=== PATIENT | female | born 1950 | race Caucasian/White ===

== ENCOUNTER 2016-09-17 11:39 | Observation (INO) ==
[2016-09-17] MEDS ORDERED: Ipratropium/Albuterol Neb 3 ML IH ONE (12:07)
[2016-09-17] MEDS ORDERED: methylPREDNISolone 125 MG/2 ML VIAL IV ONE (12:07)
--- NOTE | 2016-09-17 12:10 | Emergency Department Note ---
Disposition Clinical Impression: Congestive heart failure, Acute exacerbation of chronic obstructive airways disease, Hypoxia Disposition: Admitted As Inpatient Condition: Fair Referrals: Shayy Morse CNP [Primary Care Provider] - Forms: ED Satisfaction Letter Time of Disposition: 12:51 SOB HPI - General Chief Complaint: ED Shortness of Breath/Dyspnea Stated Complaint: JARET Time Seen by Provider: 09/17/16 12:04 Source: patient Mode of arrival: ambulatory Limitations: no limitations Nursing Notes Reviewed: Yes Vital Signs Reviewed: Yes - History of Present Illness This is a 65-year-old female who presents with increased shortness of breath over the last couple weeks getting worse. Patient has had a low pulse oximetry when she first arrived. Patient's family member states she has been a little more confused and she thinks it is because her oxygen levels are dropping. Patient has a history of COPD and CHF. Patient normally wears 2 L of oxygen at home but has been increasing it to 4 L. Patient has had a mild cough. Patient denies any measured fevers. Patient states her chest feels tight. Pt Subjective Complaint: shortness of breath Onset (ago): week(s) (2) - Related Data Home Medications Medication Instructions Recorded Confirmed Albuterol Sulfate [Proair 90 mcg IH QID 09/05/15 09/17/16 Respiclick] Budesonide/Formoterol 160/4.5 1 puff IH DAILY 09/05/15 09/17/16 [Symbicort 160/4.5] Butalb/Acetaminophen/Caffeine 1 each PO BID PRN 09/05/15 09/17/16 [Fioricet 50-300-40 mg Capsule] Cetirizine HCl [Zyrtec] 20 mg PO QPM 09/05/15 09/17/16 GuaiFENesin ER [Mucinex] 600 mg PO BID 09/05/15 09/17/16 Omeprazole [PriLOSEC] 20 mg PO DAILY 09/05/15 09/17/16 Primidone [Mysoline] 50 mg PO HS 09/05/15 09/17/16 Roflumilast [Daliresp] 500 mcg PO DAILY 09/05/15 09/17/16 Tiotropium [Spiriva] 18 mcg IH 0700 09/05/15 09/17/16 TraZODone 100 mg PO HS 09/05/15 09/17/16 Albuterol Neb [Proventil Neb] 2.5 mg IH QID PRN 11/21/15 09/17/16 Cyclobenzaprine [Flexeril] 10 mg PO BID 03/05/16 09/17/16 LORazepam [Ativan] 0.5 mg PO Q12H 03/05/16 09/17/16 Nac 600 mg PO Q12H 03/05/16 09/17/16 Oxygen 2 - 3 l PO DAILY 03/05/16 09/17/16 Paroxetine [Paxil] 20 mg PO DAILY 06/19/16 09/17/16 Previous Rx's Medication Instructions Recorded Alprazolam [Xanax 0.5 MG Tablet] 0.5 mg PO TID PRN #45 tablet 01/01/16 PredniSONE [Prednisone] 10 mg PO DAILY #0 01/01/16 Megestrol Acetate [Megace] 800 mg PO DAILY #600 mls 06/19/16 PredniSONE 20 mg PO DAILY #15 tablet 09/17/16 Allergies Allergy/AdvReac Type Severity Reaction Status Date / Time morphine AdvReac Itching Verified 09/17/16 13:00 All systems ED: reviewed and negative except as stated. Constitutional: Denies: fever, chills, weakness, weight change Eyes: Denies: eye pain, eye discharge, vision change ENT ED: Denies: ear pain, throat pain, dental pain, hearing loss, epistaxis, congestion, dysphagia Cardiovascular: Reports: chest pain. Denies: palpitations, dyspnea on exertion , edema, syncope Respiratory: Reports: cough, dyspnea, wheezes. Denies: hemoptysis, stridor Gastrointestinal: Denies: abdominal pain, nausea, vomiting, diarrhea, constipation, hematemesis, melena, hematochezia Genitourinary: Denies: dysuria, frequency, hematuria, discharge Musculoskeletal: Denies: back pain, neck pain, arthralgia, myalgia Integumentary: Denies: rash, abrasion, lesions Neurological: Reports: confusion. Denies: headache, weakness, numbness, paresthesias, abnormal gait, vertigo Psychiatric: Denies: anxiety, depression, suicidal thoughts, homicidal thoughts , auditory hallucinations, visual hallucinations Endocrine: Denies: fatigue Hematological/Lymphatic: Denies: easy bleeding, easy bruising Allergic/Immunologic: Denies: facial swelling, urticaria Past Medical History - Past Medical History Attestation: Yes The following information was validated with the patient. Source: patient Medical history: Reports: arthritis, cancer, CHF, COPD, DVT, GERD, other Surgical history: Reports: appendectomy, hysterectomy Psychiatric history: Reports: anxiety, depression - Social History Smoking Status: Current every day smoker Smokeless Tobacco Status: No Alcohol use: Reports: none Drug use: Reports: none Physical Exam - General Limitations: no limitations General appearance: alert, in no apparent distress - Head Head exam: atraumatic, normocephalic, normal inspection - Eye Eye exam: Present: normal appearance, PERRL, EOMI - ENT ENT exam: normal exam, normal oropharynx, mucous membranes moist - Expanded ENT Exam External ear exam: Present: normal external inspection Mouth exam: Present: normal external inspection Teeth exam: Present: normal inspection Throat exam: Present: normal inspection - Neck Neck exam: Present: normal inspection, full ROM, trachea midline - Chest Chest inspection: Present: normal inspection, symmetric chest wall rise - Respiratory Respiratory exam: Present: wheezes, other (rhonchi) - Cardiovascular Cardiovascular exam: Present: normal rhythm, tachycardia, normal heart sounds - Abdominal Exam Abdominal exam: Present: soft, Non-Tender. Absent: tenderness, distention, guarding, rebound, rigidity - Extremities Exam Extremities exam: Present: normal inspection, full ROM. Absent: tenderness, pedal edema - Expanded Upper Extremity Exam Shoulder exam: Present: normal inspection, full ROM Arm exam: Present: normal inspection, full ROM Elbow exam: Present: normal inspection, full ROM Forearm/Wrist exam: Present: normal inspection, full ROM Hand exam: Present: normal inspection, full ROM Vascular exam: Normal: capillary refill, radial pulse - Expanded Lower Extremity Exam Hip/Pelvis exam: Present: normal inspection, full ROM Upper leg exam: Present: normal inspection, full ROM Knee exam: Present: normal inspection, full ROM Lower leg exam: Present: normal inspection, full ROM Ankle exam: Present: normal inspection, full ROM Foot/toe exam: Present: normal inspection, full ROM Neurovascular/Tendon exam: Absent: motor deficit, sensory deficit, tendon deficit - Back Exam Back exam: Present: normal inspection, full ROM. Absent: tenderness - Neurological Exam Neurological exam: Present: alert, oriented X3 - Expanded Neurological Exam Patient oriented to: Present: person, place, time Coma Scale Eye Opening: Spontaneous Coma Scale Motor Response: Obeys Commands Coma Scale Verbal Response: Oriented Coma Scale Total: 15 - Psychiatric Psychiatric exam: Present: normal affect, normal mood - Skin Skin exam: Present: warm, dry, intact, normal color Course - Consultations Consultation #1: I spoke with Dr. Coco munson to admit. Time: 13:01 Vital Signs Temperature 98.4 F 09/17/16 11:44 Pulse Rate 103 09/17/16 11:44 Respiratory Rate 20 09/17/16 11:44 Blood Pressure 155/83 09/17/16 11:44 O2 Sat by Pulse Oximetry 96 09/17/16 11:44 Temperature 98.4 F 09/17/16 11:44 Pulse Rate 100 09/17/16 12:33 Respiratory Rate 18 09/17/16 12:33 Blood Pressure 126/75 09/17/16 12:33 O2 Sat by Pulse Oximetry 100 09/17/16 12:33 Oxygen Delivery Oxygen Delivery Bipap Shortness of Breath/Dyspnea - Medical Records Medical records reviewed: Yes I reviewed the patient's medical records. - Lab Data Lab results reviewed: Yes I reviewed the patient's lab results. Result diagrams: 09/17/16 12:04 09/17/16 12:04 Lab Results 09/17/16 09/17/16 09/17/16 Range/Units 12:04 12:04 12:04 WBC 13.2 H (4.3-11.1) K/mcL RBC 4.33 (3.82-4.97) M/mcL Hgb 13.4 (11.5-15.4) g/dL Hct 41.6 (35.3-44.9) % MCV 96.1 (83.0-100.0) fL MCH 30.9 (28.0-33.3) pg MCHC 32.2 (31.6-35.5) g/dL RDW 12.1 (11.5-14.5) % Plt Count 225 (140-400) K/mcL MPV 10.8 (9.4-12.4) fL Immature Gran % 0.4 (0-4) % Seg Neutrophils % 77.4 % Lymphocytes % 13.0 % Monocytes % 8.2 % Eosinophils % 0.5 % Basophils % 0.5 % Neutrophils # 10.2 H (1.6-8.9) K/mcL Lymphocytes # 1.7 (0.6-4.6) K/mcL Monocytes # 1.1 (0.0-1.3) K/mcL Eosinophils # 0.1 (0.0-0.6) K/mcL Basophils # 0.1 (0.0-0.2) K/mcL PT 12.4 H (9.4-12.1) Seconds INR 1.1 APTT 32.0 (26.0-36.0) Seconds D-Dimer 524 H (0-500) ng/mLFEU Sodium 143 (136-145) mEq/L Potassium 3.8 (3.5-4.5) mEq/L Chloride 95 L (98-109) mEq/L Carbon Dioxide 38 H (19-29) mEq/L BUN 16 (7-20) mg/dL Creatinine 0.68 (0.57-1.11) mg/dL Est GFR ( Amer) > 60 (> 60) Est GFR (Non-Af Amer) > 60 (> 60) BUN/Creatinine Ratio 24 (6-26) Glucose 120 H (70-99) mg/dL Calculated Osmolality 298 (280-300) Calcium 9.6 (8.6-10.8) mg/dL Troponin I (0-0.03) ng/mL B-Natriuretic Peptide (0-100) pg/mL 09/17/16 09/17/16 Range/Units 12:04 12:04 WBC (4.3-11.1) K/mcL RBC (3.82-4.97) M/mcL Hgb (11.5-15.4) g/dL Hct (35.3-44.9) % MCV (83.0-100.0) fL MCH (28.0-33.3) pg MCHC (31.6-35.5) g/dL RDW (11.5-14.5) % Plt Count (140-400) K/mcL MPV (9.4-12.4) fL Immature Gran % (0-4) % Seg Neutrophils % % Lymphocytes % % Monocytes % % Eosinophils % % Basophils % % Neutrophils # (1.6-8.9) K/mcL Lymphocytes # (0.6-4.6) K/mcL Monocytes # (0.0-1.3) K/mcL Eosinophils # (0.0-0.6) K/mcL Basophils # (0.0-0.2) K/mcL PT (9.4-12.1) Seconds INR APTT (26.0-36.0) Seconds D-Dimer (0-500) ng/mLFEU Sodium (136-145) mEq/L Potassium (3.5-4.5) mEq/L Chloride (98-109) mEq/L Carbon Dioxide (19-29) mEq/L BUN (7-20) mg/dL Creatinine (0.57-1.11) mg/dL Est GFR ( Amer) (> 60) Est GFR (Non-Af Amer) (> 60) BUN/Creatinine Ratio (6-26) Glucose (70-99) mg/dL Calculated Osmolality (280-300) Calcium (8.6-10.8) mg/dL Troponin I 0.00 (0-0.03) ng/mL B-Natriuretic Peptide 14 (0-100) pg/mL - Radiology Data Radiology results reviewed: Yes I reviewed the patient's radiology results. - EKG Data EKG attestation: Yes I reviewed and interpreted this EKG. EKG shows normal: Reports: sinus rhythm Rate: Reports: normal Rhythm: Reports: NSR [place]/QRS: Reports: normal Interpretation: Reports: nonspecific ST-T wave changes, other (rough tracing)
[2016-09-17 12:12] LABS: Basophils # 0.1 K/mcL (0.0-0.2); Basophils % 0.5 %; Eosinophils # 0.1 K/mcL (0.0-0.6); Eosinophils % 0.5 %; Hematocrit 41.6 % (35.3-44.9); Hemoglobin 13.4 g/dL (11.5-15.4); Immature Granulocytes % 0.4 % (0-4); Lymphocytes # 1.7 K/mcL (0.6-4.6); Mean Corpuscular HGB Conc 32.2 g/dL (31.6-35.5); Mean Corpuscular Hemoglobin 30.9 pg (28.0-33.3); Mean Corpuscular Volume 96.1 fL (83.0-100.0); Mean Platelet Volume 10.8 fL (9.4-12.4); Monocytes # 1.1 K/mcL (0.0-1.3); Monocytes % 8.2 %; Neutrophils # 10.2 K/mcL (1.6-8.9); Platelet Count 225 K/mcL (140-400); Red Blood Count 4.33 M/mcL (3.82-4.97); Red Cell Distribution Width 12.1 % (11.5-14.5); Segmented Neutrophils % 77.4 %
[2016-09-17 12:19] LABS: INR 1.1; Prothrombin Time 12.4 Seconds (9.4-12.1)
[2016-09-17 12:25] LABS: BUN/Creatinine Ratio 24 (6-26); Blood Urea Nitrogen 16 mg/dL (7-20); Calcium 9.6 mg/dL (8.6-10.8); Carbon Dioxide 38 mEq/L (19-29); Chloride 95 mEq/L (98-109); Glucose 120 mg/dL (70-99); Osmolality,Calculated 298 (280-300); Potassium 3.8 mEq/L (3.5-4.5); Sodium 143 mEq/L (136-145); eGFR For African Americans > 60 (> 60); eGFR For Non-African Americans > 60 (> 60)
[2016-09-17] MEDS ORDERED: Levofloxacin 750 MG/150 ML 750 MG/150 ML BAG IVPB ONE (12:51)
[2016-09-17 13:23] LABS: VBG HCO3 46.8 mEq/L (21-27); VBG PH 7.27 pH Units (7.32-7.42)
[2016-09-17] MEDS ORDERED: Naloxone 0.4 MG/ML INJ IVP PRN (14:23)
[2016-09-17] MEDS ORDERED: Acetaminophen/Butalbital/CaffeineTABLET PO PRN (14:25)
[2016-09-17] MEDS ORDERED: NON-FORMULARY MEDICATION 1 EACH EACH (Trazodone Hcl [Trazodone Hcl] 200 MG) PO PRN (14:25)
[2016-09-17] MEDS ORDERED: ALPRAZolam 1 MG TABLET PO PRN (14:25)
[2016-09-17] MEDS ORDERED: Ipratropium/Albuterol Neb 3 ML IH PRN (14:27)
[2016-09-17] MEDS ORDERED: traZODone 50 MG TABLET PO PRN (14:30)
[2016-09-17] MEDS ORDERED: Nicotine 7 MG PATCH.TD24 TD PRN (14:59)
--- NOTE | 2016-09-17 15:20 | Internal Med History&Physical ---
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 Her sister/POA states the patient has a living will and she will bring the paper work to the hospital. (2) Lung mass Current visit: Yes Status: Acute -s/p radiation therapy in November 2015 -Patient had a follow up with Rad/Oncologist Dr. Johnston today and reports of no progression of disease (3) Congestive heart failure Current visit: Yes Status: Acute -Not in acute exacerbation -will continue to monitor -Not on any home medications consistent with CHF, no echo report available either -will obtain 2D echo Qualifiers: Congestive heart failure type: unspecified congestive heart failure type Congestive heart failure chronicity: unspecified congestive heart failure chronicity Qualified Code(s): I50.9 - Heart failure, unspecified (4) Cigarette smoker Current visit: Yes Status: Acute -Extensive smoking cessation counseling provided -states she is trying to quit but not ready at this time -nicotine replacement therapy provided (5) DVT prophylaxis Current visit: Yes Status: Acute -Heparin SQ Internal Medicine - H&P: HPI Chief complaint: shortness of breath Admitted From: Home Plans for Post Hospital Care: Transfer Assisted Facility History of present illness: Ms. Holland is a 65 year old female with PMH of COPD on home oxygen, asthma, CHF, and RUL lung mass s/p radiation who presents to the ER for worsening shortness of breath. Patient's sister/POA is present at bedside. Patient was seen by her Rad/Oncologist earlier today for a follow up in her RUL lung mass which has been stable however she was made aware of the significance of her lung disease. As per sister, patient has been requiring increased O2 supplementation daily for the last three weeks and she continues to smoke. Patient lives alone and her family helps her with her groceries. Patient is able to drive and take care of her daily ADLs. Currently she is saturating well on bipap and reports of feeling better. Denies any sore throat, cough, chest pain, abd pain, n/v, fever , or chills at this time. Past Med Surg Social Fam HX - Past Medical History Medical history: arthritis, cancer, CHF, COPD, DVT, GERD, other Psychiatric history: anxiety, depression - Past Surgical History Surgical History: appendectomy, hysterectomy - Social History Smoking Status: Current every day smoker Smokeless Tobacco Status: No Alcohol use: none Drug use: none - Family History Father Living Status: Still Living Hx Family Cardiac Disorders: Yes (irregular heart beat in need of pacemaker) Hx Family Respiratory Disorders: Yes (congestion, takes nebulizers) Sister Hx Family Cancer: Yes (breast cancer) Internal Medicine - H&P: Meds Albuterol Sulfate [Proair Respiclick] 2 puff IH QID PRN 09/05/15 [History] Budesonide/Formoterol 160/4.5 [Symbicort 160/4.5] 1 puff IH DAILY 09/05/15 [ History] Butalb/Acetaminophen/Caffeine [Fioricet 50-300-40 mg Capsule] 1 each PO BID PRN 09/05/15 [History] Cetirizine HCl [Zyrtec] 20 mg PO QPM 09/05/15 [History] GuaiFENesin ER [Mucinex] 600 mg PO BID 09/05/15 [History] Omeprazole [PriLOSEC] 20 mg PO DAILY 09/05/15 [History] Primidone [Mysoline] 50 mg PO HS 09/05/15 [History] Roflumilast [Daliresp] 500 mcg PO DAILY 09/05/15 [History] Tiotropium [Spiriva] 18 mcg IH 0700 09/05/15 [History] Albuterol Neb [Proventil Neb] 2.5 mg IH TID PRN 11/21/15 [History] Cyclobenzaprine [Flexeril] 10 mg PO BID PRN 03/05/16 [History] Nac 600 mg PO Q12H 03/05/16 [History] Oxygen 3 - 4 l PO DAILY 03/05/16 [History] Megestrol Acetate [Megace] 800 mg PO DAILY #600 mls 06/19/16 [Rx] Paroxetine [Paxil] 20 mg PO DAILY 06/19/16 [History] Alprazolam [Xanax 1 MG Tablet] 1 mg PO Q8H PRN 09/17/16 [History] Trazodone HCl 200 mg PO HS 09/17/16 [History] Allergies morphine Adverse Reaction (Verified 09/17/16 13:00) Itching All Systems PM: A 10-system review of systems was performed and is negative for pertinent findings except as documented above in the HPI. - Constitutional Constitutional: as per HPI - Constitutional Vitals: Temp Pulse Resp BP Pulse Ox 98.4 F 105 22 100/92 100 09/17/16 11:44 09/17/16 14:39 09/17/16 14:39 09/17/16 14:39 09/17/16 14:39 Internal Med - H&P Results - Labs CBC & Chem 7: 09/17/16 12:04 09/17/16 12:04
[2016-09-17] MEDS: Ipratropium/Albuterol Neb 3 ML IH SCH ×3 (15:57→23:00)
[2016-09-17] MEDS ORDERED: MethylPREDNISolone 40 MG/ML VIAL IVP SCH (16:00)
[2016-09-17] MEDS: *HR* Heparin 5,000 UNIT/ML VIAL SQ SCH (16:54)
[2016-09-17 16:57] LABS: ABG Base Excess 14.5 mEq/L (-2.0 to 3.0); ABG HCO3 44.3 mEQ/L (21-27); ABG Oxygen Saturation 98 % (95-98); ABG PH 7.33 pH Units (7.32-7.45); ABG PO2 120 mmHg (85-104); ABG TCO2 46.9 mEq/L (20-26)
[2016-09-17] MEDS: Loratadine 10 MG TABLET PO SCH (16:57)
[2016-09-17 17:00] LABS: ABG PCO2 84 mmHg (35-45)
[2016-09-17 17:01] LABS: Blood Gas FiO2 40 %
[2016-09-17] MEDS: Primidone 50 MG TABLET PO SCH (20:06)
[2016-09-18] MEDS: Ipratropium/Albuterol Neb 3 ML IH SCH ×6 (04:06→23:13)
[2016-09-18 05:14] LABS: Basophils % 0.1 %; Hematocrit 37.3 % (35.3-44.9); Hemoglobin 12.4 g/dL (11.5-15.4); Immature Granulocytes % 0.3 % (0-4); Lymphocytes # 0.7 K/mcL (0.6-4.6); Lymphocytes % 9.1 %; Mean Corpuscular HGB Conc 33.2 g/dL (31.6-35.5); Mean Corpuscular Hemoglobin 31.2 pg (28.0-33.3); Mean Corpuscular Volume 93.7 fL (83.0-100.0); Monocytes # 0.6 K/mcL (0.0-1.3); Monocytes % 8.3 %; Neutrophils # 6.3 K/mcL (1.6-8.9); Platelet Count 189 K/mcL (140-400); Red Blood Count 3.98 M/mcL (3.82-4.97); Segmented Neutrophils % 82.2 %
[2016-09-18 05:34] LABS: BUN/Creatinine Ratio 34 (6-26); Blood Urea Nitrogen 22 mg/dL (7-20); Calcium 9.2 mg/dL (8.6-10.8); Carbon Dioxide 36 mEq/L (19-29); Chloride 96 mEq/L (98-109); Glucose 101 mg/dL (70-99); Magnesium 1.6 mg/dL (1.6-2.6); Osmolality,Calculated 295 (280-300); Phosphorous 4.1 mg/dL (2.3-4.7); Potassium 4.2 mEq/L (3.5-4.5); Sodium 141 mEq/L (136-145); eGFR For African Americans > 60 (> 60); eGFR For Non-African Americans > 60 (> 60)
[2016-09-18] MEDS: MethylPREDNISolone 40 MG/ML VIAL IVP SCH ×3 (06:09→15:06)
[2016-09-18] MEDS: *HR* Heparin 5,000 UNIT/ML VIAL SQ SCH ×2 (06:09→17:25)
[2016-09-18] MEDS: Budesonide/Formoterol 160/4.5 MDI IH SCH (07:48)
[2016-09-18] MEDS: Megestrol Acetate 400 MG/10 ML UDC PO SCH (08:00)
[2016-09-18] MEDS: Levofloxacin 500 MG/100 ML 500 MG/100 ML BAG IVPB SCH (08:00)
[2016-09-18] MEDS: (Roflumilast [Daliresp] 500 MCG) PO SCH (08:01)
--- NOTE | 2016-09-18 09:11 | Internal Med Progress Note ---
Date of Encounter: 09/18/16 Time of Encounter: 09:09 - Assessment and plan (1) Acute exacerbation of chronic obstructive airways disease Current Visit: Yes Status: Acute (2) Acute respiratory failure with hypoxia Current Visit: No Status: Acute (3) Lung cancer Current Visit: No Status: Acute Assessment and plan: Moderate improvement noted, continue steroids and nebs cont oxygen start to wean steroids tommorrow. continue antibiotics Qualifiers: Laterality: right Lung location: unspecified part of lung Qualified Code( s): C34.91 - Malignant neoplasm of unspecified part of right bronchus or lung - Subjective Interval history: f/u for copd exac, pt reports some overall improvement - Constitutional Vitals: Temp Pulse Resp BP Pulse Ox 98.1 F 87 18 127/86 100 09/18/16 06:00 09/18/16 06:00 09/18/16 07:48 09/18/16 06:00 09/18/16 07:48 General appearance: Present: A&O X 3, no acute distress - Head Head exam: Present: atraumatic, normocephalic - Eye Eye exam: Present: PERRL, conjuntiva pink, sclera anicteric Pupils: Present: PERRL - Neck Neck exam general surgery: Present: supple, trachea midline. Absent: lymphadenopathy - Respiratory Respiratory exam: Present: decreased breath sounds. Absent: accessory muscle use, rales, rhonchi, wheezes - Cardiovascular Cardiovascular exam: Present: RRR, +S1, +S2. Absent: diastolic murmur, gallop, rubs, systolic murmur - GI/Abdominal GI/Abdominal exam: Present: normal bowel sounds, soft, no peritoneal signs. Absent: distended, tenderness - Extremities Exam Extremities exam: Present: warm, radial pulses palpable and symetrical. Absent : calf tenderness, cyanotic, pedal edema - Neurological Exam Neurological exam: Present: CN II-XII intact, oriented X3, no focal deficits. Absent: pronater drift, facial droop, speech deficit - Skin Skin exam: Present: dry, intact Internal Medicine: Result - Labs CBC & Chem 7: 09/18/16 04:44 09/18/16 04:44 Labs: Short CBC 09/18/16 Range/Units 04:44 WBC 7.6 (4.3-11.1) K/mcL Hgb 12.4 (11.5-15.4) g/dL Hct 37.3 (35.3-44.9) % Plt Count 189 (140-400) K/mcL Neutrophils # 6.3 (1.6-8.9) K/mcL BMP 09/18/16 04:44 Sodium 141 Potassium 4.2 Chloride 96 L Carbon Dioxide 36 H BUN 22 H Creatinine 0.65 Glucose 101 H Calcium 9.2 - ABG Interpretation ABG results: ABG ABG pH 7.33 pH Units (7.32-7.45) 09/17/16 16:50 ABG pCO2 84 mmHg (35-45) H* 09/17/16 16:50 ABG pO2 120 mmHg (85-104) H 09/17/16 16:50 ABG O2 Saturation 98 % (95-98) 09/17/16 16:50 PT/INR, D-dimer PT 12.4 Seconds (9.4-12.1) H 09/17/16 12:04 D-Dimer 524 ng/mLFEU (0-500) H 09/17/16 12:04 Consult Discharge Plan - Plan Referrals: Shayy Morse CNP [Primary Care Provider] - 09/25/16 9:45 am
--- NOTE | 2016-09-18 13:07 | ECHO - Doppler Report ---
Echocardiogram Name: Anya Holland Date of Study: 09/18/2016 Date: 1950 Ht: 66.0 in Medical Record#: [id number] Age: 65 Wt: 85.0 lb Gender: Female BSA: 1.39 Order #: [id number] Location: [facility] Room #: 2NE26 Reading Physician: Ally Lizarraga DO [employer] Examiner: Horace Weiss RN Ordering Physician: Lisa Ansari MD Primary Physician: Shayy Morse CNP Indications: Congestive heart failure Impressions: LVEF 60%. Normal left ventricular size and systolic function. There is evidence of mild diastolic dysfunction of the left ventricle. Normal right ventricular size and function. No significant valvular dysfunction. No pulmonary hypertension. Left Ventricular Wall Motion: Rest Echo Findings All wall segments showed normal motion. Findings: Study Quality * Technically adequate exam. ECG Findings * Normal sinus rhythm. Left Atrium * Normal left atrial size. Mitral Valve * No mitral stenosis. * No mitral regurgitation. * Mildly calcified mitral valve leaflets. Aortic Valve * No aortic regurgitation. * Trileaflet aortic valve. * Normal aortic valve structure. * No aortic stenosis. Tricuspid Valve * Normal tricuspid valve structure. * Trace tricuspid regurgitation. * Estimated RA pressure is 3 mmHg. * Estimated RVSP is 22 mmHg. * No pulmonary hypertension. Right Ventricle * Normal right ventricular structure and function. Left Ventricle * LVEF 60%. * Normal LV chamber size, wall thickness and function. * Mild left ventricular diastolic dysfunction. Right Atrium * Normal right atrial size. Pulmonic Valve * Pulmonic valve is not well visualized. * No pulmonic stenosis. * No pulmonic regurgitation. Pulmonary Artery * Normal visualized portions of the main pulmonary artery. IVC * Normal IVC dimensions and inspiratory collapse. Aorta * Normally sized aortic root. Pericardium * There is a trivial pericardial effusion present. Interatrial Septum * No evidence of PFO by color Doppler. History Years 40 Packs 1 Family History of CAD a Previous Echo was performed. Measurements: BP: 127/ 86 2D Normal Values IVSd: 1.20 cm 0.6 - 1.0 cm LVIDd: 3.70 cm 3.7 - 5.6 cm LVPWd: 1.20 cm 0.6 - 1.1 cm LVIDs: 2.30 cm 1.5 - 3.6 cm LA: 2.30 cm 2.0 - 4.0cm %FS: 37.80 cm >25 % LVOT Diam: 2.00 cm LA volume: 49 Mitral Valve Peak E:.78 m/sec Peak A:.99 m/sec E/A Ratio:0.8 Peak E' Lat Rodney:13.5 cm/s Peak E' Med Rodney:9.07 cm/s E/E' Lat Ratio:5.8 E/E' Med Ratio:8.6 Tricuspid Valve TV Regurg Peak Grad: 19.00mmHg TV Regurg Peak Rodney: 2.16m/sec Updated by Ally Lizarraga on 09/18/2016 12:57:54 PM electronically signed on 09/18/2016 1:00:42 PM with status of Final Wall Motion [place]: 1=Normal, 2=Hypokinesis, 3=Akinesis, 4=Dyskinesis, 5=Aneurysmal, 6=Hyperkinetic, X=Not Visualized (Blank)=Missing
--- NOTE | 2016-09-18 14:37 | Electrocardiograph Report ---
[facility] Test Date: 2016-09-17 Pat Name: Anya Holland Department: 102 Room: 2NE26 Gender: F [employer] Process Operator: Kevin : 1950 Requested By: Kenny Reyes Order Number: [id number] Reading MD: Jaimee Sifuentes Measurements Intervals [place] Rate: 98 P: 82 RI: 108 QRS: 89 QRSD: 89 T: 32 QT: 336 QTc: 391 Interpretive Statements SINUS RHYTHM WITH SHORT RI INTERVAL POSSIBLE LEFT ATRIAL ENLARGEMENT [-0.1mV P WAVE IN V1/V2] POSSIBLE RIGHT VENTRICULAR CONDUCTION DELAY [RSR (QR) IN V1/V2] Electronically Signed On 09-18-16 14:26:12 EST by Jaimee Sifuentes
[2016-09-18] MEDS: Loratadine 10 MG TABLET PO SCH (17:25)
[2016-09-18] MEDS: Primidone 50 MG TABLET PO SCH (21:37)
[2016-09-19] MEDS: MethylPREDNISolone 40 MG/ML VIAL IVP SCH ×2 (00:44→10:14)
[2016-09-19] MEDS: Ipratropium/Albuterol Neb 3 ML IH SCH ×3 (03:57→11:32)
[2016-09-19] MEDS: *HR* Heparin 5,000 UNIT/ML VIAL SQ SCH (06:27)
[2016-09-19] MEDS: Budesonide/Formoterol 160/4.5 MDI IH SCH (07:42)
--- NOTE | 2016-09-19 08:36 | Discharge Summary ---
Date of Encounter: 09/19/16 Time of Encounter: 08:28 - Discharge Diagnosis (1) Acute exacerbation of chronic obstructive airways disease Priority: Primary Status: Acute (2) Acute respiratory failure with hypoxia Priority: Secondary Status: Acute (3) Lung cancer Priority: Secondary Status: Acute Qualifiers: Laterality: right Lung location: unspecified part of lung Qualified Code( s): C34.91 - Malignant neoplasm of unspecified part of right bronchus or lung - Discharge Medications Prescriptions: Ipratropium/Albuterol Neb [Duoneb] 3 ml IH [id number] #90 inhsol GuaiFENesin ER [Mucinex] 600 mg PO BID #14 tbbp.12hr Nicotine Patch [Nicoderm] 14 mg TD DAILY PRN #30 patch.td24 PRN Reason: tobacco withdrawal Home Medications: Albuterol Sulfate [Proair Respiclick] 2 puff IH QID PRN 09/05/15 [History] Budesonide/Formoterol 160/4.5 [Symbicort 160/4.5] 1 puff IH DAILY 09/05/15 [ History] Butalb/Acetaminophen/Caffeine [Fioricet 50-300-40 mg Capsule] 1 each PO BID PRN 09/05/15 [History] Cetirizine HCl [Zyrtec] 20 mg PO QPM 09/05/15 [History] Omeprazole [PriLOSEC] 20 mg PO DAILY 09/05/15 [History] Primidone [Mysoline] 50 mg PO HS 09/05/15 [History] Roflumilast [Daliresp] 500 mcg PO DAILY 09/05/15 [History] Tiotropium [Spiriva] 18 mcg IH 0700 09/05/15 [History] Albuterol Neb [Proventil Neb] 2.5 mg IH TID PRN 11/21/15 [History] Cyclobenzaprine [Flexeril] 10 mg PO BID PRN 03/05/16 [History] Nac 600 mg PO Q12H 03/05/16 [History] Oxygen 3 - 4 l PO DAILY 03/05/16 [History] Megestrol Acetate [Megace] 800 mg PO DAILY #600 mls 06/19/16 [Rx] Paroxetine [Paxil] 20 mg PO DAILY 06/19/16 [History] Alprazolam [Xanax 1 MG Tablet] 1 mg PO Q8H PRN 09/17/16 [History] Trazodone HCl 200 mg PO HS 09/17/16 [History] GuaiFENesin ER [Mucinex] 600 mg PO BID #14 tbbp.12hr 09/19/16 [Rx] Ipratropium/Albuterol Neb [Duoneb] 3 ml IH [id number] #90 inhsol 09/19/16 [Rx] Levofloxacin [Levaquin] 500 mg PO DAILY #7 tablet 09/19/16 [Rx] Nicotine Patch [Nicoderm] 14 mg TD DAILY PRN #30 patch.td24 09/19/16 [Rx] PredniSONE 10 mg PO DAILY #30 tablet 09/19/16 [Rx] Allergies/Adverse Reactions: Allergies morphine Adverse Reaction (Verified 09/17/16 13:00) Itching Procedures/tests Complete & Pending: Procedures Performed prior 72 hours Category Date Time Status EV echocardiogram Routine Y 09/18/16 15:29 Completed Date of admission: 09/17/16 13:30 Primary care physician: Shayy Morse CNP - Patient Status Disposition: Home, Self-Care Condition: Good Overall status at discharge: patient is progressing back to baseline - Discharge Instructions Follow Up With: Shayy Morse CNP [Primary Care Provider] - 09/25/16 9:45 am Hospital course: Ms. Holland is a 65 year old female who presented with copd exac and treated with steroids, nebs and abx with improvement. patient will continue home oxygen for which she takes 3-4lpm at night. She has improved clinically and will be discharged in stable condition with continuation of duoneb at home and steroid taper. - Time Spent with Patient Total time spent providing and/or coordinating discharge services: Less than 30 minutes - Constitutional Vitals: Temp Pulse Resp BP Pulse Ox 97.8 F 87 20 107/68 97 09/19/16 04:03 09/19/16 04:03 09/19/16 07:42 09/19/16 04:03 09/19/16 07:42 General appearance: Present: A&O X 3, no acute distress - Head Head exam: Present: atraumatic, normocephalic - Eye Eye exam: Present: PERRL, conjuntiva pink, sclera anicteric Pupils: Present: PERRL - Neck Neck exam general surgery: Present: supple, trachea midline. Absent: lymphadenopathy - Respiratory Respiratory exam: Present: decreased breath sounds, CTAB. Absent: accessory muscle use, rales, rhonchi, wheezes - Cardiovascular Cardiovascular exam: Present: RRR, +S1, +S2. Absent: diastolic murmur, gallop, rubs, systolic murmur - GI/Abdominal GI/Abdominal exam: Present: normal bowel sounds, soft, no peritoneal signs. Absent: distended, tenderness - Extremities Exam Extremities exam: Present: warm, radial pulses palpable and symetrical. Absent : calf tenderness, cyanotic, pedal edema - Neurological Exam Neurological exam: Present: CN II-XII intact, oriented X3, no focal deficits. Absent: pronater drift, facial droop, speech deficit - Skin Skin exam: Present: dry, intact
[2016-09-19] MEDS: Megestrol Acetate 400 MG/10 ML UDC PO SCH (10:13)
[2016-09-19] MEDS: Levofloxacin 500 MG/100 ML 500 MG/100 ML BAG IVPB SCH (10:14)
[2016-09-19] MEDS: (Roflumilast [Daliresp] 500 MCG) PO SCH (10:15)
[2016-09-19 10:59] VITALS: BP 110/69
== END 2016-09-19 14:40 | disposition home or self-care (01) ==
LOC: EMEROO 11:39 → 2NENU 11:39 → SUATTDRO 13:30 → 2NENU 14:29
PROVIDERS: ADMIT Internal Medicine; ATTEND Family Medicine

== ENCOUNTER 2016-10-30 14:38 | Inpatient (IN) ==
[2016-10-30] MEDS ORDERED: methylPREDNISolone 125 MG/2 ML VIAL IVP ONE (14:46)
[2016-10-30] MEDS ORDERED: Ipratropium/Albuterol Neb 3 ML IH ONE (14:46)
--- NOTE | 2016-10-30 15:13 | Emergency Department Note ---
START Narrative - START START: I examined this patient and my medical decision-making was reviewed with the SKEIN WASHER/PA/Advanced Practice Nurse/Resident Physician. I agree with the documented findings, disposition and treatment plan as described except to the extent set forth below. ED attending note: Patient seen with emergency medicine resident Dr Stafford. We independently evaluated the patient. We independently had [id number] contact with the patient. Please see a copy of his note for details of the history and physical, evaluation, management and disposition of this emergency Department patient. Briefly: A 66-year-old female cachectic in appearance end-stage COPD via EMS for increasing shortness of breath. Patient has poor air movement bilaterally slightly confused. Concerned about hypercarbia. Patient to get a triple to an abscess and then BiPAP. Admission anticipated. Provided 45 minutes of critical care service for this patient.
--- NOTE | 2016-10-30 15:33 | Emergency Department Note ---
Disposition Clinical Impression: Acute exacerbation of chronic obstructive pulmonary disease (COPD), Leukocytosis, Failure to thrive Disposition: Admitted As Inpatient Condition: Fair Referrals: Shayy Morse CNP [Primary Care Provider] - Forms: ED Satisfaction Letter SOB HPI - General Chief Complaint: ED Shortness of Breath/Dyspnea Stated Complaint: SOB Time Seen by Provider: 10/30/16 14:46 Source: patient, EMS Limitations: no limitations Nursing Notes Reviewed: Yes Vital Signs Reviewed: Yes - History of Present Illness 66-year-old female with a history of oxygen-dependent COPD, diastolic CHF, right -sided lung mass with radiation in 2016 presents to the emergency department with dyspnea. She states it began today and has been progressive. She has been requiring more oxygen at home. She normally wears 4 L. She denies any chest pain or pressure. Denies any history of coronary disease. Denies any lower extremity swelling or calf pain. No history of DVT or PE. No fevers or chills. Dry cough. She reports multiple admissions for COPD exacerbation. - Related Data Home Medications Medication Instructions Recorded Confirmed Albuterol Sulfate [Proair 2 puff IH QID PRN 09/05/15 10/30/16 Respiclick] Budesonide/Formoterol 160/4.5 1 puff IH DAILY 09/05/15 10/30/16 [Symbicort 160/4.5] Butalb/Acetaminophen/Caffeine 1 each PO BID PRN 09/05/15 10/30/16 [Fioricet 50-300-40 mg Capsule] Cetirizine HCl [Zyrtec] 20 mg PO QPM 09/05/15 10/30/16 Omeprazole [PriLOSEC] 20 mg PO DAILY 09/05/15 10/30/16 Primidone [Mysoline] 50 mg PO HS 09/05/15 10/30/16 Roflumilast [Daliresp] 500 mcg PO DAILY 09/05/15 10/30/16 Tiotropium [Spiriva] 18 mcg IH 0700 09/05/15 10/30/16 Albuterol Neb [Proventil Neb] 2.5 mg IH TID PRN 11/21/15 10/30/16 Cyclobenzaprine [Flexeril] 10 mg PO BID PRN 03/05/16 10/30/16 Oxygen 3 - 4 l PO DAILY 03/05/16 10/30/16 Paroxetine [Paxil] 20 mg PO DAILY 06/19/16 10/30/16 Alprazolam [Xanax 1 MG Tablet] 1 mg PO Q8H PRN 09/17/16 10/30/16 Trazodone HCl 200 mg PO HS 09/17/16 10/30/16 Acetylcysteine 600 mg PO Q12H 10/30/16 10/30/16 [J-Ytkohv-q-Cysteine] GuaiFENesin ER [Mucinex] 600 mg PO BID PRN 10/30/16 10/30/16 Previous Rx's Medication Instructions Recorded Megestrol Acetate [Megace] 800 mg PO DAILY #600 mls 10/02/16 Allergies Allergy/AdvReac Type Severity Reaction Status Date / Time morphine AdvReac Itching Verified 09/17/16 13:00 All systems ED: reviewed and negative except as stated. Constitutional: Denies: fever, chills Cardiovascular: Reports: dyspnea on exertion. Denies: chest pain Respiratory: Reports: cough, dyspnea Gastrointestinal: Denies: abdominal pain, nausea, vomiting Musculoskeletal: Denies: back pain, neck pain Neurological: Denies: headache Past Medical History - Past Medical History Medical history: Reports: arthritis, cancer, CHF, COPD, DVT, GERD, other Surgical history: Reports: appendectomy, hysterectomy Psychiatric history: Reports: anxiety, depression - Social History Smoking Status: Current some day smoker Smokeless Tobacco Status: No Alcohol use: Reports: none Drug use: Reports: none Physical Exam General: Cachectic appearing female, speaking in short sentences. Appears somewhat confused Cardiovascular: Regular rate and rhythm. S1, S2. No murmurs, rubs or gallops. Respiratory: Diminished breath sounds bilaterally with poor air movement. Scant expiratory wheezing. Breathing around 28 times per minute. Moderate respiratory distress. Abdomen: Soft, nontender. No guarding, rebound or rigidity. Eyes: Pupils equally round and reactive to light, extraocular muscles intact, conjunctiva clear HENT: No oral mucosal lesions. Moist mucous membranes Neuro: No motor or sensory deficits Musculoskeletal: No joint tenderness or swelling. There is no redness, swelling , edema, tenderness, asymmetry, pain along the venous system or any other sign of DVT. Skin: Dry skin throughout. Normal color. No diaphoresis. Psych: Appropriate - General Limitations: no limitations General appearance: alert Course Course Narrative: Presents to emergency department with dyspnea. Patient responded well to nasal cannula at 5 L as well as a triple DuoNeb treatment. She has a known history of COPD and continuously was oxygen at home. She was admitted about a month and a half ago for COPD exacerbation. Her EKG shows no acute ischemic changes. No elevation in her troponin or BNP. Chest x-ray shows emphysema but nothing acute. White blood cell count came back quite elevated at 37. She has not had an elevated white count like this in the past and she has no elevation in her other cell lines. Her daughter states she has been occasionally confused which has been going on for months. She also refuses to eat and is losing weight. Patient does appear cachectic. She has been on TPN in the past because of decreased caloric intake. 1658: I discussed with the on-call hospitalist, Dr. Michel who accepts for admission, no further orders at this time. Vital Signs Temperature 98.2 F 10/30/16 14:40 Pulse Rate 99 10/30/16 14:40 Respiratory Rate 24 10/30/16 14:40 Blood Pressure 115/68 10/30/16 14:40 O2 Sat by Pulse Oximetry 98 10/30/16 14:40 Temperature 98.2 F 10/30/16 14:40 Pulse Rate 97 10/30/16 15:40 Respiratory Rate 24 10/30/16 15:40 Blood Pressure 124/65 10/30/16 15:40 O2 Sat by Pulse Oximetry 100 10/30/16 15:40 Oxygen Delivery Oxygen Delivery Nasal Cannula Shortness of Breath/Dyspnea - Lab Data Result diagrams: 10/30/16 16:01 10/30/16 16:01 Lab Results 10/30/16 10/30/16 10/30/16 Range/Units 16:01 16:01 16:01 WBC 37.0 H* (4.3-11.1) K/mcL RBC 3.92 (3.82-4.97) M/mcL Hgb 12.2 (11.5-15.4) g/dL Hct 37.4 (35.3-44.9) % MCV 95.4 (83.0-100.0) fL MCH 31.1 (28.0-33.3) pg MCHC 32.6 (31.6-35.5) g/dL RDW 12.7 (11.5-14.5) % Plt Count 343 (140-400) K/mcL MPV 9.7 (9.4-12.4) fL Immature Gran % 1.5 (0-4) % Seg Neutrophils % 92.3 % Lymphocytes % 2.3 % Monocytes % 3.6 % Eosinophils % 0.1 % Basophils % 0.2 % Neutrophils # 34.2 H (1.6-8.9) K/mcL Lymphocytes # 0.9 (0.6-4.6) K/mcL Monocytes # 1.3 (0.0-1.3) K/mcL Eosinophils # 0.0 (0.0-0.6) K/mcL Basophils # 0.1 (0.0-0.2) K/mcL Platelet Estimate Normal (Normal) Sodium 139 (136-145) mEq/L Potassium 4.0 (3.5-4.5) mEq/L Chloride 93 L (98-109) mEq/L Carbon Dioxide 37 H (19-29) mEq/L BUN 18 (7-20) mg/dL Creatinine 0.58 (0.57-1.11) mg/dL Est GFR ( Amer) > 60 (> 60) Est GFR (Non-Af Amer) > 60 (> 60) BUN/Creatinine Ratio 31 H (6-26) Glucose 111 H (70-99) mg/dL Calculated Osmolality 291 (280-300) Calcium 9.3 (8.6-10.8) mg/dL Troponin I 0.00 (0-0.03) ng/mL B-Natriuretic Peptide (0-100) pg/mL 10/30/16 Range/Units 16:01 WBC (4.3-11.1) K/mcL RBC (3.82-4.97) M/mcL Hgb (11.5-15.4) g/dL Hct (35.3-44.9) % MCV (83.0-100.0) fL MCH (28.0-33.3) pg MCHC (31.6-35.5) g/dL RDW (11.5-14.5) % Plt Count (140-400) K/mcL MPV (9.4-12.4) fL Immature Gran % (0-4) % Seg Neutrophils % % Lymphocytes % % Monocytes % % Eosinophils % % Basophils % % Neutrophils # (1.6-8.9) K/mcL Lymphocytes # (0.6-4.6) K/mcL Monocytes # (0.0-1.3) K/mcL Eosinophils # (0.0-0.6) K/mcL Basophils # (0.0-0.2) K/mcL Platelet Estimate (Normal) Sodium (136-145) mEq/L Potassium (3.5-4.5) mEq/L Chloride (98-109) mEq/L Carbon Dioxide (19-29) mEq/L BUN (7-20) mg/dL Creatinine (0.57-1.11) mg/dL Est GFR ( Amer) (> 60) Est GFR (Non-Af Amer) (> 60) BUN/Creatinine Ratio (6-26) Glucose (70-99) mg/dL Calculated Osmolality (280-300) Calcium (8.6-10.8) mg/dL Troponin I (0-0.03) ng/mL B-Natriuretic Peptide 45 (0-100) pg/mL - EKG Data EKG results narrative: EKG shows a sinus rhythm with a rate of [address] elevation or depression. No ischemic T-wave changes. Normal R-wave progression. Normal axis. There is a premature ventricular contraction. Previous EKG on 09/17/2016 shows similar wave morphology without any acute ischemic changes
[2016-10-30 16:09] LABS: Basophils % 0.2 %; Eosinophils % 0.1 %
[2016-10-30 16:10] LABS: Basophils # 0.1 K/mcL (0.0-0.2); Hematocrit 37.4 % (35.3-44.9); Hemoglobin 12.2 g/dL (11.5-15.4); Immature Granulocytes % 1.5 % (0-4); Lymphocytes # 0.9 K/mcL (0.6-4.6); Lymphocytes % 2.3 %; Mean Corpuscular HGB Conc 32.6 g/dL (31.6-35.5); Mean Corpuscular Hemoglobin 31.1 pg (28.0-33.3); Mean Corpuscular Volume 95.4 fL (83.0-100.0); Mean Platelet Volume 9.7 fL (9.4-12.4); Monocytes # 1.3 K/mcL (0.0-1.3); Monocytes % 3.6 %; Platelet Count 343 K/mcL (140-400); Red Blood Count 3.92 M/mcL (3.82-4.97); Red Cell Distribution Width 12.7 % (11.5-14.5); Segmented Neutrophils % 92.3 %
[2016-10-30 16:14] LABS: Neutrophils # 34.2 K/mcL (1.6-8.9)
[2016-10-30 16:20] LABS: BUN/Creatinine Ratio 31 (6-26); Blood Urea Nitrogen 18 mg/dL (7-20); Calcium 9.3 mg/dL (8.6-10.8); Carbon Dioxide 37 mEq/L (19-29); Chloride 93 mEq/L (98-109); Glucose 111 mg/dL (70-99); Osmolality,Calculated 291 (280-300); Sodium 139 mEq/L (136-145); eGFR For African Americans > 60 (> 60); eGFR For Non-African Americans > 60 (> 60)
[2016-10-30] MEDS ORDERED: Levofloxacin 750 MG/150 ML 750 MG/150 ML BAG IVPB ONE (16:30)
[2016-10-30 16:44] LABS: Platelet Estimate Normal (Normal)
[2016-10-30 17:13] LABS: Bilirubin,Urine Negative (Negative); Blood,Urine Large (Negative); Clarity,Urine Clear (Clear); Color,Urine Dark Yellow (Yellow); Glucose,Urine (UA) Normal (Normal); Ketones,Urine Trace mg/dL (Negative); Leukocyte Esterase,Urine Small (Negative); Nitrite,Urine Negative (Negative); PH,Urine 5.5 pH Units (5.0-8.0); Protein,Urine 100 mg/dL (Neg-Trace); Specific Gravity,Urine 1.028 (1.010-1.025); Urobilinogen,Urine Normal (Normal)
[2016-10-30 17:16] LABS: Bacteria,Urine None Seen per hpf (None-Few); Hyaline Casts,Urine Few per lpf (None-Few); Squamous Epithelial Cell,Urine Many per lpf (None-Few); WBC,Urine 15-30 per hpf (0-3)
[2016-10-30 17:30] LABS: Calcium Oxalate Crystals,Urine Present; RBC,Urine 30-50 per hpf (0-3); Yeast,Urine Few per hpf (None Seen)
[2016-10-30] MEDS ORDERED: Naloxone 0.4 MG/ML INJ IVP PRN (20:36)
[2016-10-30] MEDS ORDERED: Acetaminophen 325 MG TABLET PO PRN (20:36)
[2016-10-30] MEDS ORDERED: Ipratropium/Albuterol Neb 3 ML IH STA (20:40)
[2016-10-30] MEDS: Ipratropium/Albuterol Neb 3 ML IH SCH ×2 (21:09→22:04)
[2016-10-30] MEDS ORDERED: *HR* Enoxaparin 40 MG/0.4 ML SYRINGE SQ STA (21:12)
[2016-10-30 21:13] LABS: ABG Base Excess 15.4 mEq/L (-2.0 to 3.0); ABG HCO3 44.2 mEQ/L (21-27); ABG Oxygen Saturation 95 % (95-98); ABG PH 7.35 pH Units (7.32-7.45); ABG PO2 80 mmHg (85-104); ABG TCO2 46.7 mEq/L (20-26)
[2016-10-30 21:14] LABS: Blood Gas FiO2 44 %
[2016-10-30 21:15] LABS: ABG PCO2 80 mmHg (35-45)
--- NOTE | 2016-10-30 21:45 | Internal Med History&Physical ---
<Raegan Alcocer - Last Filed: 10/30/16 21:51> Date of Encounter: 10/30/16 Time of Encounter: 20:00 Assessment and Plan (1) Acute respiratory distress Current visit: Yes Status: Acute 1 patient is tachypneic Utilizing accessory muscles- patient given duo nebs increased oxygen resp status improved. We will continue with duo nebs and oxygen titrated to maintain SPO2 greater than 92% 2 we will monitor ABG-BiPAP as needed 3 steroids IV to taper 4 Will obtain CTA rule out possible PE-she has past history DVT/ as well as history of malignancy- sudden onset of shortness of breath as well as some intermittent chest pain 5 we will give Lovenox 1mg/kg once/until CTA resulted (2) Acute exacerbation of chronic obstructive pulmonary disease (COPD) Current visit: Yes Status: Acute 1 continue with DuoNeb's as well as oxygen to maintain SPO2 greater than 92% 2 IV steroids to taper 3 continue with Singulair-we will hold dailresp and resume once back to baseline (3) Leukocytosis Current visit: Yes Status: Acute 1 patient's white counts 37 which upon review of records is the highest recorded. Patient denies any recent steroid use. We will obtain blood cultures patient was given Levaquin and will add vancomycin. We will continue to monitor white count- UA is negative for UTI-chest x-ray with no signs of infiltrate-we will swab for influenza Qualifiers: Leukocytosis type: unspecified Qualified Code(s): D72.829 - Elevated white blood cell count, unspecified (4) Cigarette smoker Current visit: No Status: Acute 1 encouraged patient to stop smoking states she is down to 3 cigarettes a day (5) Congestive heart failure Current visit: No Status: Acute 1 echo obtained September 2016 EF of 60% with some mild diastolic heart failure 2 we will monitor intake and output/daily weights/ 3 low sodium diet Qualifiers: Congestive heart failure type: diastolic Congestive heart failure chronicity: chronic Qualified Code(s): I50.32 - Chronic diastolic (congestive ) heart failure (6) DVT prophylaxis Current visit: No Status: Acute 1. Administer Lovenox 1mg/kg -awaiting CTA results-continue Lovenox at DVT prophylaxis if CTA negative (7) Lung mass Current visit: No Status: Acute 1 patient being followed by oncology will continue as outpatient in consultation needed (8) Protein-calorie malnutrition, severe Current visit: No Status: Chronic 1. Dietary consult- patient is on Megace will continue Internal Medicine - H&P: HPI Chief complaint: SOB Admitted From: Emergency Dept History of present illness: Ms. Holland is a 66 year old female with past medical history of COPD oxygen dependent, DVT diastolic heart failure, DVT right-sided lung mass with radiation in 2016. History obtained from medical records as well as patient. Patient has been experiencing increasing shortness of breath without relief from albuterol treatments she has been requiring increased oxygen normally wears 4 L nasal cannula at home. She denies any fevers chills nausea vomiting diarrhea or sick contacts. Patient states she became anxious and was transported to ER for evaluation. According to ER records upon arrival the patient appeared to be in respiratory distress she was tachypneic using accessory muscles. She was given triple duo neb and oxygen increased to 5 L nasal cannula which did improve her breathing somewhat. Patient was given IV Solu-Medrol. Lab work revealed elevated white count of 37 patient denies any recent steroid use. Chest x-ray indicative of chronic pulmonary disease. She was given IV Levaquin and has been admitted for further workup and evaluation. Presently the patient appears to be in mild respiratory distress she can only speak in short sentences, utilizing accessory muscles. Auscultation patient has diminished breath sounds bilaterally with poor air movement, with occasional expiratory wheeze. Patient denies any chest pain at this time however does admit to intermittent chest pains 5 days ago. During our conversation patient's makes inappropriate statements; stating that she sees small children/dark figures running up and down the hallway as well as repeatedly asking if her sister is in the hallway. Presently oxygen 5 L nasal cannula SPO2 is 96%. I reviewed case with Dr. Jay, he evaluated the patient-labs ABGs CTA chest have been ordered. Past Med Surg Social Fam HX - Past Medical History Medical history: arthritis, cancer, CHF, COPD, DVT, GERD, other Psychiatric history: anxiety, depression - Past Surgical History Surgical History: appendectomy, hysterectomy - Social History Smoking Status: Current some day smoker Smokeless Tobacco Status: No Alcohol use: none Drug use: none - Family History Father Living Status: Still Living Hx Family Cardiac Disorders: Yes (irregular heart beat in need of pacemaker) Hx Family Respiratory Disorders: Yes (congestion, takes nebulizers) Sister Hx Family Cancer: Yes (breast cancer) Internal Medicine - H&P: Meds Albuterol Sulfate [Proair Respiclick] 2 puff IH QID PRN 09/05/15 [History] Budesonide/Formoterol 160/4.5 [Symbicort 160/4.5] 1 puff IH DAILY 09/05/15 [ History] Butalb/Acetaminophen/Caffeine [Fioricet 50-300-40 mg Capsule] 1 each PO BID PRN 09/05/15 [History] Cetirizine HCl [Zyrtec] 20 mg PO QPM 09/05/15 [History] Omeprazole [PriLOSEC] 20 mg PO DAILY 09/05/15 [History] Primidone [Mysoline] 50 mg PO HS 09/05/15 [History] Roflumilast [Daliresp] 500 mcg PO DAILY 09/05/15 [History] Tiotropium [Spiriva] 18 mcg IH 0700 09/05/15 [History] Albuterol Neb [Proventil Neb] 2.5 mg IH TID PRN 11/21/15 [History] Cyclobenzaprine [Flexeril] 10 mg PO BID PRN 03/05/16 [History] Oxygen 3 - 4 l PO DAILY 03/05/16 [History] Paroxetine [Paxil] 20 mg PO DAILY 06/19/16 [History] Alprazolam [Xanax 1 MG Tablet] 1 mg PO Q8H PRN 09/17/16 [History] Trazodone HCl 200 mg PO HS 09/17/16 [History] Megestrol Acetate [Megace] 800 mg PO DAILY #600 mls 10/02/16 [Rx] Acetylcysteine [K-Hsqoaj-b-Cysteine] 600 mg PO Q12H 10/30/16 [History] GuaiFENesin ER [Mucinex] 600 mg PO BID PRN 10/30/16 [History] Allergies morphine Adverse Reaction (Verified 09/17/16 13:00) Itching All Systems PM: A 10-system review of systems was performed and is negative for pertinent findings except as documented above in the HPI. - Constitutional Constitutional: weight loss - Cardiovascular Cardiovascular ROS IM: chest pain, dyspnea, dyspnea on exertion - Respiratory Respiratory: dyspnea on exertion, wheezing - Gastrointestinal Gastrointestinal: no abdominal pain, no diarrhea, no hematemesis, no hematochezia, no melena, no nausea, no vomiting - Genitourinary Genitourinary: no change in urinary stream, no dysuria, no flank pain, no hematuria - Neurological Neurological ROS: no confusion, no convulsions, no focal weakness, no numbness, no tingling, no tremor(s) - Constitutional Vitals: Temp Pulse Resp BP Pulse Ox 98.3 F 97 20 144/74 97 10/30/16 19:09 10/30/16 19:09 10/30/16 21:08 10/30/16 19:09 10/30/16 21:08 General appearance: Present: cachectic, mild distress, A&O X 3 - Head Head exam: Present: atraumatic, normocephalic - Eye Eye exam: Present: PERRL, conjuntiva pink, sclera anicteric Pupils: Present: PERRL - Neck Neck exam general surgery: Present: supple, trachea midline. Absent: lymphadenopathy - Respiratory Respiratory exam: Present: accessory muscle use, decreased breath sounds, respiratory distress, wheezes, tachypnea. Absent: rales, rhonchi - Cardiovascular Cardiovascular exam: Present: RRR, +S1, +S2. Absent: diastolic murmur, gallop, rubs, systolic murmur - GI/Abdominal GI/Abdominal exam: Present: normal bowel sounds, soft, no peritoneal signs. Absent: distended, tenderness - Extremities Exam Extremities exam: Present: warm, radial pulses palpable and symetrical. Absent : calf tenderness, cyanotic, pedal edema - Neurological Exam Neurological exam: Present: CN II-XII intact, oriented X3, no focal deficits. Absent: pronater drift, facial droop, speech deficit - Skin Skin exam: Present: dry, intact Internal Med - H&P Results - Labs CBC & Chem 7: 10/30/16 16:01 10/30/16 16:01 - ABG Interpretation ABG results: 10/30/16 21:07 ABG pH 7.35 ABG pCO2 80 H* ABG pO2 80 L ABG HCO3 44.2 H ABG Total CO2 46.7 H ABG O2 Saturation 95 ABG Base Excess 15.4 H - Diagnostic Studies Chest x-ray Additional comments: Per radiology reading findings compatible with COPD 1 cm nodular pace of the in the right mid lung that may represent a nipple shadow versus pulmonary nodular <[email or web address] - Last Filed: 10/30/16 22:37> Date of Encounter: 10/30/16 Internal Medicine - H&P: HPI History of present illness: Ms. Holland is a 66 year old female All Systems PM: A 10-system review of systems was performed and is negative for pertinent findings except as documented above in the HPI. - Constitutional Vitals: Temp Pulse Resp BP Pulse Ox 98.3 F 97 20 144/74 97 10/30/16 19:09 10/30/16 19:09 10/30/16 21:08 10/30/16 19:09 10/30/16 21:08 Exam: Pt in moderate respiratory distress with accessory muscle use, retractions, and mild pursed lip breathing - Neck Neck exam general surgery: Present: full ROM, supple. Absent: tenderness, nuchal rigidity - Respiratory Respiratory exam: Present: accessory muscle use, decreased breath sounds, prolonged expiratory phase, respiratory distress, wheezes, tachypnea. Absent: chest wall tenderness - Cardiovascular Cardiovascular exam: Present: RRR, +S1, +S2. Absent: systolic murmur - GI/Abdominal GI/Abdominal exam: Present: soft. Absent: tenderness - Extremities Exam Extremities exam: Absent: calf tenderness, joint swelling - Back Exam Back exam: Present: normal inspection. Absent: CVA tenderness (L), CVA tenderness (R) - Neurological Exam Neurological exam: Present: no focal deficits - Psychiatric Psychiatric exam: Present: anxious. Absent: depressed - Skin Skin exam: Present: dry, warm. Absent: rash Internal Med - H&P Results - Labs CBC & Chem 7: 10/30/16 16:01 10/30/16 16:01 - ABG Interpretation ABG results: 10/30/16 21:07 ABG pH 7.35 ABG pCO2 80 H* ABG pO2 80 L ABG HCO3 44.2 H ABG Total CO2 46.7 H ABG O2 Saturation 95 ABG Base Excess 15.4 H - Diagnostic Studies Chest x-ray Status: image reviewed by me (no appreciable infiltrates; hyperinflation noted) - Attending Attestation I discussed the patient [place] [place], PMH, ROS, lab data, and exam findings with Raegan Alcocer CNP. I then assessed patient independently as well. Raegan impressed upon me that patient was in mild to moderate respiratory distress. I agree with Raegan's assessment. After my discussion with and assessment of patient, I requested CTA chest given her history of DVT and lung cancer. We ordered ABG and PRN BiPap. Pt will be placed on antibiotics, steroids, and aerosols as per Raegan Alcocer's documentation. I agree with the Lovenox given. We will continue therapeutic dose in the event of +PE. Otherwise, she will need low dose Lovenox or Heparin for DVT prophylaxis. Other than my comments above and noted exam findings, I agree with Raegan's assessment and plan.
[2016-10-30] MEDS ORDERED: Vancomycin 1,000 MG in D5% in Water 250 ML IVPB SCH (22:00)
[2016-10-30] MEDS ORDERED: Vancomycin (wt based) 1,000 MG VIAL IVPB SCH (22:00)
[2016-10-31] MEDS: methylPREDNISolone 125 MG/2 ML VIAL IM SCH ×2 (00:07→19:42)
--- NOTE | 2016-10-31 00:32 | Event Note ---
Date of Encounter: 10/31/16 Time of Encounter: 00:31 CTA negative for PE. I ordered Heparin SQ for DVT prophylaxis starting for evening of 10-31-16. Note, patient already received one dose of Lovenox at 1mg/ kg this evening.
[2016-10-31] MEDS: Ipratropium/Albuterol Neb 3 ML IH SCH ×4 (03:51→23:11)
[2016-10-31 04:01] LABS: ABG Base Excess 17.1 mEq/L (-2.0 to 3.0); ABG HCO3 45.8 mEQ/L (21-27); ABG Oxygen Saturation 96 % (95-98); ABG PH 7.36 pH Units (7.32-7.45); ABG PO2 83 mmHg (85-104); ABG TCO2 48.3 mEq/L (20-26); Blood Gas FiO2 44 %
[2016-10-31 04:04] LABS: ABG PCO2 81 mmHg (35-45)
[2016-10-31 04:23] LABS: Hemoglobin 11.3 g/dL (11.5-15.4); Platelet Count 322 K/mcL (140-400); Red Cell Distribution Width 12.4 % (11.5-14.5)
[2016-10-31 04:24] LABS: Hematocrit 34.5 % (35.3-44.9); Mean Corpuscular HGB Conc 32.8 g/dL (31.6-35.5); Mean Corpuscular Hemoglobin 30.5 pg (28.0-33.3); Mean Corpuscular Volume 93.2 fL (83.0-100.0); Mean Platelet Volume 10.7 fL (9.4-12.4)
[2016-10-31 04:35] LABS: BUN/Creatinine Ratio 27 (6-26); Blood Urea Nitrogen 16 mg/dL (7-20); Carbon Dioxide 37 mEq/L (19-29); Chloride 88 mEq/L (98-109); Glucose 234 mg/dL (70-99); Osmolality,Calculated 289 (280-300); Potassium 3.8 mEq/L (3.5-4.5); Sodium 135 mEq/L (136-145); eGFR For African Americans > 60 (> 60); eGFR For Non-African Americans > 60 (> 60)
[2016-10-31 04:48] LABS: Neutrophils # 27.4 K/mcL (1.6-8.9); Platelet Estimate Normal (Normal)
[2016-10-31 04:49] LABS: Dohle Bodies Present (Not Present)
[2016-10-31] MEDS: methylPREDNISolone 125 MG/2 ML VIAL IVP SCH ×4 (06:52→23:51)
[2016-10-31] MEDS: Levofloxacin 750 MG/150 ML 750 MG/150 ML BAG IVPB SCH (08:05)
--- NOTE | 2016-10-31 10:42 | Internal Med Progress Note ---
Date of Encounter: 10/31/16 Time of Encounter: 08:45 - Assessment and plan (1) Lung mass Current Visit: No Status: Chronic Assessment and plan: In review for chart, she saw a radiation oncologist most recently on 09/17/[address] Johnston was aware that the nodules had slowly increased in size and recommended continued radiographic follow-up. Goals of care were discussed at that visit and the topic of palliative care/hospice care was introduced and her Megace was continued. We will bring oncology on board to discuss goals and plans of care. PET/CT did not ordered at this time, will defer to oncology as to whether or not it would be beneficial. Spoke to DARCI Abebe and oncology will see the patient. (2) Lung nodule seen on imaging study Current Visit: No Status: Acute (3) Lung cancer Current Visit: No Status: Chronic Qualifiers: Laterality: right Lung location: unspecified part of lung Qualified Code( s): C34.91 - Malignant neoplasm of unspecified part of right bronchus or lung (4) Acute exacerbation of chronic obstructive pulmonary disease (COPD) Current Visit: Yes Status: Acute Assessment and plan: She is end-stage COPD. Will continue pulmonary toilet and positive pressure as needed. Continue levofloxacin and vancomycin with blood cultures pending. Leukocytosis trending down. PCO2 elevated but stable this morning and she became slightly confused so it is being rechecked and she will likely be placed on BiPAP in the near future. Enlarging nodules noted on her CTA with concern for metastasis of her known lung cancer. Oncology on board. Appreciate their recommendations. (5) Pulmonary cachexia due to chronic obstructive pulmonary disease Current Visit: Yes Status: Chronic Assessment and plan: Nutrition on board as well as oncology. Suspect palliative/hospice may need to get on board in the near future. (6) Acute and chronic respiratory failure Current Visit: Yes Status: Chronic Assessment and plan: Patient stating she is on 4 L per nasal cannula continuously at home. She is also on positive pressure but does not know whether or not she is on CPAP or BiPAP. CO2 retention and mild increased confusion noted early this morning and ABGs were rechecked and the patient was placed on BiPAP. She is currently alert and oriented 3. Qualifiers: Respiratory failure complication: hypoxia and hypercapnia Qualified Code(s) : J96.21 - Acute and chronic respiratory failure with hypoxia; J96.22 - Acute and chronic respiratory failure with hypercapnia (7) Abnormal urinalysis Current Visit: Yes Status: Acute Assessment and plan: Patient denies dysuria, culture pending (8) Leukocytosis Current Visit: Yes Status: Acute Assessment and plan: Marked leukocytosis noted upon presentation, trending down. Continue levofloxacin and vancomycin. Blood cultures pending. Patient is alert and oriented 3. Heart rate stable, mild hypotension noted, will continue to trend. Qualifiers: Leukocytosis type: unspecified Qualified Code(s): D72.829 - Elevated white blood cell count, unspecified (9) Cigarette smoker Current Visit: No Status: Chronic Assessment and plan: Patient stating she still smokes between 3 and 5 cigarettes per day. (10) Congestive heart failure Current Visit: No Status: Chronic Assessment and plan: No acute exacerbation. Patient had an echocardiogram last month revealed an ejection fraction of 60% and mild diastolic dysfunction. She is not on diuretics at home, will monitor. (11) DVT prophylaxis Current Visit: No Status: Acute Assessment and plan: Subcutaneous heparin (12) Protein-calorie malnutrition, severe Current Visit: No Status: Chronic Assessment and plan: BMI 16, we will bring nutrition on board. Patient is amenable to ensure drinks. She states that she "eats all the time." (13) Hypotension Current Visit: No Status: Acute Assessment and plan: mild; continue IVF. will monitor. Qualifiers: Hypotension type: unspecified hypotension type Qualified Code(s): I95.9 - Hypotension, unspecified - Time Spent With Patient Greater than 35 minutes - Subjective Interval history: Patient seen and examined. On examination, patient is sitting upright in bed attempting deep breakfast. Patient is alert and oriented 3 and denies pain at this time. She endorses shortness of breath above her norm. She is endorsing a normal appetite. - Constitutional Vitals: Temp Pulse Resp BP Pulse Ox 98.9 F 78 16 99/56 96 10/31/16 06:59 10/31/16 06:59 10/31/16 06:59 10/31/16 06:59 10/31/16 06:59 General appearance: Present: cachectic, mild distress (moderate), A&O X 3, pleasant, underweight, answers questions appropriately - Head Head exam: Present: atraumatic, normocephalic - Eye Eye exam: Present: PERRL, conjuntiva pink, sclera anicteric Pupils: Present: PERRL - Neck Neck exam general surgery: Present: supple, trachea midline. Absent: lymphadenopathy - Respiratory Respiratory exam: Present: accessory muscle use, decreased breath sounds, prolonged expiratory phase, respiratory distress. Absent: rales, rhonchi, wheezes - Cardiovascular Cardiovascular exam: Present: RRR, +S1, +S2. Absent: diastolic murmur, gallop, rubs, systolic murmur - GI/Abdominal GI/Abdominal exam: Present: normal bowel sounds, soft, no peritoneal signs. Absent: distended, tenderness - Extremities Exam Extremities exam: Present: warm, radial pulses palpable and symetrical. Absent : calf tenderness, cyanotic, pedal edema - Neurological Exam Neurological exam: Present: alert, CN II-XII intact, normal gait, oriented X3, no focal deficits, strengths equal and symetr throughout. Absent: pronater drift, facial droop, speech deficit - Skin Skin exam: Present: cyanosis (circumoral), dry, intact, pallor, warm Internal Medicine: Result - Labs CBC & Chem 7: 10/31/16 03:30 10/31/16 03:30 Labs: Short CBC 10/31/16 Range/Units 03:30 WBC 27.4 H (4.3-11.1) K/mcL Hgb 11.3 L (11.5-15.4) g/dL Hct 34.5 L (35.3-44.9) % Plt Count 322 (140-400) K/mcL Neutrophils # 27.4 H (1.6-8.9) K/mcL BMP 10/31/16 03:30 Sodium 135 L Potassium 3.8 Chloride 88 L Carbon Dioxide 37 H BUN 16 Creatinine 0.60 Glucose 234 H Calcium 9.0 - ABG Interpretation ABG results: ABG ABG pH 7.36 pH Units (7.32-7.45) 10/31/16 03:50 ABG pCO2 81 mmHg (35-45) H* 10/31/16 03:50 ABG pO2 83 mmHg (85-104) L 10/31/16 03:50 ABG O2 Saturation 96 % (95-98) 10/31/16 03:50 - Impressions Impressions Chest CTA 10/30/16 21:08 IMPRESSION: No evidence of pulmonary embolism. 2 separate suspicious lung nodules, right upper lobe 7 x 13 mm and right lower lobe 18 x 10 mm. These are both suspicious for primary lung carcinoma. PET-CT is recommended. Moderate to severe diffuse emphysema. D/ / Jeff Esposito MD / Jeff Esposito MD Interpreting Provider: Jeff Esposito MD Consult Discharge Plan - Plan Referrals: Shayy Morse CNP [Primary Care Provider] -
[2016-10-31] MEDS: Tiotropium 18 MCG inhalation IH SCH (10:56)
[2016-10-31] MEDS: Budesonide/Formoterol 160/4.5 MDI IH SCH (10:59)
--- NOTE | 2016-10-31 11:51 | Electrocardiograph Report ---
[place] [id number] Test Date: 2016-10-30 Pat Name: Anya Holland Department: 104 Room: 3B14 Gender: F [employer]ockey: : 1950 Requested By: Alessandro Stafford Order Number: [id number] Reading MD: Niraj Mcginnis MD Measurements Intervals [place] Rate: 96 P: 79 AL: 106 QRS: 89 QRSD: 83 T: 96 QT: 336 QTc: 389 Interpretive Statements SINUS RHYTHM WITH SHORT AL INTERVAL WITH OCCASIONAL VENTRICULAR PREMATURE COMPLEXES BASELINE ARTIFACT Electronically Signed On 10-31-2016 11:50:18 EST by Niraj Mcginnis MD
[2016-10-31 12:07] LABS: ABG Base Excess 16.1 mEq/L (-2.0 to 3.0); ABG HCO3 43.7 mEQ/L (21-27); ABG Oxygen Saturation 97 % (95-98); ABG PCO2 69 mmHg (35-45); ABG PH 7.41 pH Units (7.32-7.45); ABG PO2 95 mmHg (85-104); ABG TCO2 45.8 mEq/L (20-26); Blood Gas FiO2 40 %
[2016-10-31] MEDS ORDERED: Acetaminophen/Butalbital/CaffeineTABLET PO PRN (12:18)
[2016-10-31] MEDS ORDERED: ALPRAZolam 1 MG TABLET PO PRN (12:18)
[2016-10-31] MEDS: Megestrol Acetate 400 MG/10 ML UDC PO SCH (12:48)
--- NOTE | 2016-10-31 14:16 | RAD Oncology Progress Note ---
Radiation Oncology HPI Date: 10/31/16 Primary Care Provider: Shayy Morse CNP History of present illness: Anya was seen in consultation in her hospital room today. She is an established patient of mine having received empiric stereotactic body radiotherapy to an enlarging right lung nodule which she completed in December 2015. She has been undergoing surveillance CT chest since that time with most recent imaging in September 2016 demonstrating stability of the treated right lung nodule and stability of an additional smaller right middle lobe nodule. She underwent CTA during her current hospital admission which was negative for PE and on my review demonstrates stability of the lung nodules. It should be noted at the official radiology report compares the current CTA study to a 2013 CTA without comparison to intervening CT chests. This is the second hospitalization in 2017 for COPD exacerbation. She continues to live at home by herself and struggle to maintain her ADLs due to her progressive, severe, chronic dyspnea. At her last visit with me, I did introduced the topic of hospice for her severe COPD. History - Past Medical History Past Medical History: asthma, COPD - Family History Family History: CAD/UT, cancer (sister breast cancer [address] hollis, several aunts and grandmother from cancer), diabetes, hypertension, vascular disease - Social History Smoking Status: Current some day smoker Smokeless Tobacco Status: No Alcohol Use: none Drug use: none Oncology - Medications Albuterol Sulfate [Proair Respiclick] 2 puff IH QID PRN 09/05/15 [History] Budesonide/Formoterol 160/4.5 [Symbicort 160/4.5] 1 puff IH DAILY 09/05/15 [ History] Butalb/Acetaminophen/Caffeine [Fioricet 50-300-40 mg Capsule] 1 each PO BID PRN 09/05/15 [History] Cetirizine HCl [Zyrtec] 20 mg PO QPM 09/05/15 [History] Omeprazole [PriLOSEC] 20 mg PO DAILY 09/05/15 [History] Primidone [Mysoline] 50 mg PO HS 09/05/15 [History] Roflumilast [Daliresp] 500 mcg PO DAILY 09/05/15 [History] Tiotropium [Spiriva] 18 mcg IH 0700 09/05/15 [History] Albuterol Neb [Proventil Neb] 2.5 mg IH TID PRN 03/14/16 [History] Cyclobenzaprine [Flexeril] 10 mg PO BID PRN 03/05/16 [History] Oxygen 3 - 4 l PO DAILY 03/05/16 [History] Paroxetine [Paxil] 20 mg PO DAILY 06/19/16 [History] Alprazolam [Xanax 1 MG Tablet] 1 mg PO Q8H PRN 09/17/16 [History] Trazodone HCl 200 mg PO HS 09/17/16 [History] Megestrol Acetate [Megace] 800 mg PO DAILY #600 mls 10/02/16 [Rx] Acetylcysteine [T-Cnmtyn-d-Cysteine] 600 mg PO Q12H 10/30/16 [History] GuaiFENesin ER [Mucinex] 600 mg PO BID PRN 10/30/16 [History] Allergies morphine Adverse Reaction (Verified 09/17/16 13:00) Itching Review of Systems - Exam Provider Comments:: A 12 point review of systems was performed. Pertinent positives and negatives are listed below and in the history of present illness. All other systems negative. Physical Exam - Vitals Vital Signs: Last Vital Signs Temp 98.1 F 10/31/16 11:41 Pulse 110 10/31/16 11:41 Resp 17 10/31/16 11:41 BP 104/61 10/31/16 11:41 Pulse Ox 94 L (6L NC) 10/31/16 11:41 Weight: 47.083 kg - Consciousness/Orientation Level Of Consciousness: Awake, Alert, Appropriate, Follows Commands Patient Orientation: Person, Place, Time Physical Exam: GENERAL: Alert and oriented, thin appearing, wearing oxygen via nasal cannula. PSYCH: Affect appropriate for circumstances, slight confusion Lungs: Minimal aeration bilaterally, labored breathing Cardiovascular: Distant heart tones Oncology- Results - Labs Labs: Laboratory Last Values Abnormal lab results WBC 27.4 K/mcL (4.3-11.1) H 10/31/16 03:30 RBC 3.70 M/mcL (3.82-4.97) L 10/31/16 03:30 Hgb 11.3 g/dL (11.5-15.4) L 10/31/16 03:30 Hct 34.5 % (35.3-44.9) L 10/31/16 03:30 Neutrophils # 27.4 K/mcL (1.6-8.9) H 10/31/16 03:30 Dohle Bodies Present (Not Present) A 10/31/16 03:30 ABG pCO2 69 mmHg (35-45) H 10/31/16 12:03 ABG HCO3 43.7 mEQ/L (21-27) H 10/31/16 12:03 ABG Total CO2 45.8 mEq/L (20-26) H 10/31/16 12:03 ABG Base Excess 16.1 mEq/L (-2.0 to 3.0) H 10/31/16 12:03 Sodium 135 mEq/L (136-145) L 10/31/16 03:30 Chloride 88 mEq/L (98-109) L 10/31/16 03:30 Carbon Dioxide 37 mEq/L (19-29) H 10/31/16 03:30 BUN/Creatinine Ratio 27 (6-26) H 10/31/16 03:30 Glucose 234 mg/dL (70-99) H 10/31/16 03:30 Ur Specific [place] 1.028 (1.010-1.025) H 10/30/16 16:52 Urine Protein 100 mg/dL (Neg-Trace) H 10/30/16 16:52 Urine Ketones Trace mg/dL (Negative) H 10/30/16 16:52 Urine Blood Large (Negative) H 10/30/16 16:52 Ur Leukocyte Esterase Small (Negative) H 10/30/16 16:52 Urine Microscopic RBC 30-50 per hpf (0-3) H 10/30/16 16:52 Urine Microscopic WBC 15-30 per hpf (0-3) H 10/30/16 16:52 Ur Squamous Epith Cells Many per lpf (None-Few) H 10/30/16 16:52 Urine Yeast Few per hpf (None Seen) H 10/30/16 16:52 - Diagnostic Studies Chest CTA 10/30/16 21:08 reviewed - Assessment Assessment: Assessment: 66-year-old female smoker with previously enlarging, right middle lobe nodule status post empiric definitive stereotactic body radiotherapy completed in December 2015, radiographically stable with acute COPD exacerbation in the setting of severe baseline COPD. Plan: As above, Anya received definitive radiotherapy for an enlarging right lung mass that was not biopsied due to her underlying COPD. This treatment was completed in December 2015. Her imaging has remained overall stable since that timeframe. The report on the recent CTA is invalid given it was compared to a 2013 study. I would currently consider her disease-free with respect to malignancy with no further oncologic intervention needed at this time. Despite this, she has continued to decline since I have known her with worsening performance status and decline from her COPD. She is now admitted for the second time in 6 weeks for COPD issues. I do think she would benefit from a discussion with palliative care while she is in the hospital as she was open to the discussion of Hospice with me in previous discussions. Please do not hesitate in contacting me with any questions Luis M Johnston MD This report was generated using [employer] dictation. There may be errors that were overlooked during editing.
[2016-10-31] MEDS: Vancomycin 750 MG in D5% in Water 250 ML IVPB SCH (15:33)
[2016-10-31] MEDS: *HR* Heparin 5,000 UNIT/ML VIAL SQ SCH (17:56)
[2016-10-31] MEDS: Loratadine 10 MG TABLET PO SCH (18:00)
[2016-10-31] MEDS: traZODone 50 MG TABLET PO SCH (21:55)
[2016-10-31] MEDS: Primidone 50 MG TABLET PO SCH (21:56)
[2016-11-01] MEDS: Vancomycin 750 MG in D5% in Water 250 ML IVPB SCH ×2 (03:06→17:21)
[2016-11-01] MEDS: methylPREDNISolone 125 MG/2 ML VIAL IVP SCH ×4 (05:37→23:49)
[2016-11-01] MEDS: Ipratropium/Albuterol Neb 3 ML IH SCH ×4 (05:45→20:12)
[2016-11-01 05:53] LABS: Basophils % 0.1 %; Hematocrit 36.8 % (35.3-44.9); Hemoglobin 12.3 g/dL (11.5-15.4); Immature Granulocytes % 1.3 % (0-4); Immature Platelets 2.5 % (1.1-6.1); Lymphocytes # 0.5 K/mcL (0.6-4.6); Mean Corpuscular HGB Conc 33.4 g/dL (31.6-35.5); Mean Corpuscular Hemoglobin 31.1 pg (28.0-33.3); Mean Corpuscular Volume 92.9 fL (83.0-100.0); Mean Platelet Volume 11.1 fL (9.4-12.4); Monocytes # 0.3 K/mcL (0.0-1.3); Monocytes % 1.8 %; Neutrophils # 16.3 K/mcL (1.6-8.9); Platelet Count 396 K/mcL (140-400); Red Blood Count 3.96 M/mcL (3.82-4.97); Red Cell Distribution Width 12.9 % (11.5-14.5); Segmented Neutrophils % 93.8 %
[2016-11-01] MEDS: *HR* Heparin 5,000 UNIT/ML VIAL SQ SCH ×2 (06:20→17:22)
[2016-11-01 06:46] LABS: BUN/Creatinine Ratio 29 (6-26); Blood Urea Nitrogen 18 mg/dL (7-20); Calcium 10.1 mg/dL (8.6-10.8); Carbon Dioxide 39 mEq/L (19-29); Chloride 92 mEq/L (98-109); Glucose 168 mg/dL (70-99); Osmolality,Calculated 298 (280-300); Potassium 3.4 mEq/L (3.5-4.5); Sodium 141 mEq/L (136-145); eGFR For African Americans > 60 (> 60); eGFR For Non-African Americans > 60 (> 60)
[2016-11-01] MEDS: Levofloxacin 750 MG/150 ML 750 MG/150 ML BAG IVPB SCH (09:32)
[2016-11-01] MEDS: Megestrol Acetate 400 MG/10 ML UDC PO SCH (09:32)
[2016-11-01] MEDS: Tiotropium 18 MCG inhalation IH SCH (11:16)
[2016-11-01] MEDS: Budesonide/Formoterol 160/4.5 MDI IH SCH (11:16)
[2016-11-01 11:34] LABS: 2009 H1N1 PCR NOT DETECTED (Not Detect); Influenza A PCR Negative (Negative); Influenza B PCR Negative (Negative)
--- NOTE | 2016-11-01 16:22 | Palliative - Consult Note ---
Date of Encounter: 11/01/16 Time of Encounter: 13:00 - Assessment and Plan (1) Dyspnea Current Visit: Yes Status: Acute Assessment and plan: Supplemental oxygen, BiPAP therapy as needed and at HS. Qualifiers: Dyspnea type: shortness of breath Qualified Code(s): R06.02 - Shortness of breath (2) Goals of care, counseling/discussion Current Visit: Yes Status: Acute Assessment and plan: Extensive goals of care discussion with the patient and her sister, Cindy. Discussed CODE STATUS options including full code, DNR arrest, DNR comfort care. At this time, the patient has requested to consider her options. She reports having a living will, and her sister will try to bring that in. We will plan for a follow-up meeting tomorrow when living will is available to review previously noted intent. Introduced discussions of hospice care. Briefly reviewed hospice benefits, philosophy, support. We will continue to follow for further questions. Social service is following for discharge needs. (3) Acute exacerbation of chronic obstructive pulmonary disease (COPD) Current Visit: Yes Status: Acute (4) Pulmonary cachexia due to chronic obstructive pulmonary disease Current Visit: Yes Status: Chronic Assessment and plan: Dietitian following. Optimize caloric intake. Patient is drinking ensure milkshakes. Palliative-CN HPI - Data of Consult Patient: new to practice Consult date: 11/01/16 Requesting Physician: Symone Sher Primary Care Provider: Shayy Morse CNP - Consult Narrative Palliative Care/Comfort Measures: Palliative care Reason for consult: Goals of care History of present illness: Ms. Holland is a 66 year old female admitted to [facility] with complaints of shortness of breath. She was found to be in an acute exacerbation of COPD and respiratory failure. Ms. Holland was treated with IV streoids, ATB, and placed on a BIPAP with nebulizer treatments. She was admitted to the observation unit for further monitoring. Ms. Mcdaniel has a longstanding history of chronic lung disease and follows with pulmonology services at least twice a year. She is on chronic oxygen therapy at 4-5 L per nasal cannula and has a BiPAPA at home. Documentation indicated she may be referred for lung volume reduction surgery if she is able to stop smoking for at least 6 months. Ms. Holland is also following with radiation oncology for an enlarged right middle lobe lung nodule. She opted for empiric radiation therapy as the risks of CT guided biopsy were too high. Radiation oncology is following serial CT scans to monitor the nodule. The palliative care team was consulted to assist with goals of care planning given her end stage lung disease. Dr. Johnston-radiation oncologist-had introduced the topic of hospice on an outpatient basis prior to this admission. CC: Symone Sher Past Med Surg Social Fam HX - Past Medical History Medical history: arthritis, cancer, CHF, COPD, DVT, GERD, other Psychiatric history: anxiety, depression - Past Surgical History Surgical History: appendectomy, hysterectomy - Social History Smoking Status: Current some day smoker Smokeless Tobacco Status: No Alcohol use: none Drug use: none - Family History Father Living Status: Still Living Hx Family Cardiac Disorders: Yes (irregular heart beat in need of pacemaker) Hx Family Respiratory Disorders: Yes (congestion, takes nebulizers) Sister Hx Family Cancer: Yes (breast cancer) Medications and Allergies Albuterol Sulfate [Proair Respiclick] 2 puff IH QID PRN 09/05/15 [History] Budesonide/Formoterol 160/4.5 [Symbicort 160/4.5] 1 puff IH DAILY 09/05/15 [ History] Butalb/Acetaminophen/Caffeine [Fioricet 50-300-40 mg Capsule] 1 each PO BID PRN 09/05/15 [History] Cetirizine HCl [Zyrtec] 20 mg PO QPM 09/05/15 [History] Omeprazole [PriLOSEC] 20 mg PO DAILY 09/05/15 [History] Primidone [Mysoline] 50 mg PO HS 09/05/15 [History] Roflumilast [Daliresp] 500 mcg PO DAILY 09/05/15 [History] Tiotropium [Spiriva] 18 mcg IH 0700 09/05/15 [History] Albuterol Neb [Proventil Neb] 2.5 mg IH TID PRN 11/21/15 [History] Cyclobenzaprine [Flexeril] 10 mg PO BID PRN 03/05/16 [History] Oxygen 3 - 4 l PO DAILY 03/05/16 [History] Paroxetine [Paxil] 20 mg PO DAILY 06/19/16 [History] Alprazolam [Xanax 1 MG Tablet] 1 mg PO Q8H PRN 09/17/16 [History] Trazodone HCl 200 mg PO HS 09/17/16 [History] Megestrol Acetate [Megace] 800 mg PO DAILY #600 mls 10/02/16 [Rx] Acetylcysteine [V-Fywtul-r-Cysteine] 600 mg PO Q12H 10/30/16 [History] GuaiFENesin ER [Mucinex] 600 mg PO BID PRN 10/30/16 [History] Allergies morphine Adverse Reaction (Verified 09/17/16 13:00) Itching - Constitutional Constitutional ROS PAL: decreased appetite, fatigue, frequent falls, weight loss - EENT Eyes: no change in vision Ears: no decreased hearing Ears, nose, mouth, throat: no dysphagia, no nasal congestion, no sore throat - Cardiovascular Cardiovascular ROS: dyspnea on exertion, no chest pain, no irregular heart rhythm, no pedal edema - Respiratory Respiratory: dyspnea, dyspnea on exertion, wheezing - Gastrointestinal Gastrointestinal: no abdominal pain, no constipation, no cramping, no diarrhea, no nausea, no vomiting - Genitourinary Palliative ROS female: no difficulty voiding, no urinary hesitancy - Musculoskeletal Musculoskeletal ROS IM: muscle weakness - Integumentary ROS Integumentary: no sores, no wounds - Neurological Neurological ROS: confusion, frequent falls, weakness, no lack of coordination - Psychiatric Psychiatric general PM: anxiety Palliative Care-Exam - Constitutional Vitals: Temp Pulse Resp BP Pulse Ox 99.2 F 96 18 113/69 99 11/01/16 15:44 11/01/16 15:44 11/01/16 15:44 11/01/16 15:44 11/01/16 15:44 General appearance: Present: cooperative, thin Exam: 66 year old female patient appearing older than stated age and chronically ill. She is sitting on the edge of the bed with her sister at bedside. - Eye Eye exam: Present: EOMI - ENT ENT exam: Present: mucous membranes dry - Respiratory Respiratory exam: Present: accessory muscle use, decreased breath sounds. Absent: wheezes, tachypnea - Cardiovascular Cardiovascular exam: Present: RRR, tachycardia - GI/Abdominal Exam GI/Abdominal exam: Present: soft. Absent: guarding, tenderness - Neurological Exam Neurological exam: Present: alert (oriented to person, place and current events. Inappropriate responses to conversation at times. ) - Skin Skin exam: Present: dry, warm Internal Medicine - CN: Reslt - Labs CBC & Chem 7: 11/01/16 03:32 11/01/16 03:32 Labs: Short CBC 11/01/16 Range/Units 03:32 WBC 17.4 H (4.3-11.1) K/mcL Hgb 12.3 (11.5-15.4) g/dL Hct 36.8 (35.3-44.9) % Plt Count 396 (140-400) K/mcL Neutrophils # 16.3 H (1.6-8.9) K/mcL BMP 11/01/16 03:32 Sodium 141 Potassium 3.4 L Chloride 92 L Carbon Dioxide 39 H BUN 18 Creatinine 0.62 Glucose 168 H Calcium 10.1 - ABG Interpretation ABG results: ABG ABG pH 7.41 pH Units (7.32-7.45) 10/31/16 12:03 ABG pCO2 69 mmHg (35-45) H 10/31/16 12:03 ABG pO2 95 mmHg (85-104) 10/31/16 12:03 ABG O2 Saturation 97 % (95-98) 10/31/16 12:03 Consult Discharge Plan - Plan Referrals: Shayy Morse [employer] [Primary Care Provider] - 11/05/16 9:45 am Palliative Quality Palliative Quality: Screen for Code Status: Yes, Screen for Goals of Care: Yes, Screen for Pain: Yes, If Pain Regimen Started, Initiate Bowel Regimen: NA, Screen for Nausea/Vomitting: Yes
[2016-11-01] MEDS: Loratadine 10 MG TABLET PO SCH (17:21)
--- NOTE | 2016-11-01 18:10 | Internal Med Progress Note ---
Date of Encounter: 11/01/16 Time of Encounter: 18:08 - Assessment and plan (1) Acute exacerbation of chronic obstructive pulmonary disease (COPD) Current Visit: Yes Status: Acute (2) Leukocytosis Current Visit: Yes Status: Acute Qualifiers: Leukocytosis type: unspecified Qualified Code(s): D72.829 - Elevated white blood cell count, unspecified (3) Pulmonary cachexia due to chronic obstructive pulmonary disease Current Visit: Yes Status: Chronic (4) Lung nodule seen on imaging study Current Visit: No Status: Acute (5) Protein-calorie malnutrition, severe Current Visit: No Status: Chronic - Time Spent With Patient PLan Add chest physical therapy, increase Mucinex, increased frequency or Duonep, add appetite stimulant. Check albumin, dietary consult, nutritional supplement. Check vitamin B12, 25-hydroxy vitamin D, phosphorus and magnesium. Counseling on deep breathing, patient was evaluated twice today, mild improvement of her symptom, will reevaluate next AM. Patient cannot attend jury duty, patient had acute on chronic respiratory failure. Patient is currently in the hospital. Need further treatment and monitoring Greater than 35 minutes - Subjective Interval history: Patient continued to have shortness of breath wheezing. Dyspnea at rest. Productive cough with yellow sputum. No fever or chills. No nausea or vomiting. - Constitutional Vitals: Temp Pulse Resp BP Pulse Ox 99.2 F 96 18 113/69 99 11/01/16 15:44 11/01/16 15:44 11/01/16 15:59 11/01/16 15:44 11/01/16 15:59 General appearance: Present: cachectic, mild distress (moderate), A&O X 3, pleasant, underweight, answers questions appropriately - Head Head exam: Present: atraumatic, normocephalic - Respiratory Respiratory exam: Present: decreased breath sounds, prolonged expiratory phase, rales, respiratory distress, tachypnea (Diffuse wheezing crackles bilateral lung russo). Absent: accessory muscle use, rhonchi, wheezes - GI/Abdominal GI/Abdominal exam: Present: normal bowel sounds, soft, no peritoneal signs. Absent: distended, tenderness - Extremities Exam Extremities exam: Present: warm, radial pulses palpable and symetrical. Absent : calf tenderness, cyanotic, pedal edema - Neurological Exam Neurological exam: Present: CN II-XII intact, no focal deficits. Absent: pronater drift, facial droop, speech deficit - Skin Skin exam: Present: dry, intact Internal Medicine: Result - Labs CBC & Chem 7: 11/01/16 03:32 11/01/16 03:32 Labs: Short CBC 11/01/16 Range/Units 03:32 WBC 17.4 H (4.3-11.1) K/mcL Hgb 12.3 (11.5-15.4) g/dL Hct 36.8 (35.3-44.9) % Plt Count 396 (140-400) K/mcL Neutrophils # 16.3 H (1.6-8.9) K/mcL BMP 11/01/16 03:32 Sodium 141 Potassium 3.4 L Chloride 92 L Carbon Dioxide 39 H BUN 18 Creatinine 0.62 Glucose 168 H Calcium 10.1 - ABG Interpretation ABG results: ABG ABG pH 7.41 pH Units (7.32-7.45) 10/31/16 12:03 ABG pCO2 69 mmHg (35-45) H 10/31/16 12:03 ABG pO2 95 mmHg (85-104) 10/31/16 12:03 ABG O2 Saturation 97 % (95-98) 10/31/16 12:03 Consult Discharge Plan - Plan Referrals: Shayy Morse CNP [Primary Care Provider] - 11/05/16 9:45 am
[2016-11-01 19:03] LABS: Albumin 3.1 g/dL (3.5-5.0); Magnesium 1.4 mg/dL (1.6-2.6); Phosphorous 2.7 mg/dL (2.3-4.7)
[2016-11-01] MEDS: traZODone 50 MG TABLET PO SCH (21:56)
[2016-11-01] MEDS: Primidone 50 MG TABLET PO SCH (21:57)
[2016-11-01] MEDS: Mirtazapine 15 MG TABLET PO SCH (21:58)
[2016-11-02] MEDS: Ipratropium/Albuterol Neb 3 ML IH SCH ×7 (00:30→23:45)
[2016-11-02] MEDS: Vancomycin 750 MG in D5% in Water 250 ML IVPB SCH ×2 (03:06→15:45)
[2016-11-02 04:53] LABS: Hematocrit 36.6 % (35.3-44.9); Immature Granulocytes % 0.7 % (0-4); Lymphocytes # 0.3 K/mcL (0.6-4.6); Lymphocytes % 2.8 %; Mean Corpuscular HGB Conc 32.8 g/dL (31.6-35.5); Mean Corpuscular Hemoglobin 30.4 pg (28.0-33.3); Mean Corpuscular Volume 92.7 fL (83.0-100.0); Mean Platelet Volume 10.6 fL (9.4-12.4); Monocytes # 0.3 K/mcL (0.0-1.3); Monocytes % 2.4 %; Neutrophils # 10.1 K/mcL (1.6-8.9); Platelet Count 365 K/mcL (140-400); Red Blood Count 3.95 M/mcL (3.82-4.97); Segmented Neutrophils % 94.1 %
[2016-11-02 05:08] LABS: BUN/Creatinine Ratio 33 (6-26); Blood Urea Nitrogen 23 mg/dL (7-20); Calcium 9.3 mg/dL (8.6-10.8); Carbon Dioxide 39 mEq/L (19-29); Chloride 95 mEq/L (98-109); Glucose 158 mg/dL (70-99); Osmolality,Calculated 303 (280-300); Sodium 143 mEq/L (136-145); eGFR For African Americans > 60 (> 60); eGFR For Non-African Americans > 60 (> 60)
[2016-11-02] MEDS: methylPREDNISolone 125 MG/2 ML VIAL IVP SCH (06:15)
[2016-11-02] MEDS: *HR* Heparin 5,000 UNIT/ML VIAL SQ SCH ×2 (06:15→18:49)
--- NOTE | 2016-11-02 07:21 | Discharge Summary ---
Date of Encounter: 11/02/16 Time of Encounter: 07:17 - Discharge Diagnosis (1) Acute exacerbation of chronic obstructive pulmonary disease (COPD) Priority: Primary Status: Acute (2) Leukocytosis Priority: Primary Status: Acute Qualifiers: Leukocytosis type: unspecified Qualified Code(s): D72.829 - Elevated white blood cell count, unspecified (3) Pulmonary cachexia due to chronic obstructive pulmonary disease Priority: Primary Status: Chronic (4) Lung nodule seen on imaging study Priority: Primary Status: Acute (5) Protein-calorie malnutrition, severe Priority: Primary Status: Chronic - Discharge Medications Prescriptions: Mirtazapine [Remeron] 7.5 mg PO HS #30 tablet Home Medications: Albuterol Sulfate [Proair Respiclick] 2 puff IH QID PRN 09/05/15 [History] Budesonide/Formoterol 160/4.5 [Symbicort 160/4.5] 1 puff IH DAILY 09/05/15 [ History] Butalb/Acetaminophen/Caffeine [Fioricet 50-300-40 mg Capsule] 1 each PO BID PRN 09/05/15 [History] Cetirizine HCl [Zyrtec] 20 mg PO QPM 09/05/15 [History] Omeprazole [PriLOSEC] 20 mg PO DAILY 09/05/15 [History] Primidone [Mysoline] 50 mg PO HS 09/05/15 [History] Roflumilast [Daliresp] 500 mcg PO DAILY 09/05/15 [History] Tiotropium [Spiriva] 18 mcg IH 0700 09/05/15 [History] Albuterol Neb [Proventil Neb] 2.5 mg IH TID PRN 11/21/15 [History] Cyclobenzaprine [Flexeril] 10 mg PO BID PRN 03/05/16 [History] Oxygen 3 - 4 l PO DAILY 03/05/16 [History] Paroxetine [Paxil] 20 mg PO DAILY 06/19/16 [History] Alprazolam [Xanax 1 MG Tablet] 1 mg PO Q8H PRN 09/17/16 [History] Megestrol Acetate [Megace] 800 mg PO DAILY #600 mls 10/02/16 [Rx] Acetylcysteine [B-Zzgrni-d-Cysteine] 600 mg PO Q12H 10/30/16 [History] GuaiFENesin ER [Mucinex] 600 mg PO BID PRN 10/30/16 [History] Cyanocobalamin (B-12) [Vitamin B12] 1,000 mcg PO DAILY #90 tablet 11/02/16 [Rx] Doxycycline 100 mg PO BID #14 capsule 11/02/16 [Rx] Ergocalciferol (VITAMIN D2) [Drisdol (50,000 Unit)] 50,000 unit PO QWEEK #20 capsule 11/02/16 [Rx] Levofloxacin 500 mg PO DAILY #10 tablet 11/02/16 [Rx] Mirtazapine [Remeron] 7.5 mg PO HS #30 tablet 11/02/16 [Rx] Trazodone HCl 50 mg PO HS #0 11/02/16 [Rx] Allergies/Adverse Reactions: Allergies morphine Adverse Reaction (Verified 09/17/16 13:00) Itching Date of admission: 10/31/16 13:21 Primary care physician: Shayy Morse CNP Consults: 10/31/16 15:30 Consult to Palliative Care [CONS] Routine Comment: end stage copd. lives alone. Consulting Provider: Palliative Care Eileen Discharging clinician: Zac Joiner - Patient Status Condition: Fair - Discharge Instructions Follow Up With: Shayy Morse CNP [Primary Care Provider] - 11/05/16 9:45 am Hospital course: Ms. Holland is a 66 year old female - Time Spent with Patient Total time spent providing and/or coordinating discharge services: - Constitutional Vitals: Temp Pulse Resp BP Pulse Ox 98.3 F 89 16 104/63 99 11/02/16 03:38 11/02/16 03:38 11/02/16 04:29 11/02/16 04:29 11/02/16 04:29 General appearance: Present: cachectic, mild distress (moderate), A&O X 3, pleasant, underweight, answers questions appropriately
[2016-11-02] MEDS: Budesonide/Formoterol 160/4.5 MDI IH SCH (07:50)
[2016-11-02] MEDS: Tiotropium 18 MCG inhalation IH SCH (07:53)
[2016-11-02] MEDS ORDERED: Magnesium Oxide 400 MG TABLET PO ONE (09:00)
[2016-11-02] MEDS: Megestrol Acetate 400 MG/10 ML UDC PO SCH (09:35)
[2016-11-02] MEDS: Levofloxacin 750 MG/150 ML 750 MG/150 ML BAG IVPB SCH (09:36)
--- NOTE | 2016-11-02 10:41 | Palliative Progress Note ---
Date of Encounter: 11/02/16 Time of Encounter: 09:00 - Assessment and plan (1) Dyspnea Current Visit: Yes Status: Acute Assessment and plan: Supplemental oxygen, steroids and ATB per hospitalist. She has a home BiPAP already. Follows with pulmonology as an outpatient. Qualifiers: Dyspnea type: shortness of breath Qualified Code(s): R06.02 - Shortness of breath (2) Goals of care, counseling/discussion Current Visit: Yes Status: Acute Assessment and plan: Reviewed goals of care discussion from yesterday. Ms. 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 At this time, she wishes to continue with full code. She is not interested in hospice care at this time. Her [id number] able to bring in her healthcare power of civil litigation attorney. (3) Acute exacerbation of chronic obstructive pulmonary disease (COPD) Current Visit: Yes Status: Acute (4) Pulmonary cachexia due to chronic obstructive pulmonary disease Current Visit: Yes Status: Chronic Assessment and plan: Dietitian following. Supplements as tolerated. Ms. Holland does drink boost at home. - Time Spent With Patient Total time spent is greater than 50% in coordination of care (as documented) at patient's floor/unit and/or counseling patient: - Subjective Interval history: Ms. Holland is sitting up in bed. She denies needs. Reports her breathing is at baseline. She has not been able to ambulate in the hallway. - Constitutional Vitals: Abnormal lab results Neutrophils # 10.1 K/mcL (1.6-8.9) H 11/02/16 03:22 Lymphocytes # 0.3 K/mcL (0.6-4.6) L 11/02/16 03:22 Dohle Bodies Present (Not Present) A 10/31/16 03:30 ABG pCO2 69 mmHg (35-45) H 10/31/16 12:03 ABG HCO3 43.7 mEQ/L (21-27) H 10/31/16 12:03 ABG Total CO2 45.8 mEq/L (20-26) H 10/31/16 12:03 ABG Base Excess 16.1 mEq/L (-2.0 to 3.0) H 10/31/16 12:03 Chloride 95 mEq/L (98-109) L 11/02/16 03:22 Carbon Dioxide 39 mEq/L (19-29) H 11/02/16 03:22 BUN 23 mg/dL (7-20) H 11/02/16 03:22 BUN/Creatinine Ratio 33 (6-26) H 11/02/16 03:22 Glucose 158 mg/dL (70-99) H 11/02/16 03:22 Calculated Osmolality 303 (280-300) H 11/02/16 03:22 Magnesium 1.4 mg/dL (1.6-2.6) L 11/01/16 18:38 Albumin 3.1 g/dL (3.5-5.0) L 11/01/16 18:38 Prealbumin 13.0 mg/dL (16.0-38.0) L 10/31/16 13:22 Ur Specific [place] 1.028 (1.010-1.025) H 10/30/16 16:52 Urine Protein 100 mg/dL (Neg-Trace) H 10/30/16 16:52 Urine Ketones Trace mg/dL (Negative) H 10/30/16 16:52 Urine Blood Large (Negative) H 10/30/16 16:52 Ur Leukocyte Esterase Small (Negative) H 10/30/16 16:52 Urine Microscopic RBC 30-50 per hpf (0-3) H 10/30/16 16:52 Urine Microscopic WBC 15-30 per hpf (0-3) H 10/30/16 16:52 Ur Squamous Epith Cells Many per lpf (None-Few) H 10/30/16 16:52 Urine Yeast Few per hpf (None Seen) H 10/30/16 16:52 General appearance: Present: cooperative, no acute distress, thin - ENT ENT exam: Present: mucous membranes moist - Respiratory Respiratory exam: Present: decreased breath sounds, prolonged expiratory phase. Absent: accessory muscle use, respiratory distress, tachypnea - GI/Abdominal GI/Abdominal exam: Absent: tenderness - Extremities Exam Extremities exam: Present: normal inspection - Neurological Exam Neurological exam: Present: alert, oriented X3, no focal deficits - Psychiatric Psychiatric exam: Present: normal affect, normal mood - Skin Skin exam: Present: dry, warm Palliative Quality Palliative Quality: Screen for Code Status: Yes, Screen for Goals of Care: Yes, Screen for Pain: Yes, If Pain Regimen Started, Initiate Bowel Regimen: NA, Screen for Nausea/Vomitting: Yes - Labs CBC & Chem 7: 11/02/16 03:22 11/02/16 03:22 Labs: Laboratory Results - last 24 hr 10/31/16 11/01/16 11/01/16 16:05 18:38 18:38 WBC RBC Hgb Hct MCV MCH MCHC RDW Plt Count MPV Immature Gran % Seg Neutrophils % Lymphocytes % Monocytes % Eosinophils % Basophils % Neutrophils # Lymphocytes # Monocytes # Eosinophils # Basophils # Sodium Potassium Chloride Carbon Dioxide BUN Creatinine Est GFR ( Amer) Est GFR (Non-Af Amer) BUN/Creatinine Ratio Glucose Calculated Osmolality Calcium Phosphorus 2.7 Magnesium 1.4 L Albumin 3.1 L Vitamin B12 463 Influ A (H1N1/) PCR NOT DETECTED Influenza Type A (PCR) Negative Influenza Type B (PCR) Negative 11/02/16 11/02/16 03:22 03:22 WBC 10.7 RBC 3.95 Hgb 12.0 Hct 36.6 MCV 92.7 MCH 30.4 MCHC 32.8 RDW 13.0 Plt Count 365 MPV 10.6 Immature Gran % 0.7 Seg Neutrophils % 94.1 Lymphocytes % 2.8 Monocytes % 2.4 Eosinophils % 0.0 Basophils % 0.0 Neutrophils # 10.1 H Lymphocytes # 0.3 L Monocytes # 0.3 Eosinophils # 0.0 Basophils # 0.0 Sodium 143 Potassium 4.0 Chloride 95 L Carbon Dioxide 39 H BUN 23 H Creatinine 0.70 Est GFR ( Amer) > 60 Est GFR (Non-Af Amer) > 60 BUN/Creatinine Ratio 33 H Glucose 158 H Calculated Osmolality 303 H Calcium 9.3 Phosphorus Magnesium Albumin Vitamin B12 Influ A (H1N1/09) PCR Influenza Type A (PCR) Influenza Type B (PCR) - ABG Interpretation ABG results: ABG ABG pH 7.41 pH Units (7.32-7.45) 10/31/16 12:03 ABG pCO2 69 mmHg (35-45) H 10/31/16 12:03 ABG pO2 95 mmHg (85-104) 10/31/16 12:03 ABG O2 Saturation 97 % (95-98) 10/31/16 12:03 Consult Discharge Plan - Plan Referrals: Shayy Morse CNP [Primary Care Provider] - 11/05/16 9:45 am Prescriptions: Cyanocobalamin (B-12) [Vitamin B12] 1,000 mcg PO DAILY #90 tablet Doxycycline 100 mg PO BID #14 capsule Ergocalciferol (VITAMIN D2) [Drisdol (50,000 Unit)] 50,000 unit PO QWEEK #20 capsule Levofloxacin 500 mg PO DAILY #10 tablet Mirtazapine [Remeron] 7.5 mg PO HS #30 tablet PredniSONE 20 mg PO AD #33 tablet
--- NOTE | 2016-11-02 16:59 | Internal Med Progress Note ---
Date of Encounter: 11/02/16 Time of Encounter: 16:55 - Assessment and plan (1) Acute exacerbation of chronic obstructive pulmonary disease (COPD) Current Visit: Yes Status: Acute (2) Leukocytosis Current Visit: Yes Status: Acute Qualifiers: Leukocytosis type: unspecified Qualified Code(s): D72.829 - Elevated white blood cell count, unspecified (3) Pulmonary cachexia due to chronic obstructive pulmonary disease Current Visit: Yes Status: Chronic (4) Lung nodule seen on imaging study Current Visit: No Status: Acute (5) Protein-calorie malnutrition, severe Current Visit: No Status: Chronic - Time Spent With Patient Plan Patient was seen and evaluated twice today. With her for possible hospital acquired pneumonia. Discussed with clinical pharmacist, he recommended 5-7 days of vancomycin. Her vancomycin trough today is low. With her symptoms and her comorbidity. Based on recommendation at least to have 5 days of vancomycin before discharge. taper Down steroids. Possible discharge next a.m. 25 - 35 minutes - Subjective Interval history: Patient continued to have shortness of breath at rest. Patient denies any fever or chills. Patient denies any nausea or vomiting. - Constitutional Vitals: Temp Pulse Resp BP Pulse Ox 98.1 F 94 18 123/55 96 11/02/16 14:58 11/02/16 14:58 11/02/16 15:55 11/02/16 14:58 11/02/16 15:55 General appearance: Present: cachectic, mild distress (moderate), A&O X 3, pleasant, underweight, answers questions appropriately - Head Head exam: Present: atraumatic, normocephalic - Respiratory Respiratory exam: Present: accessory muscle use, decreased breath sounds, prolonged expiratory phase, wheezes. Absent: rales, rhonchi - Cardiovascular Cardiovascular exam: Present: RRR, +S1, +S2. Absent: diastolic murmur, gallop, rubs, systolic murmur - GI/Abdominal GI/Abdominal exam: Present: normal bowel sounds, soft, no peritoneal signs. Absent: distended, tenderness - Extremities Exam Extremities exam: Present: warm, radial pulses palpable and symetrical. Absent : calf tenderness, cyanotic, pedal edema - Neurological Exam Neurological exam: Present: CN II-XII intact, no focal deficits. Absent: pronater drift, facial droop, speech deficit Internal Medicine: Result - Labs CBC & Chem 7: 11/02/16 03:22 11/02/16 03:22 Labs: Short CBC 11/02/16 Range/Units 03:22 WBC 10.7 (4.3-11.1) K/mcL Hgb 12.0 (11.5-15.4) g/dL Hct 36.6 (35.3-44.9) % Plt Count 365 (140-400) K/mcL Neutrophils # 10.1 H (1.6-8.9) K/mcL BMP 11/02/16 03:22 Sodium 143 Potassium 4.0 Chloride 95 L Carbon Dioxide 39 H BUN 23 H Creatinine 0.70 Glucose 158 H Calcium 9.3 Liver Function 11/01/16 Range/Units 18:38 Albumin 3.1 L (3.5-5.0) g/dL - ABG Interpretation ABG results: ABG ABG pH 7.41 pH Units (7.32-7.45) 10/31/16 12:03 ABG pCO2 69 mmHg (35-45) H 10/31/16 12:03 ABG pO2 95 mmHg (85-104) 10/31/16 12:03 ABG O2 Saturation 97 % (95-98) 10/31/16 12:03 Consult Discharge Plan - Plan Referrals: Shayy Morse CNP [Primary Care Provider] - 11/05/16 9:45 am Prescriptions: Cyanocobalamin (B-12) [Vitamin B12] 1,000 mcg PO DAILY #90 tablet Doxycycline 100 mg PO BID #14 capsule Ergocalciferol (VITAMIN D2) [Drisdol (50,000 Unit)] 50,000 unit PO QWEEK #20 capsule Levofloxacin 500 mg PO DAILY #10 tablet Mirtazapine [Remeron] 7.5 mg PO HS #30 tablet PredniSONE 20 mg PO AD #33 tablet
[2016-11-02] MEDS: Loratadine 10 MG TABLET PO SCH (18:49)
[2016-11-02] MEDS: Mirtazapine 15 MG TABLET PO SCH (21:59)
[2016-11-02] MEDS: traZODone 50 MG TABLET PO SCH (21:59)
[2016-11-02] MEDS: Primidone 50 MG TABLET PO SCH (21:59)
[2016-11-03] MEDS: Vancomycin 1,000 MG in D5% in Water 250 ML IVPB SCH ×2 (04:15→15:18)
[2016-11-03] MEDS: Ipratropium/Albuterol Neb 3 ML IH SCH ×6 (04:53→22:55)
[2016-11-03] MEDS: *HR* Heparin 5,000 UNIT/ML VIAL SQ SCH ×2 (06:05→18:14)
[2016-11-03] MEDS: Budesonide/Formoterol 160/4.5 MDI IH SCH (07:48)
[2016-11-03] MEDS: Tiotropium 18 MCG inhalation IH SCH (08:12)
[2016-11-03] MEDS: Megestrol Acetate 400 MG/10 ML UDC PO SCH (08:13)
[2016-11-03] MEDS: predniSONE 20 MG TABLET PO SCH (08:13)
[2016-11-03] MEDS ORDERED: levoFLOXacin 250 MG TABLET PO SCH (09:00)
[2016-11-03 10:21] LABS: Basophils % 0.1 %; Hematocrit 36.8 % (35.3-44.9); Hemoglobin 11.9 g/dL (11.5-15.4); Immature Granulocytes % 0.4 % (0-4); Lymphocytes # 0.9 K/mcL (0.6-4.6); Lymphocytes % 12.1 %; Mean Corpuscular HGB Conc 32.3 g/dL (31.6-35.5); Mean Corpuscular Hemoglobin 30.7 pg (28.0-33.3); Mean Corpuscular Volume 94.8 fL (83.0-100.0); Monocytes # 0.6 K/mcL (0.0-1.3); Monocytes % 8.6 %; Neutrophils # 5.9 K/mcL (1.6-8.9); Platelet Count 308 K/mcL (140-400); Red Blood Count 3.88 M/mcL (3.82-4.97); Segmented Neutrophils % 78.8 %
[2016-11-03 10:32] LABS: BUN/Creatinine Ratio 33 (6-26); Blood Urea Nitrogen 21 mg/dL (7-20); Calcium 8.4 mg/dL (8.6-10.8); Chloride 95 mEq/L (98-109); Glucose 101 mg/dL (70-99); Osmolality,Calculated 295 (280-300); Potassium 3.8 mEq/L (3.5-4.5); Sodium 141 mEq/L (136-145); eGFR For African Americans > 60 (> 60); eGFR For Non-African Americans > 60 (> 60)
[2016-11-03 10:34] LABS: Carbon Dioxide 41 mEq/L (19-29)
--- NOTE | 2016-11-03 16:25 | Internal Med Progress Note ---
Date of Encounter: 11/03/16 Time of Encounter: 16:21 - Assessment and plan (1) Acute exacerbation of chronic obstructive pulmonary disease (COPD) Current Visit: Yes Status: Acute Assessment and plan: She is end-stage COPD. Will continue pulmonary toilet and positive pressure as needed. Continue levofloxacin and vancomycin for today. blood cultures prelim shows no growth. Leukocytosis trending down. Enlarging nodules noted on her CTA with concern for metastasis of her known lung cancer. Oncology on board. Appreciate their recommendations. steroids has been changed to oral, will continue that for now, slow taper at the time of dc. (2) Acute and chronic respiratory failure Current Visit: Yes Status: Chronic Assessment and plan: Patient stating she is on 4 L per nasal cannula continuously at home. She is also on positive pressure but does not know whether or not she is on CPAP or BiPAP. She is currently alert and oriented 3. acute respirtaory failure most likely 2/2 COPD exacerbation. clinically improved. palliative has been consulted as she struggles to complete her ADLS, however she does not agree with hospice at this time and does not want any HH or additional support. she lives by herself but her family check on her. Qualifiers: Respiratory failure complication: hypoxia and hypercapnia Qualified Code(s) : J96.21 - Acute and chronic respiratory failure with hypoxia; J96.22 - Acute and chronic respiratory failure with hypercapnia (3) Lung nodule seen on imaging study Current Visit: No Status: Acute Assessment and plan: janie has received definitive radiotherapy for an enlarging right lung mass that was not biopsied due to her underlying COPD. This treatment was completed in December 2015. Her imaging has remained overall stable since that timeframe. as per oncology she is currently disease-free with respect to malignancy with no further oncologic intervention needed at this time. - Time Spent With Patient 25 - 35 minutes - Subjective Interval history: Patient seen at the bedside, admitted for acute respiratory failure possibly secondary to COPD exacerbation. CT was done which ruled out PE, did not have any evidence of pneumonia. On 2 L nasal cannula at home, has h/o advanced COPD with on and off BiPAP. - Constitutional Vitals: Temp Pulse Resp BP Pulse Ox 98.1 F 102 17 103/58 95 11/03/16 15:25 11/03/16 15:25 11/03/16 15:25 11/03/16 15:25 11/03/16 15:25 General appearance: Present: cachectic, mild distress (moderate), A&O X 3, pleasant, underweight, answers questions appropriately Exam: - Head Head exam: Present: atraumatic, normocephalic - Respiratory Respiratory exam: Present: accessory muscle use, decreased breath sounds, prolonged expiratory phase, wheezes. Absent: rales, rhonchi - Cardiovascular Cardiovascular exam: Present: RRR, +S1, +S2. Absent: diastolic murmur, gallop, rubs, systolic murmur - GI/Abdominal GI/Abdominal exam: Present: normal bowel sounds, soft, no peritoneal signs. Absent: distended, tenderness - Extremities Exam Extremities exam: Present: warm, radial pulses palpable and symetrical. Absent : calf tenderness, cyanotic, pedal edema - Neurological Exam Neurological exam: Present: CN II-XII intact, no focal deficits. Absent: pronater drift, facial droop, speech deficit Internal Medicine: Result - Labs CBC & Chem 7: 11/03/16 09:55 11/03/16 09:55 Labs: Short CBC 11/03/16 Range/Units 09:55 WBC 7.4 (4.3-11.1) K/mcL Hgb 11.9 (11.5-15.4) g/dL Hct 36.8 (35.3-44.9) % Plt Count 308 (140-400) K/mcL Neutrophils # 5.9 (1.6-8.9) K/mcL BMP 11/03/16 09:55 Sodium 141 Potassium 3.8 Chloride 95 L Carbon Dioxide 41 H* BUN 21 H Creatinine 0.64 Glucose 101 H Calcium 8.4 L - ABG Interpretation ABG results: ABG ABG pH 7.41 pH Units (7.32-7.45) 10/31/16 12:03 ABG pCO2 69 mmHg (35-45) H 10/31/16 12:03 ABG pO2 95 mmHg (85-104) 10/31/16 12:03 ABG O2 Saturation 97 % (95-98) 10/31/16 12:03 Consult Discharge Plan - Plan Referrals: Shayy Morse CNP [Primary Care Provider] - 11/05/16 9:45 am Prescriptions: Cyanocobalamin (B-12) [Vitamin B12] 1,000 mcg PO DAILY #90 tablet Doxycycline 100 mg PO BID #14 capsule Ergocalciferol (VITAMIN D2) [Drisdol (50,000 Unit)] 50,000 unit PO QWEEK #20 capsule Levofloxacin 500 mg PO DAILY #10 tablet Mirtazapine [Remeron] 7.5 mg PO HS #30 tablet PredniSONE 20 mg PO AD #33 tablet
[2016-11-03] MEDS: Loratadine 10 MG TABLET PO SCH (18:14)
[2016-11-03] MEDS: traZODone 50 MG TABLET PO SCH (21:00)
[2016-11-03] MEDS: Primidone 50 MG TABLET PO SCH (21:00)
[2016-11-03] MEDS: Mirtazapine 15 MG TABLET PO SCH (21:01)
[2016-11-04] MEDS: Vancomycin 1,000 MG in D5% in Water 250 ML IVPB SCH (03:17)
[2016-11-04] MEDS: Ipratropium/Albuterol Neb 3 ML IH SCH ×3 (04:39→11:08)
[2016-11-04] MEDS: *HR* Heparin 5,000 UNIT/ML VIAL SQ SCH (05:56)
[2016-11-04 06:54] VITALS: BP 117/72
[2016-11-04] MEDS: Tiotropium 18 MCG inhalation IH SCH (07:36)
[2016-11-04] MEDS: Budesonide/Formoterol 160/4.5 MDI IH SCH (07:36)
[2016-11-04] MEDS: Megestrol Acetate 400 MG/10 ML UDC PO SCH (07:43)
[2016-11-04] MEDS: predniSONE 20 MG TABLET PO SCH (07:43)
[2016-11-04] MEDS ORDERED: levoFLOXacin 750 MG TABLET PO SCH (09:00)
--- NOTE | 2016-11-04 10:46 | Discharge Summary ---
Date of Encounter: 11/04/16 Time of Encounter: 10:40 - Discharge Diagnosis (1) Acute exacerbation of chronic obstructive pulmonary disease (COPD) Priority: Primary Status: Acute (2) Acute and chronic respiratory failure Priority: Primary Status: Chronic Qualifiers: Respiratory failure complication: hypoxia and hypercapnia Qualified Code(s) : J96.21 - Acute and chronic respiratory failure with hypoxia; J96.22 - Acute and chronic respiratory failure with hypercapnia (3) Lung nodule seen on imaging study Priority: Secondary Status: Acute - Discharge Medications Prescriptions: Cyanocobalamin (B-12) [Vitamin B12] 1,000 mcg PO DAILY #90 tablet Ergocalciferol (VITAMIN D2) [Drisdol (50,000 Unit)] 50,000 unit PO QWEEK #20 capsule Levofloxacin 500 mg PO DAILY #10 tablet Mirtazapine [Remeron] 7.5 mg PO HS #30 tablet PredniSONE 10 mg PO DAILY #65 tablet Home Medications: Albuterol Sulfate [Proair Respiclick] 2 puff IH QID PRN 09/05/15 [History] Budesonide/Formoterol 160/4.5 [Symbicort 160/4.5] 1 puff IH DAILY 09/05/15 [ History] Butalb/Acetaminophen/Caffeine [Fioricet 50-300-40 mg Capsule] 1 each PO BID PRN 09/05/15 [History] Cetirizine HCl [Zyrtec] 20 mg PO QPM 09/05/15 [History] Omeprazole [PriLOSEC] 20 mg PO DAILY 09/05/15 [History] Primidone [Mysoline] 50 mg PO HS 09/05/15 [History] Roflumilast [Daliresp] 500 mcg PO DAILY 09/05/15 [History] Tiotropium [Spiriva] 18 mcg IH 0700 09/05/15 [History] Albuterol Neb [Proventil Neb] 2.5 mg IH TID PRN 11/21/15 [History] Cyclobenzaprine [Flexeril] 10 mg PO BID PRN 03/05/16 [History] Oxygen 3 - 4 l PO DAILY 03/05/16 [History] Paroxetine [Paxil] 20 mg PO DAILY 06/19/16 [History] Alprazolam [Xanax 1 MG Tablet] 1 mg PO Q8H PRN 09/17/16 [History] Megestrol Acetate [Megace] 800 mg PO DAILY #600 mls 10/02/16 [Rx] Acetylcysteine [T-Bvoobp-j-Cysteine] 600 mg PO Q12H 10/30/16 [History] GuaiFENesin ER [Mucinex] 600 mg PO BID PRN 10/30/16 [History] Cyanocobalamin (B-12) [Vitamin B12] 1,000 mcg PO DAILY #90 tablet 11/02/16 [Rx] Ergocalciferol (VITAMIN D2) [Drisdol (50,000 Unit)] 50,000 unit PO QWEEK #20 capsule 11/02/16 [Rx] Levofloxacin 500 mg PO DAILY #10 tablet 11/02/16 [Rx] Mirtazapine [Remeron] 7.5 mg PO HS #30 tablet 11/02/16 [Rx] Trazodone HCl 50 mg PO HS #0 11/02/16 [Rx] PredniSONE 10 mg PO DAILY #65 tablet 11/04/16 [Rx] Allergies/Adverse Reactions: Allergies morphine Adverse Reaction (Verified 09/17/16 13:00) Itching Date of admission: 10/31/16 13:21 Primary care physician: Shayy Morse CNP Consults: 10/31/16 15:30 Consult to Palliative Care [CONS] Routine Comment: end stage copd. lives alone. Consulting Provider: [facility] Discharging clinician: Melissa Ogden Anticipated date of discharge: 11/04/16 - Patient Status Disposition: Home, Self-Care Condition: Fair Functional capacity at discharge: uses cane/walker Overall status at discharge: patient is progressing back to baseline - Discharge Instructions Instructions: Mirtazapine (By mouth), Heart Failure (DC), Chest Pain (DC), Acute Respiratory Distress Syndrome (DC), Chronic Obstructive Pulmonary Disease (DC) Follow Up With: Shayy Morse CNP [Primary Care Provider] - 11/05/16 9:45 am Forms: Work/School Release - Diet and Activity Activity: resume usual activities as tolerated Diet: advance to your usual diet Interval History: Ms. Holland is a 66 year old female with past medical history of COPD oxygen dependent, DVT diastolic heart failure, DVT right-sided lung mass with radiation in 2016. She was admitted for acute respiratory failure secondary to COPD exacerbation and possible pneumonia. Lab work revealed elevated white count of 37 patient denies any recent steroid use. Chest x-ray indicative of chronic pulmonary disease. She was given IV Levaquin and has been admitted for further workup and evaluation. She received empiric stereotactic body radiotherapy to an enlarging right lung nodule which she completed in December 2015. She has been undergoing surveillance CT chest since that time with most recent imaging in September 2016 demonstrating stability of the treated right lung nodule and stability of an additional smaller right middle lobe nodule. She underwent CTA during her current hospital admission which was negative for PE and as per oncology, demonstrates stability of the lung nodules. This is the second hospitalization in 2017 for COPD exacerbation. She continues to live at home by herself and struggle to maintain her ADLs due to her progressive, severe, chronic dyspnea. she was started on IV vanco and leaquin given elevated wbc on admission and acute respirtaory failure. However CT chest did not show any signs of pneumonia, there are no other source of infection identified at this time. She improved clinically with IV steroids and antibiotics and breathing treatments with when necessary BIPAP by the bedside. She lives by herself at home and refuses home health. Her sister checks on her time to time and the family members come and go and cook for her. Palliative was consulted, however she refuses hospice and wants to be full code at this time. Given no signs of pneumonia on the CAT scan on the x-ray, antibiotics were stopped after completion of 5 days. Blood cultures have been negative. The white count is normalized and she has improved clinically. She is being discharged today in stable condition to return home. Hospital course: Ms. Holland is a 66 year old female Time spent discussing smoking cessation with patient: more than 10 minutes - Time Spent with Patient Total time spent providing and/or coordinating discharge services: Greater than 30 minutes - Constitutional Vitals: Temp Pulse Resp BP Pulse Ox 98.6 F 84 14 117/72 98 11/04/16 06:53 11/04/16 06:53 11/04/16 07:36 11/04/16 06:53 11/04/16 08:00 General appearance: Present: cachectic, A&O X 3, pleasant, no acute distress, underweight, answers questions appropriately Exam: Head Head exam: Present: atraumatic, normocephalic - Respiratory Respiratory exam: Present: Decreased breath sounds, no wheezing. Absent: rales , rhonchi - Cardiovascular Cardiovascular exam: Present: RRR, +S1, +S2. Absent: diastolic murmur, gallop, rubs, systolic murmur - GI/Abdominal GI/Abdominal exam: Present: normal bowel sounds, soft, no peritoneal signs. Absent: distended, tenderness - Extremities Exam Extremities exam: Present: warm, radial pulses palpable and symetrical. Absent : calf tenderness, cyanotic, pedal edema - Neurological Exam Neurological exam: Present: CN II-XII intact, no focal deficits. Absent: pronater drift, facial droop, speech deficit
[2016-11-04] MEDS ORDERED: Aminoglycoside Consult 1 EACH MC ONE (12:01)
== END 2016-11-04 12:02 | disposition home or self-care (01) | DRG 190 ==
LOC: 3BNU 14:38 → EMEROO 14:38 → 3BNU 18:24 → SUATTDRO 10-31 13:21
PROVIDERS: ADMIT Nurse Practitioner Family; ATTEND Internal Medicine Endocrinology, Diabetes & Metabolism

== ENCOUNTER 2016-12-10 14:31 | Inpatient (IN) ==
[2016-12-10] MEDS ORDERED: methylPREDNISolone 125 MG/2 ML VIAL IV ONE (14:46)
[2016-12-10] MEDS ORDERED: Ipratropium/Albuterol Neb 3 ML IH ONE (14:46)
--- NOTE | 2016-12-10 14:48 | Emergency Department Note ---
Disposition Clinical Impression: Acute exacerbation of chronic obstructive airways disease Dyspnea Qualifiers: Dyspnea type: unspecified Qualified Code(s): R06.00 - Dyspnea, unspecified Disposition: Admitted As Inpatient Forms: ED Satisfaction Letter SOB HPI - General Chief Complaint: ED Shortness of Breath/Dyspnea Stated Complaint: JARET/COPD Time Seen by Provider: 12/10/16 14:32 Source: patient, EMS Limitations: no limitations Nursing Notes Reviewed: Yes Vital Signs Reviewed: Yes - History of Present Illness Pt Subjective Complaint: shortness of breath Onset (ago): day(s) (2) Severity: moderate Consistency/Duration: intermittent, gradually worsening Improves with: oxygen, rest, bronchodilators Worsens with: exertion Known history of: COPD Associated symptoms: Reports: denies other symptoms Treatment prior to arrival: oxygen, bronchodilator Cough present: Yes Cough Description: Involuntary Cough Frequency: Intermittent Sputum production: No - Related Data Home Medications Medication Instructions Recorded Confirmed Albuterol Sulfate [Proair 2 puff IH QID PRN 09/05/15 10/30/16 Respiclick] Budesonide/Formoterol 160/4.5 1 puff IH DAILY 09/05/15 10/30/16 [Symbicort 160/4.5] Butalb/Acetaminophen/Caffeine 1 each PO BID PRN 09/05/15 10/30/16 [Fioricet 50-300-40 mg Capsule] Cetirizine HCl [Zyrtec] 20 mg PO QPM 09/05/15 10/30/16 Omeprazole [PriLOSEC] 20 mg PO DAILY 09/05/15 10/30/16 Primidone [Mysoline] 50 mg PO HS 09/05/15 10/30/16 Roflumilast [Daliresp] 500 mcg PO DAILY 09/05/15 10/30/16 Tiotropium [Spiriva] 18 mcg IH 0700 09/05/15 10/30/16 Albuterol Neb [Proventil Neb] 2.5 mg IH TID PRN 11/21/15 10/30/16 Cyclobenzaprine [Flexeril] 10 mg PO BID PRN 03/05/16 10/30/16 Oxygen 3 - 4 l PO DAILY 03/05/16 10/30/16 Paroxetine [Paxil] 20 mg PO DAILY 06/19/16 10/30/16 Alprazolam [Xanax 1 MG Tablet] 1 mg PO Q8H PRN 09/17/16 10/30/16 Acetylcysteine 600 mg PO Q12H 10/30/16 10/30/16 [P-Rgkzoj-x-Cysteine] GuaiFENesin ER [Mucinex] 600 mg PO BID PRN 10/30/16 10/30/16 Previous Rx's Medication Instructions Recorded Megestrol Acetate [Megace] 800 mg PO DAILY #600 mls 10/02/16 Cyanocobalamin (B-12) [Vitamin B12] 1,000 mcg PO DAILY #90 tablet 11/02/16 Ergocalciferol (VITAMIN D2) 50,000 unit PO QWEEK #20 capsule 11/02/16 [Drisdol (50,000 Unit)] Levofloxacin 500 mg PO DAILY #10 tablet 11/02/16 Mirtazapine [Remeron] 7.5 mg PO HS #30 tablet 11/02/16 Trazodone HCl 50 mg PO HS #0 11/02/16 PredniSONE 10 mg PO DAILY #65 tablet 11/04/16 Allergies Allergy/AdvReac Type Severity Reaction Status Date / Time morphine AdvReac Itching Verified 09/17/16 13:00 All systems ED: reviewed and negative except as stated. Constitutional: Denies: fever, chills Respiratory: Reports: cough, dyspnea, wheezes Past Medical History - Past Medical History Source: patient, old records reviewed, nursing notes reviewed Medical history: Reports: arthritis, cancer, CHF, COPD, DVT, GERD, other Surgical history: Reports: appendectomy, hysterectomy Psychiatric history: Reports: anxiety, depression - Social History Smoking Status: Former smoker Smokeless Tobacco Status: Yes (nicotine gum) Alcohol use: Reports: none Drug use: Reports: none Physical Exam - General Limitations: no limitations General appearance: alert - Head Head exam: atraumatic, normocephalic, normal inspection - Eye Eye exam: Present: normal appearance, PERRL, EOMI - Expanded Eye Exam Pupils: Left: reactive - ENT ENT exam: normal exam, normal oropharynx, mucous membranes moist - Expanded ENT Exam External ear exam: Present: normal external inspection Mouth exam: Present: normal external inspection Teeth exam: Present: normal inspection Throat exam: Present: normal inspection - Neck Neck exam: Present: normal inspection, full ROM, trachea midline - Chest Chest inspection: Present: normal inspection, symmetric chest wall rise - Respiratory Respiratory exam: Present: prolonged expiratory phase (Diminished throughout patient speaks in 4-5 word phrases) - Cardiovascular Cardiovascular exam: Present: regular rate, normal rhythm, normal heart sounds - Abdominal Exam Abdominal exam: Present: soft, Non-Tender. Absent: tenderness, distention, guarding, rebound, rigidity - Extremities Exam Extremities exam: Present: normal inspection, full ROM. Absent: tenderness, pedal edema - Expanded Upper Extremity Exam Shoulder exam: Present: normal inspection, full ROM Arm exam: Present: normal inspection, full ROM Elbow exam: Present: normal inspection, full ROM Forearm/Wrist exam: Present: normal inspection, full ROM Hand exam: Present: normal inspection, full ROM Vascular exam: Normal: capillary refill, radial pulse - Expanded Lower Extremity Exam Hip/Pelvis exam: Present: normal inspection, full ROM Upper leg exam: Present: normal inspection, full ROM Knee exam: Present: normal inspection, full ROM Lower leg exam: Present: normal inspection, full ROM Ankle exam: Present: normal inspection, full ROM Foot/toe exam: Present: normal inspection, full ROM Neurovascular/Tendon exam: Absent: motor deficit, sensory deficit, tendon deficit - Back Exam Back exam: Present: normal inspection, full ROM. Absent: tenderness - Neurological Exam Neurological exam: Present: alert, oriented X3 - Expanded Neurological Exam Patient oriented to: Present: person, place, time Coma Scale Eye Opening: Spontaneous Coma Scale Motor Response: Obeys Commands Coma Scale Verbal Response: Oriented Coma Scale Total: 15 - Psychiatric Psychiatric exam: Present: normal affect, normal mood - Skin Skin exam: Present: warm, dry, intact, normal color Course Vital Signs Temperature 98.1 F 12/10/16 14:32 Pulse Rate 90 12/10/16 14:32 Respiratory Rate 22 12/10/16 14:32 Blood Pressure 107/71 12/10/16 14:32 O2 Sat by Pulse Oximetry 94 12/10/16 14:32 Temperature 98.1 F 12/10/16 14:32 Pulse Rate 90 12/10/16 14:32 Respiratory Rate 22 12/10/16 15:05 Blood Pressure 107/71 12/10/16 14:32 O2 Sat by Pulse Oximetry 998 12/10/16 15:05 Oxygen Delivery Oxygen Delivery Nasal Cannula Shortness of Breath/Dyspnea - Differential Diagnosis Likely: acute exacerbation of chronic obstructive airways disease, congestive heart failure, pneumonia, asthma with exacerbation, pulmonary embolism - Medical Records Medical records reviewed: Yes I reviewed the patient's medical records. - Lab Data Lab results reviewed: Yes I reviewed the patient's lab results. Result diagrams: 12/10/16 15:43 Lab Results 12/10/16 Range/Units 15:43 WBC 11.4 H (4.3-11.1) K/mcL RBC 3.94 (3.82-4.97) M/mcL Hgb 12.0 (11.5-15.4) g/dL Hct 37.1 (35.3-44.9) % MCV 94.2 (83.0-100.0) fL MCH 30.5 (28.0-33.3) pg MCHC 32.3 (31.6-35.5) g/dL RDW 13.5 (11.5-14.5) % Plt Count 260 (140-400) K/mcL MPV 10.2 (9.4-12.4) fL Immature Gran % 0.4 (0-4) % Seg Neutrophils % 92.0 % Lymphocytes % 5.1 % Monocytes % 2.3 % Eosinophils % 0.0 % Basophils % 0.2 % Neutrophils # 10.5 H (1.6-8.9) K/mcL Lymphocytes # 0.6 (0.6-4.6) K/mcL Monocytes # 0.3 (0.0-1.3) K/mcL Eosinophils # 0.0 (0.0-0.6) K/mcL Basophils # 0.0 (0.0-0.2) K/mcL Immature Plt Fraction 4.8 (1.1-6.1) % - Radiology Data Radiology results reviewed: Yes I reviewed the patient's radiology results. - EKG Data EKG attestation: Yes I reviewed and interpreted this EKG. EKG shows normal: Reports: sinus rhythm Rate: Reports: normal Rhythm: Reports: NSR Interpretation: Reports: no acute changes
[2016-12-10 15:50] LABS: Basophils % 0.2 %; Hematocrit 37.1 % (35.3-44.9); Immature Granulocytes % 0.4 % (0-4); Immature Platelets 4.8 % (1.1-6.1); Lymphocytes # 0.6 K/mcL (0.6-4.6); Lymphocytes % 5.1 %; Mean Corpuscular HGB Conc 32.3 g/dL (31.6-35.5); Mean Corpuscular Hemoglobin 30.5 pg (28.0-33.3); Mean Corpuscular Volume 94.2 fL (83.0-100.0); Mean Platelet Volume 10.2 fL (9.4-12.4); Monocytes # 0.3 K/mcL (0.0-1.3); Monocytes % 2.3 %; Neutrophils # 10.5 K/mcL (1.6-8.9); Platelet Count 260 K/mcL (140-400); Red Blood Count 3.94 M/mcL (3.82-4.97); Red Cell Distribution Width 13.5 % (11.5-14.5)
[2016-12-10] MEDS ORDERED: Levofloxacin 750 MG/150 ML 750 MG/150 ML BAG IVPB ONE (16:09)
[2016-12-10 16:10] LABS: BUN/Creatinine Ratio 27 (6-26); Blood Urea Nitrogen 17 mg/dL (7-20); Calcium 9.1 mg/dL (8.6-10.8); Carbon Dioxide 34 mEq/L (19-29); Chloride 97 mEq/L (98-109); Glucose 116 mg/dL (70-99); Osmolality,Calculated 291 (280-300); Potassium 4.4 mEq/L (3.5-4.5); Sodium 139 mEq/L (136-145); eGFR For African Americans > 60 (> 60); eGFR For Non-African Americans > 60 (> 60)
[2016-12-10] MEDS ORDERED: Acetaminophen/Butalbital/CaffeineTABLET PO PRN (20:27)
[2016-12-10] MEDS ORDERED: NON-FORMULARY MEDICATION 1 EACH EACH (Oxygen [Oxygen] 3 L) PO SCH (20:30)
[2016-12-10] MEDS ORDERED: Benzonatate 100 MG CAPSULE PO PRN (20:33)
[2016-12-10] MEDS ORDERED: Naloxone 0.4 MG/ML INJ IVP PRN (20:35)
[2016-12-10] MEDS ORDERED: Ondansetron 4 MG/2 ML VIAL IVP PRN (20:35)
[2016-12-10] MEDS ORDERED: *HR* OxyCODONE Immed Rel 5 MG TABLET PO PRN (20:35)
[2016-12-10] MEDS ORDERED: Acetaminophen 325 MG TABLET PO PRN (20:35)
[2016-12-10] MEDS ORDERED: Albuterol 2.5 MG/3 ML NEBULIZER IH PRN (20:35)
[2016-12-10] MEDS ORDERED: 0.9 % Sodium Chloride 1,000 ML IVC SCH (20:45)
--- NOTE | 2016-12-10 20:55 | Internal Med History&Physical ---
Date of Encounter: 12/10/16 Time of Encounter: 20:00 Assessment and Plan (1) Hypoxia Current visit: Yes Status: Acute . (2) Lung mass Current visit: Yes Status: Chronic . (3) Acute exacerbation of chronic obstructive pulmonary disease (COPD) Current visit: Yes Status: Acute . (4) Pulmonary cachexia due to chronic obstructive pulmonary disease Current visit: Yes Status: Chronic . (5) Acute and chronic respiratory failure Current visit: Yes Status: Chronic . Qualifiers: Respiratory failure complication: hypoxia and hypercapnia Qualified Code(s) : J96.21 - Acute and chronic respiratory failure with hypoxia; J96.22 - Acute and chronic respiratory failure with hypercapnia (6) Chronic hypercapnic respiratory failure Current visit: Yes Status: Chronic . (7) Protein-calorie malnutrition, severe Current visit: Yes Status: Chronic . Internal Medicine - H&P: HPI Chief complaint: Breathing difficulty Admitted From: Emergency Dept Plans for Post Hospital Care: Home History of present illness: Ms. Holland is a 66 year old female with history significant of end-stage COPD/ emphysema/chronic hypercapnic respiratory failure/continuous home oxygen dependent, cachexia of end-stage pulmonary disease/severe protein caloric malnutrition/failure to thrive syndrome, depression and anxiety disorder, h/o DVT, GERD, osteoarthritis, osteoporosis, h/o lung Ca s/p stereotactic radiotherapy, dyslipidemia, essential tremor, former smoker. The patient is admitted to [facility] through the emergency department when she presents with chief complaint of difficulty breathing. The patient presented from home via EMS services with reports of 2 days of progressive decline in respiratory status. She reported intermittent cough nonproductive. Moderate to severe dyspnea at rest worsened with exertion. TREATMENT OF BRONCHODILATOR THERAPY AND OXYGEN SUPPLEMENTATION WERE INEFFECTIVE IN REMAINING COMPLAINTS. SHE REPORTED COMPLIANCE WITH HER PRESCRIBED TREATMENTS. DENIED SMOKING. ACKNOWLEDGED USE OF NICOTINE GUM. DENIES ANY ENVIRONMENTAL EXPOSURES TRAVEL OR SICK EXPOSURES. Findings in the ED: Temperature 98.1 pulse 90 respirations 22 BP 107/71. O2 saturation 94% on 2 L per nasal cannula. WBC 11.4 hemoglobin 12 platelets 260,000. Differential showed an increase in neutrophils. EKG showed normal sinus rhythm with no acute ischemic changes. Portable chest x-ray demonstrated no evidence of acute or active cardiopulmonary process. Preliminary impression suggests acute on chronic obstructive pulmonary disease exacerbation with acute on chronic hypercapnic hypoxic respiratory failure. Systemic inflammatory response syndrome criteria and are present at the time of admission. There is no focus of infection overtly manifest. The patient is at risk for clinical decline. Workup and treatment will proceed comprehensively. The patient was visited and interviewed and examined. Cumulative laboratory and radiographic data base will be considered and discussed. Pertinent ancillary medical records including ECW and PCI documentation when available was reviewed and considered. Given the patient's presenting concerns, past medical history, clinical findings and symptoms, she is admitted at this time will undergo further evaluation and disposition. Orders were written as per Computerized physician order manager system.......................................................................... .................... Consultative opinions will be sought as clinical circumstances justify. Pain management needs will be addressed. Laboratory /radiographic data base will be updated as appropriate. Studies include: Cultures of blood urine sputum, UA, UDS, pt/inr, aptt, cardiac injury panel, BNP, metabolic and hematologic panel, magnesium, phosphorus, ionized calcium, thyroid panel, lipid profile, A1c, C-peptide, CRP, sedimentation rate, respiratory infection profile, respiratory virus panel, blood gas, lactic acid, serologies, etc. Precautions: Aspiration, fall, delirium protocol/surveillance initiated. Telemetry with continuous hemodynamic monitoring and pulse oximetry initiated. Empiric antibiotic coverage: Intravenous Levaquin pending culture data. Special studies: CT/CTA chest, chest x-ray, telemetry, EKG. Pulmonary toilet: Incentive spirometry, aerosol bronchodilator, mucolytic, antitussive, supplemental oxygen. Corticosteroid therapy. CPAP/BiPAP supplemental oxygen delivery. Aerosol Mucomyst therapy. Fluid and electrolyte repletion efforts will proceed. Careful attention to fluid balance and renal recovery will be emphasized. Avoidance of nephrotoxic exposure and adverse drug drug interaction in the setting of impaired renal function will be monitored closely. Acute coronary syndrome protocol/surveillance initiated. DVT and PUD prophylaxis initiated: PPI therapy, intermittent pneumatic cuffs. Subcutaneous heparin/Lovenox. Early ambulation will be encouraged. Immunization updates recommended. Influenza and pneumococcal vaccinations as part of ongoing preventative healthcare recommendations strongly recommended. Smoking cessation counseling briefly addressed. Patient is a former smoker. Advanced care directive discussion briefly addressed. Patient does not declare any healthcare restrictions at this time. Cardiovascular risk appraisal and cardiovascular risk reduction efforts will be emphasized. Physical /occupational therapy may be consulted to evaluate patient's functional capacity and progressive mobility if her circumstances justify. Nutrition/dietary education counseling may be considered as circumstances justify. Regular diet. Supplemental diet options. Appetite stimulants. Multivitamin/supplemental vitamin therapy options. Outpatient medication schedules will be reviewed, confirmed and facilitated as appropriate. Reconciliation of home treatments including adjustments, substitutions and reintroduction into the treatment regimen will address necessary maintenance therapies for chronic pre-existing medical conditions. Plan of care has been reviewed and discussed in detail with the patient. Questions addressed. Hospital course dictated by clinical findings, treatment response and potential consultative interventions. Patient is a risk for further acute clinical decline due to her frailty, chief complaints and co-morbidities. Condition is serious. Prognosis is guarded. CODE STATUS is full. Past Med Surg Social Fam HX - Past Medical History Source: old records reviewed Medical history: arthritis, asthma, cancer, CHF (chr diastolic CHF.), COPD, DVT , GERD, hyperlipidemia, osteoporosis (vitamin D def. ), other (Essential tremor. ) Psychiatric history: anxiety, depression - Past Surgical History Surgical History: appendectomy, hysterectomy, other - Social History Smoking Status: Former smoker Smokeless Tobacco Status: Yes (nicotine gum) Alcohol use: none Drug use: none - Family History Father Living Status: Still Living Hx Family Cardiac Disorders: Yes (irregular heart beat in need of pacemaker) Hx Family Respiratory Disorders: Yes (congestion, takes nebulizers) Sister Name: Cindy White Living Status: Still Living Hx Family Cancer: Yes Internal Medicine - H&P: Meds Albuterol Sulfate [Proair Respiclick] 2 puff IH Q4H PRN 09/05/15 [History] Budesonide/Formoterol 160/4.5 [Symbicort 160/4.5] 1 puff IH DAILY 09/05/15 [ History] Butalb/Acetaminophen/Caffeine [Fioricet 50-300-40 mg Capsule] 1 each PO BID PRN 09/05/15 [History] Cetirizine HCl [Zyrtec] 20 mg PO QPM 09/05/15 [History] Omeprazole [PriLOSEC] 20 mg PO DAILY 09/05/15 [History] Primidone [Mysoline] 100 mg PO HS 09/05/15 [History] Roflumilast [Daliresp] 500 mcg PO DAILY 09/05/15 [History] Tiotropium [Spiriva] 18 mcg IH 0700 09/05/15 [History] Albuterol Neb [Proventil Neb] 2.5 mg IH Q4H PRN 11/21/15 [History] Cyclobenzaprine [Flexeril] 10 mg PO HS 03/05/16 [History] Oxygen 3 - 4 l PO DAILY 03/05/16 [History] Paroxetine [Paxil] 20 mg PO DAILY 06/19/16 [History] Alprazolam [Xanax 1 MG Tablet] 0.5 - 1 mg PO TID PRN 09/17/16 [History] Megestrol Acetate [Megace] 800 mg PO DAILY #600 mls 10/02/16 [Rx] Acetylcysteine [G-Wwgfiy-r-Cysteine] 600 mg PO Q12H 10/30/16 [History] GuaiFENesin ER [Mucinex] 600 mg PO BID PRN 10/30/16 [History] Cyanocobalamin (B-12) [Vitamin B12] 1,000 mcg PO DAILY #90 tablet 11/02/16 [Rx] Ergocalciferol (VITAMIN D2) [Drisdol (50,000 Unit)] 50,000 unit PO QWEEK #20 capsule 11/02/16 [Rx] Mirtazapine [Remeron] 7.5 mg PO HS #30 tablet 11/02/16 [Rx] Calcium Carbonate/Vitamin D3 [Calcium 600-Vit D3 200 Tablet] 1 each PO BID 12/10 [History] Lactose-Reduced Food [Boost High Protein] 237 ml PO TID 12/10/16 [History] Trazodone HCl 200 mg PO HS 12/10/16 [History] Allergies morphine Adverse Reaction (Verified 09/17/16 13:00) Itching All Systems PM: A 10-system review of systems was performed and is negative for pertinent findings except as documented above in the HPI. Allergies Allergy/AdvReac Type Severity Reaction Status Date / Time morphine AdvReac Itching Verified 09/17/16 13:00 Patient Problems (Last Updated 12/10/16 @ 20:55 by Aman Friedman MD) Acute exacerbation of chronic obstructive airways disease (Acute Medical) J44.1 Bronchitis (Acute Medical) J40 Chest pain (Acute Medical) R07.9 Asthma exacerbation in COPD (Acute Medical) J44.1, J45.901 Hypotension (Acute Medical) I95.9 Interstitial edema (Resolved Medical) R60.9 Acute respiratory failure with hypoxia (Acute Medical) J96.01 Lung nodule seen on imaging study (Acute Medical) R91.1 Protein-calorie malnutrition, severe (Chronic Medical) E43 Abnormal CT of the chest (Acute Medical) R93.8 Adenopathy, hilar (Acute Medical) R59.0 DVT prophylaxis (Acute Medical) [id number] Lung cancer (Chronic Medical) C34.90 Congestive heart failure (Chronic Medical) I50.9 Hypoxia (Acute Medical) R09.02 Cigarette smoker (Chronic Social Hx) F17.210 DVT prophylaxis (Acute Medical) Lung mass (Chronic Medical) R91.8 Acute exacerbation of chronic obstructive pulmonary disease (COPD) (Acute Medical) J44.1 Leukocytosis (Acute Medical) D72.829 Failure to thrive (Acute Medical) Acute respiratory distress (Acute Medical) R06.00 Pulmonary cachexia due to chronic obstructive pulmonary disease (Chronic Medical ) J44.9, R64 Acute and chronic respiratory failure (Chronic Medical) J96.20 Abnormal urinalysis (Acute Medical) R82.90 Dyspnea (Acute Medical) R06.00 Goals of care, counseling/discussion (Acute Medical) Z71.89 Dyspnea (Acute Medical) R06.00 Asthma with exacerbation (Inactive Medical) J45.901 Community acquired pneumonia (Inactive Medical) J18.9 - Constitutional Constitutional: as per HPI, fatigue, falls, malaise, weakness, other, no chills , no fever(s), no night sweats - EENT Eyes: as per HPI, no change in vision, no discharge, no pain, no photophobia Ears: as per HPI, decreased hearing, no ear discharge, no ear pain, no tinnitus Nose, mouth and throat: as per HPI, no dysphagia, no nasal discharge, no neck pain, no sore throat - Cardiovascular Cardiovascular ROS IM: as per HPI, lightheadedness, palpitations, no chest pain , no diaphoresis, no dyspnea, no edema, no syncope - Respiratory Respiratory: as per HPI, cough, dyspnea, dyspnea on exertion, wheezing, chest congestion, other, no hemoptysis, no stridor, no excessive phlegm production, no change in phlegm color - Gastrointestinal Gastrointestinal: as per HPI, no abdominal pain, no diarrhea, no hematemesis, no hematochezia, no melena, no nausea, no vomiting - Genitourinary Genitourinary: as per HPI, no change in urinary stream, no dysuria, no flank pain, no hematuria - Musculoskeletal Musculoskeletal ROS IM: as per HPI, arthralgias, no numbness, no tingling - Integumentary Integumentary IM: as per HPI, no rash, no unusual bruising - Neurological Neurological ROS: as per HPI, no confusion, no convulsions, no focal weakness, no numbness, no tingling, no tremor(s) - Psychiatric Psychiatric: as per HPI - Endocrine Endocrine IM: as per HPI - Hematologic/Lymphatic Hematologic/Lymphatic: as per HPI, no easy bruising - Allergic/Immunologic Allergic/Immunologic: as per HPI - Constitutional Vitals: Temp Pulse Resp BP Pulse Ox 98.1 F 89 16 103/64 95 12/10/16 19:29 12/10/16 19:29 12/10/16 19:29 12/10/16 19:29 12/10/16 19:53 Vital Signs Temp Pulse Resp BP Pulse Ox 12/10/16 19:53 95 12/10/16 19:29 98.1 F 89 16 103/64 95 12/10/16 17:26 98.0 F 93 15 123/68 92 12/10/16 17:04 20 117/64 12/10/16 16:05 90 22 109/68 99 12/10/16 15:05 22 998 12/10/16 14:33 94 12/10/16 14:32 98.1 F 90 22 107/71 94 Intake and Output 12/10/16 12/10/16 12/10/16 07:59 15:59 23:59 Intake Total 50 / 50 Balance 50 / 50 Intake: IV Fluids 50 / 50 Levaquin 750mg/150 mL 750 50 / 50 mg In 150 ml @ 100 mls/ hr IVPB ONCE ONE Rx#: [id number] Other: Weight 40.823 kg 42.269 kg Patient Weight 12/10/16 23:59 Weight 42.269 kg General appearance: Present: cachectic, cooperative, mild distress, A&O X 3, underweight, answers questions appropriately - Head Head exam: Present: atraumatic, normocephalic - Eye Eye exam: Present: EOMI, PERRL, conjuntiva pink, sclera anicteric Pupils: Present: normal accommodation, PERRL - ENT ENT exam: Present: mucous membranes moist, normal oropharynx - Neck Neck exam general surgery: Present: supple, trachea midline. Absent: lymphadenopathy - Respiratory Respiratory exam: Present: accessory muscle use, chest wall tenderness, decreased breath sounds, prolonged expiratory phase, respiratory distress, rhonchi, wheezes, tachypnea. Absent: CTAB, rales - Cardiovascular Cardiovascular exam: Present: distant heart sounds, RRR, +S1, +S2, tachycardia. Absent: diastolic murmur, gallop, rubs, systolic murmur - GI/Abdominal GI/Abdominal exam: Present: diminished bowel sounds, soft, no peritoneal signs. Absent: distended, tenderness - Extremities Exam Extremities exam: Present: full ROM, warm, radial pulses palpable and symetrical. Absent: calf tenderness, cyanotic, pedal edema - Neurological Exam Neurological exam: Present: alert, altered, CN II-XII intact, oriented X3, no focal deficits. Absent: pronater drift, facial droop, speech deficit - Psychiatric Psychiatric exam: Present: normal affect, normal mood - Skin Skin exam: Present: dry, intact, warm. Absent: petechiae, rash, urticaria, vesicles Internal Med - H&P Results - Labs CBC & Chem 7: 12/10/16 15:43 12/10/16 15:43 Labs: Short CBC 12/10/16 Range/Units 15:43 WBC 11.4 H (4.3-11.1) K/mcL Hgb 12.0 (11.5-15.4) g/dL Hct 37.1 (35.3-44.9) % Plt Count 260 (140-400) K/mcL Neutrophils # 10.5 H (1.6-8.9) K/mcL BMP 12/10/16 Range/Units 15:43 Sodium 139 (136-145) mEq/L Potassium 4.4 (3.5-4.5) mEq/L Chloride 97 L (98-109) mEq/L Carbon Dioxide 34 H (19-29) mEq/L BUN 17 (7-20) mg/dL Creatinine 0.63 (0.57-1.11) mg/dL Glucose 116 H (70-99) mg/dL Calcium 9.1 (8.6-10.8) mg/dL Cardiac Enzymes 12/10/16 Range/Units 15:43 Troponin I 0.01 (0-0.03) ng/mL Abnormal lab results WBC 11.4 K/mcL (4.3-11.1) H 12/10/16 15:43 Neutrophils # 10.5 K/mcL (1.6-8.9) H 12/10/16 15:43 Chloride 97 mEq/L (98-109) L 12/10/16 15:43 Carbon Dioxide 34 mEq/L (19-29) H 12/10/16 15:43 BUN/Creatinine Ratio 27 (6-26) H 12/10/16 15:43 Glucose 116 mg/dL (70-99) H 12/10/16 15:43 Laboratory Results WBC 11.4 K/mcL (4.3-11.1) H 12/10/16 15:43 RBC 3.94 M/mcL (3.82-4.97) 12/10/16 15:43 Hgb 12.0 g/dL (11.5-15.4) 12/10/16 15:43 Hct 37.1 % (35.3-44.9) 12/10/16 15:43 MCV 94.2 fL (83.0-100.0) 12/10/16 15:43 MCH 30.5 pg (28.0-33.3) 12/10/16 15:43 MCHC 32.3 g/dL (31.6-35.5) 12/10/16 15:43 RDW 13.5 % (11.5-14.5) 12/10/16 15:43 Plt Count 260 K/mcL (140-400) 12/10/16 15:43 MPV 10.2 fL (9.4-12.4) 12/10/16 15:43 Immature Gran % 0.4 % (0-4) 12/10/16 15:43 Seg Neutrophils % 92.0 % 12/10/16 15:43 Lymphocytes % 5.1 % 12/10/16 15:43 Monocytes % 2.3 % 12/10/16 15:43 Eosinophils % 0.0 % 12/10/16 15:43 Basophils % 0.2 % 12/10/16 15:43 Neutrophils # 10.5 K/mcL (1.6-8.9) H 12/10/16 15:43 Lymphocytes # 0.6 K/mcL (0.6-4.6) 12/10/16 15:43 Monocytes # 0.3 K/mcL (0.0-1.3) 12/10/16 15:43 Eosinophils # 0.0 K/mcL (0.0-0.6) 12/10/16 15:43 Basophils # 0.0 K/mcL (0.0-0.2) 12/10/16 15:43 Immature Plt Fraction 4.8 % (1.1-6.1) 12/10/16 15:43 Sodium 139 mEq/L (136-145) 12/10/16 15:43 Potassium 4.4 mEq/L (3.5-4.5) 12/10/16 15:43 Chloride 97 mEq/L (98-109) L 12/10/16 15:43 Carbon Dioxide 34 mEq/L (19-29) H 12/10/16 15:43 BUN 17 mg/dL (7-20) 12/10/16 15:43 Creatinine 0.63 mg/dL (0.57-1.11) 12/10/16 15:43 Est GFR ( Amer) > 60 (> 60) 12/10/16 15:43 Est GFR (Non-Af Amer) > 60 (> 60) 12/10/16 15:43 BUN/Creatinine Ratio 27 (6-26) H 12/10/16 15:43 Glucose 116 mg/dL (70-99) H 12/10/16 15:43 Calculated Osmolality 291 (280-300) 12/10/16 15:43 Calcium 9.1 mg/dL (8.6-10.8) 12/10/16 15:43 Troponin I 0.01 ng/mL (0-0.03) 12/10/16 15:43 B-Natriuretic Peptide 29 pg/mL (0-100) 12/10/16 15:43 Impressions Chest X-Ray 12/10/16 14:33 IMPRESSION: No evidence for acute cardiopulmonary process. COPD. D/ / 12/10/2016 15:27:01 Chente Sahu MD / Veronica Warner Interpreting Provider: Chente Sahu MD - Attending Attestation Allergies morphine Adverse Reaction (Verified 09/17/16 13:00) Itching Home Medications Medication Instructions Recorded Confirmed Type Albuterol Sulfate [Proair 2 puff IH Q4H PRN 09/05/15 12/10/16 History Respiclick] Budesonide/Formoterol 160/4.5 1 puff IH DAILY 09/05/15 12/10/16 History [Symbicort 160/4.5] Butalb/Acetaminophen/Caffeine 1 each PO BID PRN 09/05/15 12/10/16 History [Fioricet 50-300-40 mg Capsule] Cetirizine HCl [Zyrtec] 20 mg PO QPM 09/05/15 12/10/16 History Omeprazole [PriLOSEC] 20 mg PO DAILY 09/05/15 12/10/16 History Primidone [Mysoline] 100 mg PO HS 09/05/15 12/10/16 History Roflumilast [Daliresp] 500 mcg PO DAILY 09/05/15 12/10/16 History Tiotropium [Spiriva] 18 mcg IH 0700 09/05/15 12/10/16 History Albuterol Neb [Proventil Neb] 2.5 mg IH Q4H PRN 11/21/15 12/10/16 History Cyclobenzaprine [Flexeril] 10 mg PO HS 03/05/16 12/10/16 History Oxygen 3 - 4 l PO DAILY 03/05/16 12/10/16 History Paroxetine [Paxil] 20 mg PO DAILY 06/19/16 12/10/16 History Alprazolam [Xanax 1 MG Tablet] 0.5 - 1 mg PO TID PRN 09/17/16 12/10/16 History Acetylcysteine 600 mg PO Q12H 10/30/16 12/10/16 History [G-Saarfs-l-Cysteine] GuaiFENesin ER [Mucinex] 600 mg PO BID PRN 10/30/16 12/10/16 History Calcium Carbonate/Vitamin D3 1 each PO BID 12/10/16 12/10/16 History [Calcium 600-Vit D3 200 Tablet] Lactose-Reduced Food [Boost High 237 ml PO TID 12/10/16 12/10/16 History Protein] Trazodone HCl 200 mg PO HS 12/10/16 12/10/16 History I & O 12/07/16 12/08/16 12/09/16 12/10/16 23:59 23:59 23:59 23:59 Intake Total 50 / 50 Balance 50 / 50 Weight 42.269 kg Intake: IV Fluids 50 / 50 Levaquin 750mg/150 mL 750 50 / 50 mg In 150 ml @ 100 mls/ hr IVPB ONCE ONE Rx#: [id number] Medications Acetaminophen (Tylenol) 650 mg PO Q6HR PRN PRN Reason: Mild Pain (1-3) Stop: 06/11/17 20:36 Acetaminophen/Butalbital/Caffeine (Fioricet) 1 each PO BID PRN; Protocol PRN Reason: Headache Stop: 06/11/17 20:28 Acetylcysteine (Acetylcysteine 10%) 2 ml IH [id number] MAREK Stop: 06/11/17 23:01 Albuterol Sulfate (Proventil Neb) 2.5 mg IH Q2H PRN PRN Reason: Shortness Of Breath/Wheezing Stop: 06/11/17 20:36 Albuterol/Ipratropium (Duoneb) 3 ml IH QIDR MAREK Stop: 06/11/17 23:01 Alprazolam (Xanax) 0.5 mg PO TID PRN; Protocol PRN Reason: Anxiety Stop: 06/11/17 20:28 Benzonatate (Tessalon) 200 mg PO TID PRN PRN Reason: Cough Stop: 06/11/17 20:34 Cyclobenzaprine HCl (Flexeril) 10 mg PO HS MAREK Stop: 06/11/17 21:01 Docusate Sodium (Colace) 100 mg PO BID PRN PRN Reason: Constipation Stop: 06/11/17 20:36 Guaifenesin (Mucinex) 600 mg PO BID MAREK Stop: 06/11/17 20:28 Heparin Sodium (Porcine) (Heparin) 5,000 unit SQ Q12HCO MAREK Stop: 06/12/17 06:01 Sodium Chloride (0.9 % Sodium Chloride) 1,000 mls @ 25 mls/hr IVC .Q24H MAREK Stop: 06/11/17 20:46 Levofloxacin/Dextrose (Levaquin 500mg/100ml) 500 mg in 100 mls @ 100 mls/hr IVPB DAILY MAREK PRN Reason: Protocol Stop: 06/12/17 09:01 Megestrol Acetate (Megace) 800 mg PO DAILY MAREK PRN Reason: Protocol Stop: 06/12/17 09:01 Methylprednisolone (Solu-Medrol) 40 mg IVP Q12HR MAREK Stop: 06/12/17 06:01 Mirtazapine (Remeron) 7.5 mg PO HS [facility] Stop: 06/11/17 21:01 Naloxone HCl (Narcan) 0.4 mg IVP Q2MIN PRN PRN Reason: Opioid Reversal Stop: 06/11/17 20:36 Nicotine (Nicoderm) 21 mg TD DAILY [facility] Stop: 06/12/17 09:01 Non-Formulary Medication (Cetirizine Hcl [Zyrtec]) 20 mg PO QPM M[facility] Stop: 06/12/17 18:01 Non-Formulary Medication (Lactose-Reduced Food [Boost High Protein]) 237 ml PO TID [facility] Stop: 06/11/17 21:01 Non-Formulary Medication (Oxygen [Oxygen]) 3 l PO DAILY [facility] Stop: 06/11/17 20:31 Non-Formulary Medication (Roflumilast [Daliresp]) 500 mcg PO DAILY [facility] Stop: 06/12/17 09:01 Non-Formulary Medication (Trazodone Hcl [Trazodone Hcl]) 200 mg PO HS [facility] Stop: 06/11/17 21:01 Omeprazole (Prilosec) 20 mg PO DAILY [facility] PRN Reason: Protocol Stop: 06/12/17 09:01 Ondansetron HCl (Zofran) 4 mg IVP Q8HR PRN PRN Reason: Nausea And Vomiting Stop: 06/11/17 20:36 Oxycodone HCl (Roxicodone) 5 mg PO Q6HR PRN PRN Reason: Moderate Pain (4-6) Stop: 06/11/17 20:36 Paroxetine HCl (Paxil) 20 mg PO DAILY M[facility]K PRN Reason: Protocol Stop: 06/12/17 09:01 Primidone (Mysoline) 100 mg PO HS [facility] Stop: 06/11/17 21:01 Discontinued Medications Albuterol/Ipratropium (Duoneb) 6 ml IH ONCE ONE PRN Reason: Protocol Stop: 12/10/16 14:47 Last Admin: 12/10/16 15:05 Dose: 6 ml Levofloxacin/Dextrose (Levaquin 750mg/150 Ml) 750 mg in 150 mls @ 100 mls/hr IVPB ONCE ONE PRN Reason: Protocol Stop: 12/10/16 17:38 Last Infusion: 12/10/16 17:06 Dose: 100 mls/hr Methylprednisolone (Solu-Medrol) 125 mg IV ONCE ONE Stop: 12/10/16 14:47 Last Admin: 12/10/16 15:04 Dose: 125 mg Nursing Notes 12/10/16 16:49 Social Work Note by Cammie Sears ED SW consult due to pending admission. Pt appears alert and oriented, unaccompanied to the ED. Pt states she still resides at home with her dogs. She has home 02 via [email or web address]. Her sister helps her by going grocery shopping for her. Pt's sister also helps care for the elderly parents and her own grandchildren in addition to helping the patient as her time permits. Pt has [facility] in place for half-way. Pt would like for this to resume when she is discharged from this hospital stay. Per pt's request, PAMELA did notify [facility] ([phone]) of pt's pending admission. Continuity of Care will need to be faxed to [facility] @ [phone]. PAMELA unable to reach pt's sister by phone to inform her of pt's pending admission. Initialized on 12/10/16 16:49 - END OF NOTE 12/10/16 16:30 Transport Report by Pillo Kinsey Date: 12/10/16 Transport Method: Portable morphine Adverse Reaction (Verified 09/17/16 13:00) Itching Resuscitation Status 12/10/16 14:33 ECG 12 lead ECG [ECG] Stat Mode Of Transportation: Portable Reason For Exam: dyspnea Exam Performed At:: [facility] Oxygen: 3 Mental Status: Fall Risk: Isolation: Nurse Required for Transport: No ___ Yes Limb Restrictions: No ___ Yes Behavioral issue/Risk for Elopement: No ___ Yes Telemetry Room Notification: Destination: MRI XRAY STRESS ULTRASOUND CT DIALYSIS ENDO OTHER: Depart Time: Nurse: Transporter: Arrive Time: Received by: ___ Return Time: Nurse: Transporter: ] Initialized on 12/10/16 16:30 - END OF NOTE Orders 12/10/16 14:33 12 lead ECG assessment [RC] NOW Cardiac monitoring [RC] .ONCE Saline lock [RC] .ONCE Supplemental oxygen titration [RC] .ONCE Physician Instructions: Vital Signs Assessment [RC] PROTOCOL XR chest 1V portable [XR] Stat Mode Of Transportation: Portable Reason For Exam: dyspnea Exam Performed At:: [facility] Additional Notes/Special Instructions: 25...[id number] ECG 12 lead ECG [ECG] Stat Mode Of Transportation: Portable Reason For Exam: dyspnea Exam Performed At:: [facility] 12/10/16 14:46 Ipratropium/Albuterol Neb [Duoneb] 6 ml IH ONCE ONE MethylPREDNISolone [Solu-MEDROL] 125 mg IV ONCE ONE 12/10/16 15:43 B-Type Natriuretic Peptide Stat Comment: Specimen: Send someone from the department to collect Basic Metabolic Panel Stat Comment: Specimen: Send someone from the department to collect Complete Blood Count [HEME] Stat Comment: Specimen: Send someone from the department to collect Troponin I Stat Comment: Specimen: Send someone from the department to collect 12/10/16 16:09 Levofloxacin 750 MG/150 ML [Levaquin 750mg/150 mL] 750 mg in 150 ml IVPB ONCE 12/10/16 16:[address] Stat Comment: Reason for Visit: copd exacerbation, dyspnea 12/10/16 20:27 Acetaminophen/Butalbital/Caffe [Fioricet] 1 each PO BID PRN Alprazolam [Xanax] 0.5 mg PO TID PRN GuaiFENesin ER [Mucinex] 600 mg PO BID 12/10/16 20:30 Oxygen [Oxygen] 3 l PO DAILY How will this medication be supplied?: Pharmacy to Subsitute 12/10/16 20:33 Aspiration precautions [RC] .CONTINUOUS BIPAP [RC] PRN BIPAP/CPAP On/Off Times [RC] ONCE Falls precautions (Bakari-Muller [RC] ONCE Incentive Spirometry [RC] .6 TIMES PER HR WHILE AWAKE RT has an order or consult [RC] NOW KRISH Bowie [Apply anti-embolic stockings] [RC] .NOW Arterial Blood Gas Stat Specimen: Send someone from the department to collect Comment: Creatine Kinase Stat Specimen: Send someone from the department to collect Comment: Hepatic Panel Stat Specimen: Send someone from the department to collect Comment: Lactic Acid ([facility] Only) Stat Specimen: Send someone from the department to collect Comment: Benzonatate [Tessalon] 200 mg PO TID PRN 12/10/16 20:35 Bed rest [RC] .CONT Physician Instructions: Bed rest w/bedside commode [RC] .PRN COPD Discharge Checklist [RC] .atdischarge Cardiac monitoring [RC] .ONCE Head of bed elevation [RC] .ONCE Peripheral IV [RC] CONT Placement to Observation Routine Physician Instructions: Reason for Visit: Breathing difficulty Is VTE Prophylaxis Indicated?: Yes Vital Signs Assessment [RC] Q4H Consult to Nurse Navigator [CONS] Routine Comment: Activated Partial Thrombo Time [COAG] Stat Specimen: Send someone from the department to collect Comment: Culture,Blood [BC] Stat Quantity: 2 Specimen: Send someone from the department to collect Comment: JASON Source: Peripheral Venipuncture Specimen Description: Legionella Antigen [RM] Stat Specimen: Send someone from the department to collect Comment: JASON Source: Urine,Clean Catch Specimen Description: Prothrombin Time INR [COAG] Stat Specimen: Send someone from the department to collect Comment: S. Pneumoniae Antigen [RM] Stat Specimen: Send someone from the department to collect Comment: JASON Source: Urine,Clean Catch Specimen Description: Urinalysis reflex Microscopic [URIN] Stat Specimen: Send someone from the department to collect Comment: Acetaminophen [Tylenol] 650 mg PO Q6HR PRN Albuterol Neb [Proventil Neb] 2.5 mg IH Q2H PRN Docusate [Colace] 100 mg PO BID PRN Naloxone [Narcan] 0.4 mg IVP Q2MIN PRN Ondansetron [Zofran] 4 mg IVP Q8HR PRN OxyCODONE Immed Rel [Roxicodone] 5 mg PO Q6HR PRN 12/10/16 20:37 Cardiac Monitoring Med/Surg [RC] .CONT Telemetry Reason: ACS/CP Continuous pulse oximetry [RC] CONT Comment: Measure intake and output [RC] QSHIFT Measure weight [RC] DAILY Oxygen via nasal cannula Nasal Cannula 3 lpm Comment: Titrate O2 to main O2 sat greater than: 92% RT has an order or consult [RC] NOW 12/10/16 20:44 Consult to Occupational Therapy [CONS] Routine Comment: Evaluate, develop and implement POC Consult to Physical Therapy [CONS] Routine Comment: Evaluate, develop and implement POC 12/10/16 20:45 Troponin I Q6H Specimen: Send someone from the department to collect Comment: 0.9 % Sodium Chloride 1,000 ml IVC 25 mls/hr Up with Assist Daily Physician Instructions: Comment: 12/10/16 20:48 Culture,Sputum with Gram Stain [RM] Routine Specimen: Send someone from the department to collect Comment: JASON Source: Sputum Specimen Description: 12/10/16 21:00 Cyclobenzaprine [Flexeril] 10 mg PO HS Lactose-Reduced Food [Boost High Protein] 237 ml PO TID How will this medication be supplied?: Pharmacy to Subsitute Mirtazapine [Remeron] 7.5 mg PO HS Primidone [Mysoline] 100 mg PO HS Trazodone HCl [Trazodone HCl] 200 mg PO HS How will this medication be supplied?: Pharmacy to Subsitute 12/10/16 23:00 Acetylcysteine 10% 2 ml IH [id number] Ipratropium/Albuterol Neb [Duoneb] 3 ml IH QIDR 12/10/16 Breakfast Cardiac Diet Diet Modifications: 12/11/16 02:45 Troponin I Q6H Specimen: Send someone from the department to collect Comment: 12/11/16 04:00 Hgb A1C AM 0400 Specimen: Send someone from the department to collect Comment: Ionized Calcium AM 0400 Specimen: Send someone from the department to collect Comment: Magnesium AM 0400 Specimen: Send someone from the department to collect Comment: Phosphorous AM 0400 Specimen: Send someone from the department to collect Comment: Thyroid Stimulating Hormone AM 0400 Specimen: Send someone from the department to collect Comment: Venous Blood Gas AM 0400 Specimen: Send someone from the department to collect Comment: 12/11/16 06:00 Heparin 5,000 unit SQ Q12HCO MethylPREDNISolone [Solu-MEDROL] 40 mg IVP Q12HR 12/11/16 08:45 Troponin I Q6H Specimen: Send someone from the department to collect Comment: 12/11/16 09:00 500mg IV Daily Levofloxacin 500 MG/100 ML [Levaquin 500mg/100mL] 500 mg in 100 ml IVPB DAILY Megestrol Acetate [Megace] 800 mg PO DAILY Nicotine Patch [Nicoderm] 21 mg TD DAILY Omeprazole [PriLOSEC] 20 mg PO DAILY Paroxetine [Paxil] 20 mg PO DAILY Roflumilast [Daliresp] 500 mcg PO DAILY How will this medication be supplied?: Pharmacy to Subsitute 12/11/16 18:00 Cetirizine HCl [Zyrtec] 20 mg PO QPM How will this medication be supplied?: Pharmacy to Subsitute 12/11/16 20:45 Up with Assist Daily Physician Instructions: Comment: 12/12/16 20:45 Up with Assist Daily Physician Instructions: Comment: Patient Problems (Last Updated 12/10/16 @ 16:08 by Daniel Lambert MD) Acute exacerbation of chronic obstructive airways disease (Acute) Dyspnea (Acute) Vital Signs Temp Pulse Resp BP Pulse Ox 12/10/16 19:53 95 12/10/16 19:29 98.1 F 89 16 103/64 95 12/10/16 17:26 98.0 F 93 15 123/68 92 12/10/16 17:04 20 117/64 12/10/16 16:05 90 22 109/68 99 12/10/16 15:05 22 998 12/10/16 14:33 94 12/10/16 14:32 98.1 F 90 22 107/71 94 Laboratory Results 12/10/16 12/10/16 12/10/16 Range/Units 15:43 15:43 15:43 WBC 11.4 H (4.3-11.1) K/mcL RBC 3.94 (3.82-4.97) M/mcL Hgb 12.0 (11.5-15.4) g/dL Hct 37.1 (35.3-44.9) % MCV 94.2 (83.0-100.0) fL MCH 30.5 (28.0-33.3) pg MCHC 32.3 (31.6-35.5) g/dL RDW 13.5 (11.5-14.5) % Plt Count 260 (140-400) K/mcL MPV 10.2 (9.4-12.4) fL Immature Gran % 0.4 (0-4) % Seg Neutrophils % 92.0 % Lymphocytes % 5.1 % Monocytes % 2.3 % Eosinophils % 0.0 % Basophils % 0.2 % Neutrophils # 10.5 H (1.6-8.9) K/mcL Lymphocytes # 0.6 (0.6-4.6) K/mcL Monocytes # 0.3 (0.0-1.3) K/mcL Eosinophils # 0.0 (0.0-0.6) K/mcL Basophils # 0.0 (0.0-0.2) K/mcL Immature Plt Fraction 4.8 (1.1-6.1) % Sodium 139 (136-145) mEq/L Potassium 4.4 (3.5-4.5) mEq/L Chloride 97 L (98-109) mEq/L Carbon Dioxide 34 H (19-29) mEq/L BUN 17 (7-20) mg/dL Creatinine 0.63 (0.57-1.11) mg/dL Est GFR ( Amer) > 60 (> 60) Est GFR (Non-Af Amer) > 60 (> 60) BUN/Creatinine Ratio 27 H (6-26) Glucose 116 H (70-99) mg/dL Calculated Osmolality 291 (280-300) Calcium 9.1 (8.6-10.8) mg/dL Troponin I 0.01 (0-0.03) ng/mL B-Natriuretic Peptide (0-100) pg/mL 12/10/16 Range/Units 15:43 WBC (4.3-11.1) K/mcL RBC (3.82-4.97) M/mcL Hgb (11.5-15.4) g/dL Hct (35.3-44.9) % MCV (83.0-100.0) fL MCH (28.0-33.3) pg MCHC (31.6-35.5) g/dL RDW (11.5-14.5) % Plt Count (140-400) K/mcL MPV (9.4-12.4) fL Immature Gran % (0-4) % Seg Neutrophils % % Lymphocytes % % Monocytes % % Eosinophils % % Basophils % % Neutrophils # (1.6-8.9) K/mcL Lymphocytes # (0.6-4.6) K/mcL Monocytes # (0.0-1.3) K/mcL Eosinophils # (0.0-0.6) K/mcL Basophils # (0.0-0.2) K/mcL Immature Plt Fraction (1.1-6.1) % Sodium (136-145) mEq/L Potassium (3.5-4.5) mEq/L Chloride (98-109) mEq/L Carbon Dioxide (19-29) mEq/L BUN (7-20) mg/dL Creatinine (0.57-1.11) mg/dL Est GFR ( Amer) (> 60) Est GFR (Non-Af Amer) (> 60) BUN/Creatinine Ratio (6-26) Glucose (70-99) mg/dL Calculated Osmolality (280-300) Calcium (8.6-10.8) mg/dL Troponin I (0-0.03) ng/mL B-Natriuretic Peptide 29 (0-100) pg/mL Assessments/Treatments 12 lead ECG assessment Start: 12/10/16 14: 33 Freq: NOW Status: Complete Document 12/10/16 15:13 ANM (Rec: 12/10/16 15:14 ANM [id number]) EKG Time EKG Completed 14:37 EKG performed by Papa CASTILLO EKG shown to and signed by Fausto Cardiac monitoring Start: 12/10/16 14: 33 Freq: .ONCE Status: Active Document 12/10/16 14:33 CRB (Rec: 12/10/16 14:37 CRB [id number]) Cardiac Monitoring Heart Rate 83 Monitoring Method Telemetry Rhythm Sinus Rhythm Monitor Number 25 ED Discharge Assessment Start: 12/10/16 14: 32 Freq: Status: Active Document 12/10/16 17:04 CRB (Rec: 12/10/16 17:06 CRB [id number]) ED Discharge Assessment ED Discharge Disposition Home ED Condition on Discharge Good Med Rec/Patient Pharmacy Completed? Yes Admitted to 3B Report given to Nurse Information relayed patient's care treatments medications given condition recent/anticipated changes Clinical Documentation Summary Provided Yes Pain Scale 0 Pain Scale Used Standard (1-10) Blood Pressure (mm Hg) 117/64 Heart rate 87 Respiratory Rate (breaths/min) 20 Oxygen Delivery Nasal Cannula Oxygen Saturation 2 Critical Care Minutes 0 ED Shortness of Breath Assessment Start: 12/10/16 14: 32 Freq: Status: Active Document 12/10/16 14:33 CRB (Rec: 12/10/16 14:37 CRB [id number]) Shortness of Breath Sepsis Infection Criteria Present none Sepsis SIRS Criteria RR > 20 rpm Sepsis Screen No Definite Risk Sepsis Action Taken no action required Symptoms/Complaint Shortness of Breath Onset last night Duration Constant Severity Moderate Known History COPD Treatment Prior to Arrival Oxygen Bronchodilator Chest Pain Intensity (out of 10) 0 Respiratory Depth Normal Effort Normal for Patient Spontaneous Non-Labored Pattern Regular Level Of Consciousness Awake Alert Appropriate Follows Commands Patient Orientation Person Place Time Name Age Date of Day of Month Day of Week Month Year Time of Day Patient Behavior Appropriate Cooperative Skin Temperature Warm Skin Moisture Dry Skin Turgor Elastic Capillary Refill < 3 Seconds Fall Precautions Acute Start: 12/10/16 18: 07 Freq: Q12H Status: Active Document 12/10/16 18:07 [facility] (Rec: 12/10/16 18:25 [id number] Fall Risk Assessment Tool Age 60-69 years (1 point) Fall History No falls within last 6 months (0 points) Elimination, Bowel, and Urine N/A (0 pts) Medications: Includes FLIGHT DIRECTOR/opiates, N/A (0 points) antivulsants, ant-hypertensives, diuretics, hypnotics, Patient Care Equipment: Any equipment None present (0 points) that tethers patient (e.g. IV infusions, chest tube, indwelling Mobility Unsteady gait (2 points) Cognition N/A (0 points) Total Fall Risk Score 3 Fall Risk Category Low Risk (0-5) Fall Risk Interventions Low Risk Interventions Bed in lowest position Top side rails up x 2 Secure brake on bed Use properly fitting non-skid footwear Call light and frequently needed objects within reach Encourage patients/families to call for assistance when needed Fall education including risk assessment, injury risk and routine/ Inspect environment for safety and communication risk Supervise and assist with toileting/ADLs as needed Document 12/10/16 19:53 [facility] (Rec: 12/10/16 20:15 [id number]) [facility] Fall Risk Assessment Tool Age 60-69 years (1 point) Fall History No falls within last 6 months (0 points) Elimination, Bowel, and Urine N/A (0 pts) Medications: Includes FLIGHT DIRECTOR/opiates, N/A (0 points) antivulsants, ant-hypertensives, diuretics, hypnotics, Patient Care Equipment: Any equipment None present (0 points) that tethers patient (e.g. IV infusions, chest tube, indwelling Mobility Unsteady gait (2 points) Cognition N/A (0 points) Total Fall Risk Score 3 Fall Risk Category Low Risk (0-5) Fall Risk Interventions Low Risk Interventions Bed in lowest position Top side rails up x 2 Secure brake on bed Use properly fitting non-skid footwear Call light and frequently needed objects within reach Encourage patients/families to call for assistance when needed Fall education including risk assessment, injury risk and routine/ Inspect environment for safety and communication risk Supervise and assist with toileting/ADLs as needed Family History-Meaningful Use Start: 12/10/16 18: 07 Freq: .Once Status: Active Document 12/10/16 18:09 [facility] (Rec: 12/10/16 18:25 [facility] [id number]) Family History-Meaningful Use Sister Name Cindy White Race Living Status Still Living Hx Family Cancer Yes IV-Invasive Line Management Start: 12/10/16 18: 07 Freq: Q8H Status: Active Document 12/10/16 18:07 KL (Rec: 12/10/16 18:25 [facility] [id number]) IV/Invasive Line Assessment Left Antecubital Date of Insertion 12/10/16 Reason for Line Insertion/Rationale for Provide Access for IV Insertion Medication(s) Gauge (gauge) 20 IV Catheter Type Peripheral IV Site Observation Patent Site Observation Intervention Inspected Line Dressing Applied Transparent Dressing Dry/Intact Line Care Saline Flush P-Locked Document 12/10/16 19:50 RL (Rec: 12/10/16 19:52 [id number]) IV/Invasive Line Assessment Left Forearm Date of Insertion 12/10/16 Time of Insertion 19:51 Insertion Attempts 1 Reason for Line Insertion/Rationale for Provide Access for IV Insertion Medication(s) Provide Access for Emergency Gauge (gauge) 20 IV Catheter Type Peripheral IV Site Observation Patent Joshua Site Observation Intervention [place] IV Inserted Dressing Applied Window Dressing Transparent Dressing Dry/Intact Line Care Saline Flush P-Locked Check Blood Return Date IV Line Discontinued 12/10/16 Time IV Line Discontinued 19:40 IV Line Discontinue Reason leaking Condition of IV Line Removed IV tip intact, no complications noted. leaking from catheter tip IV Line Removal Patient Tolerance Tolerated Well Sterile Dressing Applied IV removed/ tip intact Bleeding Controlled Education Completed Expresses Understanding Labs drawn from Line* No Document 12/10/16 19:53 RL (Rec: 12/10/16 20:15 [id number]) IV/Invasive Line Assessment Left Forearm Date of Insertion 12/10/16 Time of Insertion 19:51 Insertion Attempts 1 Reason for Line Insertion/Rationale for Provide Access for IV Insertion Medication(s) Provide Access for Emergency Gauge (gauge) 20 IV Catheter Type Peripheral IV Site Observation Patent Joshua Site Observation Intervention [place] IV Inserted Dressing Applied Window Dressing Transparent Dressing Dry/Intact Line Care Saline Flush P-Locked Check Blood Return Date IV Line Discontinued 12/10/16 Time IV Line Discontinued 19:40 IV Line Discontinue Reason leaking Condition of IV Line Removed IV tip intact, no complications noted. leaking from catheter tip IV Line Removal Patient Tolerance Tolerated Well Sterile Dressing Applied IV removed/ tip intact Bleeding Controlled Education Completed Expresses Understanding Labs drawn from Line* No Measure weight Start: 12/10/16 17: 24 Freq: Status: Active Document 12/10/16 17:26 EAV (Rec: 12/10/16 17:31 EAV [id number]) Height and Weight Height 1.68 m Weight 42.269 kg Weight Measurement Method Built in [facility] Body Mass Index (BMI) 14.97 BMI Classification Underweight Observation Admission Assessment Start: 12/10/16 18: 07 Freq: .once Status: Active Document 12/10/16 18:09 KL (Rec: 12/10/16 18:25 [id number] General Questions Date of Arrival on Unit 12/10/16 Admitted From Emergency Dept Chief Complaint difficulty in breathing Onset of Chief Complaint 12/10/16 History Provided By Patient Orientation To Call Light Bed Phone TV Bathroom Smoking Policy Visiting Hours Procedures ID Bracelet On Emergency Contact Name Cindy White Relationship to Patient sister Emergency Contact Bands applied ID band Patient Health Portal Patient was provided information on Yes accessing patient portal Patient Requests Portal Enrollment No Reason No Portal Enrollment No Email Advance Directives Advance Directives Yes Advance Directives on File Yes Living Will Yes Power of Artist'S Manager Yes Power of Artist'S Manager Name Cindy White Patient Rights Copy of Rights Given and Verbalizes Yes Understanding Tobacco Free [place]: Copy of [facility] Yes Statement Given and Patient Verbalizes Understanding Communication Ability Primary Language Spanish Preferred Language [place] Required No Ability to Follow Directions Good Able to Read Yes Able to Write Yes Communication Tools None Caregiver Communication Skills No Impairment Impairment Learning Preferences Discussion Hearing Ability Normal Visual Assistive Devices None Pain Assessment Do You Have Any Ongoing (Chronic) Pain No Problems Educated on Pain Scale Yes Past Medical History Medical history arthritis cancer CHF COPD DVT GERD other Female Surgical History appendectomy hysterectomy Psychiatric history anxiety depression Smoking Status Former smoker Smokeless Tobacco Status Yes: nicotine gum Alcohol use none Drug use none Current living situation Home - Independent Activity level Independent ambulation Recent Out of Country Travel Within the No Last 8 Weeks Exposure or Possible Exposure to Illness No During Travel Functional Assessment Community Services Used Prior to Oxygen Therapy Admission Eating (Feeding) Ability Independent Bathing Ability Independent Upper Body Dressing Ability Independent Lower Body Dressing Ability Independent Ambulation Ability Independent Toileting Ability Independent Bladder Continent Bowel Continent Normal Bowel Pattern Daily Psychosocial Over Age 75 and Lives Alone or Over Age No 80 Potential Need for Follow-up Care (ECF, Yes Home Health, ECT) Developmentally Disabled or History of No 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 Health Problems 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 Need or No Terminal Implications Responsible for Care of Others No Financial Concerns No Suspected Abuse or Neglect No Suicidal or Homicidal Ideation No Oxygen administration Start: 12/10/16 18: 07 Freq: Q12H Status: Active Document 12/10/16 18:07 [facility] (Rec: 12/10/16 18:25 [facility] [id number]) Oxygen Oxygen Delivery Method Nasal Cannula Oxygen Flow Rate (LPM) 3 Document 12/10/16 19:53 RLH (Rec: 12/10/16 20:15 RLH [id number]) Oxygen O2 Sat by Pulse Oximetry (%) 95 Oxygen Delivery Method Nasal Cannula Oxygen Flow Rate (LPM) 3 Patient Belongings Start: 12/10/16 18: 07 Freq: .ONCE Status: Active Document 12/10/16 18:09 [facility] (Rec: 12/10/16 18:25 [facility] [id number]) Patient Belongings Belongings With Patient on Admission Yes At Bedside Patient Belongings Cell Phone Pants Purse Shirt Shoes Belongings Comment oxygen, Patient Rounding Start: 12/10/16 18: 07 Freq: Q1H Status: Active Document 12/10/16 18:07 [facility] (Rec: 12/10/16 18:25 [facility] [id number]) Hourly Rounding Hourly Rounding Checked for Patient Positioning Patient Personal Items Placed Within Reach Checked Patient Pain Level Hourly Rounding Completed Yes Patient Awake Is family present? No Equipment in Use Specialty Bed Safety Call Light Within Reach Bed Position Low Phone Within Reach Bed Brake On Side Rails Up X2 Are the Floors Free From Trip Hazards? Yes Is the Room Free From Clutter? Yes Turn and Postion Bedrest No Turn Q 2HR No Patient Position Back Document 12/10/16 19:25 KW (Rec: 12/10/16 19:25 KW [id number]) Hourly Rounding Hourly Rounding Checked for Patient Positioning Patient Personal Items Placed Within Reach Hourly Rounding Completed Yes Patient Awake Is family present? No Equipment in Use Specialty Bed Safety Call Light Within Reach Bed Position Low Phone Within Reach Bed Brake On Side Rails Up X2 Are the Floors Free From Trip Hazards? Yes Is the Room Free From Clutter? Yes Turn and Postion Bedrest No Turn Q 2HR No Patient Position Back Document 12/10/16 19:53 RL (Rec: 12/10/16 20:15 RLH [id number]) Hourly Rounding Hourly Rounding Checked for Patient Positioning Patient Personal Items Placed Within Reach Checked Patient Pain Level Hourly Rounding Completed Yes Patient Awake Is family present? No Equipment in Use Specialty Bed Safety Call Light Within Reach Bed Position Low Phone Within Reach Bed Brake On Side Rails Up X2 Are the Floors Free From Trip Hazards? Yes Is the Room Free From Clutter? Yes Turn and Postion Bedrest No Turn Q 2HR No Patient Position Back Document 12/10/16 20:24 KW (Rec: 12/10/16 20:24 KW [id number]) Hourly Rounding Hourly Rounding Checked for Patient Positioning Patient Personal Items Placed Within Reach Hourly Rounding Completed Yes Patient Awake Is family present? No Equipment in Use Specialty Bed Safety Call Light Within Reach Bed Position Low Phone Within Reach Bed Brake On Side Rails Up X2 Are the Floors Free From Trip Hazards? Yes Is the Room Free From Clutter? Yes Turn and Postion Bedrest No Turn Q 2HR No Patient Position Back RT Respiratory Medication Delivery Start: 12/10/16 15: 05 Freq: Status: Active Document 12/10/16 15:05 [facility] (Rec: 12/10/16 15:06 [facility] [id number]) Respiratory Therapy Pre Assessment SPO2 (%) 998 Heart rate 5 Respiratory Rate (breaths/min) 22 Oxygen Delivery Method Nasal Cannula O2 Flow Rate 3 Throughout Breath Sounds Diminished Treatment Modality Nebulizer Therapy Respiratory Medications Duoneb Medication Delivery Device Mask Treatment Tolerance Good Initial Aerosol/MDI/DPI* Yes Post RT Medication Delivery Post Heart rate 85 Post Respiratory Rate (breaths/min) 18 Throughout Post Breath Sounds Diminished Treatment Outcome No Change Comment no complications Saline lock insertion/management Start: 12/10/16 14: 33 Freq: .ONCE Status: Active Document 12/10/16 14:33 CRB (Rec: 12/10/16 14:37 CRB [id number]) IV Insertion/Site Assessment Left Antecubital IV Established PUTTER IN Yes Date of Insertion 12/10/16 Reason for IV Insertion Provide Access for IV Medication(s) Provide Access for Emergency IV Catheter Type Peripheral IV Gauge (gauge) 20 Site Observation Patent Joshua Dressing Applied Transparent Dressing Patient Tolerance Tolerated Well Sepsis Screening Start: 12/10/16 18: 07 Freq: Q8H Status: Active Document 12/10/16 18:07 KL (Rec: 12/10/16 18:25 [facility] [id number]) Sepsis Screening Sepsis Infection Criteria Present none Sepsis SIRS Criteria none Sepsis Screen No Definite Risk Sepsis Action Taken no action required Document 12/10/16 19:53 RL (Rec: 12/10/16 20:15 [id number]) Sepsis Screening Sepsis Infection Criteria Present none Sepsis SIRS Criteria none Sepsis Screen No Definite Risk Sepsis Action Taken no action required Skin Risk Assessment Scale Start: 12/10/16 18: 07 Freq: Q12H Status: Active Document 12/10/16 18:07 KL (Rec: 12/10/16 18:25 [id number] Skin Risk Assessment Scale Moisture Risk Rarely Moist Sensory Perception Slightly Limited Activity Risk Walks Occasionally Mobility Risk Slightly Limited Nutrition Risk Adequate Friction & Shear Risk No Apparent Problem Skin Risk Total Score (points) 19 Document 12/10/16 19:53 RLH (Rec: 12/10/16 20:15 [id number]) Skin Risk Assessment Scale Moisture Risk Rarely Moist Sensory Perception Slightly Limited Activity Risk Walks Occasionally Mobility Risk Slightly Limited Nutrition Risk Adequate Friction & Shear Risk No Apparent Problem Skin Risk Total Score (points) 19 Supplemental oxygen titration Start: 12/10/16 14: 33 Freq: .ONCE Status: Active Document 12/10/16 14:33 CRB (Rec: 12/10/16 14:37 CRB [id number]) Oxygen Adminstration Oxygen Saturation (%) 94 Oxygen Delivery Method Nasal Cannula Flow Rate 3 System Review Start: 12/10/16 18: 07 Freq: Q8H Status: Active Document 12/10/16 19:53 [facility] (Rec: 12/10/16 20:15 [facility] [id number] Pain Assessment Pain Present Reports No Pain Neurological Assessment Eye Opening Spontaneous Motor Obeys Commands Verbal Oriented Coma Scale Total 15 Neurologic Status Alert Patient Orientation Person Place Time Arousable To Name Speech Pattern Normal rate Normal rhythm Normal tone Appropriate Clear Coherent Patient Behavior Appropriate Cooperative Mood Description Calm 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 Strength Equal Push/Pull Equal Numbness/Tingling No Facial Symmetry Symmetrical Blink Present Cough/Gag Normal Cardiovascular Assessment Signs and Symptoms None Heart Sounds S1 & S2 Pulse Rhythm Regular Jugular Vein Distention None Capillary Refill < 3 Seconds Right Radial 2+ Left Radial 2+ Right Dorsalis Pedis 2+ Left Dorsalis Pedis 2+ Chest Pain Complaint No Mechanical Prophylaxis No Cardiac Monitoring Heart Rate 101 Monitoring Method Telemetry Rhythm Sinus Tachycardia Ectopy Occasional PVC's [place] Interval 0.08 QRS Interval 0.06 QT Interval 0.27 Monitor Number [id number] Occ Ther Limits 120/40 Strip placed in Chart Yes Respiratory Assessment Respiratory Symptoms Shortness of Breath on Exertion Dyspnea on Exertion Wheezing Effort Spontaneous Labored Depth Normal Respiratory Pattern Regular Chest Shape Normal Expansion Symmetrical All Lung Carpenter Clear Expiratory Wheezing Oxygen Delivery Method Nasal Cannula Oxygen Flow Rate (LPM) 3 Cough Description Voluntary Involuntary Sputum Amount None Gastrointestinal Assessment Abdomen Description Flat Soft Non-Tender 3 or more loose stools, in less than 24 No hours Nausea/Vomiting Presence None All Four Quadrants Active Flatus Presence Present Genitourinary Assessment Genitourinary Symptoms None Bladder Distention None Suprapubic Tenderness with Palpation No Integumentary Assessment Nail Bed Appearance Joshua Temperature Warm Moisture Dry Turgor Elastic Color Normal All Pressure Points Assessed Yes Evidence of Incision/Wounds/Breakdown No: small scabs noted to BUE Mucous membranes moist, pink and intact Yes Musculoskeletal Assessment Musculoskeletal Symptoms None Teaching Record Start: 12/10/16 18: 07 Freq: Q12H Status: Active Document 12/10/16 18:07 [facility] (Rec: 12/10/16 18:25 [facility] [id number]) Teaching Record: General Education Topics Medications Disease Process Hospital Environment Response Verbalize understanding Methods Discussion Recipient Patient Document 12/10/16 19:53 [facility] (Rec: 12/10/16 20:15 [id number]) Teaching Record: General Education Topics Medications Disease Process Hospital Environment Response Verbalize understanding Methods Discussion Recipient Patient Triage Start: 12/10/16 14: 32 Freq: Status: Active Document 12/10/16 14:32 CRIrish (Rec: 12/10/16 14:35 KAYLAN [id number]) Triage Chief Complaint triage ED Shortness of Breath/Dyspnea Patient Stated Complaint JARET JOSELIN 2 Onset (ago) day(s) General Appearance alert Mode of arrival EMS Source patient EMS Limitations no limitations Ebola Risk: Travel/Contact With Anyone No From Affected Area/s Temperature (97.6 F-99.6 F) 98.1 F Temperature Source Oral Pulse Rate (beats/min) 90 Respiratory Rate (breaths/min) 22 Blood Pressure (mm Hg) 107/71 O2 Sat by Pulse Oximetry (%) 94 Oxygen Delivery Nasal Cannula Height 1.68 m Weight 40.823 kg Weight Measurement Method Estimated by Patient Pain Scale 0 Pain Scale Used Standard (1-10) Medical history arthritis cancer CHF COPD DVT GERD other Female surgical history hysterectomy other Additional surgical history PMH facial surgery, right foot surgery Psychiatric history anxiety depression Smoking Status Former smoker Smokeless Tobacco Status Yes: nicotine gum Alcohol Use none Drug Use none Patient resides with/at Alone Safety Concerns Feels Safe At This Time Do you currently feel hopless, have No thoughts of self harm, or thoughts of harming others History of fall in last 14 days? No Coma Scale Eye Opening Spontaneous Coma Scale Motor Response Obeys Commands Coma Scale Verbal Response Oriented Coma Scale Total 15 Sister Hx Family Cancer Yes: breast cancer Father Family Member Living Status Still Living Hx Family Cardiac Disorders Yes: irregular heart beat in need of pacemaker Hx Family Respiratory Disorders Yes: congestion, takes nebulizers Vital Signs Assessment Start: 12/10/16 14: 33 Freq: PROTOCOL Status: Active Document 12/10/16 16:05 CRIrish (Rec: 12/10/16 16:26 KAYLAN [id number]) ED Vital Signs Pain Reported No Pain Reported Pain Scale Used Standard (1-10) Blood Pressure (mm Hg) 109/68 Pulse Rate (beats/min) 90 Respiratory Rate (breaths/min) 22 Effort Labored Pattern Regular Pulse Oximetry (%) 99 Oxygen Delivery Nasal Cannula Oxygen Flow Rate (LPM) 3 Document 12/10/16 17:26 EAV (Rec: 12/10/16 17:31 [id number] [id number]) Vital Signs with MEWS Temperature (97.6 F-99.6 F) 98.0 F Temperature Source Oral Pulse Rate (beats/min) 93 Respiratory Rate (breaths/min) 15 Pulse Oximetry (%) 92 Oxygen Delivery Nasal Cannula Oxygen Flow Rate (LPM) 1 Blood Pressure (mm Hg) 123/68 Blood Pressure Location Right Arm Source Automatic Cuff Position HOB Elevated Neuro Status *recalled from last Alert documentation MEWS Score 1 Vital Signs Assessment Start: 12/10/16 18: 07 Freq: Q4H Status: Active Document 12/10/16 19:29 KW (Rec: 12/10/16 19:34 KW [id number]) Vital Signs (Critical Care) Temperature (97.6 F-99.6 F) 98.0 F Temperature Source Oral Pulse Rate (beats/min) 93 Respiratory Rate (breaths/min) 15 Pulse Oximetry (%) 92 Oxygen Delivery Method Nasal Cannula Oxygen Flow Rate (Liters) 3 Blood Pressure (mm Hg) 123/68 Source Automatic Cuff Neuro Status *Recalled from last Alert documented assessment MEWS Score 1 Vital Signs with MEWS Temperature (97.6 F-99.6 F) 98.1 F Temperature Source Oral Pulse Rate (beats/min) 89 Respiratory Rate (breaths/min) 16 Pulse Oximetry (%) 95 Oxygen Delivery Nasal Cannula Oxygen Flow Rate (LPM) 3 Blood Pressure (mm Hg) 103/64 Blood Pressure Location Right Arm Source Automatic Cuff Position HOB Elevated Neuro Status *recalled from last Alert documentation MEWS Score 1 Wound Assessment Start: 12/10/16 18: 07 Freq: Q8H Status: Active Document 12/10/16 18:07 KLM (Rec: 12/10/16 18:27 KLM [id number]) Drains Tube/Drain Discontinued No Document 12/10/16 19:53 RLH (Rec: 12/10/16 20:15 RLH [id number]) Drains Tube/Drain Discontinued No Discharge Information ED Provider: Daniel Lambert Status: Departed Time Seen by Provider: 12/10/16 14:32 Condition: Triaged At: 12/10/16 14:32 Emergency Discharge Date/Time: 12/10/16 17:08 Emergency Discharge Disposition: Admitted As Inpatient Clinical Impression Acute exacerbation of chronic obstructive airways disease Dyspnea Emergency Discharge Comment: Admit Intervention Last Done ED Shortness of Breath Assessment 12/10/16 14:33 Query Result Sepsis Infection Criteria Present none Sepsis SIRS Criteria RR > 20 rpm Sepsis Screen No Definite Risk Sepsis Action Taken no action required Shortness Of Breath Symptoms/Complaint Shortness of Breath Shortness Of Breath Onset last night Shortness Of Breath Duration Constant Shortness Of Breath Severity Moderate Shortness Of Breath Known History COPD Shortness Of Breath Treatments Prior to Oxygen Arrival Bronchodilator Chest Pain Intensity 0 Respiratory Depth Normal Respiratory Effort Normal for Patient Spontaneous Non-Labored Respiratory Pattern Regular Level Of Consciousness Awake Alert Appropriate Follows Commands Patient Orientation Person Place Time Name Age Date of Day of Month Day of Week Month Year Time of Day Patient Behavior Appropriate Cooperative Skin Temperature Warm Skin Moisture Dry Skin Turgor Elastic Capillary Refill < 3 Seconds ED Discharge Assessment 12/10/16 17:04 Query Result ED Discharge Disposition Home ED Condition on Discharge Good Med Rec/Patient Phamracy completed? Yes ED Admit to 3B Report given to Nurse Information relayed patient's care treatments medications given condition recent/anticipated change Clinical Documentation Summary Provided Yes Severity scale (1-10) 0 Pain Scale Used Standard (1-10) Blood Pressure 117/64 Heart rate 87 Respiratory Rate 20 Oxygen Delivery Nasal Cannula Pulse Oximetry Reading 2 Critical Care Minutes 0 Observation Discharge Date/Time: Observation Discharge Disposition: Observation Discharge Comment: Instructions: Stand-Alone Forms: Prescriptions: Visit Report - Forms: - Referrals: Radiology Results Chest X-Ray 12/10/16 14:33
[2016-12-10] MEDS: traZODone 50 MG TABLET PO SCH (21:26)
[2016-12-10] MEDS: Mirtazapine 15 MG TABLET PO SCH (21:26)
[2016-12-10] MEDS: BOOST HIGH PROTEIN PO SCH (21:27)
[2016-12-10] MEDS: Primidone 50 MG TABLET PO SCH (21:27)
[2016-12-10 21:30] LABS: ABG Base Excess 11.7 mEq/L (-2.0 to 3.0); ABG HCO3 37.5 mEQ/L (21-27); ABG Oxygen Saturation 92 % (95-98); ABG PCO2 54 mmHg (35-45); ABG PH 7.45 pH Units (7.32-7.45); ABG PO2 62 mmHg (85-104); ABG TCO2 39.2 mEq/L (20-26)
[2016-12-10 21:31] LABS: Blood Gas FiO2 26 %; Blood Gas Liter Flow 1.5 L/MIN
[2016-12-10 21:33] LABS: INR 1.1; Prothrombin Time 11.4 Seconds (9.4-12.1)
[2016-12-10 21:35] LABS: Activated Partial Thrombo Time 29.6 Seconds (26.0-36.0)
[2016-12-10 21:40] LABS: Albumin 3.6 g/dL (3.5-5.0); Albumin/Globulin Ratio 1.2 (1.1-2.2); Bilirubin,Direct 0.2 mg/dL (0.0-0.5); Bilirubin,Indirect 0.4 mg/dL (0.0-1.2); Bilirubin,Total 0.6 mg/dL (0.2-1.2); Globulin 2.9 g/dL (2.4-3.5); Total Protein 6.5 g/dL (6.0-8.3)
[2016-12-10] MEDS: Ipratropium/Albuterol Neb 3 ML IH SCH (23:15)
[2016-12-10] MEDS: Acetylcysteine 10% 2 ML INHSOL IH SCH ×2 (23:15→23:17)
[2016-12-11] MEDS: Ipratropium/Albuterol Neb 3 ML IH SCH ×6 (04:07→22:44)
[2016-12-11] MEDS: Acetylcysteine 10% 2 ML INHSOL IH SCH ×4 (04:18→22:44)
[2016-12-11] MEDS: ALPRAZolam 1 MG TABLET PO PRN ×3 (04:25→23:01)
[2016-12-11 05:05] LABS: VBG HCO3 38.4 mEq/L (21-27); VBG PH 7.4 pH Units (7.32-7.42)
[2016-12-11 05:23] LABS: Hemoglobin A1C 4.9 %
[2016-12-11 05:25] LABS: Magnesium 1.3 mg/dL (1.6-2.6); Phosphorous 3.1 mg/dL (2.3-4.7)
[2016-12-11 05:27] LABS: Ionized Calcium 1.12 mmol/L (1.15-1.35)
[2016-12-11 05:41] LABS: Thyroid Stimulating Hormone 0.271 mcIU/mL (0.350-4.840)
[2016-12-11] MEDS: methylPREDNISolone 125 MG/2 ML VIAL IVP SCH ×2 (06:08→17:09)
[2016-12-11] MEDS: *HR* Heparin 5,000 UNIT/ML VIAL SQ SCH ×2 (06:09→17:09)
[2016-12-11] MEDS: Megestrol Acetate 400 MG/10 ML UDC PO SCH (08:27)
[2016-12-11] MEDS: Levofloxacin 500 MG/100 ML 500 MG/100 ML BAG IVPB SCH (08:30)
[2016-12-11] MEDS: Nicotine 21 MG PATCH.TD24 TD SCH (08:30)
[2016-12-11] MEDS: Patient Taking Own Medication 1 EACH PO SCH (08:31)
[2016-12-11] MEDS: BOOST HIGH PROTEIN PO SCH ×3 (08:31→23:02)
--- NOTE | 2016-12-11 09:01 | Electrocardiograph Report ---
[place] [id number] Test Date: 2016-12-10 Pat Name: Anya Holland Department: 103 Room: 3B16 Gender: F Software Support Specialist: : 1950 Requested By: Daniel Lambert Order Number: [id number] Reading MD: Umair Conde MD Measurements Intervals [place] Rate: 86 P: 83 ND: 110 QRS: 91 QRSD: 91 T: 91 QT: 345 QTc: 388 Interpretive Statements SINUS RHYTHM WITH SHORT ND INTERVAL Electronically Signed On 12-11-2016 8:59:42 EDT by Umair Conde MD
[2016-12-11 09:04] LABS: Triiodothyronine (T3) Free 1.98 pg/mL (1.71-3.71)
--- NOTE | 2016-12-11 11:15 | Internal Med Progress Note ---
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 In review of her chart, she is also on BiPAP as needed and at bedtime. She also has history of lung cancer, we will obtain a chest CT. Chest x-ray unremarkable. Lactic acidosis resolved. TSH low however free T3 and T4 are normal. Patient states she was to remain a full code , would consider height of consult and we will continue to broach CODE STATUS conversation. ITS Impressions Chest X-Ray 12/10/16 14:33 IMPRESSION: No evidence for acute cardiopulmonary process. COPD. D/ / 12/10/2016 15:27:01 Chente Sahu MD / Veronica Warner Interpreting Provider: Chente Sahu MD (2) Protein-calorie malnutrition, severe Current Visit: No Status: Chronic Assessment and plan: will add ensure- nutrition brought onboard. Patient stating Megace has been ineffective, Marinol added (3) Lung cancer Current Visit: No Status: Chronic Assessment and plan: In review of her chart, patient follows with radiation oncology outpatient and she completed stereotactic body radiotherapy in December 2015 and has been undergoing surveillance and in September of this year, her CT revealed stability of her right lung nodule and stability of an additional smaller right middle lobe nodule. According her radiation oncologist, patient has severe chronic dyspnea that appears to be progressing and she again has been refusing hospice care. We will order a chest CT. Qualifiers: Laterality: right Lung location: unspecified part of lung Qualified Code( s): C34.91 - Malignant neoplasm of unspecified part of right bronchus or lung (4) DVT prophylaxis Current Visit: No Status: Acute Assessment and plan: Subcutaneous heparin (5) Congestive heart failure Current Visit: No Status: Inactive Assessment and plan: No evidence of heart failure. Patient had echocardiogram on 09/18/16 revealed ejection fraction of 60% with mild diastolic dysfunction. She is not on diuretics at home. She is euvolemic on examination. Qualifiers: Congestive heart failure type: diastolic Congestive heart failure chronicity: chronic Qualified Code(s): I50.32 - Chronic diastolic (congestive ) heart failure (6) Cigarette smoker Current Visit: No Status: Resolved Assessment and plan: Patient stating she was a one pack per day smoker and states that she stopped smoking in November of this year. She was using the gum however she is no longer using nicotine replacement therapy. (7) Leukocytosis Current Visit: No Status: Acute Assessment and plan: very mild; likely stress related. no signs of active infection. Qualifiers: Leukocytosis type: unspecified Qualified Code(s): D72.829 - Elevated white blood cell count, unspecified (8) Pulmonary cachexia due to chronic obstructive pulmonary disease Current Visit: Yes Status: Chronic (9) Acute and chronic respiratory failure Current Visit: Yes Status: Chronic Assessment and plan: At home, patient is on 1.3 L per nasal cannula continuously, currently fluctuating between 1 and 1.5 L. (10) Goals of care, counseling/discussion Current Visit: No Status: Acute Assessment and plan: In review of her chart, patient was admitted 2 months ago and palliative care was brought on board. Patient elected to continue with full CODE STATUS and declined hospice at that time. Patient currently wishes to remain a full code, will continue to broach this topic during her admission - Subjective Interval history: Patient seen and examined. On examination, patient sitting upright in bed conversing with her friend. She states she is still more short of breath than usual and states that when she ambulated back from the bathroom that she took longer than usual to catch her breath. She is endorsing a normal appetite. She is endorsing a cough but states it is still nonproductive. - Constitutional Vitals: Temp Pulse Resp BP Pulse Ox 97.9 F 94 16 118/62 95 12/11/16 06:57 12/11/16 06:57 12/11/16 06:57 12/11/16 06:57 12/11/16 08:41 General appearance: Present: mild distress, A&O X 3, pleasant, answers questions appropriately - Head Head exam: Present: atraumatic, normocephalic - Eye Eye exam: Present: PERRL, conjuntiva pink, sclera anicteric Pupils: Present: PERRL - Neck Neck exam general surgery: Present: supple, trachea midline. Absent: lymphadenopathy - Respiratory Respiratory exam: Present: accessory muscle use, decreased breath sounds, prolonged expiratory phase, respiratory distress, wheezes. Absent: CTAB, rales , rhonchi - Cardiovascular Cardiovascular exam: Present: RRR, +S1, +S2, tachycardia. Absent: diastolic murmur, gallop, rubs, systolic murmur - GI/Abdominal GI/Abdominal exam: Present: normal bowel sounds, soft, no peritoneal signs. Absent: distended, tenderness - Extremities Exam Extremities exam: Present: warm, radial pulses palpable and symetrical. Absent : calf tenderness, cyanotic, pedal edema - Neurological Exam Neurological exam: Present: alert, CN II-XII intact, normal gait, oriented X3, no focal deficits, strengths equal and symetr throughout. Absent: pronater drift, facial droop, speech deficit - Skin Skin exam: Present: dry, intact, pallor, warm Internal Medicine: Result - Labs CBC & Chem 7: 12/10/16 15:43 12/10/16 15:43 Labs: Cardiac Enzymes 12/10/16 12/11/16 12/11/16 Range/Units 21:15 04:06 09:56 Troponin I 0.00 0.00 0.00 (0-0.03) ng/mL Liver Function 12/10/16 Range/Units 21:15 Total Bilirubin 0.6 (0.2-1.2) mg/dL Direct Bilirubin 0.2 (0.0-0.5) mg/dL AST 20 (5-34) Units/L ALT 18 (0-55) Units/L Alkaline Phosphatase 49 (38-126) Units/L Albumin 3.6 (3.5-5.0) g/dL - ABG Interpretation ABG results: ABG ABG pH 7.45 pH Units (7.32-7.45) 12/10/16 21:20 ABG pCO2 54 mmHg (35-45) H 12/10/16 21:20 ABG pO2 62 mmHg (85-104) L 12/10/16 21:20 ABG O2 Saturation 92 % (95-98) L 12/10/16 21:20 PT/INR, D-dimer PT 11.4 Seconds (9.4-12.1) 12/10/16 21:15 Consult Discharge Plan - Plan Referrals: Shayy Morse, [facility] [Primary Care Provider] -
[2016-12-11] MEDS ORDERED: Magnesium Sulfate 2 GM in D5% in Water 100 ML IVPB ONE (11:52)
[2016-12-11] MEDS: Loratadine 10 MG TABLET PO SCH (17:10)
[2016-12-11] MEDS ORDERED: NON-FORMULARY MEDICATION 1 EACH EACH (Acetylcysteine [N-Acetyl-L-Cysteine] 600 MG) PO SCH (17:15)
[2016-12-11] MEDS: Budesonide/Formoterol 160/4.5 MDI IH SCH (20:43)
[2016-12-11] MEDS: Primidone 50 MG TABLET PO SCH (23:02)
[2016-12-11] MEDS: Mirtazapine 15 MG TABLET PO SCH (23:02)
[2016-12-11] MEDS: traZODone 50 MG TABLET PO SCH (23:02)
[2016-12-12] MEDS: Ipratropium/Albuterol Neb 3 ML IH SCH ×6 (04:21→23:46)
[2016-12-12 05:09] LABS: BUN/Creatinine Ratio 29 (6-26); Blood Urea Nitrogen 20 mg/dL (7-20); Calcium 8.8 mg/dL (8.6-10.8); Carbon Dioxide 39 mEq/L (19-29); Chloride 99 mEq/L (98-109); Glucose 109 mg/dL (70-99); Magnesium 1.8 mg/dL (1.6-2.6); Osmolality,Calculated 299 (280-300); Potassium 4.1 mEq/L (3.5-4.5); Sodium 143 mEq/L (136-145); eGFR For African Americans > 60 (> 60); eGFR For Non-African Americans > 60 (> 60)
[2016-12-12] MEDS: methylPREDNISolone 125 MG/2 ML VIAL IVP SCH ×2 (06:15→17:36)
[2016-12-12] MEDS: *HR* Heparin 5,000 UNIT/ML VIAL SQ SCH ×2 (06:16→17:35)
[2016-12-12] MEDS: Acetylcysteine 10% 2 ML INHSOL IH SCH ×3 (08:32→23:46)
[2016-12-12] MEDS: Budesonide/Formoterol 160/4.5 MDI IH SCH (08:32)
[2016-12-12] MEDS: Megestrol Acetate 400 MG/10 ML UDC PO SCH (09:10)
[2016-12-12] MEDS: Nicotine 21 MG PATCH.TD24 TD SCH (09:11)
[2016-12-12] MEDS: Levofloxacin 500 MG/100 ML 500 MG/100 ML BAG IVPB SCH (09:14)
[2016-12-12] MEDS: BOOST HIGH PROTEIN PO SCH ×2 (09:16→15:23)
[2016-12-12] MEDS: Patient Taking Own Medication 1 EACH PO SCH (09:16)
--- NOTE | 2016-12-12 15:32 | Internal Med Progress Note ---
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 In review of her chart, she is also on BiPAP as needed and at bedtime which has been ordered since admission. She also has history of lung cancer, such as 70 x-ray was obtained which revealed resolution of her mass that was on her right lower lobe and with stability to her right middle lobe mass. Chest x-ray unremarkable. Lactic acidosis resolved. TSH low however free T3 and T4 are normal. Patient states she was to remain a full code , would consider palliative consult and we will continue to broach CODE STATUS conversation. She states she feels better today but it still becomes extremely exhausted with minimal ambulation or effort. At home, she states that she is on 1.3 L, currently on 4 L per nasal cannula with BiPAP as needed and at bedtime. Chest CT also brought up possibility of aspiration, speech therapy evaluated her with no abnormalities noted. PT recommends home health, OT recommends no needs. ITS Impressions Chest X-Ray 12/10/16 14:33 IMPRESSION: No evidence for acute cardiopulmonary process. COPD. D/ / 12/10/2016 15:27:01 Chente Sahu MD / Veronica Warner Interpreting Provider: Chente Sahu MD Chest CT 12/11/16 14:30 IMPRESSION: No acute findings are seen to the chest. Ovoid pulmonary nodule to right middle lobe adjacent to minor fissure appears stable since prior PET-CT 09/14/2015. This demonstrated minimal to no significant FDG avidity on that exam. This is amenable to continued follow-up. No additional new or enlarging pulmonary nodules or masses are seen to the chest concerning for disease recurrence/metastatic disease. Interval resolution of previously noted mass-like opacity to the right lower lobe on CTA chest 10/30/2016 compatible with resolution of infectious/ inflammatory process. Moderate to severe emphysema. Fluid attenuation material noted within portions of esophagus could reflect refluxed gastric contents. Patient may be at risk for aspiration. D/ / 12/11/2016 16:28:06 Chente Sahu MD / lgray Interpreting Provider: Chente Sahu MD (2) Protein-calorie malnutrition, severe Current Visit: Yes Status: Chronic Assessment and plan: will add ensure- nutrition brought onboard. Patient stating Megace has been ineffective, Marinol added and her intake has greatly improved since yesterday (3) Lung cancer Current Visit: No Status: Chronic Assessment and plan: In review of her chart, patient follows with radiation oncology outpatient and she completed stereotactic body radiotherapy in December 2015 and has been undergoing surveillance and in September of this year, her CT revealed stability of her right lung nodule and stability of an additional smaller right middle lobe nodule. According her radiation oncologist, patient has severe chronic dyspnea that appears to be progressing and she again has been refusing hospice care. Chest CT obtained which revealed resolution of her right lower lobe mass and stability to her right middle lobe mass with no new areas of concern. Qualifiers: Laterality: right Lung location: unspecified part of lung Qualified Code( s): C34.91 - Malignant neoplasm of unspecified part of right bronchus or lung (4) DVT prophylaxis Current Visit: No Status: Acute Assessment and plan: Subcutaneous heparin (5) Congestive heart failure Current Visit: No Status: Inactive Assessment and plan: No evidence of heart failure. Patient had echocardiogram on 09/18/16 revealed ejection fraction of 60% with mild diastolic dysfunction. She is not on diuretics at home. She is euvolemic on examination. Qualifiers: Congestive heart failure type: diastolic Congestive heart failure chronicity: chronic Qualified Code(s): I50.32 - Chronic diastolic (congestive ) heart failure (6) Cigarette smoker Current Visit: No Status: Resolved Assessment and plan: Patient stating she was a one pack per day smoker and states that she stopped smoking in November of this year. She was using the gum however she is no longer using nicotine replacement therapy. (7) Leukocytosis Current Visit: No Status: Acute Assessment and plan: very mild; likely stress related. no signs of active infection. Qualifiers: Leukocytosis type: unspecified Qualified Code(s): D72.829 - Elevated white blood cell count, unspecified (8) Pulmonary cachexia due to chronic obstructive pulmonary disease Current Visit: Yes Status: Chronic (9) Acute and chronic respiratory failure Current Visit: Yes Status: Chronic Assessment and plan: At home, patient is on 1.3 L per nasal cannula continuously, currently on 4 L per nasal cannula and BiPAP as needed. (10) Goals of care, counseling/discussion Current Visit: No Status: Acute Assessment and plan: In review of her chart, patient was admitted 2 months ago and palliative care was brought on board. Patient elected to continue with full CODE STATUS and declined hospice at that time. Patient currently wishes to remain a full code, will continue to broach this topic during her admission - Subjective Interval history: Patient seen and examined. On examination, patient sitting upright in bed watching television. She states her breathing has slightly improved from yesterday but she still is more short of breath than usual and states that walking to and from the bathroom takes her a while to recover from. She is endorsing a much increased diet this morning stating that she ate more this morning when she has in several weeks - Constitutional Vitals: Temp Pulse Resp BP Pulse Ox 97.4 F L 117 16 114/65 93 12/12/16 14:34 12/12/16 14:34 12/12/16 14:34 12/12/16 14:34 12/12/16 14:34 General appearance: Present: cachectic, cooperative, mild distress (Chronic), A& O X 3, pleasant, underweight, answers questions appropriately - Head Head exam: Present: atraumatic, normocephalic - Eye Eye exam: Present: PERRL, conjuntiva pink, sclera anicteric Pupils: Present: PERRL - Neck Neck exam general surgery: Present: supple, trachea midline. Absent: lymphadenopathy - Respiratory Respiratory exam: Present: accessory muscle use, decreased breath sounds, prolonged expiratory phase, respiratory distress. Absent: rales, rhonchi, wheezes - Cardiovascular Cardiovascular exam: Present: RRR, +S1, +S2. Absent: diastolic murmur, gallop, rubs, systolic murmur - GI/Abdominal GI/Abdominal exam: Present: normal bowel sounds, soft, no peritoneal signs. Absent: distended, tenderness - Extremities Exam Extremities exam: Present: warm, radial pulses palpable and symetrical. Absent : calf tenderness, cyanotic, pedal edema - Neurological Exam Neurological exam: Present: alert, CN II-XII intact, oriented X3, no focal deficits, strengths equal and symetr throughout. Absent: pronater drift, facial droop, speech deficit - Skin Skin exam: Present: cyanosis, dry, intact, pallor, warm Internal Medicine: Result - Labs CBC & Chem 7: 12/10/16 15:43 12/12/16 04:09 Labs: BMP 12/12/16 04:09 Sodium 143 Potassium 4.1 Chloride 99 Carbon Dioxide 39 H BUN 20 Creatinine 0.69 Glucose 109 H Calcium 8.8 - ABG Interpretation ABG results: ABG ABG pH 7.45 pH Units (7.32-7.45) 12/10/16 21:20 ABG pCO2 54 mmHg (35-45) H 12/10/16 21:20 ABG pO2 62 mmHg (85-104) L 12/10/16 21:20 ABG O2 Saturation 92 % (95-98) L 12/10/16 21:20 PT/INR, D-dimer PT 11.4 Seconds (9.4-12.1) 12/10/16 21:15 - Impressions Impressions Chest CT 12/11/16 14:30 IMPRESSION: No acute findings are seen to the chest. Ovoid pulmonary nodule to right middle lobe adjacent to minor fissure appears stable since prior PET-CT 09/14/2015. This demonstrated minimal to no significant FDG avidity on that exam. This is amenable to continued follow-up. No additional new or enlarging pulmonary nodules or masses are seen to the chest concerning for disease recurrence/metastatic disease. Interval resolution of previously noted mass-like opacity to the right lower lobe on CTA chest 10/30/2016 compatible with resolution of infectious/ inflammatory process. Moderate to severe emphysema. Fluid attenuation material noted within portions of esophagus could reflect refluxed gastric contents. Patient may be at risk for aspiration. D/ / 12/11/2016 16:28:06 Chente Sahu MD / vale Interpreting Provider: Chente Sahu MD Consult Discharge Plan - Plan Referrals: Shayy Morse, CERTIFIED PEER SPECIALIST [Primary Care Provider] - 12/18/16 9:45 am
[2016-12-12] MEDS: Loratadine 10 MG TABLET PO SCH (17:35)
[2016-12-12 20:31] LABS: Bilirubin,Urine Negative (Negative); Blood,Urine Trace (Negative); Clarity,Urine Clear (Clear); Color,Urine Yellow (Yellow); Glucose,Urine (UA) Normal (Normal); Ketones,Urine Negative (Negative); Leukocyte Esterase,Urine Negative (Negative); Nitrite,Urine Negative (Negative); Protein,Urine Negative (Neg-Trace); Specific Gravity,Urine 1.009 (1.010-1.025); Urobilinogen,Urine Normal (Normal)
[2016-12-12 20:33] LABS: Bacteria,Urine None Seen per hpf (None-Few); Hyaline Casts,Urine None Seen per lpf (None-Few); RBC,Urine 0-3 per hpf (0-3); Squamous Epithelial Cell,Urine Few per lpf (None-Few); WBC,Urine 0-3 per hpf (0-3)
[2016-12-12] MEDS: Primidone 50 MG TABLET PO SCH (23:00)
[2016-12-12] MEDS: ALPRAZolam 1 MG TABLET PO PRN (23:01)
[2016-12-12] MEDS: Mirtazapine 15 MG TABLET PO SCH (23:01)
[2016-12-12] MEDS: traZODone 50 MG TABLET PO SCH (23:01)
[2016-12-13] MEDS: Ipratropium/Albuterol Neb 3 ML IH SCH ×3 (03:57→10:54)
[2016-12-13] MEDS: *HR* Heparin 5,000 UNIT/ML VIAL SQ SCH (06:09)
[2016-12-13] MEDS: methylPREDNISolone 125 MG/2 ML VIAL IVP SCH (06:09)
[2016-12-13] MEDS: BOOST HIGH PROTEIN PO SCH ×2 (06:09→08:30)
[2016-12-13] MEDS: Budesonide/Formoterol 160/4.5 MDI IH SCH (07:54)
[2016-12-13] MEDS: Acetylcysteine 10% 2 ML INHSOL IH SCH (07:54)
[2016-12-13] MEDS: Levofloxacin 500 MG/100 ML 500 MG/100 ML BAG IVPB SCH (08:27)
[2016-12-13] MEDS: Nicotine 21 MG PATCH.TD24 TD SCH (08:28)
[2016-12-13] MEDS: Megestrol Acetate 400 MG/10 ML UDC PO SCH (08:28)
[2016-12-13] MEDS: Patient Taking Own Medication 1 EACH PO SCH (08:30)
[2016-12-13 11:42] VITALS: BP 165/72
--- NOTE | 2016-12-13 12:40 | Discharge Summary ---
Date of Encounter: 12/13/16 Time of Encounter: 09:30 - Discharge Diagnosis (1) Acute exacerbation of chronic obstructive airways disease Priority: Primary Status: Acute Comments: Resolved, patient at her baseline on day of discharge (2) Protein-calorie malnutrition, severe Priority: Secondary Status: Chronic Comments: Patient does not like ensure but is amenable to Boost. She was given magic cups while admitted. The Megace has not been effective, so she was started on Marinol with a marked increase in her appetite and PO intake. Will continue upon discharge. (3) Lung cancer Priority: Secondary Status: Chronic Comments: Chest CT obtained which revealed resolution of her right lower lobe mass and stability to her right middle lobe mass with no new areas of concern. Follow- up outpatient Qualifiers: Laterality: right Lung location: unspecified part of lung Qualified Code( s): C34.91 - Malignant neoplasm of unspecified part of right bronchus or lung (4) DVT prophylaxis Priority: Primary Status: Acute Comments: Subcutaneous heparin while admitted (5) Congestive heart failure Priority: Secondary Status: Inactive Comments: No evidence of heart failure. Patient had echocardiogram on 09/18/16 revealed ejection fraction of 60% with mild diastolic dysfunction. She is not on diuretics at home. She is euvolemic on examination. Qualifiers: Congestive heart failure type: diastolic Congestive heart failure chronicity: chronic Qualified Code(s): I50.32 - Chronic diastolic (congestive ) heart failure (6) Cigarette smoker Priority: Secondary Status: Resolved Comments: Patient stating she was a one pack per day smoker and states that she stopped smoking in November of this year. She was using the gum however she is no longer using nicotine replacement therapy. (7) Leukocytosis Priority: Primary Status: Acute Comments: very mild; likely stress related. no signs of active infection. Qualifiers: Leukocytosis type: unspecified Qualified Code(s): D72.829 - Elevated white blood cell count, unspecified (8) Pulmonary cachexia due to chronic obstructive pulmonary disease Priority: Secondary Status: Chronic (9) Acute and chronic respiratory failure Priority: Secondary Status: Chronic (10) Goals of care, counseling/discussion Priority: Primary Status: Acute Comments: patient wants to remain a full code and does not wish to pursue any options regarding hospice - Discharge Medications Prescriptions: Dronabinol [Marinol] 2.5 mg PO BIDLS #60 capsule Levofloxacin 750 mg PO DAILY #5 tablet PredniSONE 10 mg PO DAILY #41 tablet Home Medications: Albuterol Sulfate [Proair Respiclick] 2 puff IH Q4H PRN 09/05/15 [History] Budesonide/Formoterol 160/4.5 [Symbicort 160/4.5] 1 puff IH DAILY 09/05/15 [ History] Butalb/Acetaminophen/Caffeine [Fioricet 50-300-40 mg Capsule] 1 each PO BID PRN 09/05/15 [History] Cetirizine HCl [Zyrtec] 20 mg PO QPM 09/05/15 [History] Omeprazole [PriLOSEC] 20 mg PO DAILY 09/05/15 [History] Primidone [Mysoline] 100 mg PO HS 09/05/15 [History] Roflumilast [Daliresp] 500 mcg PO DAILY 09/05/15 [History] Tiotropium [Spiriva] 18 mcg IH 0700 09/05/15 [History] Albuterol Neb [Proventil Neb] 2.5 mg IH Q4H PRN 11/21/15 [History] Cyclobenzaprine [Flexeril] 10 mg PO HS 03/05/16 [History] Oxygen 3 - 4 l PO DAILY 03/05/16 [History] Paroxetine [Paxil] 20 mg PO DAILY 06/19/16 [History] Alprazolam [Xanax 1 MG Tablet] 0.5 - 1 mg PO TID PRN 09/17/16 [History] Megestrol Acetate [Megace] 800 mg PO DAILY #600 mls 10/02/16 [Rx] Acetylcysteine [Q-Ghvqvt-a-Cysteine] 600 mg PO Q12H 10/30/16 [History] GuaiFENesin ER [Mucinex] 600 mg PO BID PRN 10/30/16 [History] Cyanocobalamin (B-12) [Vitamin B12] 1,000 mcg PO DAILY #90 tablet 11/02/16 [Rx] Ergocalciferol (VITAMIN D2) [Drisdol (50,000 Unit)] 50,000 unit PO QWEEK #20 capsule 11/02/16 [Rx] Mirtazapine [Remeron] 7.5 mg PO HS #30 tablet 11/02/16 [Rx] Calcium Carbonate/Vitamin D3 [Calcium 600-Vit D3 200 Tablet] 1 each PO BID 12/10 [History] Lactose-Reduced Food [Boost High Protein] 237 ml PO TID 12/10/16 [History] Trazodone HCl 200 mg PO HS 12/10/16 [History] Dronabinol [Marinol] 2.5 mg PO BIDLS #60 capsule 12/13/16 [Rx] Levofloxacin 750 mg PO DAILY #5 tablet 12/13/16 [Rx] PredniSONE 10 mg PO DAILY #41 tablet 12/13/16 [Rx] Allergies/Adverse Reactions: Allergies morphine Adverse Reaction (Verified 09/17/16 13:00) Itching Date of admission: 12/11/16 12:33 Primary care physician: Shayy Morse CNP Consults: 12/12/16 07:39 Consult to Speech Therapy [CONS] Routine Comment: Evaluate, develop and implement POC Reason for Consult: end stage COPD. possible aspiration on chest CT Call Completed: No Discharging clinician: Symone Morillo Anticipated date of discharge: 12/13/16 (with [facility]) - Patient Status Disposition: Home Health Service Condition: Fair Functional capacity at discharge: independent ambulation Overall status at discharge: patient is back to baseline - Discharge Instructions Follow Up With: Shayy Morse CNP [Primary Care Provider] - 12/18/16 9:45 am Additional Instructions: Follow-up with primary care provider as scheduled - Diet and Activity Activity: increase activity as tolerated, wear oxygen at all times Diet: regular diet (With boost drinks TIDWM) Hospital course: Ms. 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 Patient presented to the emergency department chief complaint 2 day history of progressive decline in her respiratory status associated with intermittent cough that was nonproductive with moderate to severe dyspnea at rest and worsened with exertion. Workup in the emergency department unremarkable. Chest x-ray negative for acute processes. Patient was admitted to the hospitalist service for further evaluation and management of her COPD exacerbation. She was treated over the course of 4 days. Regarding her malnutrition, she has been on Megace which has been an effective for her up to this point. She was started on Marinol and her appetite and by mouth intake markedly increased. This was continued upon discharge. With her history of lung cancer, a chest CT was obtained which revealed resolution of her right lower lobe mass and stability to her right middle lobe mass with no new areas of concern. With her end-stage status, we had a lengthy discussion regarding her CODE STATUS. At this point, she continues to wish for a full CODE STATUS. She is not ready to discuss hospice or "the next level." She is aware that her disease is progressive and she is aware that her disease is worsening. On day 4 , patient had returned to her baseline and was able to walk to and from the bathroom with less dyspnea with a shortened recovery time. Initial lactic acidosis resolved. TSH slightly low however free T3 and T4 were normal. She tolerated BiPAP well during this admission. She was evaluated by occupational and physical therapy both of whom recommended home health. Of note, patient stated she had been choking on foods that she was seen and evaluated by speech therapy who cleared her for a regular diet with thin liquids. She was discharged home in stable condition with close outpatient follow-up recommended. ITS Impressions Chest X-Ray 12/10/16 14:33 IMPRESSION: No evidence for acute cardiopulmonary process. COPD. D/ / 12/10/2016 15:27:01 Chente Sahu MD / Veronica Warner Interpreting Provider: Chente Sahu MD Chest CT 12/11/16 14:30 IMPRESSION: No acute findings are seen to the chest. Ovoid pulmonary nodule to right middle lobe adjacent to minor fissure appears stable since prior PET-CT 09/14/2015. This demonstrated minimal to no significant FDG avidity on that exam. This is amenable to continued follow-up. No additional new or enlarging pulmonary nodules or masses are seen to the chest concerning for disease recurrence/metastatic disease. Interval resolution of previously noted mass-like opacity to the right lower lobe on CTA chest 10/30/2016 compatible with resolution of infectious/ inflammatory process. Moderate to severe emphysema. Fluid attenuation material noted within portions of esophagus could reflect refluxed gastric contents. Patient may be at risk for aspiration. D/ / 12/11/2016 16:28:06 Chente Sahu MD / vale Interpreting Provider: Chente Sahu MD - Time Spent with Patient Total time spent providing and/or coordinating discharge services: - Constitutional Vitals: Temp Pulse Resp BP Pulse Ox 98.1 F 123 20 165/72 95 12/13/16 11:40 12/13/16 11:40 12/13/16 11:40 12/13/16 11:40 12/13/16 11:40 General appearance: Present: cachectic, cooperative, mild distress (Chronic), A& O X 3, pleasant, underweight, answers questions appropriately - Head Head exam: Present: atraumatic, normocephalic - Eye Eye exam: Present: PERRL, conjuntiva pink, sclera anicteric Pupils: Present: PERRL - Neck Neck exam general surgery: Present: supple, trachea midline. Absent: lymphadenopathy - Respiratory Respiratory exam: Present: accessory muscle use, decreased breath sounds, prolonged expiratory phase, respiratory distress, wheezes. Absent: CTAB, rales , rhonchi - Cardiovascular Cardiovascular exam: Present: RRR, +S1, +S2. Absent: diastolic murmur, gallop, rubs, systolic murmur - GI/Abdominal GI/Abdominal exam: Present: normal bowel sounds, soft, no peritoneal signs. Absent: distended, tenderness - Extremities Exam Extremities exam: Present: warm, radial pulses palpable and symetrical. Absent : calf tenderness, cyanotic, pedal edema - Neurological Exam Neurological exam: Present: alert, CN II-XII intact, normal gait, oriented X3, no focal deficits, strengths equal and symetr throughout. Absent: pronater drift, facial droop, speech deficit - Skin Skin exam: Present: dry, intact, pallor, warm
--- NOTE | 2016-12-13 13:04 | Physician Discharge Referral ---
Home Health/Hosp Referral Info Transfer to: Home Health Attending Provider: Agustin Morillo CNP Provider in Charge Post Discharge: PCP - Diagnosis (1) Acute exacerbation of chronic obstructive airways disease Priority: Primary Status: Acute (2) Protein-calorie malnutrition, severe Priority: Secondary Status: Chronic (3) Lung cancer Priority: Secondary Status: Chronic (4) DVT prophylaxis Priority: Primary Status: Acute (5) Congestive heart failure Priority: Secondary Status: Inactive (6) Cigarette smoker Priority: Primary Status: Resolved (7) Leukocytosis Priority: Primary Status: Acute (8) Pulmonary cachexia due to chronic obstructive pulmonary disease Priority: Secondary Status: Chronic (9) Acute and chronic respiratory failure Priority: Secondary Status: Chronic (10) Goals of care, counseling/discussion Priority: Primary Status: Acute - Respiratory Orders Oxygen / L per min (3-4), Other (bipap HS and PRN) Smoking Cessation: Smoking cessation has been advised. For more information, call the [employer] Tobacco Quit Line at [phone]. - Diet/Nutrition Diet/Nutrition Orders: Regular (TIDWM with Boost) - Activity Activity Orders: Up ad carolyn - Services Needed Following services are medically necessary services: Nursing, Physical Therapy, Occupational Therapy - Transfer Medications Prescriptions: Dronabinol [Marinol] 2.5 mg PO BIDLS #60 capsule Levofloxacin 750 mg PO DAILY #5 tablet PredniSONE 10 mg PO DAILY #41 tablet Home Medications: Albuterol Sulfate [Proair Respiclick] 2 puff IH Q4H PRN 09/05/15 [History] Budesonide/Formoterol 160/4.5 [Symbicort 160/4.5] 1 puff IH DAILY 09/05/15 [ History] Butalb/Acetaminophen/Caffeine [Fioricet 50-300-40 mg Capsule] 1 each PO BID PRN 09/05/15 [History] Cetirizine HCl [Zyrtec] 20 mg PO QPM 09/05/15 [History] Omeprazole [PriLOSEC] 20 mg PO DAILY 09/05/15 [History] Primidone [Mysoline] 100 mg PO HS 09/05/15 [History] Roflumilast [Daliresp] 500 mcg PO DAILY 09/05/15 [History] Tiotropium [Spiriva] 18 mcg IH 0700 09/05/15 [History] Albuterol Neb [Proventil Neb] 2.5 mg IH Q4H PRN 11/21/15 [History] Cyclobenzaprine [Flexeril] 10 mg PO HS 03/05/16 [History] Oxygen 3 - 4 l PO DAILY 03/05/16 [History] Paroxetine [Paxil] 20 mg PO DAILY 06/19/16 [History] Alprazolam [Xanax 1 MG Tablet] 0.5 - 1 mg PO TID PRN 09/17/16 [History] Megestrol Acetate [Megace] 800 mg PO DAILY #600 mls 10/02/16 [Rx] Acetylcysteine [H-Vgdqed-l-Cysteine] 600 mg PO Q12H 10/30/16 [History] GuaiFENesin ER [Mucinex] 600 mg PO BID PRN 10/30/16 [History] Cyanocobalamin (B-12) [Vitamin B12] 1,000 mcg PO DAILY #90 tablet 11/02/16 [Rx] Ergocalciferol (VITAMIN D2) [Drisdol (50,000 Unit)] 50,000 unit PO QWEEK #20 capsule 11/02/16 [Rx] Mirtazapine [Remeron] 7.5 mg PO HS #30 tablet 11/02/16 [Rx] Calcium Carbonate/Vitamin D3 [Calcium 600-Vit D3 200 Tablet] 1 each PO BID 12/10 [History] Lactose-Reduced Food [Boost High Protein] 237 ml PO TID 12/10/16 [History] Trazodone HCl 200 mg PO HS 12/10/16 [History] Dronabinol [Marinol] 2.5 mg PO BIDLS #60 capsule 12/13/16 [Rx] Levofloxacin 750 mg PO DAILY #5 tablet 12/13/16 [Rx] PredniSONE 10 mg PO DAILY #41 tablet 12/13/16 [Rx] Allergies/Adverse Reactions: Allergies morphine Adverse Reaction (Verified 09/17/16 13:00) Itching Certification: Further, I certify that my clinical findings support that this patient is homebound (i.e. absences from home require considerable and taxing effort and are for medical reasons or oriental orthodox services or infrequently or short duration when for other reasons) because: Homebound Reason: Leaving home requires considerable and taxing effort due to condition, Severity of cardiac or pulmonary status limits activity tolerance Attestation: My signature below is to certify that this patient is under my care and that I, or nurse practitioner, or a physician's ortho assistant working with me, has a face-to -face encounter with this patient.
== END 2016-12-13 13:52 | disposition home health service (06) | DRG 190 ==
LOC: EMEROO 14:31 → 3BNU 14:31
PROVIDERS: ADMIT Internal Medicine; ATTEND Nurse Practitioner Family

== ENCOUNTER 2017-02-10 17:59 | Inpatient (IN) ==
--- NOTE | 2017-02-10 18:04 | Emergency Department Note ---
Disposition Clinical Impression: COPD exacerbation Disposition: Admitted As Inpatient Condition: Fair General Adult HPI - General Chief complaint: ED Shortness of Breath/Dyspnea Stated complaint: JARET Time Seen by Provider: 02/10/17 18:02 - Related Data Home Medications Medication Instructions Recorded Confirmed Albuterol Sulfate [Proair 2 puff IH Q4H PRN 09/05/15 02/10/17 Respiclick] Budesonide/Formoterol 160/4.5 1 puff IH DAILY 09/05/15 02/10/17 [Symbicort 160/4.5] Butalb/Acetaminophen/Caffeine 1 each PO BID PRN 09/05/15 02/10/17 [Fioricet 50-300-40 mg Capsule] Cetirizine HCl [Zyrtec] 20 mg PO QPM 09/05/15 02/10/17 Omeprazole [PriLOSEC] 20 mg PO DAILY 09/05/15 02/10/17 Primidone [Mysoline] 100 mg PO DAILY 09/05/15 02/12/17 Roflumilast [Daliresp] 500 mcg PO DAILY 09/05/15 02/10/17 Tiotropium [Spiriva] 18 mcg IH 0700 09/05/15 02/10/17 Albuterol Neb [Proventil Neb] 2.5 mg IH Q4H PRN 11/21/15 02/10/17 Cyclobenzaprine [Flexeril] 10 mg PO HS 03/05/16 02/10/17 Oxygen 3 - 4 l PO DAILY 03/05/16 02/10/17 Paroxetine [Paxil] 20 mg PO DAILY 06/19/16 02/10/17 ALPRAZolam [Xanax 1 MG Tablet] 0.5 - 1 mg PO TID PRN 09/17/16 02/10/17 Acetylcysteine 600 mg PO Q12H 10/30/16 02/10/17 [C-Utvjnb-t-Cysteine] GuaiFENesin ER [Mucinex] 600 mg PO BID PRN 10/30/16 02/10/17 Calcium Carbonate/Vitamin D3 1 each PO BID 12/10/16 02/10/17 [Calcium 600-Vit D3 200 Tablet] Lactose-Reduced Food [Boost High 237 ml PO TID 12/10/16 02/10/17 Protein] Trazodone HCl 200 mg PO HS 12/10/16 02/10/17 PARoxetine HCl [Paroxetine HCl] 20 mg PO DAILY 02/12/17 02/12/17 Previous Rx's Medication Instructions Recorded Megestrol Acetate [Megace] 800 mg PO DAILY #600 mls 10/02/16 Mirtazapine [Remeron] 7.5 mg PO HS #30 tablet 11/02/16 Allergies Allergy/AdvReac Type Severity Reaction Status Date / Time morphine AdvReac Itching Verified 02/12/17 08:46 Past Medical History - Past Medical History Medical history: Reports: arthritis, asthma, cancer, CHF (chr diastolic CHF.), COPD, DVT, GERD, hyperlipidemia, osteoporosis (vitamin D def. ), other ( Essential tremor.) Surgical history: Reports: appendectomy, hysterectomy, other Psychiatric history: Reports: anxiety, depression - Social History Smoking Status: Former smoker Smokeless Tobacco Status: Yes (nicotine gum) Alcohol use: Reports: none Drug use: Reports: none Course Vital Signs Temperature 98.3 F 02/10/17 18:02 Pulse Rate 94 02/10/17 18:02 Respiratory Rate 24 02/10/17 18:02 Blood Pressure 92/71 02/10/17 18:02 O2 Sat by Pulse Oximetry 94 02/10/17 18:02 Temperature 98.3 F 02/12/17 11:18 Pulse Rate 75 02/12/17 11:18 Respiratory Rate 16 02/12/17 11:35 Blood Pressure 93/57 02/12/17 11:18 O2 Sat by Pulse Oximetry 90 02/12/17 11:35 Oxygen Delivery Oxygen Delivery Nasal Cannula Medical Decision Making - Lab Data Result diagrams: 02/11/17 03:38 02/11/17 03:38 Lab Results 02/10/17 02/10/17 02/10/17 Range/Units 18:50 18:50 18:50 WBC 12.3 H (4.3-11.1) K/mcL RBC 4.34 (3.82-4.97) M/mcL Hgb 12.8 (11.5-15.4) g/dL Hct 40.4 (35.3-44.9) % MCV 93.1 (83.0-100.0) fL MCH 29.5 (28.0-33.3) pg MCHC 31.7 (31.6-35.5) g/dL RDW 13.1 (11.5-14.5) % Plt Count 250 (140-400) K/mcL MPV 10.3 (9.4-12.4) fL Immature Gran % 0.5 (0-4) % Seg Neutrophils % 92.6 % Lymphocytes % 3.2 % Monocytes % 3.6 % Eosinophils % 0.0 % Basophils % 0.1 % Neutrophils # 11.4 H (1.6-8.9) K/mcL Lymphocytes # 0.4 L (0.6-4.6) K/mcL Monocytes # 0.4 (0.0-1.3) K/mcL Eosinophils # 0.0 (0.0-0.6) K/mcL Basophils # 0.0 (0.0-0.2) K/mcL ABG pH (7.32-7.45) pH Units ABG pCO2 (35-45) mmHg ABG pO2 (85-104) mmHg ABG HCO3 (21-27) mEQ/L ABG Total CO2 (20-26) mEq/L ABG O2 Saturation (95-98) % ABG Base Excess (-2.0 to 3.0) mEq/L Liter Flow L/MIN Blood Gas Modality Inspired O2 % Sodium 144 (136-145) mEq/L Potassium 3.6 (3.5-4.5) mEq/L Chloride 94 L (98-109) mEq/L Carbon Dioxide 42 H* (19-29) mEq/L BUN 16 (7-20) mg/dL Creatinine 0.63 (0.57-1.11) mg/dL Est GFR ( Amer) > 60 (> 60) Est GFR (Non-Af Amer) > 60 (> 60) BUN/Creatinine Ratio 25 (6-26) Glucose 81 (70-99) mg/dL Calculated Osmolality 298 (280-300) Calcium 9.2 (8.6-10.8) mg/dL Troponin I 0.01 (0-0.03) ng/mL B-Natriuretic Peptide (0-100) pg/mL 02/10/17 02/10/17 Range/Units 18:50 20:31 WBC (4.3-11.1) K/mcL RBC (3.82-4.97) M/mcL Hgb (11.5-15.4) g/dL Hct (35.3-44.9) % MCV (83.0-100.0) fL MCH (28.0-33.3) pg MCHC (31.6-35.5) g/dL RDW (11.5-14.5) % Plt Count (140-400) K/mcL MPV (9.4-12.4) fL Immature Gran % (0-4) % Seg Neutrophils % % Lymphocytes % % Monocytes % % Eosinophils % % Basophils % % Neutrophils # (1.6-8.9) K/mcL Lymphocytes # (0.6-4.6) K/mcL Monocytes # (0.0-1.3) K/mcL Eosinophils # (0.0-0.6) K/mcL Basophils # (0.0-0.2) K/mcL ABG pH 7.41 (7.32-7.45) pH Units ABG pCO2 71 H* (35-45) mmHg ABG pO2 73 L (85-104) mmHg ABG HCO3 45.0 H (21-27) mEQ/L ABG Total CO2 47.2 H (20-26) mEq/L ABG O2 Saturation 95 (95-98) % ABG Base Excess 17.0 H (-2.0 to 3.0) mEq/L Liter Flow 3 L/MIN Blood Gas Modality NC Inspired O2 32 % Sodium (136-145) mEq/L Potassium (3.5-4.5) mEq/L Chloride (98-109) mEq/L Carbon Dioxide (19-29) mEq/L BUN (7-20) mg/dL Creatinine (0.57-1.11) mg/dL Est GFR ( Amer) (> 60) Est GFR (Non-Af Amer) (> 60) BUN/Creatinine Ratio (6-26) Glucose (70-99) mg/dL Calculated Osmolality (280-300) Calcium (8.6-10.8) mg/dL Troponin I (0-0.03) ng/mL B-Natriuretic Peptide < 10 (0-100) pg/mL Attestation Statement - Attestation Attestation: I examined this patient and my medical decision-making was reviewed with the BUSINESS CONTINUITY PLANNING DIRECTOR/PA/Advanced Practice Nurse/Resident Physician. I agree with the documented findings, disposition and treatment plan as described except to the extent set forth below. [id number] time provided Patient arrives by EMS complaining of dyspnea. She has a known history of oxygen-dependent COPD. She appears dyspneic, shaky, jittery on exam 18:27: Clear to be endorsed to the oncoming physician at 7 PM pending labs, nebs, chest x-ray, reevaluation. She will provide the final disposition
--- NOTE | 2017-02-10 18:26 | Emergency Department Note ---
Disposition Clinical Impression: COPD exacerbation Disposition: Still a Patient Forms: ED Satisfaction Letter SOB HPI - General Chief Complaint: ED Shortness of Breath/Dyspnea Stated Complaint: JARET Time Seen by Provider: 02/10/17 18:02 Source: EMS Limitations: no limitations Nursing Notes Reviewed: Yes Vital Signs Reviewed: Yes - History of Present Illness Patient here for evaluation of shortness of breath. Patient has 4 L oxygen dependent COPD. Patient took 3 DuoNeb's prior to arrival as well as getting 125 mg of Solu-Medrol by squad. The patient is currently shaking his which she says is secondary to all of the albuterol. Patient's respiratory status has mild tachypnea but no overt distress and able to speak in full sentences. Patient has not had fever or chills or productive cough however she is not presented sooner secondary to her mom's tomorrow. She was hoping to be able to make it. - Related Data Home Medications Medication Instructions Recorded Confirmed Albuterol Sulfate [Proair 2 puff IH Q4H PRN 09/05/15 12/10/16 Respiclick] Budesonide/Formoterol 160/4.5 1 puff IH DAILY 09/05/15 12/10/16 [Symbicort 160/4.5] Butalb/Acetaminophen/Caffeine 1 each PO BID PRN 09/05/15 12/10/16 [Fioricet 50-300-40 mg Capsule] Cetirizine HCl [Zyrtec] 20 mg PO QPM 09/05/15 12/10/16 Omeprazole [PriLOSEC] 20 mg PO DAILY 09/05/15 12/10/16 Primidone [Mysoline] 100 mg PO HS 09/05/15 12/10/16 Roflumilast [Daliresp] 500 mcg PO DAILY 09/05/15 12/10/16 Tiotropium [Spiriva] 18 mcg IH 0700 09/05/15 12/10/16 Albuterol Neb [Proventil Neb] 2.5 mg IH Q4H PRN 11/21/15 12/10/16 Cyclobenzaprine [Flexeril] 10 mg PO HS 03/05/16 12/10/16 Oxygen 3 - 4 l PO DAILY 03/05/16 12/10/16 Paroxetine [Paxil] 20 mg PO DAILY 06/19/16 12/10/16 ALPRAZolam [Xanax 1 MG Tablet] 0.5 - 1 mg PO TID PRN 09/17/16 12/10/16 Acetylcysteine 600 mg PO Q12H 10/30/16 12/10/16 [H-Azgpwy-h-Cysteine] GuaiFENesin ER [Mucinex] 600 mg PO BID PRN 10/30/16 12/10/16 Calcium Carbonate/Vitamin D3 1 each PO BID 12/10/16 12/10/16 [Calcium 600-Vit D3 200 Tablet] Lactose-Reduced Food [Boost High 237 ml PO TID 12/10/16 12/10/16 Protein] Trazodone HCl 200 mg PO HS 12/10/16 12/10/16 Previous Rx's Medication Instructions Recorded Megestrol Acetate [Megace] 800 mg PO DAILY #600 mls 10/02/16 Cyanocobalamin (B-12) [Vitamin B12] 1,000 mcg PO DAILY #90 tablet 11/02/16 Ergocalciferol (VITAMIN D2) 50,000 unit PO QWEEK #20 capsule 11/02/16 [Drisdol (50,000 Unit)] Mirtazapine [Remeron] 7.5 mg PO HS #30 tablet 11/02/16 Dronabinol [Marinol] 2.5 mg PO BIDLS #60 capsule 12/13/16 levoFLOXacin [Levofloxacin] 750 mg PO DAILY #5 tablet 12/13/16 predniSONE [PredniSONE] 10 mg PO DAILY #41 tablet 12/13/16 Allergies Allergy/AdvReac Type Severity Reaction Status Date / Time morphine AdvReac Itching Verified 02/10/17 18:02 Review of Systems: CONSTITUTIONAL: No weight loss, fever, chills, weakness or fatigue. HEENT: Eyes: No visual changes. Ears, Nose, Throat: No hearing loss, difficulty talking or unable to swallow. SKIN: No rash or itching. CARDIOVASCULAR: No chest pain, chest pressure or chest discomfort. No palpitations or edema. RESPIRATORY: Increasing shortness of breath GASTROINTESTINAL: No anorexia, nausea, vomiting or diarrhea. No abdominal pain or blood. GENITOURINARY: No burning on urination or hematuria. NEUROLOGICAL: No headache, dizziness, syncope, paralysis, ataxia, numbness or tingling in the extremities. No change in bowel or bladder control. MUSCULOSKELETAL: No muscle pain, back pain, joint pain or stiffness. Past Medical History - Past Medical History Medical history: Reports: arthritis, asthma, cancer, CHF (chr diastolic CHF.), COPD, DVT, GERD, hyperlipidemia, osteoporosis (vitamin D def. ), other ( Essential tremor.) Surgical history: Reports: appendectomy, hysterectomy, other Psychiatric history: Reports: anxiety, depression IS PROJECT MANAGER history: Reports: no IS PROJECT MANAGER history - Social History Smoking Status: Former smoker Smokeless Tobacco Status: Yes (nicotine gum) Alcohol use: Reports: none Drug use: Reports: none Physical Exam General appearance: NAD, conversant Eyes: anicteric sclerae, moist conjunctivae; PERRL HENT: Atraumatic; oropharynx clear with moist mucous membranes and no mucosal ulcerations Neck: Normal inspection; Trachea midline; FROM, supple Lungs: Decreased breath sounds bilaterally. Minimal wheezing CV: RRR, no MRGs Abdomen: Soft, non-tender; no rebound or gaurding Extremities: No peripheral edema or extremity lymphadenopathy Skin: Normal temperature; no rash, ulcers or lesions Psych: Appropriate mood and affect Neuro: alert and oriented to person, place and time - General Limitations: no limitations General appearance: alert, anxious Course Course Narrative: Patient received DuoNeb's and steroids prior to arrival. Patient will undergo blood work and a chest x-ray. Upon observation and will be determined by the night team Dr. Sage and Dr. MASSEY to determine whether patient is a candidate for outpatient management. Vital Signs Temperature 98.3 F 02/10/17 18:02 Pulse Rate 94 02/10/17 18:02 Respiratory Rate 24 02/10/17 18:02 Blood Pressure 92/71 02/10/17 18:02 O2 Sat by Pulse Oximetry 94 02/10/17 18:02 Temperature 98.3 F 02/10/17 18:02 Pulse Rate 89 02/10/17 18:06 Respiratory Rate 22 02/10/17 18:06 Blood Pressure 92/71 02/10/17 18:06 O2 Sat by Pulse Oximetry 98 02/10/17 18:06 Oxygen Delivery Oxygen Delivery Nasal Cannula Shortness of Breath/Dyspnea - EKG Data EKG attestation: Yes I reviewed and interpreted this EKG. EKG results narrative: EKG shows sinus rhythm with ventricular rate of 90. NM interval 112. QRS 81. QTC 396. Patient has no significant ST elevation or depression. There is contrast seen for short NM interval and occasional SV complexes
[2017-02-10] MEDS ORDERED: Ipratropium/Albuterol Neb 3 ML IH ONE (18:27)
[2017-02-10] MEDS ORDERED: methylPREDNISolone 125 MG/2 ML VIAL IVP ONE (18:28)
[2017-02-10 19:06] LABS: Basophils % 0.1 %; Hematocrit 40.4 % (35.3-44.9); Hemoglobin 12.8 g/dL (11.5-15.4); Immature Granulocytes % 0.5 % (0-4); Lymphocytes # 0.4 K/mcL (0.6-4.6); Lymphocytes % 3.2 %; Mean Corpuscular HGB Conc 31.7 g/dL (31.6-35.5); Mean Corpuscular Hemoglobin 29.5 pg (28.0-33.3); Mean Corpuscular Volume 93.1 fL (83.0-100.0); Mean Platelet Volume 10.3 fL (9.4-12.4); Monocytes # 0.4 K/mcL (0.0-1.3); Monocytes % 3.6 %; Neutrophils # 11.4 K/mcL (1.6-8.9); Platelet Count 250 K/mcL (140-400); Red Blood Count 4.34 M/mcL (3.82-4.97); Red Cell Distribution Width 13.1 % (11.5-14.5); Segmented Neutrophils % 92.6 %
[2017-02-10 19:20] LABS: BUN/Creatinine Ratio 25 (6-26); Blood Urea Nitrogen 16 mg/dL (7-20); Calcium 9.2 mg/dL (8.6-10.8); Chloride 94 mEq/L (98-109); Glucose 81 mg/dL (70-99); Osmolality,Calculated 298 (280-300); Potassium 3.6 mEq/L (3.5-4.5); Sodium 144 mEq/L (136-145); eGFR For African Americans > 60 (> 60); eGFR For Non-African Americans > 60 (> 60)
[2017-02-10 19:24] LABS: Carbon Dioxide 42 mEq/L (19-29)
[2017-02-10] MEDS ORDERED: 0.9 % Sodium Chloride 1,000 ML IVC ONE (19:27)
--- NOTE | 2017-02-10 19:27 | Emergency Department Note ---
Disposition Clinical Impression: COPD exacerbation Disposition: Admitted As Inpatient Condition: Fair Referrals: Shayy Morse, [facility] [Primary Care Provider] - Forms: ED Satisfaction Letter Time of Disposition: 20:03 General Adult HPI - General Chief complaint: ED Shortness of Breath/Dyspnea Stated complaint: JARET Time Seen by Provider: 02/10/17 18:02 Source: EMS Limitations: no limitations - History of Present Illness Pain Scale: 5 - Related Data Home Medications Medication Instructions Recorded Confirmed Albuterol Sulfate [Proair 2 puff IH Q4H PRN 09/05/15 12/10/16 Respiclick] Budesonide/Formoterol 160/4.5 1 puff IH DAILY 09/05/15 12/10/16 [Symbicort 160/4.5] Butalb/Acetaminophen/Caffeine 1 each PO BID PRN 09/05/15 12/10/16 [Fioricet 50-300-40 mg Capsule] Cetirizine HCl [Zyrtec] 20 mg PO QPM 09/05/15 12/10/16 Omeprazole [PriLOSEC] 20 mg PO DAILY 09/05/15 12/10/16 Primidone [Mysoline] 100 mg PO HS 09/05/15 12/10/16 Roflumilast [Daliresp] 500 mcg PO DAILY 09/05/15 12/10/16 Tiotropium [Spiriva] 18 mcg IH 0700 09/05/15 12/10/16 Albuterol Neb [Proventil Neb] 2.5 mg IH Q4H PRN 11/21/15 12/10/16 Cyclobenzaprine [Flexeril] 10 mg PO HS 03/05/16 12/10/16 Oxygen 3 - 4 l PO DAILY 03/05/16 12/10/16 Paroxetine [Paxil] 20 mg PO DAILY 06/19/16 12/10/16 ALPRAZolam [Xanax 1 MG Tablet] 0.5 - 1 mg PO TID PRN 09/17/16 12/10/16 Acetylcysteine 600 mg PO Q12H 10/30/16 12/10/16 [H-Rvoasv-y-Cysteine] GuaiFENesin ER [Mucinex] 600 mg PO BID PRN 10/30/16 12/10/16 Calcium Carbonate/Vitamin D3 1 each PO BID 12/10/16 12/10/16 [Calcium 600-Vit D3 200 Tablet] Lactose-Reduced Food [Boost High 237 ml PO TID 12/10/16 12/10/16 Protein] Trazodone HCl 200 mg PO HS 12/10/16 12/10/16 Previous Rx's Medication Instructions Recorded Megestrol Acetate [Megace] 800 mg PO DAILY #600 mls 10/02/16 Cyanocobalamin (B-12) [Vitamin B12] 1,000 mcg PO DAILY #90 tablet 11/02/16 Ergocalciferol (VITAMIN D2) 50,000 unit PO QWEEK #20 capsule 11/02/16 [Drisdol (50,000 Unit)] Mirtazapine [Remeron] 7.5 mg PO HS #30 tablet 11/02/16 Dronabinol [Marinol] 2.5 mg PO BIDLS #60 capsule 12/13/16 levoFLOXacin [Levofloxacin] 750 mg PO DAILY #5 tablet 12/13/16 predniSONE [PredniSONE] 10 mg PO DAILY #41 tablet 12/13/16 Allergies Allergy/AdvReac Type Severity Reaction Status Date / Time morphine AdvReac Itching Verified 02/10/17 18:02 Past Medical History - Past Medical History Medical history: Reports: arthritis, asthma, cancer, CHF (chr diastolic CHF.), COPD, DVT, GERD, hyperlipidemia, osteoporosis (vitamin D def. ), other ( Essential tremor.) Surgical history: Reports: appendectomy, hysterectomy, other Psychiatric history: Reports: anxiety, depression LOCKS TENDER history: Reports: no LOCKS TENDER history - Social History Smoking Status: Former smoker Smokeless Tobacco Status: Yes (nicotine gum) Alcohol use: Reports: none Drug use: Reports: none Physical Exam - General Limitations: no limitations General appearance: alert, anxious Course - Reevaluation(s) Reevaluation #1: Signed out pending labs and disposition. Patient here a COPD exacerbation. Dry cough. No fever. Patient was 4 L of home oxygen. Feeling better after nebs and steroids. Still visibly dyspneic. Patient agreeable to admission. Time: 19:26 - Consultations Consultation #1: Accepted by Dr Allred pending ABG Time: 20:04 Vital Signs Temperature 98.3 F 02/10/17 18:02 Pulse Rate 94 02/10/17 18:02 Respiratory Rate 24 02/10/17 18:02 Blood Pressure 92/71 02/10/17 18:02 O2 Sat by Pulse Oximetry 94 02/10/17 18:02 Temperature 98.3 F 02/10/17 18:02 Pulse Rate 89 02/10/17 18:38 Respiratory Rate 22 02/10/17 18:38 Blood Pressure 92/71 02/10/17 18:38 O2 Sat by Pulse Oximetry 98 02/10/17 18:38 Oxygen Delivery Oxygen Delivery Nasal Cannula Medical Decision Making - Lab Data Result diagrams: 02/10/17 18:50 02/10/17 18:50 Lab Results 02/10/17 02/10/17 02/10/17 Range/Units 18:50 18:50 18:50 WBC 12.3 H (4.3-11.1) K/mcL RBC 4.34 (3.82-4.97) M/mcL Hgb 12.8 (11.5-15.4) g/dL Hct 40.4 (35.3-44.9) % MCV 93.1 (83.0-100.0) fL MCH 29.5 (28.0-33.3) pg MCHC 31.7 (31.6-35.5) g/dL RDW 13.1 (11.5-14.5) % Plt Count 250 (140-400) K/mcL MPV 10.3 (9.4-12.4) fL Immature Gran % 0.5 (0-4) % Seg Neutrophils % 92.6 % Lymphocytes % 3.2 % Monocytes % 3.6 % Eosinophils % 0.0 % Basophils % 0.1 % Neutrophils # 11.4 H (1.6-8.9) K/mcL Lymphocytes # 0.4 L (0.6-4.6) K/mcL Monocytes # 0.4 (0.0-1.3) K/mcL Eosinophils # 0.0 (0.0-0.6) K/mcL Basophils # 0.0 (0.0-0.2) K/mcL Sodium 144 (136-145) mEq/L Potassium 3.6 (3.5-4.5) mEq/L Chloride 94 L (98-109) mEq/L Carbon Dioxide 42 H* (19-29) mEq/L BUN 16 (7-20) mg/dL Creatinine 0.63 (0.57-1.11) mg/dL Est GFR ( Amer) > 60 (> 60) Est GFR (Non-Af Amer) > 60 (> 60) BUN/Creatinine Ratio 25 (6-26) Glucose 81 (70-99) mg/dL Calculated Osmolality 298 (280-300) Calcium 9.2 (8.6-10.8) mg/dL Troponin I 0.01 (0-0.03) ng/mL B-Natriuretic Peptide (0-100) pg/mL 02/10/17 Range/Units 18:50 WBC (4.3-11.1) K/mcL RBC (3.82-4.97) M/mcL Hgb (11.5-15.4) g/dL Hct (35.3-44.9) % MCV (83.0-100.0) fL MCH (28.0-33.3) pg MCHC (31.6-35.5) g/dL RDW (11.5-14.5) % Plt Count (140-400) K/mcL MPV (9.4-12.4) fL Immature Gran % (0-4) % Seg Neutrophils % % Lymphocytes % % Monocytes % % Eosinophils % % Basophils % % Neutrophils # (1.6-8.9) K/mcL Lymphocytes # (0.6-4.6) K/mcL Monocytes # (0.0-1.3) K/mcL Eosinophils # (0.0-0.6) K/mcL Basophils # (0.0-0.2) K/mcL Sodium (136-145) mEq/L Potassium (3.5-4.5) mEq/L Chloride (98-109) mEq/L Carbon Dioxide (19-29) mEq/L BUN (7-20) mg/dL Creatinine (0.57-1.11) mg/dL Est GFR ( Amer) (> 60) Est GFR (Non-Af Amer) (> 60) BUN/Creatinine Ratio (6-26) Glucose (70-99) mg/dL Calculated Osmolality (280-300) Calcium (8.6-10.8) mg/dL Troponin I (0-0.03) ng/mL B-Natriuretic Peptide < 10 (0-100) pg/mL
[2017-02-10 20:40] LABS: ABG Oxygen Saturation 95 % (95-98); ABG PH 7.41 pH Units (7.32-7.45); ABG PO2 73 mmHg (85-104); ABG TCO2 47.2 mEq/L (20-26)
[2017-02-10 20:41] LABS: Blood Gas FiO2 32 %; Blood Gas Liter Flow 3 L/MIN
[2017-02-10 20:43] LABS: ABG PCO2 71 mmHg (35-45)
[2017-02-10] MEDS ORDERED: Ibuprofen 400 MG TABLET PO PRN (22:23)
[2017-02-10] MEDS ORDERED: Ondansetron ODT 4 MG TAB.RAPDIS SL PRN (22:23)
[2017-02-10] MEDS ORDERED: *HR* HYDROcodone/Acet 5/325 mg TABLET PO PRN (22:23)
[2017-02-10] MEDS ORDERED: Naloxone 0.4 MG/ML INJ IVP PRN (22:23)
--- NOTE | 2017-02-10 22:46 | Internal Med History&Physical ---
Date of Encounter: 02/10/17 Time of Encounter: 22:00 Assessment and Plan (1) Acute exacerbation of chronic obstructive pulmonary disease (COPD) Current visit: Yes Status: Acute Assess: Ms. Holland presents with chief complaint of SOB due to acute COPD exacerbation. Patient reports she is always SOB, but this has become progressively worse within the past 48 hours which is why she sought treatment in the ED. Patient uses 4L of O2 at home. Prior to coming to the ED, the patient took three DuoNebs and was given 125 mg of SoluMedrol by the tile molder hand. Plan: DuoNebs ordered Q4 PRN Supplemental O2 ordered via face mask at 4L Continuous SpO2 monitoring Sputum culture ordered Will consider antibiotic treatment based on sputum culture results for possible infective COPD Solu-Medrol 40 mg Q12 ordered to begin 06:00 02/11/17 Continue patient's inhalers/treatments Monitor patient and vital signs for indications of respiratory distress (2) Leukocytosis Current visit: Yes Status: Acute Assess: Patient presents with WBCs of 12.3 from initial blood draw in ED. Patient denies fever, chills, recent illness, nausea, vomiting, diarrhea, or signs of infection. Plan: Repeat CBC Sputum culture ordered Lactic acid ordered Will consider antibiotic treatment based on sputum culture results for possible infective COPD Monitor patient and vital signs for signs of infection (fever, chills, N/V) Qualifiers: Leukocytosis type: unspecified Qualified Code(s): D72.829 - Elevated white blood cell count, unspecified (3) Chronic respiratory failure Current visit: Yes Status: Chronic Assess: Patient presents with history of chronic respiratory failure. Patient reports she is currently on home O2 at 4L. She also reports that she is supposed to use night-time breathing assistance but cannot due to the feeling of being smothered by the BiPap/Cpap mask. Plan: DuoNebs ordered Q4 PRN Supplemental O2 ordered via face mask at 4L Continuous SpO2 monitoring Solu-Medrol 40 mg Q12 ordered to begin 06:00 02/11/17 Continue patient's inhalers/treatments Monitor patient and vital signs for indications of respiratory distress Qualifiers: Respiratory failure complication: hypoxia and hypercapnia Qualified Code(s) : J96.11 - Chronic respiratory failure with hypoxia; J96.12 - Chronic respiratory failure with hypercapnia (4) Lung nodule seen on imaging study Current visit: Yes Status: Chronic Assess: Patient presents with 2.2 cm nodular density within the right midlung. Patient has history of carcinoma in the right lung and reports she has follow-up appointment scheduled for June 2017. Plan: CT scan of chest w/o contrast ordered (5) Asthma Current visit: Yes Status: Chronic Assess: Patient presents with history of chronic asthma. Plan: Continue patient's current inhalers Supplemental O2 ordered via facemask Qualifiers: Asthma severity: unspecified severity Asthma complication type: with acute exacerbation Qualified Code(s): J45.901 - Unspecified asthma with (acute) exacerbation (6) Hyperlipemia Current visit: Yes Status: Chronic Assess: Patient presents with history of chronic hyperlipidemia. Plan: Lipid panel ordered Qualifiers: Hyperlipidemia type: unspecified Qualified Code(s): E78.5 - Hyperlipidemia , unspecified (7) DVT prophylaxis Current visit: No Status: Acute Assess: Patient to be placed on DVT prophylaxis due to current protocol and bed rest status. Plan: Heparin 5,000 units SQ Q8 ordered Internal Medicine - H&P: HPI Chief complaint: SOB d/t acute COPD exacerbation Admitted From: Emergency Dept Plans for Post Hospital Care: Home History of present illness: Ms. Holland is a 66 year old female who presents from the ED with chief complaint of SOB due to acute COPD exacerbation. Patient reports she is always SOB, but this has become progressively worse within the past 48 hours which is why she sought treatment in the ED. Patient uses 4L of O2 at home. Prior to coming to the ED, the patient took three DuoNebs and was given 125 mg of SoluMedrol by the tile molder hand. Patient has tremors which she reports is from the use of albuterol and her Spiriva. Patient reports some dizziness due to SOB as well as a cough with sputum that she describes as clear to white. Ms. Holland denies fever, chills , recent illness, chest pain, palpitations, edema, nausea, vomiting, diarrhea, or syncope. Patient is mildly tachypneic on examination but in no acute respiratory distress. O2 at 4L was ordered via face mask since nasal cannula was not very effective. Ms. Holland is to be admitted as observation status with continuous SpO2 monitoring, O2 supplementation at 4L with titration if SpO2 <92% , DuoNebs Q4HR PRN, sputum culture, and Solu-Medrol 40 mg Q12 beginning at 06: 00 on 02/11/17. Patient and O2 status to be monitored closely. Patient is full code and states that her sister Cindy White is her legal POA. Past Med Surg Social Fam HX - Past Medical History Source: patient Medical history: arthritis, asthma, cancer, CHF (chr diastolic CHF.), COPD, DVT , GERD, hyperlipidemia, osteoporosis (vitamin D def. ), other (Essential tremor. ) Psychiatric history: anxiety, depression - Past Surgical History Surgical History: appendectomy, hysterectomy, other (3 rhinoplasty surgeries due to nasal blockage, removal of fatty tumor from left great toe) - Social History Smoking Status: Former smoker Packs per day: 3 cigarettes per day. Quit October 2016. Smokeless Tobacco Status: Yes (nicotine gum) Alcohol use: none Drug use: none Occupational status: unemployed Current living situation: Home - Independent Activity Level: Independent ambulation Recent Out of Country Travel Within the Last 8 Weeks: No Exposure or Possible Exposure to Illness During Travel: No - Family History Father Living Status: Still Living Hx Family Cardiac Disorders: Yes (irregular heart beat in need of pacemaker) Hx Family Respiratory Disorders: Yes (congestion, takes nebulizers) Sister Living Status: Still Living Hx Family Cancer: Yes Internal Medicine - H&P: Meds Albuterol Sulfate [Proair Respiclick] 2 puff IH Q4H PRN 09/05/15 [History] Budesonide/Formoterol 160/4.5 [Symbicort 160/4.5] 1 puff IH DAILY 09/05/15 [ History] Butalb/Acetaminophen/Caffeine [Fioricet 50-300-40 mg Capsule] 1 each PO BID PRN 09/05/15 [History] Cetirizine HCl [Zyrtec] 20 mg PO QPM 09/05/15 [History] Omeprazole [PriLOSEC] 20 mg PO DAILY 09/05/15 [History] Primidone [Mysoline] 100 mg PO HS 09/05/15 [History] Roflumilast [Daliresp] 500 mcg PO DAILY 09/05/15 [History] Tiotropium [Spiriva] 18 mcg IH 0700 09/05/15 [History] Albuterol Neb [Proventil Neb] 2.5 mg IH Q4H PRN 11/21/15 [History] Cyclobenzaprine [Flexeril] 10 mg PO HS 03/05/16 [History] Oxygen 3 - 4 l PO DAILY 03/05/16 [History] Paroxetine [Paxil] 20 mg PO DAILY 06/19/16 [History] ALPRAZolam [Xanax 1 MG Tablet] 0.5 - 1 mg PO TID PRN 09/17/16 [History] Megestrol Acetate [Megace] 800 mg PO DAILY #600 mls 10/02/16 [Rx] Acetylcysteine [F-Xzjqeb-a-Cysteine] 600 mg PO Q12H 10/30/16 [History] GuaiFENesin ER [Mucinex] 600 mg PO BID PRN 10/30/16 [History] Cyanocobalamin (B-12) [Vitamin B12] 1,000 mcg PO DAILY #90 tablet 11/02/16 [Rx] Ergocalciferol (VITAMIN D2) [Drisdol (50,000 Unit)] 50,000 unit PO QWEEK #20 capsule 11/02/16 [Rx] Mirtazapine [Remeron] 7.5 mg PO HS #30 tablet 11/02/16 [Rx] Calcium Carbonate/Vitamin D3 [Calcium 600-Vit D3 200 Tablet] 1 each PO BID 12/10 [History] Lactose-Reduced Food [Boost High Protein] 237 ml PO TID 12/10/16 [History] Trazodone HCl 200 mg PO HS 12/10/16 [History] Dronabinol [Marinol] 2.5 mg PO BIDLS #60 capsule 12/13/16 [Rx] Allergies morphine Adverse Reaction (Verified 02/10/17 18:02) Itching All Systems PM: A 10-system review of systems was performed and is negative for pertinent findings except as documented above in the HPI. - Constitutional Constitutional: no chills, no fever(s), no night sweats - EENT Eyes: no change in vision, no discharge, no pain, no photophobia Ears: no ear discharge, no ear pain, no tinnitus Nose, mouth and throat: no dysphagia, no nasal discharge, no neck pain, no sore throat - Breasts Breasts: as per HPI - Cardiovascular Cardiovascular ROS IM: as per HPI, dyspnea, dyspnea on exertion, lightheadedness - Respiratory Respiratory: as per HPI, cough, dyspnea, dyspnea on exertion - Gastrointestinal Gastrointestinal: no abdominal pain, no diarrhea, no hematemesis, no hematochezia, no melena, no nausea, no vomiting - Genitourinary Genitourinary: no change in urinary stream, no dysuria, no flank pain, no hematuria Menstruation: as per HPI, post hysterectomy - Musculoskeletal Musculoskeletal ROS IM: no numbness, no tingling - Integumentary Integumentary IM: no rash, no unusual bruising - Neurological Neurological ROS: no confusion, no convulsions, no focal weakness, no numbness, no tingling, no tremor(s) - Psychiatric Psychiatric: as per HPI - Endocrine Endocrine IM: as per HPI - Hematologic/Lymphatic Hematologic/Lymphatic: no easy bruising - Allergic/Immunologic Allergic/Immunologic: as per HPI - Constitutional Vitals: Temp Pulse Resp BP Pulse Ox 98.0 F 80 24 123/70 94 02/10/17 21:26 02/10/17 21:26 02/10/17 21:26 02/10/17 21:26 02/10/17 22:30 General appearance: Present: cooperative, mild distress, A&O X 3, pleasant, underweight, answers questions appropriately - Head Head exam: Present: atraumatic, normocephalic - Eye Eye exam: Present: PERRL, conjuntiva pink, sclera anicteric Pupils: Present: PERRL - ENT ENT exam: Present: normal exam, normal external ear exam - Neck Neck exam general surgery: Present: supple, trachea midline. Absent: lymphadenopathy - Respiratory Respiratory exam: Present: decreased breath sounds, respiratory distress - Cardiovascular Cardiovascular exam: Present: RRR, +S1, +S2. Absent: diastolic murmur, gallop, rubs, systolic murmur - GI/Abdominal GI/Abdominal exam: Present: normal bowel sounds, soft, no peritoneal signs. Absent: distended, tenderness - Rectal Rectal exam: Present: deferred - Additional comments: exam deferred. - Extremities Exam Extremities exam: Present: warm, radial pulses palpable and symetrical. Absent : calf tenderness, cyanotic, pedal edema - Back Exam Back exam: Present: normal inspection - Neurological Exam Neurological exam: Present: CN II-XII intact, oriented X3, no focal deficits. Absent: pronater drift, facial droop, speech deficit Additional comments: Tremors noted bilaterally during exam. No pronator drift. - Psychiatric Psychiatric exam: Present: normal affect, normal mood - Skin Skin exam: Present: dry, intact Internal Med - H&P Results - Labs CBC & Chem 7: 02/10/17 18:50 02/10/17 18:50 - EKG Data EKG shows normal: sinus rhythm - EKG Data Prior EKG available for review: no EKG comments: EKG dated 02/10/17 shows sinus rhythm with short [place] interval with occasional supraventricular premature complexes, nonspecific T-wave abnormality. - Diagnostic Studies Chest x-ray Additional comments: Impressions Chest X-Ray 02/10/17 18:26 IMPRESSION: 2.2 cm nodular density within the right mid lung. In the nonacute setting, chest CT is suggested for further characterization given patient history of lung carcinoma. No evidence of acute airspace disease. D/ / Charles Steele MD / Charles Steele MD Interpreting Provider: Charles Steele MD
[2017-02-10] MEDS: Ipratropium/Albuterol Neb 3 ML IH SCH (23:16)
[2017-02-10] MEDS ORDERED: Albuterol 2.5 MG/3 ML NEBULIZER IH PRN (23:28)
[2017-02-10] MEDS ORDERED: ALPRAZolam 1 MG TABLET PO PRN (23:28)
[2017-02-11] MEDS: *HR* Acetylcysteine 20% 600 MG/3 ML ORAL SYRINGE PO SCH ×3 (01:20→21:19)
[2017-02-11] MEDS: Ipratropium/Albuterol Neb 3 ML IH SCH ×6 (03:38→23:03)
[2017-02-11 04:29] LABS: Basophils % 0.1 %; Hematocrit 37.9 % (35.3-44.9); Hemoglobin 12.1 g/dL (11.5-15.4); Immature Granulocytes % 0.3 % (0-4); Lymphocytes # 0.8 K/mcL (0.6-4.6); Lymphocytes % 6.4 %; Mean Corpuscular HGB Conc 31.9 g/dL (31.6-35.5); Mean Corpuscular Hemoglobin 29.7 pg (28.0-33.3); Mean Corpuscular Volume 92.9 fL (83.0-100.0); Mean Platelet Volume 11.3 fL (9.4-12.4); Monocytes # 0.3 K/mcL (0.0-1.3); Monocytes % 2.5 %; Neutrophils # 10.7 K/mcL (1.6-8.9); Platelet Count 248 K/mcL (140-400); Red Blood Count 4.08 M/mcL (3.82-4.97); Red Cell Distribution Width 13.3 % (11.5-14.5); Segmented Neutrophils % 90.7 %
[2017-02-11 04:44] LABS: Alanine Aminotransferase 12 Units/L (0-55); Albumin 3.3 g/dL (3.5-5.0); Albumin/Globulin Ratio 1.3 (1.1-2.2); Alkaline Phosphatase 41 Units/L (38-126); Aspartate Amino Transferase 15 Units/L (5-34); BUN/Creatinine Ratio 24 (6-26); Bilirubin,Total 0.6 mg/dL (0.2-1.2); Blood Urea Nitrogen 14 mg/dL (7-20); Calcium 8.8 mg/dL (8.6-10.8); Carbon Dioxide 38 mEq/L (19-29); Chloride 96 mEq/L (98-109); Chol/HDL Ratio 3.1 (0-4.9); Cholesterol 211 mg/dL (< 200); Globulin 2.6 g/dL (2.4-3.5); Glucose 98 mg/dL (70-99); HDL Cholesterol 69 mg/dL (40-59); LDL Cholesterol,Calculated 132 mg/dL (0-99); Magnesium 1.6 mg/dL (1.6-2.6); Osmolality,Calculated 292 (280-300); Phosphorous 3.1 mg/dL (2.3-4.7); Potassium 4.2 mEq/L (3.5-4.5); Sodium 141 mEq/L (136-145); Total Protein 5.9 g/dL (6.0-8.3); Triglycerides 49 mg/dL (< 150); eGFR For African Americans > 60 (> 60); eGFR For Non-African Americans > 60 (> 60)
[2017-02-11] MEDS: MethylPREDNISolone 40 MG/ML VIAL IVP SCH ×2 (06:46→17:43)
[2017-02-11] MEDS: *HR* Heparin 5,000 UNIT/ML VIAL SQ SCH ×3 (06:46→21:19)
[2017-02-11] MEDS: Budesonide/Formoterol 160/4.5 MDI IH SCH (07:45)
[2017-02-11] MEDS ORDERED: LACTOSE REDUCED FOOD PO SCH (09:00)
[2017-02-11] MEDS: Megestrol Acetate 400 MG/10 ML UDC PO SCH (09:40)
[2017-02-11] MEDS: Roflumilast [Daliresp] 500 MCG PO SCH (09:40)
[2017-02-11] MEDS: CALCIUM VIT D3 PO SCH ×2 (09:40→21:20)
[2017-02-11] MEDS: Cyanocobalamin (B-12) 1,000 MCG TABLET PO SCH (09:40)
--- NOTE | 2017-02-11 14:30 | Internal Med Progress Note ---
Date of Encounter: 02/11/17 Time of Encounter: 10:30 - Assessment and plan (1) Acute exacerbation of chronic obstructive airways disease Current Visit: No Status: Acute Assessment and plan: Patient states she feels better than yesterday but not quite back to her baseline. Continue pulmonary toilet. Continue supplemental oxygenation at 4 L per nasal cannula continuously and BiPAP as needed-same amount of oxygen and support she is at home. Elevated PCO2 levels noted, chronic for this patient. She is alert and oriented 3. Chest x-ray with possible increase to the size of her right middle lobe not trouble however chest CT revealing stability without acute processes. Of note, patient is more upset than usual as today is her mother's , patient stating she did not want to talk about it. OT and PT consultations are pending. ITS Impressions Chest X-Ray 02/10/17 18:26 IMPRESSION: 2.2 cm nodular density within the right mid lung. In the nonacute setting, chest CT is suggested for further characterization given patient history of lung carcinoma. No evidence of acute airspace disease. D/ / Charles Steele MD / Charles Steele MD Interpreting Provider: Charles Steele MD Chest CT 02/10/17 22:50 IMPRESSION: 1. No acute chest findings. 2. No significant change compared to prior CT. 3. There is an 11 mm right middle lobe nodule, stable from PET-CT from September 15, 2015. Continued surveillance is recommended. 4. No other suspicious lung lesions. 5. Severe emphysema. D/ / 02/11/2017 07:51:10 Lee White MD / akilah Interpreting Provider: Lee White MD (2) Lung nodule seen on imaging study Current Visit: Yes Status: Chronic (3) Protein-calorie malnutrition, severe Current Visit: No Status: Chronic Assessment and plan: Continue Megace and Marinol from home. Patient stating she had 2 sausages links and a bite of toast this morning. Continue nutritional supplementation. (4) DVT prophylaxis Current Visit: No Status: Acute Assessment and plan: Subcutaneous heparin (5) Lung cancer Current Visit: No Status: Chronic Assessment and plan: Stable on imaging. Qualifiers: Laterality: right Lung location: unspecified part of lung Qualified Code( s): C34.91 - Malignant neoplasm of unspecified part of right bronchus or lung (6) Congestive heart failure Current Visit: No Status: Inactive Assessment and plan: Echocardiogram in September revealed preserved ejection fraction with mild diastolic dysfunction but she is not on diuretics at home. No acute exacerbation. Chronic diastolic heart failure. She appears dehydrated/ malnourished. Qualifiers: Congestive heart failure type: diastolic Congestive heart failure chronicity: chronic Qualified Code(s): I50.32 - Chronic diastolic (congestive ) heart failure (7) Cigarette smoker Current Visit: No Status: Resolved Assessment and plan: Patient states she stopped smoking in November and still chews Nicorette,. (8) Leukocytosis Current Visit: Yes Status: Acute Assessment and plan: Mild and trending back down. No signs of acute infectious process. Qualifiers: Leukocytosis type: unspecified Qualified Code(s): D72.829 - Elevated white blood cell count, unspecified (9) Failure to thrive Current Visit: No Status: Chronic Assessment and plan: Continue Megace and Marinol. Qualifiers: Failure to thrive age range: in adult Qualified Code(s): R62.7 - Adult failure to thrive (10) Pulmonary cachexia due to chronic obstructive pulmonary disease Current Visit: No Status: Chronic (11) Acute and chronic respiratory failure Current Visit: No Status: Chronic Assessment and plan: No increased need for oxygenation, we will trend Qualifiers: Respiratory failure complication: hypoxia and hypercapnia Qualified Code(s) : J96.21 - Acute and chronic respiratory failure with hypoxia; J96.22 - Acute and chronic respiratory failure with hypercapnia (12) Hyperlipemia Current Visit: Yes Status: Chronic Assessment and plan: Lipid panel borderline abnormal. Patient is not on cholesterol medication, no indication to initiate one at this time given her end-stage COPD. Qualifiers: Hyperlipidemia type: unspecified Qualified Code(s): E78.5 - Hyperlipidemia , unspecified - Subjective Interval history: Patient seen and examined. On examination, patient sitting upright in bed. Patient stating she feels better than yesterday but she is not back to her baseline. She states she is eating pretty well. She denies any recent falls at home. - Constitutional Vitals: Temp Pulse Resp BP Pulse Ox 98.6 F 87 18 102/64 98 02/11/17 12:05 02/11/17 12:05 02/11/17 13:28 02/11/17 12:05 02/11/17 13:28 General appearance: Present: cachectic, cooperative, mild distress (moderate), A &O X 3, pleasant, underweight, answers questions appropriately - Head Head exam: Present: atraumatic, normocephalic - Eye Eye exam: Present: PERRL, conjuntiva pink, sclera anicteric Pupils: Present: PERRL - Neck Neck exam general surgery: Present: trachea midline. Absent: lymphadenopathy, supple - Respiratory Respiratory exam: Present: accessory muscle use, decreased breath sounds, prolonged expiratory phase, respiratory distress, wheezes, tachypnea. Absent: rales, rhonchi - Cardiovascular Cardiovascular exam: Present: RRR, +S1, +S2. Absent: diastolic murmur, gallop, rubs, systolic murmur - GI/Abdominal GI/Abdominal exam: Present: normal bowel sounds, soft, no peritoneal signs. Absent: distended, tenderness - Extremities Exam Extremities exam: Present: warm, radial pulses palpable and symetrical. Absent : calf tenderness, cyanotic, pedal edema - Neurological Exam Neurological exam: Present: alert, CN II-XII intact, oriented X3, no focal deficits, strengths equal and symetr throughout. Absent: pronater drift, facial droop, speech deficit - Skin Skin exam: Present: dry, intact, pallor, warm Internal Medicine: Result - Labs CBC & Chem 7: 02/11/17 03:38 02/11/17 03:38 Labs: Short CBC 02/11/17 Range/Units 03:38 WBC 11.8 H (4.3-11.1) K/mcL Hgb 12.1 (11.5-15.4) g/dL Hct 37.9 (35.3-44.9) % Plt Count 248 (140-400) K/mcL Neutrophils # 10.7 H (1.6-8.9) K/mcL BMP 02/11/17 03:38 Sodium 141 Potassium 4.2 Chloride 96 L Carbon Dioxide 38 H BUN 14 Creatinine 0.58 Glucose 98 Calcium 8.8 Liver Function 06/05/17 Range/Units 03:38 Total Bilirubin 0.6 (0.2-1.2) mg/dL AST 15 (5-34) Units/L ALT 12 (0-55) Units/L Alkaline Phosphatase 41 (38-126) Units/L Albumin 3.3 L (3.5-5.0) g/dL - ABG Interpretation ABG results: ABG ABG pH 7.41 pH Units (7.32-7.45) 02/10/17 20:31 ABG pCO2 71 mmHg (35-45) H* 02/10/17 20:31 ABG pO2 73 mmHg (85-104) L 02/10/17 20:31 ABG O2 Saturation 95 % (95-98) 02/10/17 20:31 - Impressions Impressions Chest CT 02/10/17 22:50 IMPRESSION: 1. No acute chest findings. 2. No significant change compared to prior CT. 3. There is an 11 mm right middle lobe nodule, stable from PET-CT from September 15, 2015. Continued surveillance is recommended. 4. No other suspicious lung lesions. 5. Severe emphysema. D/ / 02/11/2017 07:51:10 Lee White MD / akilah Interpreting Provider: Lee White MD Consult Discharge Plan - Plan Referrals: Shayy Morse, [employer]PERATOR HELPER [Primary Care Provider] -
--- NOTE | 2017-02-11 16:36 | Electrocardiograph Report ---
[place] [address] Test Date: 2017-02-10 Pat Name: Anya Holland Department: 105 Room: 3B37 Gender: F Clerk Rating: MSC : 1950 Requested By: Fermín Jacobsen Order Number: [id number] Reading MD: Ally Lizarraga Measurements Intervals [place] Rate: 90 P: 81 MS: 112 QRS: 85 QRSD: 81 T: 90 QT: 348 QTc: 396 Interpretive Statements SINUS RHYTHM WITH SHORT MS INTERVAL WITH OCCASIONAL SUPRAVENTRICULAR PREMATURE COMPLEXES NONSPECIFIC T-WAVE ABNORMALITY Electronically Signed On 02-11-2017 16:34:37 EDT by Ally Lizarraga
[2017-02-11] MEDS: Loratadine 10 MG TABLET PO SCH (17:43)
[2017-02-11] MEDS: Primidone 50 MG TABLET PO SCH (21:19)
[2017-02-11] MEDS: traZODone 50 MG TABLET PO SCH (21:19)
[2017-02-11] MEDS: Mirtazapine 15 MG TABLET PO SCH (21:20)
[2017-02-12] MEDS: Ipratropium/Albuterol Neb 3 ML IH SCH ×6 (04:17→23:38)
[2017-02-12] MEDS: *HR* Heparin 5,000 UNIT/ML VIAL SQ SCH ×3 (06:39→21:26)
[2017-02-12] MEDS: MethylPREDNISolone 40 MG/ML VIAL IVP SCH ×2 (06:39→17:22)
[2017-02-12] MEDS: Budesonide/Formoterol 160/4.5 MDI IH SCH (07:51)
[2017-02-12] MEDS: Megestrol Acetate 400 MG/10 ML UDC PO SCH (09:21)
[2017-02-12] MEDS: Cyanocobalamin (B-12) 1,000 MCG TABLET PO SCH (09:21)
[2017-02-12] MEDS: Roflumilast [Daliresp] 500 MCG PO SCH (09:22)
[2017-02-12] MEDS: CALCIUM VIT D3 PO SCH ×2 (09:22→21:26)
--- NOTE | 2017-02-12 16:58 | Internal Med Progress Note ---
Date of Encounter: 02/12/17 Time of Encounter: 09:45 - Assessment and plan (1) Acute exacerbation of chronic obstructive airways disease Current Visit: No Status: Acute Assessment and plan: Patient states she feels better than yesterday but not quite back to her baseline. She states that she feels tired and fatigue. She sleepy and states that she did not rest well last night. Yesterday was her mother's , although she states it bothers her, she appears to be strong outwardly. He says she does not want to talk about it. Continue pulmonary toilet. Continue supplemental oxygenation at 4 L per nasal cannula continuously and BiPAP was used today per recommendation of respiratory.. Elevated PCO2 levels noted, chronic for this patient. She is alert and oriented 3. Speaks easily in long phrases. Lungs are clear and posterior apices, expiratory wheezing heard in bilateral posterior bases. OT and PT consultation reports are pending. ITS Impressions Chest X-Ray 02/10/17 18:26 IMPRESSION: 2.2 cm nodular density within the right mid lung. In the nonacute setting, chest CT is suggested for further characterization given patient history of lung carcinoma. No evidence of acute airspace disease. D/ / Charles Steele MD / Charles Steele MD Interpreting Provider: Charles Steele MD Chest CT 02/10/17 22:50 IMPRESSION: 1. No acute chest findings. 2. No significant change compared to prior CT. 3. There is an 11 mm right middle lobe nodule, stable from PET-CT from September 15, 2015. Continued surveillance is recommended. 4. No other suspicious lung lesions. 5. Severe emphysema. D/ / 02/11/2017 07:51:10 Lee White MD / akilah Interpreting Provider: Lee White MD (2) Lung nodule seen on imaging study Current Visit: Yes Status: Chronic (3) Protein-calorie malnutrition, severe Current Visit: No Status: Chronic Assessment and plan: Continue Megace and Marinol. Patient ate 50% of her breakfast and lunch today. (4) Lung cancer Current Visit: No Status: Chronic Assessment and plan: Stable. Qualifiers: Laterality: right Lung location: unspecified part of lung Qualified Code( s): C34.91 - Malignant neoplasm of unspecified part of right bronchus or lung (5) Congestive heart failure Current Visit: No Status: Inactive Assessment and plan: No acute exacerbation. Patient had echo done in September showed LVEF 60%, normal systolic function, mild diastolic dysfunction, no significant valvular dysfunction, and no pulmonary hypertension. Wall segments showed normal motion. Patient appears to be dehydrated. We will provide gentle IV hydration and by mouth fluid intake. Patient has no peripheral edema. Qualifiers: Congestive heart failure type: diastolic Congestive heart failure chronicity: chronic Qualified Code(s): I50.32 - Chronic diastolic (congestive ) heart failure (6) Cigarette smoker Current Visit: No Status: Resolved Assessment and plan: Continue Nicorette. (7) Leukocytosis Current Visit: Yes Status: Acute Assessment and plan: Trending down. 11.8 today. We will continue to monitor. Labs in the morning Patient has been afebrile Qualifiers: Leukocytosis type: unspecified Qualified Code(s): D72.829 - Elevated white blood cell count, unspecified (8) Failure to thrive Current Visit: No Status: Chronic Qualifiers: Failure to thrive age range: in adult Qualified Code(s): R62.7 - Adult failure to thrive (9) Acute and chronic respiratory failure Current Visit: No Status: Chronic Assessment and plan: Patient requires supplemental oxygen at 4 L to maintain tight greater than 90%. She is not requiring oxygenation above this. We will continue to monitor Continuous pulse ox. Qualifiers: Respiratory failure complication: hypoxia and hypercapnia Qualified Code(s) : J96.21 - Acute and chronic respiratory failure with hypoxia; J96.22 - Acute and chronic respiratory failure with hypercapnia (10) Hyperlipemia Current Visit: Yes Status: Chronic Assessment and plan: Maintain home medications. Chronic. Qualifiers: Hyperlipidemia type: unspecified Qualified Code(s): E78.5 - Hyperlipidemia , unspecified (11) DVT prophylaxis Current Visit: No Status: Acute Assessment and plan: Subcutaneous heparin daily. - Time Spent With Patient less than 15 minutes - Subjective Interval history: Patient was seen and assessed at about 935 this morning. She is resting quietly in the room with oxygen 4 L, saturation 95%. Pulse is 101. Patient reports shortness of breath and dyspnea for one and half weeks. She says a lot of it has to do with anxiety, her mom and the was the day after she was admitted. She says that she feels extremely tired and fatigued now and requested another day inpatient to feel better. Her lungs are clear and diminished in the apices and expiratory wheezing heard in bilateral bases posteriorly. She reports that she gets home health one day a week for 1-2 hours and denies any further needs. She states that she has not been sleeping well at night and has been drowsy during the day. She says this has been normal for her recently and it was difficult for her to try to sleep in the hospital. Patient most likely will be discharged tomorrow. - Constitutional Vitals: Temp Pulse Resp BP Pulse Ox 98.5 F 80 17 148/52 97 02/12/17 15:22 02/12/17 15:22 02/12/17 15:22 02/12/17 15:22 02/12/17 15:22 General appearance: Present: cachectic, cooperative, mild distress (moderate), A &O X 3, pleasant, underweight, answers questions appropriately - Head Head exam: Present: normal inspection - Eye Eye exam: Present: normal appearance, conjuntiva pink - ENT ENT exam: Present: mucous membranes moist, normal exam - Neck Neck exam general surgery: Absent: lymphadenopathy, tenderness - Respiratory Respiratory exam: Present: decreased breath sounds, prolonged expiratory phase, wheezes. Absent: accessory muscle use, chest wall tenderness, CTAB, respiratory distress, rhonchi, stridor - Cardiovascular Cardiovascular exam: Present: RRR, +S1, +S2. Absent: clicks, diastolic murmur, gallop, systolic murmur - Expanded Cardiovascular Exam Peripheral pulses: 2+: Dorsalis Pedis (L) PM, Dorsalis Pedis (R) PM - GI/Abdominal GI/Abdominal exam: Present: normal bowel sounds, soft. Absent: distended, firm , tenderness - Extremities Exam Extremities exam: Present: warm, radial pulses palpable and symetrical. Absent : pedal edema, tenderness - Neurological Exam Neurological exam: Present: alert, oriented X3, no focal deficits, strengths equal and symetr throughout. Absent: altered, facial droop, speech deficit Internal Medicine: Result - Labs CBC & Chem 7: 02/11/17 03:38 02/11/17 03:38 - ABG Interpretation ABG results: ABG ABG pH 7.41 pH Units (7.32-7.45) 02/10/17 20:31 ABG pCO2 71 mmHg (35-45) H* 02/10/17 20:31 ABG pO2 73 mmHg (85-104) L 02/10/17 20:31 ABG O2 Saturation 95 % (95-98) 02/10/17 20:31 - Impressions Impressions Chest CT 02/10/17 22:50 IMPRESSION: 1. No acute chest findings. 2. No significant change compared to prior CT. 3. There is an 11 mm right middle lobe nodule, stable from PET-CT from September 15, 2015. Continued surveillance is recommended. 4. No other suspicious lung lesions. 5. Severe emphysema. D/ / 02/11/2017 07:51:10 Lee White MD / akilah Interpreting Provider: Lee White MD Consult Discharge Plan - Plan Referrals: Shayy Morse, [employer]PERT [Primary Care Provider] -
[2017-02-12] MEDS: Loratadine 10 MG TABLET PO SCH (17:22)
[2017-02-12] MEDS: *HR* Acetylcysteine 20% 600 MG/3 ML ORAL SYRINGE PO SCH ×2 (21:25→21:33)
[2017-02-12] MEDS: Primidone 50 MG TABLET PO SCH (21:26)
[2017-02-12] MEDS: traZODone 50 MG TABLET PO SCH (21:26)
[2017-02-12] MEDS: Mirtazapine 15 MG TABLET PO SCH (21:26)
[2017-02-13] MEDS: Ipratropium/Albuterol Neb 3 ML IH SCH ×3 (04:17→11:04)
[2017-02-13 04:58] LABS: Basophils % 0.2 %; Eosinophils % 0.3 %; Hematocrit 34.9 % (35.3-44.9); Hemoglobin 11.5 g/dL (11.5-15.4); Immature Granulocytes % 0.3 % (0-4); Lymphocytes # 2.3 K/mcL (0.6-4.6); Lymphocytes % 22.4 %; Mean Corpuscular Hemoglobin 30.4 pg (28.0-33.3); Mean Corpuscular Volume 92.3 fL (83.0-100.0); Mean Platelet Volume 10.4 fL (9.4-12.4); Monocytes # 0.9 K/mcL (0.0-1.3); Monocytes % 8.7 %; Platelet Count 230 K/mcL (140-400); Red Blood Count 3.78 M/mcL (3.82-4.97); Red Cell Distribution Width 13.8 % (11.5-14.5); Segmented Neutrophils % 68.1 %
[2017-02-13 05:20] LABS: BUN/Creatinine Ratio 34 (6-26); Blood Urea Nitrogen 22 mg/dL (7-20); Calcium 8.7 mg/dL (8.6-10.8); Chloride 100 mEq/L (98-109); Glucose 91 mg/dL (70-99); Osmolality,Calculated 301 (280-300); Potassium 3.6 mEq/L (3.5-4.5); Sodium 144 mEq/L (136-145); eGFR For African Americans > 60 (> 60); eGFR For Non-African Americans > 60 (> 60)
[2017-02-13 05:22] LABS: Carbon Dioxide 41 mEq/L (19-29)
[2017-02-13] MEDS: *HR* Heparin 5,000 UNIT/ML VIAL SQ SCH (06:13)
[2017-02-13] MEDS: MethylPREDNISolone 40 MG/ML VIAL IVP SCH (06:13)
[2017-02-13] MEDS: Budesonide/Formoterol 160/4.5 MDI IH SCH (08:07)
[2017-02-13] MEDS: Megestrol Acetate 400 MG/10 ML UDC PO SCH (08:11)
[2017-02-13] MEDS: Roflumilast [Daliresp] 500 MCG PO SCH (08:12)
[2017-02-13] MEDS: Cyanocobalamin (B-12) 1,000 MCG TABLET PO SCH (08:12)
[2017-02-13] MEDS: CALCIUM VIT D3 PO SCH (08:12)
[2017-02-13 10:49] VITALS: BP 146/76
--- NOTE | 2017-02-13 11:45 | Discharge Summary ---
Date of Encounter: 02/13/17 Time of Encounter: 09:45 - Discharge Diagnosis (1) Acute exacerbation of chronic obstructive airways disease Priority: Primary Status: Acute Comments: Patient states that she feels better today. She is alert and awake sitting up in the chair at bedside. She was able to eat a small amount this morning. She is able to speak in long phrases and seems to be back to her baseline. Lungs are diminished and wheezing is heard throughout post russo. She states that she is ready to go home. She has home 02 that she wears round the clock and a c-pap for night. She denies needs for refills. (2) Lung nodule seen on imaging study Priority: Secondary Status: Chronic Comments: CT shows redemonstration of stable 11mm nodule in RML, which is stable from PET in Sep, 2015, and stable 4-5mm nodule RUL, unchanged from 02/2011 and is benign. No other suspicious lung lesions found. (3) Protein-calorie malnutrition, severe Priority: Secondary Status: Chronic Comments: BMI 16.3. Pt has Megace for home use, has Marinol for here. Pt states that she still has no appetite and was able to eat a small amount of her breakfast. She also drinks supplement shakes at home. (4) Lung cancer Priority: Secondary Status: Chronic Comments: Stable. Qualifiers: Laterality: right Lung location: unspecified part of lung Qualified Code( s): C34.91 - Malignant neoplasm of unspecified part of right bronchus or lung (5) Congestive heart failure Priority: Secondary Status: Chronic Comments: No acute exacerbation. Echo in September showed LVEF 60%, normal systolic function , mild diastolic dysfunction, no valvular dysfunction, and no pulmonary hypertension. Wall segments showed normal motion. No peripheral edema, no rales heard. Pt appeard to be dehydrated on arrival, however, today she appears to be more hydrated and is tolerating po intake. We have encouraged her to drink fluid daily, not only for hydration, but to keep her secretions thin. Qualifiers: Congestive heart failure type: diastolic Congestive heart failure chronicity: chronic Qualified Code(s): I50.32 - Chronic diastolic (congestive ) heart failure (6) Cigarette smoker Priority: Secondary Status: Resolved Comments: Continue Nicorette at home. (7) Leukocytosis Priority: Secondary Status: Resolved Comments: White count 10.3 today. Resolved. Qualifiers: Leukocytosis type: unspecified Qualified Code(s): D72.829 - Elevated white blood cell count, unspecified (8) Failure to thrive Priority: Secondary Status: Chronic Comments: Continue home health. Continue Megace for appetite stimulation. Qualifiers: Failure to thrive age range: in adult Qualified Code(s): R62.7 - Adult failure to thrive (9) Acute and chronic respiratory failure Priority: Secondary Status: Chronic Comments: Home oxygen at 4 L around the clock at home. CPAP at night. Qualifiers: Respiratory failure complication: hypoxia and hypercapnia Qualified Code(s) : J96.21 - Acute and chronic respiratory failure with hypoxia; J96.22 - Acute and chronic respiratory failure with hypercapnia (10) Hyperlipemia Priority: Secondary Status: Chronic Comments: Discussed last patient this morning. She does not want to start a statin after discussion. We discussed after she feels better speaking with primary care. Patient was given risks and benefits and has declined at this time. Qualifiers: Hyperlipidemia type: unspecified Qualified Code(s): E78.5 - Hyperlipidemia , unspecified (11) DVT prophylaxis Priority: Secondary Status: Acute Comments: Subcutaneous heparin daily - Discharge Medications Prescriptions: predniSONE [PredniSONE] 10 mg PO DAILY #31 tablet Home Medications: Albuterol Sulfate [Proair Respiclick] 2 puff IH Q4H PRN 09/05/15 [History] Budesonide/Formoterol 160/4.5 [Symbicort 160/4.5] 1 puff IH DAILY 09/05/15 [ History] Butalb/Acetaminophen/Caffeine [Fioricet 50-300-40 mg Capsule] 1 each PO BID PRN 09/05/15 [History] Cetirizine HCl [Zyrtec] 20 mg PO QPM 09/05/15 [History] Omeprazole [PriLOSEC] 20 mg PO DAILY 09/05/15 [History] Primidone [Mysoline] 100 mg PO DAILY 09/05/15 [History] Roflumilast [Daliresp] 500 mcg PO DAILY 09/05/15 [History] Tiotropium [Spiriva] 18 mcg IH 0700 09/05/15 [History] Albuterol Neb [Proventil Neb] 2.5 mg IH Q4H PRN 11/21/15 [History] Cyclobenzaprine [Flexeril] 10 mg PO HS 03/05/16 [History] Oxygen 3 - 4 l PO DAILY 03/05/16 [History] Paroxetine [Paxil] 20 mg PO DAILY 06/19/16 [History] ALPRAZolam [Xanax 1 MG Tablet] 0.5 - 1 mg PO TID PRN 09/17/16 [History] Megestrol Acetate [Megace] 800 mg PO DAILY #600 mls 10/02/16 [Rx] Acetylcysteine [V-Vqvznn-a-Cysteine] 600 mg PO Q12H 10/30/16 [History] GuaiFENesin ER [Mucinex] 600 mg PO BID PRN 10/30/16 [History] Mirtazapine [Remeron] 7.5 mg PO HS #30 tablet 11/02/16 [Rx] Calcium Carbonate/Vitamin D3 [Calcium 600-Vit D3 200 Tablet] 1 each PO BID 12/10 [History] Lactose-Reduced Food [Boost High Protein] 237 ml PO TID 12/10/16 [History] Trazodone HCl 200 mg PO HS 12/10/16 [History] PARoxetine HCl [Paroxetine HCl] 20 mg PO DAILY 02/12/17 [History] Dronabinol [Marinol] 2.5 mg PO BIDLS capsule 02/13/17 [Rx] predniSONE [PredniSONE] 10 mg PO DAILY #31 tablet 02/13/17 [Rx] Allergies/Adverse Reactions: Allergies morphine Adverse Reaction (Verified 02/12/17 08:46) Itching Date of admission: 02/12/17 17:10 Primary care physician: Shayy Morse CNP Discharging clinician: Stephanie Ramirez Anticipated date of discharge: 02/13/17 - Patient Status Disposition: Home, Self-Care Functional capacity at discharge: independent ambulation Overall status at discharge: patient is back to baseline - Discharge Instructions Follow Up With: Shayy Morse CNP [Primary Care Provider] - Additional Instructions: Please resume your home medications Follow up with your primary care provider in the next week or so for a hospital follow up visit. Take your steroids as directed until they are gone. Return to the ER as needed for any other problems or concerns or if you have any new symptoms or pain. - Diet and Activity Activity: increase activity as tolerated, wear oxygen at all times, other Diet: advance to your usual diet Hospital course: Ms. Holland is a 66 year old female with history of hypertension, end-stage COPD, chronic respiratory failure, hyperlipidemia, tobacco abuse. She presents to the emergency room 2 days ago with complaint of shortness of breath for 2-3 days , productive cough with clear sputum, no fever and chest pain with cough. EKG on admission showed sinus rhythm nonspecific T-wave changes and PAC. ABG was basically at baseline for this patient. Chest CT showed no acute findings and no significant changes compared to prior CTs. There is a stable 11 mm right middle lobe nodule that was first visualized in September 2015. There is also a stable 4-5 mm nodule in right upper load that it has remained unchanged from February 2014, and is benign. There were no other suspicious lung lesions noted. She was admitted to the observation unit and treated with duo nebs and steroids. She did not require increased supplemental oxygen to maintain her sats. Today she states that she feels better and is ready to go home. She says the cough has decreased, however, is still productive. Her lungs are diminished with faint wheezing heard posteriorly. She does not have any peripheral edema. Patient will go home and continue her home health services. She will also have home O2 at 4 L and CPAP at night. She will continue her normal home medications and I have added a two-week long steroid taper. She says that she has not been smoking and that she uses nicotine gum. She may continue this at home. Leukocytosis has resolved. White count is 10.3 today. Her vital signs have remained stable. She does become tachycardic when she attempts to move about, her sats remain anywhere from 90% to 97% with 4 L of oxygen. I discussed her hyperlipidemia, we discussed the benefits and risks of statins or other medications. She declines starting medication at this time. She will discuss with primary care provider at next visit. Patient is stable and appropriate for discharge. Time spent discussing smoking cessation with patient: 3 to 10 minutes - Time Spent with Patient Total time spent providing and/or coordinating discharge services: Less than 30 minutes - Constitutional Vitals: Temp Pulse Resp BP Pulse Ox 98.5 F 123 19 146/76 90 02/13/17 10:39 02/13/17 10:39 02/13/17 11:05 02/13/17 10:39 02/13/17 11:05 General appearance: Present: cachectic, cooperative, mild distress (moderate), A &O X 3, pleasant, underweight, answers questions appropriately - Head Head exam: Present: normal inspection - Eye Eye exam: Present: normal appearance, conjuntiva pink - ENT ENT exam: Present: mucous membranes moist, normal exam - Neck Neck exam general surgery: Present: normal inspection. Absent: lymphadenopathy , tenderness - Respiratory Respiratory exam: Present: decreased breath sounds, rhonchi, wheezes. Absent: chest wall tenderness, CTAB, rales, respiratory distress - Cardiovascular Cardiovascular exam: Present: RRR, +S1, +S2. Absent: bradycardia, diastolic murmur, gallop, systolic murmur, tachycardia - GI/Abdominal GI/Abdominal exam: Present: normal bowel sounds, soft. Absent: hepatomegaly, tenderness - Extremities Exam Extremities exam: Present: normal inspection, warm, radial pulses palpable and symetrical. Absent: pedal edema, tenderness - Neurological Exam Neurological exam: Present: alert, oriented X3, no focal deficits, strengths equal and symetr throughout. Absent: facial droop, speech deficit
--- NOTE | 2017-02-13 13:53 | Physician Discharge Referral ---
Home Health/Hosp Referral Info Transfer to: Home Health Provider in Charge Post Discharge: PCP - Diagnosis (1) Acute exacerbation of chronic obstructive airways disease Priority: Primary Status: Acute (2) Lung nodule seen on imaging study Priority: Secondary Status: Chronic (3) Protein-calorie malnutrition, severe Priority: Secondary Status: Chronic (4) Lung cancer Priority: Secondary Status: Chronic (5) Congestive heart failure Priority: Secondary Status: Chronic (6) Cigarette smoker Priority: Secondary Status: Resolved (7) Leukocytosis Priority: Secondary Status: Resolved (8) Failure to thrive Priority: Secondary Status: Chronic (9) Acute and chronic respiratory failure Priority: Secondary Status: Chronic (10) Hyperlipemia Priority: Secondary Status: Chronic (11) DVT prophylaxis Priority: Secondary Status: Acute - Respiratory Orders Oxygen / L per min Smoking Cessation: Smoking cessation has been advised. For more information, call the [place] [employer] Quit Line at 6-643-ZVTY-NOW. - Diet/Nutrition Diet/Nutrition Orders: Regular - Activity Activity Orders: Up ad carolyn - Services Needed Following services are medically necessary services: Nursing, Home Health Aide, Physical Therapy - Transfer Medications Prescriptions: predniSONE [PredniSONE] 10 mg PO DAILY #31 tablet Home Medications: Albuterol Sulfate [Proair Respiclick] 2 puff IH Q4H PRN 09/05/15 [History] Budesonide/Formoterol 160/4.5 [Symbicort 160/4.5] 1 puff IH DAILY 09/05/15 [ History] Butalb/Acetaminophen/Caffeine [Fioricet 50-300-40 mg Capsule] 1 each PO BID PRN 09/05/15 [History] Cetirizine HCl [Zyrtec] 20 mg PO QPM 09/05/15 [History] Omeprazole [PriLOSEC] 20 mg PO DAILY 09/05/15 [History] Primidone [Mysoline] 100 mg PO DAILY 09/05/15 [History] Roflumilast [Daliresp] 500 mcg PO DAILY 09/05/15 [History] Tiotropium [Spiriva] 18 mcg IH 0700 09/05/15 [History] Albuterol Neb [Proventil Neb] 2.5 mg IH Q4H PRN 11/21/15 [History] Cyclobenzaprine [Flexeril] 10 mg PO HS 03/05/16 [History] Oxygen 3 - 4 l PO DAILY 03/05/16 [History] Paroxetine [Paxil] 20 mg PO DAILY 06/19/16 [History] ALPRAZolam [Xanax 1 MG Tablet] 0.5 - 1 mg PO TID PRN 09/17/16 [History] Megestrol Acetate [Megace] 800 mg PO DAILY #600 mls 10/02/16 [Rx] Acetylcysteine [A-Ayetxr-u-Cysteine] 600 mg PO Q12H 10/30/16 [History] GuaiFENesin ER [Mucinex] 600 mg PO BID PRN 10/30/16 [History] Mirtazapine [Remeron] 7.5 mg PO HS #30 tablet 11/02/16 [Rx] Calcium Carbonate/Vitamin D3 [Calcium 600-Vit D3 200 Tablet] 1 each PO BID 12/10 [History] Lactose-Reduced Food [Boost High Protein] 237 ml PO TID 12/10/16 [History] Trazodone HCl 200 mg PO HS 12/10/16 [History] PARoxetine HCl [Paroxetine HCl] 20 mg PO DAILY 02/12/17 [History] Dronabinol [Marinol] 2.5 mg PO BIDLS capsule 02/13/17 [Rx] predniSONE [PredniSONE] 10 mg PO DAILY #31 tablet 02/13/17 [Rx] Allergies/Adverse Reactions: Allergies morphine Adverse Reaction (Verified 02/12/17 08:46) Itching Certification: Further, I certify that my clinical findings support that this patient is homebound (i.e. absences from home require considerable and taxing effort and are for medical reasons or scientologist services or infrequently or short duration when for other reasons) because: Homebound Reason: Patient requires assistance of a person or device to safely leave home, Leaving home requires considerable and taxing effort due to condition, Severity of cardiac or pulmonary status limits activity tolerance Attestation: My signature below is to certify that this patient is under my care and that I, or nurse practitioner, or a physician's restaurant assistant working with me, has a face-to -face encounter with this patient.
== END 2017-02-13 15:55 | disposition home or self-care (01) | DRG 190 ==
LOC: 3BNU 17:59 → EMEROO 17:59 → 3BNU 21:19
PROVIDERS: ADMIT Registered Nurse; ATTEND Nurse Practitioner Family

== ENCOUNTER 2017-03-26 13:40 | Inpatient (IN) ==
--- NOTE | 2017-03-26 14:17 | Emergency Department Note ---
Disposition Clinical Impression: Altered mental status Qualifiers: Altered mental status type: disorientation Qualified Code(s): R41.0 - Disorientation, unspecified Disposition: Admitted As Inpatient Condition: Fair Time of Disposition: 18:48 General Adult HPI - General Chief complaint: ED Shortness of Breath/Dyspnea Stated complaint: SOB / JARET Time Seen by Provider: 03/26/17 13:49 Source: patient, EMS Mode of arrival: EMS Limitations: other (Pt is having visual hallucinations in room and oriented to place and time. ) Nursing Notes Reviewed: Yes Vital Signs Reviewed: Yes - History of Present Illness HPI Narrative: Patient is a 66-year-old female with a past medical history of COPD, lung cancer , CHF sent in [facility] for an oxygen saturation of 68% after receiving 5 mg of morphine. The patient is a poor historian she is experiencing visual hallucinations in the room, for example she is seeing a person with a knife, she is seeing black and white, she keeps asking if she is going to the morgue, etc.. She is oriented to place and time. She denies any chest pain or shortness of breath. The patient does not answer questions appropriately. Colleen did mention she is seen by hospice nurse at home. Pain Scale: 0 - Related Data Home Medications Medication Instructions Recorded Confirmed Budesonide/Formoterol 160/4.5 2 puff IH BID 09/05/15 03/26/17 [Symbicort 160/4.5] Cetirizine HCl [Zyrtec] 10 mg PO QPM 09/05/15 03/26/17 Omeprazole [PriLOSEC] 20 mg PO DAILY 09/05/15 03/26/17 Primidone [Mysoline] 100 mg PO HS 09/05/15 03/26/17 Roflumilast [Daliresp] 500 mcg PO DAILY 09/05/15 03/26/17 Tiotropium [Spiriva] 18 mcg IH 0700 09/05/15 03/26/17 Albuterol Neb [Proventil Neb] 2.5 mg IH Q4H PRN 11/21/15 03/26/17 Cyclobenzaprine [Flexeril] 10 mg PO TID PRN 03/05/16 03/26/17 Oxygen 4 l NS DAILY 03/05/16 03/26/17 Paroxetine [Paxil] 20 mg PO QAM 06/19/16 03/26/17 ALPRAZolam [Xanax 1 MG Tablet] 1 - 1.5 mg PO TID 09/17/16 03/26/17 Acetylcysteine 600 mg PO BIDWM 10/30/16 03/26/17 [S-Tuvxqe-v-Cysteine] GuaiFENesin ER [Mucinex] 600 mg PO BID PRN 10/30/16 03/26/17 Trazodone HCl 200 mg PO HS 12/10/16 03/26/17 Albuterol Sulfate [Proair Hfa] 2 puff IH Q4H PRN 03/26/17 03/26/17 Cyanocobalamin (Vitamin B-12) 1,000 mcg PO DAILY 03/26/17 03/26/17 [Vitamin B12] Dronabinol [Marinol] 2.5 mg PO BID 03/26/17 03/26/17 Ergocalciferol (VITAMIN D2) 50,000 unit PO QWEEK 03/26/17 03/26/17 [Vitamin D2] Haloperidol 0.5 mg SL Q2H PRN 03/26/17 03/26/17 Hyoscyamine SL [Levsin SL] 0.125 - 0.25 mg SL Q2H PRN 03/26/17 03/26/17 Ipratropium/Albuterol Neb [Duoneb] 3 ml IH Q4HR 03/26/17 03/26/17 LORazepam [Ativan] 0.5 mg PO Q4H PRN 03/26/17 03/26/17 Morphine Oral CONC [Roxanol] 5 mg SL Q4H PRN 03/26/17 03/26/17 Previous Rx's Medication Instructions Recorded Megestrol Acetate [Megace] 800 mg PO DAILY #600 mls 10/02/16 Mirtazapine [Remeron] 7.5 mg PO HS #30 tablet 11/02/16 Allergies Allergy/AdvReac Type Severity Reaction Status Date / Time morphine AdvReac Itching Verified 03/26/17 18:11 Limitations: ROS unobtainable due to patients medical condition Constitutional: Reports: weakness. Denies: fever, chills Respiratory: Denies: cough Past Medical History - Past Medical History Attestation: Yes The following information was validated with the patient. Medical history: Reports: arthritis, asthma, cancer, CHF, COPD, DVT, GERD, hyperlipidemia, osteoporosis, other Surgical history: Reports: appendectomy, hysterectomy, other Psychiatric history: Reports: anxiety, depression [employer] history: Reports: no [employer] history - Social History Smoking Status: Former smoker Smokeless Tobacco Status: Yes (nicotine gum) Alcohol use: Reports: none Drug use: Reports: none Physical Exam Is cachectic in appearance. She is showing no signs of respiratory distress. She is able to speak in full sentences. - General Limitations: no limitations General appearance: lethargic - Head Head exam: atraumatic, normocephalic - Eye Eye exam: Present: normal appearance, PERRL, EOMI. Absent: scleral icterus, conjunctival injection - ENT ENT exam: normal exam, normal oropharynx, mucous membranes dry - Neck Neck exam: Present: normal inspection, full ROM, trachea midline. Absent: tenderness - Chest Chest inspection: Present: normal inspection, symmetric chest wall rise. Absent : tenderness, rash - Respiratory Respiratory exam: Present: normal lung sounds bilaterally. Absent: respiratory distress, wheezes, stridor, accessory muscle use, prolonged expiratory phase - Cardiovascular Cardiovascular exam: Present: tachycardia, normal heart sounds. Absent: systolic murmur, diastolic murmur, rubs, gallop - Abdominal Exam Abdominal exam: Present: soft, Non-Tender, normal bowel sounds - Extremities Exam Extremities exam: Present: normal inspection, full ROM. Absent: tenderness - Back Exam Back exam: Present: normal inspection. Absent: tenderness - Neurological Exam Neurological exam: Present: alert, other (Oriented x2 place and time.) - Psychiatric Psychiatric exam: Present: normal affect, normal mood - Skin Skin exam: Present: warm, dry, intact, normal color Course Course Narrative: Is a 66 year old female sent in by squad for having a low pulse ox of 68% when she was given morphine. Patient is satting at 98% on 2 L while in the emergency department has no complaints. He is to get in touch with family and determine with the courses for this patient. During past medical records I see that she was hospitalized for COPD exacerbation and has a history of lung cancer and CHF and she has also been consultation with hospice care for home health. - Reevaluation(s) Reevaluation #1: I reviewed the patient's records and spoke with the criminal justice social worker. Lives at home by herself and is seen by [facility]. She is a full code. I will work the patient up for her altered mental status. The patient's neighbor' s son works in the hospital and stopped down to see her. He states that the patient usually has normal mentation and is oriented, however since beginning hospice care she becomes disoriented when given morphine. Time: 14:54 Reevaluation #2: Pt sister Cindy is in the room at this time, she is the power of attorney at law. She states the patient is a full code. We discussed the plan to work the patient up for her altered mental and she agrees. Time: 15:18 Reevaluation #3: The patient was started on a 500 mL bolus her mucous membranes are very dry so I ordered an additional 1 L bolus. I asked the family for a medication list and they did not have one readily available. There was a list available in her records from a prior admission in February 2017. She is on several medications including primidone, cyclobenzaprine, paroxetine, alprazolam, mirtazapine, and trazodone that in addition to her dehydrated status could be causing the patient to have AMS. I reviewed the CT head and CXR which are negative. Her VBG showed a normal pH, however her pCO2 was elevated in the 80s which is above her calculated normal. I ordered a duoneb treatment and discussed with the patient and family that she should try to take some deep breaths to breath off some of the CO2. I updated the family with results and course. I am awaiting a urine for the patient. Time: 17:04 Vital Signs Temperature 99.1 F 03/26/17 13:43 Pulse Rate 71 03/26/17 13:43 Respiratory Rate 14 03/26/17 13:43 Blood Pressure 115/67 03/26/17 13:43 O2 Sat by Pulse Oximetry 98 03/26/17 13:43 Temperature 99.1 F 03/26/17 13:43 Pulse Rate 89 03/26/17 18:08 Respiratory Rate 18 03/26/17 18:57 Blood Pressure 127/73 03/26/17 18:57 O2 Sat by Pulse Oximetry 92 03/26/17 18:08 Oxygen Delivery Oxygen Delivery Nasal Cannula Medical Decision Making - MDM Narrative Medical decision making narrative: Patient's 66-year-old female presenting to the ED today for a pulse ox of 68% when she was not on her home oxygen and she was also given morphine at the same time by a home hospice nurse. She arrived to ED by squad and her pulse ox was 95% on 2 L. She did not have any complaints however she was having some visual hallucinations and she was only oriented to time and place, these findings are new as of today. We initiated an altered mental status workup of the patient. CT and her head and chest x-ray were no acute abnormality. CBC showed leukocytosis. Her CMP showed an elevated CO2 level and her VBG showed a pCO2 in the 80s I suspect is related to her chronic COPD. Patient was treated in the emergency department with a DuoNeb and encouraged to take deep breaths to exhale some of the carbon dioxide. We also treated the patient with 1.5 L of normal saline. The patient family does not feel safe with the patient lvining at home alone. I agree with the family and we have consulted with the hospitalist Dr. Agrawal to have the patient admitted to the hospital for further observation. - Medical Records Medical records reviewed: Yes I reviewed the patient's medical records. - Lab Data Lab results reviewed: Yes I reviewed the patient's lab results. Result diagrams: 03/26/17 15:33 03/26/17 15:33 Lab Results 03/26/17 03/26/17 03/26/17 Range/Units 15:33 15:33 15:33 WBC 17.0 H (4.3-11.1) K/mcL RBC 4.13 (3.82-4.97) M/mcL Hgb 12.1 (11.5-15.4) g/dL Hct 39.0 (35.3-44.9) % MCV 94.4 (83.0-100.0) fL MCH 29.3 (28.0-33.3) pg MCHC 31.0 L (31.6-35.5) g/dL RDW 13.5 (11.5-14.5) % Plt Count 253 (140-400) K/mcL MPV 10.3 (9.4-12.4) fL Immature Gran % 0.4 (0-4) % Seg Neutrophils % 88.5 % Lymphocytes % 4.8 % Monocytes % 6.2 % Eosinophils % 0.0 % Basophils % 0.1 % Neutrophils # 15.1 H (1.6-8.9) K/mcL Lymphocytes # 0.8 (0.6-4.6) K/mcL Monocytes # 1.1 (0.0-1.3) K/mcL Eosinophils # 0.0 (0.0-0.6) K/mcL Basophils # 0.0 (0.0-0.2) K/mcL PT 10.5 (9.4-12.1) Seconds INR 1.0 APTT 29.5 (26.0-36.0) Seconds VBG pH (7.32-7.42) pH Units VBG pCO2 (41-51) mmHg VBG pO2 (25-40) mmHg VBG HCO3 (21-27) mEq/L Sodium 138 (136-145) mEq/L Potassium 4.4 (3.5-4.5) mEq/L Chloride 92 L (98-109) mEq/L Carbon Dioxide 42 H* (19-29) mEq/L BUN 17 (7-20) mg/dL Creatinine 0.60 (0.57-1.11) mg/dL Est GFR ( Amer) > 60 (> 60) Est GFR (Non-Af Amer) > 60 (> 60) BUN/Creatinine Ratio 28 H (6-26) Glucose 91 (70-99) mg/dL Calculated Osmolality 287 (280-300) Lactic Acid (0.5-2.2) mmol/L Calcium 9.0 (8.6-10.8) mg/dL Phosphorus 3.4 (2.3-4.7) mg/dL Magnesium 1.6 (1.6-2.6) mg/dL Total Bilirubin 0.3 (0.2-1.2) mg/dL Direct Bilirubin 0.1 (0.0-0.5) mg/dL Indirect Bilirubin 0.2 (0.0-1.2) mg/dL AST 23 (5-34) Units/L ALT 21 (0-55) Units/L Alkaline Phosphatase 55 (38-126) Units/L Troponin I (0-0.03) ng/mL Serum Total Protein 6.4 (6.0-8.3) g/dL Albumin 3.5 (3.5-5.0) g/dL Globulin 2.9 (2.4-3.5) g/dL Albumin/Globulin Ratio 1.2 (1.1-2.2) Phenobarbital 1 L (15-40) mcg/mL 03/26/17 03/26/17 03/26/17 Range/Units 15:33 15:33 15:33 WBC (4.3-11.1) K/mcL RBC (3.82-4.97) M/mcL Hgb (11.5-15.4) g/dL Hct (35.3-44.9) % MCV (83.0-100.0) fL MCH (28.0-33.3) pg MCHC (31.6-35.5) g/dL RDW (11.5-14.5) % Plt Count (140-400) K/mcL MPV (9.4-12.4) fL Immature Gran % (0-4) % Seg Neutrophils % % Lymphocytes % % Monocytes % % Eosinophils % % Basophils % % Neutrophils # (1.6-8.9) K/mcL Lymphocytes # (0.6-4.6) K/mcL Monocytes # (0.0-1.3) K/mcL Eosinophils # (0.0-0.6) K/mcL Basophils # (0.0-0.2) K/mcL PT (9.4-12.1) Seconds INR APTT (26.0-36.0) Seconds VBG pH 7.35 (7.32-7.42) pH Units VBG pCO2 86 H (41-51) mmHg VBG pO2 40 (25-40) mmHg VBG HCO3 47.5 H (21-27) mEq/L Sodium (136-145) mEq/L Potassium (3.5-4.5) mEq/L Chloride (98-109) mEq/L Carbon Dioxide (19-29) mEq/L BUN (7-20) mg/dL Creatinine (0.57-1.11) mg/dL Est GFR ( Amer) (> 60) Est GFR (Non-Af Amer) (> 60) BUN/Creatinine Ratio (6-26) Glucose (70-99) mg/dL Calculated Osmolality (280-300) Lactic Acid 0.7 (0.5-2.2) mmol/L Calcium (8.6-10.8) mg/dL Phosphorus (2.3-4.7) mg/dL Magnesium (1.6-2.6) mg/dL Total Bilirubin (0.2-1.2) mg/dL Direct Bilirubin (0.0-0.5) mg/dL Indirect Bilirubin (0.0-1.2) mg/dL AST (5-34) Units/L ALT (0-55) Units/L Alkaline Phosphatase (38-126) Units/L Troponin I 0.03 (0-0.03) ng/mL Serum Total Protein (6.0-8.3) g/dL Albumin (3.5-5.0) g/dL Globulin (2.4-3.5) g/dL Albumin/Globulin Ratio (1.1-2.2) Phenobarbital (15-40) mcg/mL - Radiology Data Radiology results reviewed: Yes I reviewed the patient's radiology results. Chest X-Ray 03/26/17 14:43 IMPRESSION: No acute cardiopulmonary disease. D/ / Miguel Workman MD / Miguel Workman MD Interpreting Provider: Miguel Workman MD Head CT 03/26/17 14:52 IMPRESSION: No acute intracranial abnormality. D/ / Umair Evans MD / Umair Evans MD Interpreting Provider: Umair Evans MD - EKG Data EKG #1 EKG attestation: Yes I reviewed and interpreted this EKG. EKG results narrative: The interpreted EKG myself. The EKG is sinus tachycardia with a rate of 101. Normal axis. Normal GA, QRS and QT/QTc intervals at 121, 90, 311/369 respectively. No signs of ALEXANDER, STD, or Q waves. No significant changes from prior EKG on 02/10/2017. When compared to previous EKG there are: no significant changes Attestation Statement - Attestation Attestation: I examined this patient and my medical decision-making was reviewed with the Resident Physician. I agree with the documented findings, disposition and treatment plan as described except to the extent set forth below. 66-year-old female presents ED with altered mental status. She has a history of advanced COPD and was recently placed on hospice. Remains a full CODE STATUS. She was receiving medications per hospice and became more somnolent and hypoxic. They sent her to the ED for evaluation. Upon arrival she is still fairly somnolent but arousable. She is conversant with family but confused. No focal or subjective complaints at this point. Denies any current pain. No reported fever. No other medication changes. She is on multiple is potentially sedating medications including Flexeril, Xanax , paroxetine, and primidone. Oropharynx is clear. Remains very dry. Neck supple. Trachea midline. Pupils reactive to light. Chest symmetrically diminished breath sounds throughout. Cardiac exam regular abdomen soft nondistended and nontender. Extremities warm and dry. Neurologic exam is nonfocal. Chest x-ray is negative for any acute process. CT head negative for acute process PCO2 is elevated 85 which is probably 15 points above her baseline. She is given DuoNeb treatments, set upright and encouraged to continue with deep breathing. Aggressive IV fluids. Urinalysis still pending. I suspect that her altered mental status is multifactorial from both medication sedation as well as the hypercarbia. She will be admitted for further treatment and evaluation.
[2017-03-26] MEDS ORDERED: 0.9 % Sodium Chloride 500 ML IVC ONE (14:52)
[2017-03-26 15:43] LABS: VBG HCO3 47.5 mEq/L (21-27); VBG PH 7.35 pH Units (7.32-7.42)
[2017-03-26 15:45] LABS: Basophils % 0.1 %; Hemoglobin 12.1 g/dL (11.5-15.4); Immature Granulocytes % 0.4 % (0-4); Lymphocytes # 0.8 K/mcL (0.6-4.6); Lymphocytes % 4.8 %; Mean Corpuscular Hemoglobin 29.3 pg (28.0-33.3); Mean Corpuscular Volume 94.4 fL (83.0-100.0); Mean Platelet Volume 10.3 fL (9.4-12.4); Monocytes # 1.1 K/mcL (0.0-1.3); Monocytes % 6.2 %; Neutrophils # 15.1 K/mcL (1.6-8.9); Platelet Count 253 K/mcL (140-400); Red Blood Count 4.13 M/mcL (3.82-4.97); Red Cell Distribution Width 13.5 % (11.5-14.5); Segmented Neutrophils % 88.5 %
[2017-03-26 15:50] LABS: Prothrombin Time 10.5 Seconds (9.4-12.1)
[2017-03-26 15:53] LABS: Activated Partial Thrombo Time 29.5 Seconds (26.0-36.0)
[2017-03-26 15:57] LABS: Alanine Aminotransferase 21 Units/L (0-55); Albumin 3.5 g/dL (3.5-5.0); Albumin/Globulin Ratio 1.2 (1.1-2.2); Alkaline Phosphatase 55 Units/L (38-126); Aspartate Amino Transferase 23 Units/L (5-34); BUN/Creatinine Ratio 28 (6-26); Bilirubin,Direct 0.1 mg/dL (0.0-0.5); Bilirubin,Indirect 0.2 mg/dL (0.0-1.2); Bilirubin,Total 0.3 mg/dL (0.2-1.2); Blood Urea Nitrogen 17 mg/dL (7-20); Chloride 92 mEq/L (98-109); Globulin 2.9 g/dL (2.4-3.5); Glucose 91 mg/dL (70-99); Magnesium 1.6 mg/dL (1.6-2.6); Osmolality,Calculated 287 (280-300); Phosphorous 3.4 mg/dL (2.3-4.7); Potassium 4.4 mEq/L (3.5-4.5); Sodium 138 mEq/L (136-145); Total Protein 6.4 g/dL (6.0-8.3); eGFR For African Americans > 60 (> 60); eGFR For Non-African Americans > 60 (> 60)
[2017-03-26 16:02] LABS: Carbon Dioxide 42 mEq/L (19-29)
[2017-03-26] MEDS ORDERED: 0.9 % Sodium Chloride 1,000 ML IVC ONE (16:24)
[2017-03-26] MEDS ORDERED: Ipratropium/Albuterol Neb 3 ML IH ONE (16:25)
[2017-03-26 19:26] LABS: Bilirubin,Urine Negative (Negative); Blood,Urine Small (Negative); Clarity,Urine Clear (Clear); Color,Urine Yellow (Yellow); Glucose,Urine (UA) Normal (Normal); Ketones,Urine Trace mg/dL (Negative); Leukocyte Esterase,Urine Negative (Negative); Nitrite,Urine Negative (Negative); Protein,Urine 100 mg/dL (Neg-Trace); Specific Gravity,Urine 1.024 (1.010-1.025); Urobilinogen,Urine Normal (Normal)
[2017-03-26 19:28] LABS: Bacteria,Urine None Seen per hpf (None-Few); Hyaline Casts,Urine None Seen per lpf (None-Few); RBC,Urine 15-30 per hpf (0-3); Squamous Epithelial Cell,Urine Many per lpf (None-Few)
[2017-03-26] MEDS ORDERED: Ondansetron 4 MG/2 ML VIAL IVP PRN (19:28)
[2017-03-26] MEDS ORDERED: Naloxone 0.4 MG/ML INJ IVP PRN (19:28)
[2017-03-26] MEDS ORDERED: Acetaminophen 325 MG TABLET PO PRN (19:28)
--- NOTE | 2017-03-26 20:15 | Internal Med History&Physical ---
Date of Encounter: 03/26/17 Time of Encounter: 07:45 Assessment and Plan (1) Acute exacerbation of chronic obstructive airways disease Current visit: No Status: Acute Acute on chronic hypercapnic respiratory failure secondary to Acute exacerbation of chronic advanced COPD - likely contributing to acute encephalopathy Continue DuoNeb breathing treatment, IV Solu-Medrol Continue Symbicort and Spiriva, O2 via nasal cannula, empiric IV Rocephin Chest x-ray - no acute pulmonary disease CT brain - no acute intracranial abnormality EKG - sinus tachycardia Strict I's and O's, daily weight Continuous pulse ox, cardiac telemetry Labs in a.m. Palliative care consult (2) Altered mental status Current visit: Yes Status: Acute Acute encephalopathy likely metabolic - secondary to drug-induced (narcotica) and also due to hypercapnia Hold all narcotics, supportive care Continue breathing treatment and IV Solu-Medrol CT brain - no acute intracranial abnormality Chest x-ray - no acute process Qualifiers: Altered mental status type: disorientation Qualified Code(s): R41.0 - Disorientation, unspecified (3) Lung cancer Current visit: No Status: Chronic Right lung nodule (not biopsied) - status post empiric stereotactic body radiotherapy completed in December 2015 Qualifiers: Laterality: right Lung location: unspecified part of lung Qualified Code( s): C34.91 - Malignant neoplasm of unspecified part of right bronchus or lung (4) Congestive heart failure Current visit: No Status: Chronic Chronic diastolic CHF with LVEF of 60%, not in exacerbation Daily weights, strict I's and O, O2 via nasal cannula Qualifiers: Congestive heart failure type: diastolic Congestive heart failure chronicity: chronic Qualified Code(s): I50.32 - Chronic diastolic (congestive ) heart failure (5) Pulmonary cachexia due to chronic obstructive pulmonary disease Current visit: No Status: Chronic BMI 15.5 (6) DVT prophylaxis Current visit: No Status: Acute Continue Lovenox subcutaneous Internal Medicine - H&P: HPI Chief complaint: Altered mental status Admitted From: Emergency Dept Plans for Post Hospital Care: Hospice - Home History of present illness: Ms. Holland is a 66 year old female with past medical history of advanced COPD ( on hospice care), hyperlipidemia, lung cancer, diastolic CHF, DVT, GERD, osteoporosis, anxiety and depression and essential tremor. She presents to the ED with complaints of altered mental status and shortness of breath. On examination patient is awake and alert. She is unable to provide good history because of acute encephalopathy and also due to mild shortness of breath. She is able to answer some questions. Patient is in mild discomfort. Patient's sister and niece are at bedside. History is obtained mainly from family and medical records. According to the sister patient was found laying on the floor by the hospice care nurse. Patient was initially unresponsive and the squad was called. She she was not using her nasal cannula and she was found. Patient was short of breath when she eventually woke up. Patient seemed to have improved after she was started on oxygen. Sister states this is a usual presentation for the patient. It is unclear as to how long patient had passed out. Family states patient is on hospice, and she has been on morphine and Xanax. Sister thinks the patient passed out likely due to the medications that she takes and also due to her COPD exacerbation. at present patient's only complaint is shortness of breath. She does seem confused as well at times. Symptoms seem to be present even at rest. Worse with exertion. Patient is having difficulty staying still because of shortness of breath. Patient denies chest pain, denies abdominal pain, denies vomiting or fever or diarrhea. Initial evaluation in the ED revealed elevated white count and elevated CO2 level. Patient is being admitted for acute COPD exacerbation and acute encephalopathy. Patient and family have been explained about her guarded condition and poor prognosis. They understood and agreed. Patient's sister is the power of assistant district attorney. Sister states Patient is a DO NOT RESUSCITATE and DO NOT INTUBATE status. Patient had earlier mentioned about full code. Patient will be full code until palliative care has evaluated the patient. Past Med Surg Social Fam HX - Past Medical History Medical history: arthritis, asthma, cancer, CHF, COPD, DVT, GERD, hyperlipidemia , osteoporosis, other Psychiatric history: anxiety, depression - Past Surgical History Surgical History: appendectomy, hysterectomy, other - Social History Smoking Status: Former smoker Smokeless Tobacco Status: Yes (nicotine gum) Alcohol use: none Drug use: none - Family History Father Living Status: Still Living Hx Family Cardiac Disorders: Yes (irregular heart beat in need of pacemaker) Hx Family Respiratory Disorders: Yes (congestion, takes nebulizers) Sister Living Status: Still Living Hx Family Cardiac Disorders: No Hx Family Respiratory Disorders: No Hx Family Cancer: Yes Hx Family GI Disorders: Yes (Possible stomach ulcers) Hx Family Endocrine Disorder: No Hx Family Neuromuscular Disorders: No Hx Family Neurologic Disorders: No Hx Family HEENT Disorders: Yes (Sinusitis) Hx Family Autoimmune Disorders: No Internal Medicine - H&P: Meds Budesonide/Formoterol 160/4.5 [Symbicort 160/4.5] 2 puff IH BID 09/05/15 [ History] Cetirizine HCl [Zyrtec] 10 mg PO QPM 09/05/15 [History] Omeprazole [PriLOSEC] 20 mg PO DAILY 09/05/15 [History] Primidone [Mysoline] 100 mg PO HS 09/05/15 [History] Roflumilast [Daliresp] 500 mcg PO DAILY 09/05/15 [History] Tiotropium [Spiriva] 18 mcg IH 0700 09/05/15 [History] Albuterol Neb [Proventil Neb] 2.5 mg IH Q4H PRN 11/21/15 [History] Cyclobenzaprine [Flexeril] 10 mg PO TID PRN 03/05/16 [History] Oxygen 4 l NS DAILY 03/05/16 [History] Paroxetine [Paxil] 20 mg PO QAM 06/19/16 [History] ALPRAZolam [Xanax 1 MG Tablet] 1 - 1.5 mg PO TID 09/17/16 [History] Megestrol Acetate [Megace] 800 mg PO DAILY #600 mls 10/02/16 [Rx] Acetylcysteine [D-Mpuijp-d-Cysteine] 600 mg PO BIDWM 10/30/16 [History] GuaiFENesin ER [Mucinex] 600 mg PO BID PRN 10/30/16 [History] Mirtazapine [Remeron] 7.5 mg PO HS #30 tablet 11/02/16 [Rx] Trazodone HCl 200 mg PO HS 12/10/16 [History] Albuterol Sulfate [Proair Hfa] 2 puff IH Q4H PRN 03/26/17 [History] Cyanocobalamin (Vitamin B-12) [Vitamin B12] 1,000 mcg PO DAILY 03/26/17 [History ] Dronabinol [Marinol] 2.5 mg PO BID 03/26/17 [History] Ergocalciferol (VITAMIN D2) [Vitamin D2] 50,000 unit PO QWEEK 03/26/17 [History] Haloperidol 0.5 mg SL Q2H PRN 03/26/17 [History] Hyoscyamine SL [Levsin SL] 0.125 - 0.25 mg SL Q2H PRN 03/26/17 [History] Ipratropium/Albuterol Neb [Duoneb] 3 ml IH Q4HR 03/26/17 [History] LORazepam [Ativan] 0.5 mg PO Q4H PRN 03/26/17 [History] Morphine Oral CONC [Roxanol] 5 mg SL Q4H PRN 03/26/17 [History] Allergies morphine Adverse Reaction (Verified 03/26/17 18:11) Itching IV only. Patient currently taking this medication orally. Verified with patient and pharmacy. All Systems PM: A 10-system review of systems was performed and is negative for pertinent findings except as documented above in the HPI. Review of systems: most of the history is obtained from family and medical records - Constitutional Constitutional: fatigue, weakness, no fever(s) Additional comments: Altered mental status - EENT Eyes: no blurry vision - Cardiovascular Cardiovascular ROS IM: dyspnea, dyspnea on exertion, lightheadedness, orthopnea , syncope, no chest pain, no edema - Respiratory Respiratory: dyspnea, dyspnea on exertion, wheezing, no cough, no chest congestion - Gastrointestinal Gastrointestinal: no abdominal pain, no bloating, no diarrhea, no nausea, no vomiting - Genitourinary Genitourinary: no dysuria - Neurological Neurological ROS: confusion, weakness, no abnormal gait, no abnormal speech, no focal weakness, no loss of vision - Constitutional Vitals: Temp Pulse Resp BP Pulse Ox 98.7 F 99 17 127/73 93 03/26/17 19:38 03/26/17 19:38 03/26/17 19:38 03/26/17 19:38 03/26/17 19:38 General appearance: Present: cachectic, mild distress, underweight Exam: Awake and alert, mild discomfort due to shortness of breath, she is cachectic, she is able to answer some questions but unable to provide good history - Head Head exam: Present: atraumatic - Eye Eye exam: Absent: scleral icterus - ENT ENT exam: Present: mucous membranes dry - Neck Neck exam general surgery: Present: supple - Respiratory Respiratory exam: Present: accessory muscle use, decreased breath sounds ( Bilateral), wheezes (Mild bilateral), tachypnea - Cardiovascular Cardiovascular exam: Present: +S1, +S2, systolic murmur, tachycardia - GI/Abdominal GI/Abdominal exam: Present: soft. Absent: distended, guarding, rigid, tenderness - Extremities Exam Extremities exam: Present: radial pulses palpable and symetrical. Absent: cyanotic, pedal edema, tenderness - Neurological Exam Neurological exam: Present: alert, no focal deficits. Absent: facial droop, speech deficit Additional comments: Awake and alert, oriented to place and person, able to verbalize, able to follow simple verbal commands Internal Med - H&P Results - Labs CBC & Chem 7: 03/26/17 15:33 03/26/17 15:33 Labs: Urine 03/26/17 Range/Units 18:58 Urine Color Yellow (Yellow) Urine Clarity Clear (Clear) Urine pH 6.0 (5.0-8.0) pH Units Ur Specific [place] 1.024 (1.010-1.025) Urine Protein 100 H (Neg-Trace) mg/dL Urine Glucose (UA) Normal (Normal) mg/dL
[2017-03-26] MEDS: 0.9 % Sodium Chloride 1,000 ML IVC SCH (21:36)
[2017-03-26] MEDS: Ipratropium/Albuterol Neb 3 ML IH SCH ×2 (21:37→23:03)
[2017-03-26] MEDS: Budesonide/Formoterol 160/4.5 MDI IH SCH (22:57)
[2017-03-27] MEDS: Primidone 50 MG TABLET PO SCH ×2 (00:37→20:33)
[2017-03-27] MEDS: Mirtazapine 15 MG TABLET PO SCH ×2 (00:37→20:33)
[2017-03-27] MEDS: methylPREDNISolone 125 MG/2 ML VIAL IVP SCH ×5 (00:38→23:48)
[2017-03-27] MEDS ORDERED: *HR* LORazepam 2 MG/ML VIAL IVP ONE (02:34)
[2017-03-27] MEDS: Ipratropium/Albuterol Neb 3 ML IH SCH ×6 (03:41→23:20)
[2017-03-27 05:10] LABS: Basophils % 0.1 %; Hematocrit 34.2 % (35.3-44.9); Hemoglobin 10.7 g/dL (11.5-15.4); Immature Granulocytes % 0.7 % (0-4); Lymphocytes # 0.3 K/mcL (0.6-4.6); Lymphocytes % 2.3 %; Mean Corpuscular HGB Conc 31.3 g/dL (31.6-35.5); Mean Corpuscular Hemoglobin 29.6 pg (28.0-33.3); Mean Corpuscular Volume 94.5 fL (83.0-100.0); Mean Platelet Volume 11.6 fL (9.4-12.4); Monocytes # 0.2 K/mcL (0.0-1.3); Monocytes % 1.1 %; Neutrophils # 14.2 K/mcL (1.6-8.9); Platelet Count 235 K/mcL (140-400); Red Blood Count 3.62 M/mcL (3.82-4.97); Red Cell Distribution Width 13.3 % (11.5-14.5); Segmented Neutrophils % 95.8 %
[2017-03-27 05:29] LABS: BUN/Creatinine Ratio 26 (6-26); Blood Urea Nitrogen 14 mg/dL (7-20); Calcium 8.3 mg/dL (8.6-10.8); Chloride 92 mEq/L (98-109); Glucose 126 mg/dL (70-99); Osmolality,Calculated 286 (280-300); Sodium 137 mEq/L (136-145); eGFR For African Americans > 60 (> 60); eGFR For Non-African Americans > 60 (> 60)
[2017-03-27 05:33] LABS: Carbon Dioxide 42 mEq/L (19-29)
[2017-03-27] MEDS ORDERED: *HR* Enoxaparin 30 MG/0.3 ML SYRINGE SQ SCH (06:00)
[2017-03-27] MEDS ORDERED: Famotidine 20 MG/2 ML VIAL IVP SCH (06:00)
[2017-03-27] MEDS ORDERED: Tiotropium 18 MCG inhalation IH SCH (07:00)
[2017-03-27] MEDS: Budesonide/Formoterol 160/4.5 MDI IH SCH ×2 (07:55→20:42)
[2017-03-27] MEDS ORDERED: *HR* Acetylcysteine 20% 600 MG/3 ML ORAL SYRINGE PO SCH (08:00)
[2017-03-27] MEDS ORDERED: Albuterol 2.5 MG/3 ML NEBULIZER IH PRN (08:12)
[2017-03-27] MEDS ORDERED: Haloperidol Lactate 5 MG/ML VIAL IVP PRN ×2 (08:52→16:48)
[2017-03-27] MEDS ORDERED: Haloperidol Lactate 5 MG/ML VIAL IVP ONE (08:56)
[2017-03-27] MEDS ORDERED: DALIRESP 500 MCG PO SCH (09:00)
--- NOTE | 2017-03-27 11:21 | Palliative - Consult Note ---
Date of Encounter: 03/27/17 Time of Encounter: 09:00 - Assessment and Plan (1) Encephalopathy acute Current Visit: Yes Status: Acute Assessment and plan: Believe this is primarily due to her lung status. And may clear her other treatment. However at this time the patient clearly does not have the capability of making any medical decisions for herself. Her MPOA is her sister and should make all medical decisions until the patient's sensorium is clear. (2) Acute exacerbation of chronic obstructive airways disease Current Visit: No Status: Acute Assessment and plan: She is being treated aggressively with steroids as well as breathing treatments and bronchodilators. Plan per hospitalist team patient's also being covered with antibiotics at this time. (3) Protein-calorie malnutrition, severe Current Visit: No Status: Chronic Assessment and plan: Encourage by mouth intake. Consult from nutritions been requested. (4) Goals of care, counseling/discussion Current Visit: No Status: Acute Assessment and plan: The patient is not able to make any decisions regarding her own care, I did discuss at length with her medical power of assembler convertible top sister, who also be coming in later today and I will discuss further with her at that time. Issues CODE STATUS is DNR CCA, DNI. Patient's goals of care to return home with [facility] hospice and home. The patient's sister states that the patient has stated [place] in the past she does not want to be a alf she does not need want people extra people in her home. Her sister does feel she can get additional caregivers in the house to help keep an eye on her sister. Continue to work with this. The patient does have a medical power of assembler convertible top done and she is established with [facility] hospice and the family would like to go back to [facility] when discharge is arranged. (5) Dyspnea Current Visit: No Status: Acute Assessment and plan: Juan Manuel for oxygen, bronchodilators, steroids plan per hospitalist team. Qualifiers: Dyspnea type: shortness of breath Qualified Code(s): R06.02 - Shortness of breath Palliative-CN HPI - Data of Consult Patient: new to practice Requesting Physician: Shane Trimble Primary Care Provider: PCP NO - Consult Narrative Palliative Care/Comfort Measures: Palliative care History of present illness: Ms. Holland is a 66 year old female Has been enrolled in [facility] hospice for COPD. She was found lying on the floor of her home by her hospice nurse unresponsive. Is admitted through the emergency department with altered mental status and shortness of breath. The patient clearly has no decision-making capability. Can speak and cannot speak well, she is not oriented is not able to make medical decisions and my opinion. The history primarily comes for the medical record and discussing things with her sister who is her medical power of assembler convertible top. She had not been using her nasal cannula when she was found and when she was put on oxygen she eventually woke up just her states this has been a usual presentation for her, patient is not hospice and she has been taking morphine and Xanax. Sister thought that she might a passed out due to the medication she takes in the COPD exacerbation. Patient is clearly short of breath at rest even with oxygen. Patient currently denies any chest pain abdominal pain nausea vomiting or diarrhea also states she is not abated. She has no pain anywhere. Her ED evaluation showed an elevated white count and elevated CO2 level was admitted for COPD exacerbation and acute encephalopathy. Positive care was consulted regarding CODE STATUS as was sent over from when hospice as a full code and she had mentioned full CODE STATUS to the emergency department however sister tells me that they had had long discussions regarding this when she is bending her right mind and she does not wish to be resuscitated does not wish to be intubated. He see the assessment and plan. CC: Shane Trimble Found down Past Med Surg Social Fam HX - Past Medical History Medical history: arthritis, asthma, cancer, CHF, COPD, DVT, GERD, hyperlipidemia , osteoporosis, other Psychiatric history: anxiety, depression - Past Surgical History Surgical History: appendectomy, hysterectomy, other - Social History Smoking Status: Former smoker Smokeless Tobacco Status: Yes (nicotine gum) Alcohol use: none Drug use: none - Family History Father Living Status: Still Living Hx Family Cardiac Disorders: Yes (irregular heart beat in need of pacemaker) Hx Family Respiratory Disorders: Yes (congestion, takes nebulizers) Sister Living Status: Still Living Hx Family Cardiac Disorders: No Hx Family Respiratory Disorders: No Hx Family Cancer: Yes Hx Family GI Disorders: Yes (Possible stomach ulcers) Hx Family Endocrine Disorder: No Hx Family Neuromuscular Disorders: No Hx Family Neurologic Disorders: No Hx Family HEENT Disorders: Yes (Sinusitis) Hx Family Autoimmune Disorders: No Medications and Allergies Budesonide/Formoterol 160/4.5 [Symbicort 160/4.5] 2 puff IH BID 09/05/15 [ History] Cetirizine HCl [Zyrtec] 10 mg PO QPM 09/05/15 [History] Omeprazole [PriLOSEC] 20 mg PO DAILY 09/05/15 [History] Primidone [Mysoline] 100 mg PO HS 09/05/15 [History] Roflumilast [Daliresp] 500 mcg PO DAILY 09/05/15 [History] Tiotropium [Spiriva] 18 mcg IH 0700 09/05/15 [History] Albuterol Neb [Proventil Neb] 2.5 mg IH Q4H PRN 11/21/15 [History] Cyclobenzaprine [Flexeril] 10 mg PO TID PRN 03/05/16 [History] Oxygen 4 l NS DAILY 03/05/16 [History] Paroxetine [Paxil] 20 mg PO QAM 06/19/16 [History] ALPRAZolam [Xanax 1 MG Tablet] 1 - 1.5 mg PO TID 09/17/16 [History] Megestrol Acetate [Megace] 800 mg PO DAILY #600 mls 10/02/16 [Rx] Acetylcysteine [I-Hfkxvp-t-Cysteine] 600 mg PO BIDWM 10/30/16 [History] GuaiFENesin ER [Mucinex] 600 mg PO BID PRN 10/30/16 [History] Mirtazapine [Remeron] 7.5 mg PO HS #30 tablet 11/02/16 [Rx] Trazodone HCl 200 mg PO HS 12/10/16 [History] Albuterol Sulfate [Proair Hfa] 2 puff IH Q4H PRN 03/26/17 [History] Cyanocobalamin (Vitamin B-12) [Vitamin B12] 1,000 mcg PO DAILY 03/26/17 [History ] Dronabinol [Marinol] 2.5 mg PO BID 03/26/17 [History] Ergocalciferol (VITAMIN D2) [Vitamin D2] 50,000 unit PO QWEEK 03/26/17 [History] Haloperidol 0.5 mg SL Q2H PRN 03/26/17 [History] Hyoscyamine SL [Levsin SL] 0.125 - 0.25 mg SL Q2H PRN 03/26/17 [History] Ipratropium/Albuterol Neb [Duoneb] 3 ml IH Q4HR 03/26/17 [History] LORazepam [Ativan] 0.5 mg PO Q4H PRN 03/26/17 [History] Morphine Oral CONC [Roxanol] 5 mg SL Q4H PRN 03/26/17 [History] Allergies morphine Adverse Reaction (Verified 03/26/17 18:11) Itching IV only. Patient currently taking this medication orally. Verified with patient and pharmacy. ROS unobtainable: due to mental status Palliative Care-Exam - Constitutional Vitals: Temp Pulse Resp BP Pulse Ox 98.3 F 115 20 151/73 96 03/27/17 10:45 03/27/17 10:45 03/27/17 10:45 03/27/17 10:45 03/27/17 08:06 General appearance: Present: mild distress (Secondary to shortness of breath.) - Head Head Exam: Present: atraumatic, normal inspection - Eye Eye exam: Present: normal appearance - ENT ENT exam: Present: mucous membranes moist - Respiratory Respiratory exam: Present: decreased breath sounds, wheezes - Cardiovascular Cardiovascular exam: Present: RRR, tachycardia - GI/Abdominal Exam GI/Abdominal exam: Present: normal bowel sounds, soft. Absent: tenderness - Extremities Exam Extremities exam: Present: normal inspection. Absent: pedal edema, tenderness - Neurological Exam Neurological exam: Present: alert, altered. Absent: oriented X3 (The patient clearly has no decision-making capability at this time.) - Psychiatric Psychiatric exam: Present: agitated, anxious. Absent: normal affect, normal mood - Skin Skin exam: Present: dry, warm Internal Medicine - CN: Reslt - Labs CBC & Chem 7: 03/27/17 03:47 03/27/17 03:47 Labs: Short CBC 03/27/17 Range/Units 03:47 WBC 14.8 H (4.3-11.1) K/mcL Hgb 10.7 L (11.5-15.4) g/dL Hct 34.2 L (35.3-44.9) % Plt Count 235 (140-400) K/mcL Neutrophils # 14.2 H (1.6-8.9) K/mcL BMP 03/27/17 03:47 Sodium 137 Potassium 4.0 Chloride 92 L Carbon Dioxide 42 H* BUN 14 Creatinine 0.54 L Glucose 126 H Calcium 8.3 L Urine 03/26/17 Range/Units 18:58 Urine Color Yellow (Yellow) Urine Clarity Clear (Clear) Urine pH 6.0 (5.0-8.0) pH Units Ur Specific [place] 1.024 (1.010-1.025) Urine Protein 100 H (Neg-Trace) mg/dL Urine Glucose (UA) Normal (Normal) mg/dL - ABG Interpretation ABG results: PT/INR, D-dimer PT 10.5 Seconds (9.4-12.1) 03/26/17 15:33 Consult Discharge Plan - Plan Referrals: NO,PCP [Primary Care Provider] - Palliative Quality Palliative Quality: Screen for Code Status: Yes, Screen for Goals of Care: Yes, Screen for Pain: Yes, If Pain Regimen Started, Initiate Bowel Regimen: Yes, Screen for Nausea/Vomitting: Yes Code Status: 03/26/17 19:28 Resuscitation Status: Active [RES] Routine Comment: Resuscitation Status: Full Code Resuscitation Status: Active [RES] Routine Comment: Resuscitation Status: [id number]
[2017-03-27] MEDS: Cyanocobalamin (B-12) 1,000 MCG TABLET PO SCH (11:37)
[2017-03-27] MEDS: Megestrol Acetate 400 MG/10 ML UDC PO SCH (11:37)
--- NOTE | 2017-03-27 13:40 | Internal Med Progress Note ---
<Paul Son - Last Filed: 03/27/17 13:44> Date of Encounter: 03/27/17 Time of Encounter: 09:10 - Assessment and plan (1) Acute exacerbation of chronic obstructive pulmonary disease (COPD) Current Visit: No Status: Acute Assessment and plan: Current visit: No Status: Acute Acute on chronic hypercapnic respiratory failure secondary to Acute exacerbation of chronic advanced COPD - likely contributing to acute encephalopathy -Continue DuoNeb breathing treatment, IV Solu-Medrol -Continue Symbicort and Spiriva, O2 via nasal cannula, empiric IV Rocephin -CXR: no acute process -CT brain: no acute intracranial abnormality -EKG: sinus tachycardia -Strict I/O's, daily weight -Continuous pulse ox, cardiac telemetry -Palliative care has been consulted (2) Altered mental status Current Visit: Yes Status: Acute Assessment and plan: Acute encephalopathy likely metabolic - secondary to drug-induced (narcotica) and also due to hypercapnia -Hold all narcotics; provide supportive care -Continue breathing treatment and IV Solu-Medrol -CT brain - no acute intracranial abnormality -CXR - no acute process Qualifiers: Altered mental status type: disorientation Qualified Code(s): R41.0 - Disorientation, unspecified (3) Congestive heart failure Current Visit: No Status: Chronic Assessment and plan: Chronic diastolic CHF with LVEF of 60%, not in exacerbation Daily weights, strict I's and O, O2 via nasal cannula Qualifiers: Congestive heart failure type: diastolic Congestive heart failure chronicity: chronic Qualified Code(s): I50.32 - Chronic diastolic (congestive ) heart failure (4) Lung cancer Current Visit: No Status: Chronic Assessment and plan: Right lung nodule (not biopsied) - status post empiric stereotactic body radiotherapy completed in December 2015 Qualifiers: Laterality: right Lung location: unspecified part of lung Qualified Code( s): C34.91 - Malignant neoplasm of unspecified part of right bronchus or lung (5) Pulmonary cachexia due to chronic obstructive pulmonary disease Current Visit: No Status: Chronic Assessment and plan: BMI 15.5 (6) DVT prophylaxis Current Visit: No Status: Acute Assessment and plan: SQ Lovenox - Subjective Interval history: Patient was seen at bedside this morning. Patient is in distress at the moment. Patient seemed to be suffering from visual hallucinations, repeatedly stating "they left through the door" while pointing towards the wall. Patient is unable to answer questions at this time. Her legs are shaking violently. Approximately 30 minutes prior to encounter, patient became highly agitated and started screaming that she wished to return home. Patient was given haloperidol. - Constitutional Vitals: Temp Pulse Resp BP Pulse Ox 98.3 F 115 18 151/73 95 03/27/17 10:45 03/27/17 10:45 03/27/17 11:17 03/27/17 10:45 03/27/17 11:17 General appearance: Present: cachectic, mild distress, underweight Internal Medicine: Result - Labs CBC & Chem 7: 03/27/17 03:47 03/27/17 03:47 Labs: Short CBC 03/27/17 Range/Units 03:47 WBC 14.8 H (4.3-11.1) K/mcL Hgb 10.7 L (11.5-15.4) g/dL Hct 34.2 L (35.3-44.9) % Plt Count 235 (140-400) K/mcL Neutrophils # 14.2 H (1.6-8.9) K/mcL BMP 03/27/17 03:47 Sodium 137 Potassium 4.0 Chloride 92 L Carbon Dioxide 42 H* BUN 14 Creatinine 0.54 L Glucose 126 H Calcium 8.3 L Urine 03/26/17 Range/Units 18:58 Urine Color Yellow (Yellow) Urine Clarity Clear (Clear) Urine pH 6.0 (5.0-8.0) pH Units Ur Specific [place] 1.024 (1.010-1.025) Urine Protein 100 H (Neg-Trace) mg/dL Urine Glucose (UA) Normal (Normal) mg/dL - ABG Interpretation ABG results: PT/INR, D-dimer PT 10.5 Seconds (9.4-12.1) 03/26/17 15:33 Consult Discharge Plan - Plan Referrals: NO,PCP [Primary Care Provider] - <Shane Trimble H - Last Filed: 03/27/17 13:52> Date of Encounter: 03/27/17 - Constitutional Vitals: Temp Pulse Resp BP Pulse Ox 98.3 F 115 18 151/73 95 03/27/17 10:45 03/27/17 10:45 03/27/17 11:17 03/27/17 10:45 03/27/17 11:17 General appearance: Present: cachectic, A&O X 1. Absent: A&O X 3 - Head Head exam: Present: atraumatic, normocephalic - Eye Eye exam: Present: PERRL, conjuntiva pink, sclera anicteric Pupils: Present: PERRL - Neck Neck exam general surgery: Present: supple, trachea midline. Absent: lymphadenopathy - Respiratory Respiratory exam: Present: decreased breath sounds, CTAB, wheezes (Minimal diffuse wheezing with bibasilar fine crackles). Absent: accessory muscle use, rales, rhonchi - Cardiovascular Cardiovascular exam: Present: RRR, +S1, +S2. Absent: diastolic murmur, gallop, rubs, systolic murmur - GI/Abdominal GI/Abdominal exam: Present: normal bowel sounds, soft, no peritoneal signs. Absent: distended, tenderness - Extremities Exam Extremities exam: Present: warm, radial pulses palpable and symetrical. Absent : calf tenderness, cyanotic, pedal edema - Neurological Exam Neurological exam: Present: CN II-XII intact, no focal deficits. Absent: oriented X3, pronater drift, facial droop, speech deficit - Skin Skin exam: Present: dry, intact Internal Medicine: Result - Labs CBC & Chem 7: 03/27/17 03:47 03/27/17 03:47 Labs: Short CBC 03/27/17 Range/Units 03:47 WBC 14.8 H (4.3-11.1) K/mcL Hgb 10.7 L (11.5-15.4) g/dL Hct 34.2 L (35.3-44.9) % Plt Count 235 (140-400) K/mcL Neutrophils # 14.2 H (1.6-8.9) K/mcL BMP 03/27/17 03:47 Sodium 137 Potassium 4.0 Chloride 92 L Carbon Dioxide 42 H* BUN 14 Creatinine 0.54 L Glucose 126 H Calcium 8.3 L Urine 03/26/17 Range/Units 18:58 Urine Color Yellow (Yellow) Urine Clarity Clear (Clear) Urine pH 6.0 (5.0-8.0) pH Units Ur Specific [place] 1.024 (1.010-1.025) Urine Protein 100 H (Neg-Trace) mg/dL Urine Glucose (UA) Normal (Normal) mg/dL - ABG Interpretation ABG results: PT/INR, D-dimer PT 10.5 Seconds (9.4-12.1) 03/26/17 15:33 - Attending Attestation Acute metabolic encephalopathy secondary to acute on chronic hypercapnic respiratory failure due to acute COPD exacerbation from acute bronchitis viral versus bacterial Rocephin day 2 CODE STATUS was switched to DNR CC arrest DNI I examined this patient and my medical decision-making was reviewed with the Resident Physician. I agree with the documented findings, disposition and treatment plan as described except to the extent set forth below.
[2017-03-27] MEDS: *HR* LORazepam 2 MG/ML VIAL IVP PRN (16:10)
[2017-03-27] MEDS: Amoxicillin 500 MG CAPSULE PO SCH ×2 (16:40→23:53)
[2017-03-27] MEDS: Famotidine 20 MG TABLET PO SCH (16:41)
[2017-03-28] MEDS: Ipratropium/Albuterol Neb 3 ML IH SCH ×5 (03:44→20:06)
[2017-03-28] MEDS: *HR* Enoxaparin 40 MG/0.4 ML SYRINGE SQ SCH (05:08)
[2017-03-28] MEDS: methylPREDNISolone 125 MG/2 ML VIAL IVP SCH ×3 (05:08→16:06)
[2017-03-28 05:22] LABS: BUN/Creatinine Ratio 22 (6-26); Blood Urea Nitrogen 12 mg/dL (7-20); Calcium 8.6 mg/dL (8.6-10.8); Chloride 93 mEq/L (98-109); Glucose 115 mg/dL (70-99); Osmolality,Calculated 293 (280-300); Potassium 3.9 mEq/L (3.5-4.5); Sodium 141 mEq/L (136-145); eGFR For African Americans > 60 (> 60); eGFR For Non-African Americans > 60 (> 60)
[2017-03-28 05:24] LABS: Carbon Dioxide 42 mEq/L (19-29)
[2017-03-28 05:25] LABS: Basophils % 0.1 %; Hematocrit 33.2 % (35.3-44.9); Hemoglobin 10.8 g/dL (11.5-15.4); Immature Granulocytes % 0.3 % (0-4); Lymphocytes # 0.6 K/mcL (0.6-4.6); Lymphocytes % 6.3 %; Mean Corpuscular HGB Conc 32.5 g/dL (31.6-35.5); Mean Corpuscular Hemoglobin 29.8 pg (28.0-33.3); Mean Corpuscular Volume 91.5 fL (83.0-100.0); Mean Platelet Volume 10.9 fL (9.4-12.4); Monocytes # 0.2 K/mcL (0.0-1.3); Monocytes % 2.3 %; Neutrophils # 8.1 K/mcL (1.6-8.9); Platelet Count 239 K/mcL (140-400); Red Blood Count 3.63 M/mcL (3.82-4.97); Red Cell Distribution Width 13.2 % (11.5-14.5)
--- NOTE | 2017-03-28 06:42 | Electrocardiograph Report ---
[address] [address] Test Date: 2017-03-26 Pat Name: Anya Holland Department: 105 Room: 2A Gender: F Hotel House[employer]: MSC : 1950 Requested By: Ariel Martinez Order Number: [id number] Reading MD: Niraj Mcginnis MD Measurements Intervals [place] Rate: 101 P: 84 NV: 121 QRS: 85 QRSD: 90 T: 85 QT: 311 QTc: 369 Interpretive Statements SINUS TACHYCARDIA with PAC LEFT ATRIAL ENLARGEMENT BASELINE ARTIFACT Electronically Signed On 03-28-2017 6:41:16 EDT by Niraj Mcginnis MD
[2017-03-28] MEDS: Budesonide/Formoterol 160/4.5 MDI IH SCH ×2 (07:39→20:06)
[2017-03-28] MEDS: 0.9 % Sodium Chloride 1,000 ML IVC SCH ×2 (09:56→22:26)
[2017-03-28] MEDS: Megestrol Acetate 400 MG/10 ML UDC PO SCH (09:57)
[2017-03-28] MEDS: Famotidine 20 MG TABLET PO SCH ×2 (09:57→16:06)
[2017-03-28] MEDS: Amoxicillin 500 MG CAPSULE PO SCH ×2 (09:57→16:06)
[2017-03-28] MEDS: Cyanocobalamin (B-12) 1,000 MCG TABLET PO SCH (09:57)
--- NOTE | 2017-03-28 09:57 | Palliative Progress Note ---
Date of Encounter: 03/28/17 Time of Encounter: 07:10 - Assessment and plan (1) Encephalopathy acute Current Visit: Yes Status: Acute Assessment and plan: The patient has been placed on scheduled Haldol has not required any breakthrough doses. Of note only required 1 dose Ativan and this is around the time that they were changing over to scheduled Haldol. (2) Acute exacerbation of chronic obstructive airways disease Current Visit: No Status: Acute Assessment and plan: Severe COPD this is her [facility] diagnosis. Plan is per hospitalist team bronchodilators, oxygen and steroids. (3) Protein-calorie malnutrition, severe Current Visit: No Status: Chronic Assessment and plan: Patient ate fairly well at least one meal yesterday, dietary is following. (4) Goals of care, counseling/discussion Current Visit: No Status: Acute Assessment and plan: Patient is DNR CCA, DNI. The goal of care is for the patient to return home with [facility]. Family is setting up her age but where there will be people in the home with the patient as possible. The patient adamantly does not wish to go to a fdc or the patient's medical power of block and case maker. Patient's MPOA should have everything set up by tomorrow and discharge is anticipated tomorrow. (5) Dyspnea Current Visit: No Status: Acute Assessment and plan: Plan for oxygen, bronchodilators and steroids per the hospitalist team. Qualifiers: Dyspnea type: shortness of breath Qualified Code(s): R06.02 - Shortness of breath - Time Spent With Patient Total time spent is greater than 50% in coordination of care (as documented) at patient's floor/unit and/or counseling patient: - Subjective Interval history: Reports from overnight patient slept well. No problems per the sitter. The patient is sleeping currently given her difficulty with metabolic encephalopathy have elected not to awaken her. - Constitutional Vitals: Abnormal lab results RBC 3.63 M/mcL (3.82-4.97) L 03/28/17 04:51 Hgb 10.8 g/dL (11.5-15.4) L 03/28/17 04:51 Hct 33.2 % (35.3-44.9) L 03/28/17 04:51 VBG pCO2 86 mmHg (41-51) H 03/26/17 15:33 VBG HCO3 47.5 mEq/L (21-27) H 03/26/17 15:33 Chloride 93 mEq/L (98-109) L 03/28/17 04:51 Carbon Dioxide 42 mEq/L (19-29) H* 03/28/17 04:51 Creatinine 0.54 mg/dL (0.57-1.11) L 03/28/17 04:51 Glucose 115 mg/dL (70-99) H 03/28/17 04:51 POC Glucose 130 (58-89) H 03/28/17 07:40 Urine Protein 100 mg/dL (Neg-Trace) H 03/26/17 18:58 Urine Ketones Trace mg/dL (Negative) H 03/26/17 18:58 Urine Blood Small (Negative) H 03/26/17 18:58 Urine Microscopic RBC 15-30 per hpf (0-3) H 03/26/17 18:58 Urine Microscopic WBC 3-5 per hpf (0-3) H 03/26/17 18:58 Ur Squamous Epith Cells Many per lpf (None-Few) H 03/26/17 18:58 Phenobarbital 1 mcg/mL (15-40) L 03/26/17 15:33 General appearance: Present: no acute distress - Head Head exam: Absent: atraumatic, normal inspection - Eye Eye exam: Present: normal appearance - ENT ENT exam: Present: mucous membranes moist - Respiratory Respiratory exam: Present: decreased breath sounds - Cardiovascular Cardiovascular exam: Present: RRR - GI/Abdominal GI/Abdominal exam: Present: normal bowel sounds, soft. Absent: tenderness - Extremities Exam Extremities exam: Present: normal inspection. Absent: pedal edema, tenderness - Psychiatric Psychiatric exam: Absent: agitated, anxious (Did have a lot of difficulty with this yesterday, however with changes in meds this seems to have calmed down.) - Skin Skin exam: Present: dry, warm Palliative Quality Palliative Quality: Screen for Code Status: Yes, Screen for Goals of Care: Yes, Screen for Pain: Yes, If Pain Regimen Started, Initiate Bowel Regimen: Yes, Screen for Nausea/Vomitting: Yes Code Status: 03/26/17 19:28 Resuscitation Status: Active [RES] Routine Comment: Resuscitation Status: Full Code Resuscitation Status: Active [RES] Routine Comment: Resuscitation Status: [id number] - Labs CBC & Chem 7: 03/28/17 04:51 03/28/17 04:51 Labs: Laboratory Results - last 24 hr 03/27/17 03/27/17 03/28/17 16:24 19:52 04:51 WBC 8.9 RBC 3.63 L Hgb 10.8 L Hct 33.2 L MCV 91.5 MCH 29.8 MCHC 32.5 RDW 13.2 Plt Count 239 MPV 10.9 Immature Gran % 0.3 Seg Neutrophils % 91.0 Lymphocytes % 6.3 Monocytes % 2.3 Eosinophils % 0.0 Basophils % 0.1 Neutrophils # 8.1 Lymphocytes # 0.6 Monocytes # 0.2 Eosinophils # 0.0 Basophils # 0.0 Sodium Potassium Chloride Carbon Dioxide BUN Creatinine Est GFR ( Amer) Est GFR (Non-Af Amer) BUN/Creatinine Ratio Glucose POC Glucose 132 H 109 H Calculated Osmolality Calcium 03/28/17 03/28/17 04:51 07:40 WBC RBC Hgb Hct MCV MCH MCHC RDW Plt Count MPV Immature Gran % Seg Neutrophils % Lymphocytes % Monocytes % Eosinophils % Basophils % Neutrophils # Lymphocytes # Monocytes # Eosinophils # Basophils # Sodium 141 Potassium 3.9 Chloride 93 L Carbon Dioxide 42 H* BUN 12 Creatinine 0.54 L Est GFR ( Amer) > 60 Est GFR (Non-Af Amer) > 60 BUN/Creatinine Ratio 22 Glucose 115 H POC Glucose 130 H Calculated Osmolality 293 Calcium 8.6 - ABG Interpretation ABG results: PT/INR, D-dimer PT 10.5 Seconds (9.4-12.1) 03/26/17 15:33 Consult Discharge Plan - Plan Referrals: NO,PCP [Primary Care Provider] -
--- NOTE | 2017-03-28 14:57 | Internal Med Progress Note ---
<Paul Son - Last Filed: 03/28/17 14:52> Date of Encounter: 03/28/17 Time of Encounter: 02:10 - Assessment and plan (1) Acute exacerbation of chronic obstructive pulmonary disease (COPD) Current Visit: No Status: Acute Assessment and plan: Current visit: No Status: Acute Acute on chronic hypercapnic respiratory failure secondary to Acute exacerbation of chronic advanced COPD - likely contributing to acute encephalopathy -Continue DuoNeb breathing treatment, IV Solu-Medrol -Continue Symbicort and Spiriva, O2 via nasal cannula, empiric IV Rocephin -CXR: no acute process -CT brain: no acute intracranial abnormality -EKG: sinus tachycardia -Strict I/O's, daily weight -Continuous pulse ox, cardiac telemetry -Palliative care has been consulted; plan is to discharge patient on Saturday. (2) Altered mental status Current Visit: Yes Status: Acute Assessment and plan: Acute encephalopathy likely metabolic - secondary to drug-induced (narcotica) and also due to hypercapnia -Hold all narcotics; provide supportive care -Continue breathing treatment and IV Solu-Medrol -CT brain - no acute intracranial abnormality -CXR - no acute process Qualifiers: Altered mental status type: disorientation Qualified Code(s): R41.0 - Disorientation, unspecified (3) Congestive heart failure Current Visit: No Status: Chronic Assessment and plan: Chronic diastolic CHF with LVEF of 60%, not in exacerbation Daily weights, strict I's and O, O2 via nasal cannula Qualifiers: Congestive heart failure type: diastolic Congestive heart failure chronicity: chronic Qualified Code(s): I50.32 - Chronic diastolic (congestive ) heart failure (4) Lung cancer Current Visit: No Status: Chronic Assessment and plan: Right lung nodule (not biopsied) - status post empiric stereotactic body radiotherapy completed in December 2015 Qualifiers: Laterality: right Lung location: unspecified part of lung Qualified Code( s): C34.91 - Malignant neoplasm of unspecified part of right bronchus or lung (5) Pulmonary cachexia due to chronic obstructive pulmonary disease Current Visit: No Status: Chronic Assessment and plan: BMI 15.5 (6) DVT prophylaxis Current Visit: No Status: Acute Assessment and plan: SQ Lovenox - Subjective Interval history: Patient was seen at bedside this afternoon. Patient is in no distress at this time. Appears very tired, does not answer any questions. Did not appear in respiratory distress. - Constitutional Vitals: Temp Pulse Resp BP Pulse Ox 97.9 F 98 28 129/89 95 03/28/17 11:00 03/28/17 11:00 03/28/17 11:27 03/28/17 11:00 03/28/17 11:27 General appearance: Present: cachectic, A&O X 1. Absent: A&O X 3 - Respiratory Respiratory exam: Present: decreased breath sounds (Fine crackles and diminished breath sounds b/l), rhonchi, wheezes, tachypnea. Absent: CTAB - Cardiovascular Cardiovascular exam: Present: RRR, +S1, +S2. Absent: diastolic murmur, gallop, rubs, systolic murmur - Extremities Exam Extremities exam: Present: radial pulses palpable and symetrical. Absent: pedal edema Internal Medicine: Result - Labs CBC & Chem 7: 03/28/17 04:51 03/28/17 04:51 Labs: Short CBC 03/28/17 Range/Units 04:51 WBC 8.9 (4.3-11.1) K/mcL Hgb 10.8 L (11.5-15.4) g/dL Hct 33.2 L (35.3-44.9) % Plt Count 239 (140-400) K/mcL Neutrophils # 8.1 (1.6-8.9) K/mcL BMP 03/28/17 04:51 Sodium 141 Potassium 3.9 Chloride 93 L Carbon Dioxide 42 H* BUN 12 Creatinine 0.54 L Glucose 115 H Calcium 8.6 - ABG Interpretation ABG results: PT/INR, D-dimer PT 10.5 Seconds (9.4-12.1) 03/26/17 15:33 Consult Discharge Plan - Plan Referrals: NO,PCP [Primary Care Provider] - <Shane Trimble H - Last Filed: 03/28/17 15:02> Date of Encounter: 03/28/17 - Constitutional Vitals: Temp Pulse Resp BP Pulse Ox 97.9 F 98 28 129/89 95 03/28/17 11:00 03/28/17 11:00 03/28/17 11:27 03/28/17 11:00 03/28/17 11:27 Internal Medicine: Result - Labs CBC & Chem 7: 07/20/17 04:51 03/28/17 04:51 Labs: Short CBC 03/28/17 Range/Units 04:51 WBC 8.9 (4.3-11.1) K/mcL Hgb 10.8 L (11.5-15.4) g/dL Hct 33.2 L (35.3-44.9) % Plt Count 239 (140-400) K/mcL Neutrophils # 8.1 (1.6-8.9) K/mcL BMP 03/28/17 04:51 Sodium 141 Potassium 3.9 Chloride 93 L Carbon Dioxide 42 H* BUN 12 Creatinine 0.54 L Glucose 115 H Calcium 8.6 - ABG Interpretation ABG results: PT/INR, D-dimer PT 10.5 Seconds (9.4-12.1) 03/26/17 15:33 - Attending Attestation family has requested to discharge the patient on Sat I examined this patient and my medical decision-making was reviewed with the Resident Physician. I agree with the documented findings, disposition and treatment plan as described except to the extent set forth below.
[2017-03-28] MEDS ORDERED: Haloperidol Lactate 5 MG/ML VIAL IVP ONE (18:51)
[2017-03-28] MEDS ORDERED: *HR* LORazepam 2 MG/ML VIAL IVP ONE (20:42)
[2017-03-28] MEDS ORDERED: *HR* LORazepam 2 MG/ML VIAL ONE (20:44)
[2017-03-28] MEDS: Primidone 50 MG TABLET PO SCH (23:43)
[2017-03-28] MEDS: Mirtazapine 15 MG TABLET PO SCH (23:44)
[2017-03-29] MEDS: Ipratropium/Albuterol Neb 3 ML IH SCH ×7 (00:23→23:28)
[2017-03-29] MEDS: Amoxicillin 500 MG CAPSULE PO SCH ×3 (00:29→16:45)
[2017-03-29] MEDS: methylPREDNISolone 125 MG/2 ML VIAL IVP SCH ×4 (00:33→16:45)
[2017-03-29] MEDS: *HR* LORazepam 2 MG/ML VIAL IVP PRN ×3 (02:21→18:14)
[2017-03-29] MEDS: *HR* Enoxaparin 40 MG/0.4 ML SYRINGE SQ SCH (05:49)
[2017-03-29 06:10] LABS: BUN/Creatinine Ratio 21 (6-26); Blood Urea Nitrogen 11 mg/dL (7-20); Calcium 8.7 mg/dL (8.6-10.8); Chloride 94 mEq/L (98-109); Glucose 105 mg/dL (70-99); Osmolality,Calculated 292 (280-300); Sodium 141 mEq/L (136-145); eGFR For African Americans > 60 (> 60); eGFR For Non-African Americans > 60 (> 60)
[2017-03-29 06:14] LABS: Hematocrit 34.9 % (35.3-44.9); Hemoglobin 11.5 g/dL (11.5-15.4); Immature Granulocytes % 0.4 % (0-4); Lymphocytes # 0.7 K/mcL (0.6-4.6); Lymphocytes % 6.3 %; Mean Corpuscular Hemoglobin 30.3 pg (28.0-33.3); Mean Corpuscular Volume 92.1 fL (83.0-100.0); Mean Platelet Volume 11.4 fL (9.4-12.4); Monocytes # 0.5 K/mcL (0.0-1.3); Monocytes % 5.1 %; Neutrophils # 9.3 K/mcL (1.6-8.9); Platelet Count 256 K/mcL (140-400); Red Blood Count 3.79 M/mcL (3.82-4.97); Red Cell Distribution Width 13.5 % (11.5-14.5); Segmented Neutrophils % 88.2 %
[2017-03-29 06:26] LABS: Carbon Dioxide 43 mEq/L (19-29)
[2017-03-29] MEDS: Budesonide/Formoterol 160/4.5 MDI IH SCH ×2 (07:49→19:58)
--- NOTE | 2017-03-29 09:04 | Palliative Progress Note ---
Date of Encounter: 03/29/17 Time of Encounter: 07:20 - Assessment and plan (1) Encephalopathy acute Current Visit: Yes Status: Acute Assessment and plan: The patient has been placed on scheduled Haldol has not required any breakthrough doses. Of note only required 1 dose Ativan and this is around the time that they were changing over to scheduled Haldol. Patient did not get any breakthrough Haldol earlier this morning. I believe that this probably would have helped as much or more than the Ativan. Educations continue to be available. Patient will require continuing a sitter. (2) Acute exacerbation of chronic obstructive airways disease Current Visit: No Status: Acute Assessment and plan: Severe COPD this is her [facility] diagnosis. Plan is per hospitalist team bronchodilators, oxygen and steroids. (3) Protein-calorie malnutrition, severe Current Visit: No Status: Chronic Assessment and plan: Patient ate at least some yesterday, dietary is following. (4) Goals of care, counseling/discussion Current Visit: No Status: Acute Assessment and plan: Patient is DNR CCA, DNI. The goal of care is for the patient to return home with [facility]. Family is setting up her age but where there will be people in the home with the patient as possible. The patient adamantly does not wish to go to a residential or the patient's medical power of trial attorney. Patient's MPOA should have everything set up by tomorrow and discharge is anticipated Saturday. (5) Dyspnea Current Visit: No Status: Acute Assessment and plan: Plan for oxygen, bronchodilators and steroids per the hospitalist team. Qualifiers: Dyspnea type: shortness of breath Qualified Code(s): R06.02 - Shortness of breath - Time Spent With Patient Total time spent is greater than 50% in coordination of care (as documented) at patient's floor/unit and/or counseling patient: - Subjective Interval history: Reports from overnight patient had a great deal of difficulty between 0 200 and 0 2:30. Medications finally did help. As of this morning the patient is Auman comfortable but is using full accessory muscles to breathe.. - Constitutional Vitals: Abnormal lab results RBC 3.79 M/mcL (3.82-4.97) L 03/29/17 05:20 Hct 34.9 % (35.3-44.9) L 03/29/17 05:20 Neutrophils # 9.3 K/mcL (1.6-8.9) H 03/29/17 05:20 VBG pCO2 86 mmHg (41-51) H 03/26/17 15:33 VBG HCO3 47.5 mEq/L (21-27) H 03/26/17 15:33 Chloride 94 mEq/L (98-109) L 03/29/17 05:20 Carbon Dioxide 43 mEq/L (19-29) H* 03/29/17 05:20 Creatinine 0.53 mg/dL (0.57-1.11) L 03/29/17 05:20 Glucose 105 mg/dL (70-99) H 03/29/17 05:20 POC Glucose 106 (58-89) H 03/29/17 07:13 Urine Protein 100 mg/dL (Neg-Trace) H 03/26/17 18:58 Urine Ketones Trace mg/dL (Negative) H 03/26/17 18:58 Urine Blood Small (Negative) H 03/26/17 18:58 Urine Microscopic RBC 15-30 per hpf (0-3) H 03/26/17 18:58 Urine Microscopic WBC 3-5 per hpf (0-3) H 03/26/17 18:58 Ur Squamous Epith Cells Many per lpf (None-Few) H 03/26/17 18:58 Phenobarbital 1 mcg/mL (15-40) L 03/26/17 15:33 General appearance: Present: mild distress (Short of breath) - Head Head exam: Present: atraumatic, normal inspection - ENT ENT exam: Present: mucous membranes moist - Respiratory Respiratory exam: Present: accessory muscle use, decreased breath sounds, wheezes, tachypnea - Cardiovascular Cardiovascular exam: Present: RRR, tachycardia - GI/Abdominal GI/Abdominal exam: Present: normal bowel sounds, soft. Absent: tenderness - Extremities Exam Extremities exam: Present: normal inspection. Absent: pedal edema, tenderness - Neurological Exam Neurological exam: Present: alert. Absent: oriented X3 - Psychiatric Psychiatric exam: Absent: agitated, anxious (But was markedly agitated earlier this morning.) - Skin Skin exam: Present: dry, warm Palliative Quality Palliative Quality: Screen for Code Status: Yes, Screen for Goals of Care: Yes, Screen for Pain: Yes, If Pain Regimen Started, Initiate Bowel Regimen: Yes, Screen for Nausea/Vomitting: Yes - Labs CBC & Chem 7: 03/29/17 05:20 03/29/17 05:20 Labs: Laboratory Results - last 24 hr 03/28/17 03/28/17 03/29/17 15:43 20:44 05:20 WBC 10.5 RBC 3.79 L Hgb 11.5 Hct 34.9 L MCV 92.1 MCH 30.3 MCHC 33.0 RDW 13.5 Plt Count 256 MPV 11.4 Immature Gran % 0.4 Seg Neutrophils % 88.2 Lymphocytes % 6.3 Monocytes % 5.1 Eosinophils % 0.0 Basophils % 0.0 Neutrophils # 9.3 H Lymphocytes # 0.7 Monocytes # 0.5 Eosinophils # 0.0 Basophils # 0.0 Sodium Potassium Chloride Carbon Dioxide BUN Creatinine Est GFR ( Amer) Est GFR (Non-Af Amer) BUN/Creatinine Ratio Glucose POC Glucose 104 H 145 H Calculated Osmolality Calcium 03/29/17 03/29/17 05:20 07:13 WBC RBC Hgb Hct MCV MCH MCHC RDW Plt Count MPV Immature Gran % Seg Neutrophils % Lymphocytes % Monocytes % Eosinophils % Basophils % Neutrophils # Lymphocytes # Monocytes # Eosinophils # Basophils # Sodium 141 Potassium 4.0 Chloride 94 L Carbon Dioxide 43 H* BUN 11 Creatinine 0.53 L Est GFR ( Amer) > 60 Est GFR (Non-Af Amer) > 60 BUN/Creatinine Ratio 21 Glucose 105 H POC Glucose 106 H Calculated Osmolality 292 Calcium 8.7 - ABG Interpretation ABG results: PT/INR, D-dimer PT 10.5 Seconds (9.4-12.1) 03/26/17 15:33 Consult Discharge Plan - Plan Referrals: NO,PCP [Primary Care Provider] -
--- NOTE | 2017-03-29 09:58 | Internal Med Progress Note ---
<Paul Son - Last Filed: 03/29/17 09:56> Date of Encounter: 03/29/17 Time of Encounter: 08:30 - Assessment and plan (1) Acute exacerbation of chronic obstructive pulmonary disease (COPD) Current Visit: No Status: Acute Assessment and plan: Current visit: No Status: Acute Acute on chronic hypercapnic respiratory failure secondary to Acute exacerbation of chronic advanced COPD - likely contributing to acute encephalopathy -Continue DuoNeb breathing treatment, IV Solu-Medrol -Continue Symbicort and Spiriva, O2 via nasal cannula, empiric IV Rocephin -CXR: no acute process -CT brain: no acute intracranial abnormality -EKG: sinus tachycardia -Strict I/O's, daily weight -Continuous pulse ox, cardiac telemetry -Palliative care has been consulted; plan is to discharge patient on Saturday. (2) Altered mental status Current Visit: Yes Status: Acute Assessment and plan: Acute encephalopathy likely metabolic - secondary to drug-induced (narcotica) and also due to hypercapnia -Hold all narcotics; provide supportive care -Continue breathing treatment and IV Solu-Medrol -CT brain - no acute intracranial abnormality -CXR - no acute process Qualifiers: Altered mental status type: disorientation Qualified Code(s): R41.0 - Disorientation, unspecified (3) Congestive heart failure Current Visit: No Status: Chronic Assessment and plan: Chronic diastolic CHF with LVEF of 60%, not in exacerbation Daily weights, strict I's and O, O2 via nasal cannula Qualifiers: Congestive heart failure type: diastolic Congestive heart failure chronicity: chronic Qualified Code(s): I50.32 - Chronic diastolic (congestive ) heart failure (4) Lung cancer Current Visit: No Status: Chronic Assessment and plan: Right lung nodule (not biopsied) - status post empiric stereotactic body radiotherapy completed in December 2015 Qualifiers: Laterality: right Lung location: unspecified part of lung Qualified Code( s): C34.91 - Malignant neoplasm of unspecified part of right bronchus or lung (5) Pulmonary cachexia due to chronic obstructive pulmonary disease Current Visit: No Status: Chronic Assessment and plan: BMI 15.5 (6) DVT prophylaxis Current Visit: No Status: Acute Assessment and plan: SQ Lovenox - Subjective Interval history: Patient was seen and examined this morning. Patient is not in any respiratory distress. She states that her breathing has improved since admission. Patient still having some tremors. She denies having any chest pain, shortness of breath, cough, fever, chills, or anxiety. Patient does not appear anxious or agitated at this time. Patient has no complaints at this time. - Constitutional Vitals: Temp Pulse Resp BP Pulse Ox 97.8 F 104 18 137/83 100 03/29/17 07:15 03/29/17 07:15 03/29/17 07:49 03/29/17 07:15 03/29/17 07:49 General appearance: Present: cachectic - Respiratory Respiratory exam: Present: decreased breath sounds, rales. Absent: accessory muscle use, rhonchi, wheezes Additional comments: Patient has decreased breath sounds bilaterally. Fine crackles are heard bilaterally in all lung russo. - Cardiovascular Cardiovascular exam: Present: RRR, +S1, +S2. Absent: diastolic murmur, gallop, rubs, systolic murmur Internal Medicine: Result - Labs CBC & Chem 7: 03/29/17 05:20 03/29/17 05:20 Labs: Short CBC 03/29/17 Range/Units 05:20 WBC 10.5 (4.3-11.1) K/mcL Hgb 11.5 (11.5-15.4) g/dL Hct 34.9 L (35.3-44.9) % Plt Count 256 (140-400) K/mcL Neutrophils # 9.3 H (1.6-8.9) K/mcL BMP 03/29/17 05:20 Sodium 141 Potassium 4.0 Chloride 94 L Carbon Dioxide 43 H* BUN 11 Creatinine 0.53 L Glucose 105 H Calcium 8.7 - ABG Interpretation ABG results: PT/INR, D-dimer PT 10.5 Seconds (9.4-12.1) 03/26/17 15:33 Consult Discharge Plan - Plan Referrals: NO,PCP [Primary Care Provider] - <Shane Trimble H - Last Filed: 03/29/17 10:12> Date of Encounter: 03/29/17 - Constitutional Vitals: Temp Pulse Resp BP Pulse Ox 97.8 F 104 18 137/83 100 03/29/17 07:15 03/29/17 07:15 03/29/17 07:49 03/29/17 07:15 03/29/17 07:49 Internal Medicine: Result - Labs CBC & Chem 7: 03/29/17 05:20 03/29/17 05:20 Labs: Short CBC 03/29/17 Range/Units 05:20 WBC 10.5 (4.3-11.1) K/mcL Hgb 11.5 (11.5-15.4) g/dL Hct 34.9 L (35.3-44.9) % Plt Count 256 (140-400) K/mcL Neutrophils # 9.3 H (1.6-8.9) K/mcL BMP 03/29/17 05:20 Sodium 141 Potassium 4.0 Chloride 94 L Carbon Dioxide 43 H* BUN 11 Creatinine 0.53 L Glucose 105 H Calcium 8.7 - ABG Interpretation ABG results: PT/INR, D-dimer PT 10.5 Seconds (9.4-12.1) 03/26/17 15:33 - Attending Attestation Discharge in the morning on hospice I examined this patient and my medical decision-making was reviewed with the Resident Physician. I agree with the documented findings, disposition and treatment plan as described except to the extent set forth below.
[2017-03-29] MEDS: Megestrol Acetate 400 MG/10 ML UDC PO SCH (10:12)
[2017-03-29] MEDS: Famotidine 20 MG TABLET PO SCH ×2 (10:12→16:45)
[2017-03-29] MEDS: Cyanocobalamin (B-12) 1,000 MCG TABLET PO SCH (10:13)
[2017-03-29] MEDS ORDERED: *HR* LORazepam 2 MG/ML VIAL IM ONE (20:02)
[2017-03-30] MEDS: Mirtazapine 15 MG TABLET PO SCH (00:52)
[2017-03-30] MEDS: Primidone 50 MG TABLET PO SCH (00:52)
[2017-03-30] MEDS: Amoxicillin 500 MG CAPSULE PO SCH ×2 (00:52→09:38)
[2017-03-30] MEDS: methylPREDNISolone 125 MG/2 ML VIAL IVP SCH ×2 (00:53→05:52)
[2017-03-30] MEDS: Ipratropium/Albuterol Neb 3 ML IH SCH ×3 (04:16→11:29)
[2017-03-30] MEDS: *HR* Enoxaparin 40 MG/0.4 ML SYRINGE SQ SCH (05:52)
[2017-03-30 06:04] LABS: Immature Granulocytes % 0.3 % (0-4); Lymphocytes # 0.7 K/mcL (0.6-4.6); Lymphocytes % 7.1 %; Mean Corpuscular HGB Conc 32.4 g/dL (31.6-35.5); Mean Corpuscular Hemoglobin 29.8 pg (28.0-33.3); Mean Corpuscular Volume 91.7 fL (83.0-100.0); Mean Platelet Volume 11.7 fL (9.4-12.4); Monocytes # 0.4 K/mcL (0.0-1.3); Monocytes % 3.6 %; Neutrophils # 8.8 K/mcL (1.6-8.9); Platelet Count 286 K/mcL (140-400); Red Blood Count 4.47 M/mcL (3.82-4.97); Red Cell Distribution Width 13.4 % (11.5-14.5)
[2017-03-30 06:15] LABS: Hemoglobin 13.3 g/dL (11.5-15.4)
[2017-03-30 06:28] LABS: BUN/Creatinine Ratio 21 (6-26); Blood Urea Nitrogen 13 mg/dL (7-20); Chloride 91 mEq/L (98-109); Glucose 110 mg/dL (70-99); Osmolality,Calculated 295 (280-300); Sodium 142 mEq/L (136-145); eGFR For African Americans > 60 (> 60); eGFR For Non-African Americans > 60 (> 60)
[2017-03-30 06:30] LABS: Carbon Dioxide 46 mEq/L (19-29)
[2017-03-30 08:02] VITALS: BP 130/84
[2017-03-30] MEDS: Budesonide/Formoterol 160/4.5 MDI IH SCH (08:06)
--- NOTE | 2017-03-30 08:30 | Discharge Summary ---
<Paul Son - Last Filed: 03/30/17 08:28> Date of Encounter: 03/30/17 Time of Encounter: 08:00 - Discharge Diagnosis (1) Acute exacerbation of chronic obstructive pulmonary disease (COPD) Priority: Primary Status: Acute Comments: Acute on chronic hypercapnic respiratory failure secondary to Acute exacerbation of chronic advanced COPD - likely contributing to acute encephalopathy -Patient has been given both DuoNeb breathing treatment and IV Solu-Medrol -Continue Symbicort and Spiriva, O2 via nasal cannula, empiric IV Rocephin -CXR: no acute process -CT brain: no acute intracranial abnormality -EKG: sinus tachycardia -Strict I/O's, daily weight -Patient's breathing has improved since admission. (2) Altered mental status Priority: Secondary Status: Acute Comments: Acute encephalopathy likely metabolic - secondary to drug-induced (narcotica) and also due to hypercapnia -Hold all narcotics; provide supportive care -Continue breathing treatment and IV Solu-Medrol -CT brain - no acute intracranial abnormality -CXR - no acute process -Patient became combative during one point her stay, was given haloperidol. -Patient has not become combative or experienced hallucinations since. Qualifiers: Altered mental status type: disorientation Qualified Code(s): R41.0 - Disorientation, unspecified (3) Congestive heart failure Priority: Secondary Status: Chronic Comments: Chronic diastolic CHF with LVEF of 60%, not in exacerbation Daily weights, strict I's and O, O2 via nasal cannula Qualifiers: Congestive heart failure type: diastolic Congestive heart failure chronicity: chronic Qualified Code(s): I50.32 - Chronic diastolic (congestive ) heart failure (4) Lung cancer Priority: Secondary Status: Chronic Comments: Right lung nodule (not biopsied) - status post empiric stereotactic body radiotherapy completed in December 2015 Qualifiers: Laterality: right Lung location: unspecified part of lung Qualified Code( s): C34.91 - Malignant neoplasm of unspecified part of right bronchus or lung (5) Pulmonary cachexia due to chronic obstructive pulmonary disease Priority: Secondary Status: Chronic (6) DVT prophylaxis Priority: Secondary Status: Acute - Discharge Medications Prescriptions: ALPRAZolam [Xanax 1 MG Tablet] 1 mg PO TID #20 Haloperidol 0.5 mg SL Q2H PRN #40 PRN Reason: Agitation LORazepam [Ativan] 1 mg PO Q4H PRN #40 PRN Reason: Anxiety Morphine Oral CONC [Roxanol] 5 mg SL Q4H PRN 30 Days PRN Reason: Pain predniSONE [PredniSONE] 10 mg PO DAILY 18 Days Home Medications: Budesonide/Formoterol 160/4.5 [Symbicort 160/4.5] 2 puff IH BID 09/05/15 [ History] Cetirizine HCl [Zyrtec] 10 mg PO QPM 09/05/15 [History] Omeprazole [PriLOSEC] 20 mg PO DAILY 09/05/15 [History] Primidone [Mysoline] 100 mg PO HS 09/05/15 [History] Roflumilast [Daliresp] 500 mcg PO DAILY 09/05/15 [History] Tiotropium [Spiriva] 18 mcg IH 0700 09/05/15 [History] Albuterol Neb [Proventil Neb] 2.5 mg IH Q4H PRN 11/21/15 [History] Cyclobenzaprine [Flexeril] 10 mg PO TID PRN 03/05/16 [History] Oxygen 4 l NS DAILY 03/05/16 [History] Paroxetine [Paxil] 20 mg PO QAM 06/19/16 [History] Megestrol Acetate [Megace] 800 mg PO DAILY #600 mls 10/02/16 [Rx] Acetylcysteine [U-Yivjmv-d-Cysteine] 600 mg PO BIDWM 10/30/16 [History] GuaiFENesin ER [Mucinex] 600 mg PO BID PRN 10/30/16 [History] Mirtazapine [Remeron] 7.5 mg PO HS #30 tablet 11/02/16 [Rx] Trazodone HCl 200 mg PO HS 12/10/16 [History] Albuterol Sulfate [Proair Hfa] 2 puff IH Q4H PRN 03/26/17 [History] Cyanocobalamin (Vitamin B-12) [Vitamin B12] 1,000 mcg PO DAILY 03/26/17 [History ] Dronabinol [Marinol] 2.5 mg PO BID 03/26/17 [History] Ergocalciferol (VITAMIN D2) [Vitamin D2] 50,000 unit PO QWEEK 03/26/17 [History] Hyoscyamine SL [Levsin Sl] 0.125 - 0.25 mg SL Q2H PRN 03/26/17 [History] Ipratropium/Albuterol Neb [Duoneb] 3 ml IH Q4HR 03/26/17 [History] ALPRAZolam [Xanax 1 MG Tablet] 1 mg PO TID #20 03/30/17 [Rx] Haloperidol 0.5 mg SL Q2H PRN #40 03/30/17 [Rx] LORazepam [Ativan] 1 mg PO Q4H PRN #40 03/30/17 [Rx] Morphine Oral CONC [Roxanol] 5 mg SL Q4H PRN 30 Days 03/30/17 [Rx] predniSONE [PredniSONE] 10 mg PO DAILY 18 Days 03/30/17 [Rx] Allergies/Adverse Reactions: Allergies morphine Adverse Reaction (Verified 03/26/17 18:11) Itching IV only. Patient currently taking this medication orally. Verified with patient and pharmacy. Date of admission: 03/28/17 14:48 Primary care physician: PCP LUIS Discharging clinician: Paul Son Anticipated date of discharge: 03/30/17 - Patient Status Disposition: Hospice - Home Condition: Fair Overall status at discharge: patient is progressing back to baseline - Discharge Instructions Follow Up With: NO,PCP [Primary Care Provider] - - Diet and Activity Activity: increase activity as tolerated Diet: advance to your usual diet Hospital course: Ms. Holland is a 66 year old female with a past medical history of advanced COPD ( on hospice care), hyperlipidemia, lung cancer, diastolic CHF, DVT, GERD, osteoporosis, anxiety and depression and essential tremor. She presented to the ED with the chief complaint of AMS and SOB. Upon admission, she was unable to provide good history because of acute encephalopathy and also due to mild shortness of breath. Patient was able to answer some questions, but was in mild discomfort. Patient was found laying on the floor by the hospice care nurse. She was initially unresponsive, and so squad was called. Was not using her nasal cannula when she was found. Patient was short of breath when she eventually woke up. Her condition improved when she started oxygen. Sister states this is a usual presentation for the patient. It is unclear as to how long patient had been passed out. Family states patient is on hospice, and she has been on morphine and Xanax. Sister thinks the patient passed out likely due to the medications that she takes and also due to her COPD exacerbation. Patient's shortness of breath is present at rest. It was aggravated by exertion. Patient also has some difficulty sitting still due to her shortness of breath. In the ED, patient had an elevated white count and CO2 level. Chest x-ray showed no acute process. CT scan of the brain showed no acute intracranial abnormality. Patient was admitted for acute COPD exacerbation and acute encephalopathy. Patient's guarded condition and poor prognosis was explained to both the patient and her family. Patient's sister is the power of tax attorney. Sister states Patient is a DO NOT RESUSCITATE and DO NOT INTUBATE status. During her stay in hospital, patient continued to have some shortness of breath. To deal with patient's acute exacerbation of COPD, patient was given 2 DuoNeb breathing treatments and IV Solu-Medrol. She was also kept on nasal cannula of oxygen. At one point during her hospital stay, patient became combative and seemed to have hallucinations. During this episode, patient was given haloperidol. Afterwards patient was given a low daily dose of haloperidol , which seemed to improve her agitation. On physical examination, patient has diminished breath sounds bilaterally, as well as fine crackles. Patient had a hard time sitting still in her stay, however this has improved on date of discharge. Palliative care was consulted. Patient will be returned home with [facility] hospice. - Time Spent with Patient Total time spent providing and/or coordinating discharge services: Greater than 30 minutes (41 minutes) - Constitutional Vitals: Temp Pulse Resp BP Pulse Ox 98.7 F 89 18 130/84 99 03/30/17 08:00 03/30/17 08:00 03/30/17 08:00 03/30/17 08:00 03/30/17 08:00 General appearance: Present: cachectic - ENT ENT exam: Present: mucous membranes dry - Respiratory Respiratory exam: Present: rales, rhonchi, wheezes. Absent: CTAB Additional comments: Patient has diminished breath sounds bilaterally in all lung russo. Fine crackles are heard bilaterally. - Cardiovascular Cardiovascular exam: Present: RRR, +S1, +S2. Absent: diastolic murmur, gallop, rubs, systolic murmur - Psychiatric Psychiatric exam: Present: normal affect, normal mood <Shane Trimble H - Last Filed: 03/30/17 09:34> Date of Encounter: 03/30/17 Date of admission: 03/28/17 14:48 Primary care physician: PCP NO Hospital course: Ms. Holland is a 66 year old female - Time Spent with Patient Total time spent providing and/or coordinating discharge services: - Constitutional Vitals: Temp Pulse Resp BP Pulse Ox 98.7 F 89 18 130/84 99 03/30/17 08:00 03/30/17 08:00 03/30/17 08:00 03/30/17 08:00 03/30/17 08:00 - Attending Attestation Discharge home on hospice. Continue prednisone taper I examined this patient and my medical decision-making was reviewed with the Resident Physician. I agree with the documented findings, disposition and treatment plan as described except to the extent set forth below.
--- NOTE | 2017-03-30 09:01 | Physician Discharge Referral ---
Home Health/Hosp Referral Info Transfer to: Hospice Provider in Charge Post Discharge: Admissions Supervisor - Diagnosis (1) Acute exacerbation of chronic obstructive pulmonary disease (COPD) Priority: Primary Status: Acute (2) Altered mental status Priority: Secondary Status: Acute (3) Congestive heart failure Priority: Secondary Status: Chronic (4) Lung cancer Priority: Secondary Status: Chronic (5) Pulmonary cachexia due to chronic obstructive pulmonary disease Priority: Secondary Status: Chronic (6) DVT prophylaxis Priority: Secondary Status: Acute - Respiratory Orders Oxygen / L per min Smoking Cessation: Smoking cessation has been advised. For more information, call the [place] Tobacco Quit Line at 7-339-UAOD-NOW. - Activity Activity Orders: Bedrest - Transfer Medications Prescriptions: ALPRAZolam [Xanax 1 MG Tablet] 1 mg PO TID #20 Haloperidol 0.5 mg SL Q2H PRN #40 PRN Reason: Agitation LORazepam [Ativan] 1 mg PO Q4H PRN #40 PRN Reason: Anxiety Morphine Oral CONC [Roxanol] 5 mg SL Q4H PRN 30 Days PRN Reason: Pain predniSONE [PredniSONE] 10 mg PO DAILY 18 Days Home Medications: Budesonide/Formoterol 160/4.5 [Symbicort 160/4.5] 2 puff IH BID 09/05/15 [ History] Cetirizine HCl [Zyrtec] 10 mg PO QPM 09/05/15 [History] Omeprazole [PriLOSEC] 20 mg PO DAILY 09/05/15 [History] Primidone [Mysoline] 100 mg PO HS 09/05/15 [History] Roflumilast [Daliresp] 500 mcg PO DAILY 09/05/15 [History] Tiotropium [Spiriva] 18 mcg IH 0700 09/05/15 [History] Albuterol Neb [Proventil Neb] 2.5 mg IH Q4H PRN 11/21/15 [History] Cyclobenzaprine [Flexeril] 10 mg PO TID PRN 03/05/16 [History] Oxygen 4 l NS DAILY 03/05/16 [History] Paroxetine [Paxil] 20 mg PO QAM 06/19/16 [History] Megestrol Acetate [Megace] 800 mg PO DAILY #600 mls 10/02/16 [Rx] Acetylcysteine [I-Obmwzl-a-Cysteine] 600 mg PO BIDWM 10/30/16 [History] GuaiFENesin ER [Mucinex] 600 mg PO BID PRN 10/30/16 [History] Mirtazapine [Remeron] 7.5 mg PO HS #30 tablet 11/02/16 [Rx] Trazodone HCl 200 mg PO HS 12/10/16 [History] Albuterol Sulfate [Proair Hfa] 2 puff IH Q4H PRN 03/26/17 [History] Cyanocobalamin (Vitamin B-12) [Vitamin B12] 1,000 mcg PO DAILY 03/26/17 [History ] Dronabinol [Marinol] 2.5 mg PO BID 03/26/17 [History] Ergocalciferol (VITAMIN D2) [Vitamin D2] 50,000 unit PO QWEEK 03/26/17 [History] Hyoscyamine SL [Levsin Sl] 0.125 - 0.25 mg SL Q2H PRN 03/26/17 [History] Ipratropium/Albuterol Neb [Duoneb] 3 ml IH Q4HR 03/26/17 [History] ALPRAZolam [Xanax 1 MG Tablet] 1 mg PO TID #20 03/30/17 [Rx] Haloperidol 0.5 mg SL Q2H PRN #40 03/30/17 [Rx] LORazepam [Ativan] 1 mg PO Q4H PRN #40 03/30/17 [Rx] Morphine Oral CONC [Roxanol] 5 mg SL Q4H PRN 30 Days 03/30/17 [Rx] predniSONE [PredniSONE] 10 mg PO DAILY 18 Days 03/30/17 [Rx] Allergies/Adverse Reactions: Allergies morphine Adverse Reaction (Verified 03/26/17 18:11) Itching IV only. Patient currently taking this medication orally. Verified with patient and pharmacy. Certification: Further, I certify that my clinical findings support that this patient is homebound (i.e. absences from home require considerable and taxing effort and are for medical reasons or confucianist services or infrequently or short duration when for other reasons) because: Homebound Reason: Severity of cardiac or pulmonary status limits activity tolerance Attestation: My signature below is to certify that this patient is under my care and that I, or nurse practitioner, or a physician's child care center assistant director working with me, has a face-to -face encounter with this patient.
[2017-03-30] MEDS: Cyanocobalamin (B-12) 1,000 MCG TABLET PO SCH (09:38)
[2017-03-30] MEDS: Famotidine 20 MG TABLET PO SCH (09:38)
[2017-03-30] MEDS: Megestrol Acetate 400 MG/10 ML UDC PO SCH (09:38)
== END 2017-03-30 11:31 | disposition hospice, home (50) | DRG 190 ==
LOC: 2ANU 13:40 → EMEROO 13:40 → 2ANU 19:17
PROVIDERS: ADMIT Internal Medicine; ATTEND Internal Medicine